=== PATIENT | female | born 1960 | race Caucasian/White ===

== ENCOUNTER 2023-01-13 07:50 | Emergency (ER) | payer BC, SELFPAY ==
[2023-01-13] VITALS (20 sets, daily range): BP systolic 140–190; BP diastolic 70–100; PULSE 63–81; RESP 14–21; TEMP 36.4; O2SAT 95–100; BMI 23.4
--- NOTE | 2023-01-13 08:07 | ECG_ITS ---
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
--- NOTE | 2023-01-13 08:07 | XR_ITS ---
The [address] [address] Patient Name: SCOTT FRANCIS MRN: [id number] date: 1960 Sex: F Assigned Patient Location: ER Current Patient Location: ER Accession/Order Number: [id number] Exam Date: 01/13/2023 08:16 Report Date: 01/13/2023 08:26 At the request of: FRANCESCO KOTHARI Procedure: XR chest 1V EXAM: XR chest 1V HISTORY: Chest pain. COMPARISON: None. TECHNIQUE: AP erect portable chest radiograph performed. FINDINGS: The trachea is midline. The heart size is normal. The cardiomediastinal silhouette and hilar shadows are within normal limits. The lung volumes are normal. The lung kuhn are clear. There is no pneumothorax. The osseous structures are unremarkable. XR/XR chest 1V IMPRESSION: Unremarkable AP erect portable chest radiograph. Electronically authenticated by: NILESH PIERCE Date: 01/13/2023 08:26
--- NOTE | 2023-01-13 08:09 | ED_ITS ---
HPI - Chest Pain General Chief Complaint: Chest Pain Stated Complaint: CHEST PAIN Time Seen by Provider: 01/13/23 07:50 Source: patient Mode of arrival: walk-in Limitations: no limitations History of Present Illness HPI narrative: 63-year-old female presents for chest pain. She's had it nearly continuously for twenty-five hours. It's in the middle part of her chest and it's sharp and it goes to both arms. No trauma or unusual activity. And sweating a lot. No fever or productive cough. She does not complain of back pain. The pain is moderate. Related Data Home Medications Medication Instructions Recorded Confirmed bisoprolol 10 1 tab PO DAILY 01/13/23 01/13/23 mg-hydrochlorothiazide 6.25 mg tablet cyclobenzaprine 10 mg tablet 10 mg PO BEDTIME PRN muscle spasm 01/13/23 01/13/23 levothyroxine 50 mcg tablet 50 mcg PO DAILY 01/13/23 01/13/23 meloxicam 15 mg tablet 15 mg PO DAILY 01/13/23 01/13/23 Allergies Allergy/AdvReac Type Severity Reaction Status Date / Time No Known Drug Allergies Allergy Verified 01/13/23 07:53 Review of Systems ROS Narrative A ten point review of systems is negative except as noted above. [facility] Medical History (Updated 01/13/23 @ 08:40 by Manish Kohli MD) Social History Smoking status: Heavy tobacco smoker Exam Narrative Exam Narrative: Nurses note and vital signs reviewed and patient is not hypoxic. General: The patient appears well and in no apparent distress. Patient is resting comfortably on cart. Skin: Warm, dry, no pallor noted. There is no rash noted. Head: Normocephalic, atraumatic Eye: Normal conjunctiva, no drainage Ears, Nose, Mouth, and Throat: oral mucosa is moist. Nares patent. Cardiovascular: Regular Rate and Rhythm Respiratory: Patient is in no distress, no accessory muscle use, lungs are clear to auscultation, no wheezing, rales or rhonchi Back: non-tender GI: soft and nontender Musculoskeletal: The patient has no evidence of calf tenderness, no pitting edema, symmetrical pulses noted bilaterally Neurological: A&O, normal speech Psychiatric: Cooperative Constitutional Vital Signs, click to edit/add: Last Vital Signs Temp 97.5 F L 01/13/23 07:54 Pulse 64 01/13/23 08:59 Resp 16 01/13/23 08:59 BP 160/78 H 01/13/23 08:59 Pulse Ox 96 01/13/23 08:59 O2 Del Method Room Air 01/13/23 08:59 Course Vital Signs Vital signs: Vital Signs Temperature 97.5 F L 01/13/23 07:54 Pulse Rate 81 01/13/23 07:54 Respiratory Rate 16 01/13/23 07:54 Blood Pressure 190/100 H 01/13/23 07:54 Pulse Oximetry 100 01/13/23 07:54 Oxygen Delivery Method Room Air 01/13/23 07:54 Temperature 97.5 F L 01/13/23 07:54 Pulse Rate 64 01/13/23 08:59 Respiratory Rate 16 01/13/23 08:59 Blood Pressure 160/78 H 01/13/23 08:59 Pulse Oximetry 96 01/13/23 08:59 Oxygen Delivery Method Room Air 01/13/23 08:59 MDM - Chest Pain MDM Narrative Medical decision making narrative: Troponin has come back elevated at 5762. EKG shows no ST segment elevation or depression. I've discussed the case with Dr. Ruelas and Dr Coyle and the patient will be transferred to [facility] for probable heart catheterization today. This was discussed thoroughly with the patient. She is hemodynamically stable and agreeable for transfer. Differential Diagnosis Differential diagnosis: Likely pneumothorax, stable angina, unstable angina pectoris, atypical chest pain, st elevation myocardial infarction, costochondritis, chest pain and other (NSTEMI) Lab Data Attestation: I reviewed the patient's lab results. Labs: Lab Results 01/13/23 Range/Units 08:04 WBC 11.7 H (4.0-11.0) 10^3/uL RBC 4.78 (4.20-5.40) 10^6/uL Hgb 16.7 H (12.0-16.0) g/dL Hct 46.8 (36.0-48.0) % MCV 97.9 (81.0-99.0) fL MCH 34.9 H (26.7-34.0) pg MCHC 35.7 H (29.9-35.2) g/dL RDW 12.0 (11.0-15.0) % Plt Count 268 (150-450) 10^3/uL MPV 8.5 L (9.5-13.5) fL Neut % (Auto) 68.1 (43.0-75.0) % Lymph % (Auto) 23.8 (20.5-60.0) % [place] % (Auto) 6.8 (1.7-12.0) % Eos % (Auto) 0.4 L (0.9-7.0) % Baso % (Auto) 0.6 (0.2-2.0) % Neut # (Auto) 8.0 H (1.4-6.5) 10^3/uL Lymph # (Auto) 2.8 (1.2-3.8) 10^3/uL [place] # (Auto) 0.8 (0.3-0.8) 10^3/uL Eos # (Auto) 0.1 (0.0-0.7) 10^3/uL Baso # (Auto) 0.1 (0.0-0.1) 10^3/uL Abs Immat Gran (auto) 0.03 (0.00-0.03) 10^3/uL Imm/Tot Granulo (auto) 0.3 (0.0-0.5) % PT 9.7 (9.0-11.6) sec INR <0.93 APTT 31.8 (22.3-36.2) sec Sodium 127 L (136-145) mmol/L Potassium 3.4 L (3.5-5.1) mmol/L Chloride 91 L (98-107) mmol/L Carbon Dioxide 27.3 (21.0-32.0) mmol/L Anion Gap 12.1 BUN 6.0 L (7.0-18.0) mg/dL Creatinine 0.65 (0.55-1.02) mg/dL Est GFR ( Amer) >60 (>=60) Est GFR (Non-Af Amer) >60 (>=60) BUN/Creatinine Ratio 9.2 Glucose 149 H (74-106) mg/dL Calcium 9.1 (8.5-10.1) mg/dL Troponin I High Sens 5762.8 H* (4.0-51.3) pg/mL Imaging Data Chest x-ray: Radiologist's impression: Procedure: XR chest 1V EXAM: XR chest 1V HISTORY: Chest pain. COMPARISON: None. TECHNIQUE: AP erect portable chest radiograph performed. FINDINGS: The trachea is midline. The heart size is normal. The cardiomediastinal silhouette and hilar shadows are within normal limits. The lung volumes are normal. The lung kuhn are clear. There is no pneumothorax. The osseous structures are unremarkable. IMPRESSION: Unremarkable AP erect portable chest radiograph. Electronically authenticated by: NILESH PIERCE Date: 01/13/2023 08:26 ECG Data Attestation: I personally reviewed and interpreted this ECG as follows: (EKG on my interpretation shows sinus rhythm without acute change and a rate of 64.) Heart Score History: Moderatly Suspicious ECG: Normal Age: >45-<65 years Risk Factors: >3 Risk Factors/ HX of CAD:2 Troponin: >3X Normal Limit Total Heart Score Recommendations & Risks:: 6 Critical Care Time Critical Care Time Critical Care Time: Yes Total Critical Care Time: 45 Attestation: Due to the high probability of sudden and clinically significant deterioration in the patient's condition he/she required the highest level of my preparedness to intervene urgently I provided critical care time including documentation time, medication orders and management, reevaluation, vital sign assessment, ordering and reviewing of lab tests, ordering and reviewing of x-ray studies, and admission orders. Aggregate critical care time is 45 minutes including only time during which I was engaged in work directly related to his/her care and did not include time spent treating other patients simultaneously. Discharge Plan Discharge Chief Complaint: Chest Pain Clinical Impression: Acute non-ST elevation myocardial infarction (NSTEMI) Patient Disposition: [facility] Time of Disposition Decision: 08:40 Discharge Location: [facility] Condition: Fair Mode of Transportation: EMS
[2023-01-13 08:13] LABS: Basophils Absolute Auto 0.1 10^3/uL (0.0-0.1); Basophils Percent Auto 0.6 % (0.2-2.0); Eosinophils Absolute Auto 0.1 10^3/uL (0.0-0.7); Eosinophils Percent Auto 0.4 % (0.9-7.0); Hematocrit 46.8 % (36.0-48.0); Hemoglobin 16.7 g/dL (12.0-16.0); Immature Granulocytes Abs Auto 0.03 10^3/uL (0.00-0.03); Immature Granulocytes Pct Auto 0.3 % (0.0-0.5); Lymphocytes Absolute Auto 2.8 10^3/uL (1.2-3.8); Lymphocytes Percent Auto 23.8 % (20.5-60.0); Mean Corpuscular HGB Conc 35.7 g/dL (29.9-35.2); Mean Corpuscular Hemoglobin 34.9 pg (26.7-34.0); Mean Corpuscular Volume 97.9 fL (81.0-99.0); Mean Platelet Volume 8.5 fL (9.5-13.5); Monocytes Absolute Auto 0.8 10^3/uL (0.3-0.8); Monocytes Percent Auto 6.8 % (1.7-12.0); Neutrophils Percent Auto 68.1 % (43.0-75.0); Platelet Count 268 10^3/uL (150-450); Red Blood Count 4.78 10^6/uL (4.20-5.40); White Blood Count 11.7 10^3/uL (4.0-11.0)
[2023-01-13] MEDS: ASPIRIN 81 MG TAB.CHEW 324 MG PO (08:17)
[2023-01-13] MEDS: NITROGLYCERIN 0.4 MG BOTTLE PO (08:18)
[2023-01-13 08:30] LABS: Anion Gap 12.1; BUN Creatinine Ratio 9.2; Calcium 9.1 mg/dL (8.5-10.1); Carbon Dioxide 27.3 mmol/L (21.0-32.0); Chloride 91 mmol/L (98-107); Estimated GFR (African America >60 (>=60); Estimated GFR (Non-African Ame >60 (>=60); Glucose 149 mg/dL (74-106); Potassium 3.4 mmol/L (3.5-5.1); Sodium 127 mmol/L (136-145)
[2023-01-13 08:32] LABS: Troponin I High Sensitivity 5762.8 pg/mL (4.0-51.3)
[2023-01-13] MEDS: HEPARIN SODIUM (PORCINE) 5,000 UNIT/ML VIAL 3950 UNIT IV (08:46)
[2023-01-13] MEDS: HEPARIN SODIUM,PORCINE/D5W 25,000 UNIT/500 ML IV.SOLN 15.785 UNIT IV (08:46)
[2023-01-13 08:47] LABS: Partial Thromboplastin Time 31.8 sec (22.3-36.2); Prothrombin Time 9.7 sec (9.0-11.6)
[2023-01-13 09:11] LABS: INR <0.93
[2023-01-13] MEDS: MORPHINE SULFATE 4 MG/ML VIAL IV (09:23)
== END 2023-01-13 11:06 | disposition short-term general hospital (02) ==
PROVIDERS: Emergency Provider Emergency Medicine; PCP Family Medicine
DX: I21.4 Non-ST elevation (NSTEMI) myocardial infarction (principal); F17.210 Nicotine dependence, cigarettes, uncomplicated; Z79.899 Other long term (current) drug therapy; Z79.890 Hormone replacement therapy
CPT/HCPCS: 36415; 71045; 80048; 84484; 85025; 85610; 85730; 93005; 96374; 96375; 99285

== ENCOUNTER 2023-01-16 14:50 | Emergency (ER) | payer BC, SELFPAY ==
[2023-01-16 14:56] VITALS: BP 145/81; PULSE 68; RESP 16; TEMP 36.7; O2SAT 99; BMI 24.2
--- NOTE | 2023-01-16 15:21 | XR_ITS ---
The [address] [address] Patient Name: SCOTT FRANCIS MRN: [id number] date: 1960 Sex: F Assigned Patient Location: ER Current Patient Location: ER Accession/Order Number: [id number] Exam Date: 01/16/2023 15:32 Report Date: 01/16/2023 16:06 At the request of: CINTHYA STREETER Procedure: XR chest 1V EXAM: XR chest 1V HISTORY: shortness of breath COMPARISON: Chest radiographs from 01/13/2023 TECHNIQUE: AP radiograph of the chest. FINDINGS: The cardiomediastinal silhouette and pulmonary vasculature are normal. The lungs are without focal consolidation, pneumothorax, or pleural effusion. No acute osseous abnormality. XR/XR chest 1V IMPRESSION: 1. No acute pulmonary abnormality. Electronically authenticated by: JAMIE PEREZ Date: 01/16/2023 16:06
--- NOTE | 2023-01-16 15:21 | ECG_ITS ---
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
--- NOTE | 2023-01-16 15:23 | ED_ITS ---
HPI - General Adult General Chief complaint: Skin/Abscess/Foreign Body Stated complaint: POSS ALLERGIC REACTION Time Seen by Provider: 01/16/23 15:00 History of Present Illness HPI narrative: patient underwent cardiac catheterization this week in [place] and had two stents placed. Now she presents with concerns about the same shortness of breath she had while at the hospital - it has not worsened - and a red rash under her chin and at the back of her neck - that began while she was at the hospital in [place] after the heart cath - but she did not tell them about it. No associated chest pressure, tightness or pain. She is along term daily smoker but has never been tested for COPD. No history of asthma. No fever or chills. No cough or cold symptoms. No GI or symptoms Related Data Home Medications Medication Instructions Recorded Confirmed bisoprolol 10 1 tab PO DAILY 01/13/23 01/13/23 mg-hydrochlorothiazide 6.25 mg tablet cyclobenzaprine 10 mg tablet 10 mg PO BEDTIME PRN muscle spasm 01/13/23 01/13/23 levothyroxine 50 mcg tablet 50 mcg PO DAILY 01/13/23 01/13/23 meloxicam 15 mg tablet 15 mg PO DAILY 01/13/23 01/13/23 Previous Rx's Medication Instructions Recorded albuterol sulfate 90 mcg/actuation 2 inh inhalation Q6H PRN shortness 01/16/23 aerosol inhaler (ProAir HFA) of breath or wheezing #6.7 grams Allergies Allergy/AdvReac Type Severity Reaction Status Date / Time No Known Drug Allergies Allergy Verified 01/13/23 07:53 PFSH PFSH Medical History (Updated 01/16/23 @ 16:22 by Cinthya Streeter) History of high cholesterol ?Z86.39 - Personal history of other endocrine, nutritional and metabolic disease (ICD-10) History of hypothyroidism ?Z86.39 - Personal history of other endocrine, nutritional and metabolic disease (ICD-10) History of TMJ syndrome ?Z87.39 - Personal history of other diseases of the musculoskeletal system and connective tissue (ICD-10) Hypertension ?I10 - Essential (primary) hypertension (ICD-10) Surgical History (Updated 01/16/23 @ 15:05 by Ramon Woodruff) History of heart artery stent ?Z95.5 - Presence of coronary angioplasty implant and graft (ICD-10) Hx of cardiac catheterization ?Z98.890 - Other specified postprocedural states (ICD-10) Social History Smoking status: Heavy tobacco smoker Exam Narrative Exam Narrative: Nurses notes and vital signs reviewed and patient is not hypoxic. afebrile General: Well-appearing and in no apparent distress. Skin: Warm, dry, no pallor noted. Erythematous rash noted to the underside of the chin and to the back of the neck. no vesicle or blisters, no weeping or skin break. Head: Normocephalic, atraumatic. Neck: Supple, non-tender. No cervical lymphadenopathy Eye: Pupils are equal, round and EOMI. No scleral icterus. Ears, Nose, Mouth, and Throat: Oral mucosa is moist, no posterior oropharynx erythema or swelling, uvula is mid-line Cardiovascular: Regular Rate and Rhythm without murmur, gallop or rub. Respiratory: No accessory muscle use or respiratory distress. Lungs are clear to auscultation, no wheezing, rales or rhonchi Musculoskeletal: normal ROM, no calf or popliteal tenderness, no lower extremity edema/swelling GI: Abdomen is soft, non-distended. Normal bowel sounds. No tenderness to palpation. No rebound, guarding, or rigidity noted. Neurological: A&O x4. No cranial nerve dysfunction observed. No truncal ataxia. Moves all extremities. Sensation intact. Psychiatric: Cooperative and interactive. Normal mood and affect. Constitutional Vital Signs, click to edit/add: Last Vital Signs Temp 98.1 F 01/16/23 14:56 Pulse 68 01/16/23 14:56 Resp 16 01/16/23 14:56 BP 145/81 H 01/16/23 14:56 Pulse Ox 99 01/16/23 14:56 O2 Del Method Room Air 01/16/23 14:56 Course Vital Signs Vital signs: Vital Signs Temperature 98.1 F 01/16/23 14:56 Pulse Rate 68 01/16/23 14:56 Respiratory Rate 16 01/16/23 14:56 Blood Pressure 145/81 H 01/16/23 14:56 Pulse Oximetry 99 01/16/23 14:56 Oxygen Delivery Method Room Air 01/16/23 14:56 Temperature 98.1 F 01/16/23 14:56 Pulse Rate 68 01/16/23 14:56 Respiratory Rate 16 01/16/23 14:56 Blood Pressure 145/81 H 01/16/23 14:56 Pulse Oximetry 99 01/16/23 14:56 Oxygen Delivery Method Room Air 01/16/23 14:56 Medical Decision Making MDM Narrative Medical decision making narrative: 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 Blood drawn and sent for evaluation. CXR obtained and was unremarkable. troponin trending downward from 5762.8 on 01/13 to 5489.7 today. Normal WBC. Normal BMP. Patient informed of results and given reassurance. Discharged home with prescription for albuterol MDI and instructed to stop smoking. She got a prescription for nicotine patch. Medical Records Medical records reviewed: Yes I reviewed the patient's medical records Medical records narrative: The patient's previous troponin was 5762.8 Lab Data Lab results reviewed: Yes I reviewed the patient's lab results Labs: Lab Results 01/16/23 Range/Units 15:35 WBC 10.9 (4.0-11.0) 10^3/uL RBC 3.43 L (4.20-5.40) 10^6/uL Hgb 12.1 (12.0-16.0) g/dL Hct 35.5 L (36.0-48.0) % MCV 103.5 H (81.0-99.0) fL MCH 35.3 H (26.7-34.0) pg MCHC 34.1 (29.9-35.2) g/dL RDW 12.3 (11.0-15.0) % Plt Count 219 (150-450) 10^3/uL MPV 8.8 L (9.5-13.5) fL Neut % (Auto) 71.6 (43.0-75.0) % Lymph % (Auto) 14.7 L (20.5-60.0) % [place] % (Auto) 8.6 (1.7-12.0) % Eos % (Auto) 4.0 (0.9-7.0) % Baso % (Auto) 0.7 (0.2-2.0) % Neut # (Auto) 7.8 H (1.4-6.5) 10^3/uL Lymph # (Auto) 1.6 (1.2-3.8) 10^3/uL [place] # (Auto) 0.9 H (0.3-0.8) 10^3/uL Eos # (Auto) 0.4 (0.0-0.7) 10^3/uL Baso # (Auto) 0.1 (0.0-0.1) 10^3/uL Abs Immat Gran (auto) 0.04 H (0.00-0.03) 10^3/uL Imm/Tot Granulo (auto) 0.4 (0.0-0.5) % Sodium 134 L (136-145) mmol/L Potassium 3.7 (3.5-5.1) mmol/L Chloride 98 (98-107) mmol/L Carbon Dioxide 26.9 (21.0-32.0) mmol/L Anion Gap 12.8 BUN 11.0 (7.0-18.0) mg/dL Creatinine 0.61 (0.55-1.02) mg/dL Est GFR ( Amer) >60 (>=60) Est GFR (Non-Af Amer) >60 (>=60) BUN/Creatinine Ratio 18.0 Glucose 110 H (74-106) mg/dL Calcium 8.7 (8.5-10.1) mg/dL Troponin I High Sens 5489.7 H* (4.0-51.3) pg/mL Imaging Data Chest x-ray: My impression: NAD Radiologist's impression: Patient Name: SCOTT FRANCIS MRN: [id number] date: 1960 Sex: F Assigned Patient Location: ER Current Patient Location: ER Accession/Order Number: [id number] Exam Date: 01/16/2023 15:32 Report Date: 01/16/2023 16:06 At the request of: CINTHYA STREETER Procedure: XR chest 1V EXAM: XR chest 1V HISTORY: shortness of breath COMPARISON: Chest radiographs from 01/13/2023 TECHNIQUE: AP radiograph of the chest. FINDINGS: The cardiomediastinal silhouette and pulmonary vasculature are normal. The lungs are without focal consolidation, pneumothorax, or pleural effusion. No acute osseous abnormality. IMPRESSION: 1. No acute pulmonary abnormality. Electronically authenticated by: JAMIE PEREZ Date: 01/16/2023 16:06 ECG Data Interpretation: EKG interpretation: Emergency Department physician interpretation. Normal sinus rhythm at 66bpm. Normal axis, normal intervals and non-specific ST changes without ST segment elevation or depression. Discharge Plan Discharge Chief Complaint: Skin/Abscess/Foreign Body Clinical Impression: Acute dyspnea, CAD (coronary artery disease) Patient Disposition: Home, Self-Care Time of Disposition Decision: 16:21 Prescriptions / Home Meds: New albuterol sulfate [ProAir HFA] 90 mcg/actuation HFA aerosol inhaler 2 inh inhalation Q6H PRN (Reason: shortness of breath or wheezing) Qty: 6.7 0RF No Action bisoprolol-hydrochlorothiazide 10-6.25 mg tablet 1 tab PO DAILY levothyroxine 50 mcg tablet 50 mcg PO DAILY meloxicam 15 mg tablet 15 mg PO DAILY cyclobenzaprine 10 mg tablet 10 mg PO BEDTIME PRN (Reason: muscle spasm) Instructions: Coronary Artery Disease (DC), Dyspnea (ED) Stand Alone Forms: Portal Instructions Referrals: BRANNON BROOKS [Primary Care Provider] - 1 week
[2023-01-16 15:32] VITALS: PULSE 66
[2023-01-16 15:46] LABS: Basophils Absolute Auto 0.1 10^3/uL (0.0-0.1); Basophils Percent Auto 0.7 % (0.2-2.0); Eosinophils Absolute Auto 0.4 10^3/uL (0.0-0.7); Hematocrit 35.5 % (36.0-48.0); Hemoglobin 12.1 g/dL (12.0-16.0); Immature Granulocytes Abs Auto 0.04 10^3/uL (0.00-0.03); Immature Granulocytes Pct Auto 0.4 % (0.0-0.5); Lymphocytes Absolute Auto 1.6 10^3/uL (1.2-3.8); Lymphocytes Percent Auto 14.7 % (20.5-60.0); Mean Corpuscular HGB Conc 34.1 g/dL (29.9-35.2); Mean Corpuscular Hemoglobin 35.3 pg (26.7-34.0); Mean Corpuscular Volume 103.5 fL (81.0-99.0); Mean Platelet Volume 8.8 fL (9.5-13.5); Monocytes Absolute Auto 0.9 10^3/uL (0.3-0.8); Monocytes Percent Auto 8.6 % (1.7-12.0); Neutrophils Absolute Auto 7.8 10^3/uL (1.4-6.5); Neutrophils Percent Auto 71.6 % (43.0-75.0); Platelet Count 219 10^3/uL (150-450); Red Blood Count 3.43 10^6/uL (4.20-5.40); Red Cell Distribution Width 12.3 % (11.0-15.0); White Blood Count 10.9 10^3/uL (4.0-11.0)
[2023-01-16 16:04] LABS: Anion Gap 12.8; Calcium 8.7 mg/dL (8.5-10.1); Carbon Dioxide 26.9 mmol/L (21.0-32.0); Chloride 98 mmol/L (98-107); Estimated GFR (African America >60 (>=60); Estimated GFR (Non-African Ame >60 (>=60); Glucose 110 mg/dL (74-106); Potassium 3.7 mmol/L (3.5-5.1); Sodium 134 mmol/L (136-145)
[2023-01-16 16:27] VITALS: BP 133/74; PULSE 73; RESP 19; O2SAT 100
== END 2023-01-16 16:29 | disposition home or self-care (01) ==
PROVIDERS: Emergency Provider Emergency Medicine; PCP Family Medicine
DX: R06.00 Dyspnea, unspecified (principal); R21 Rash and other nonspecific skin eruption; F17.200 Nicotine dependence, unspecified, uncomplicated; Z79.899 Other long term (current) drug therapy; Z98.890 Other specified postprocedural states; I10 Essential (primary) hypertension; Z95.5 Presence of coronary angioplasty implant and graft; I25.10 Atherosclerotic heart disease of native coronary artery without angina pectoris
CPT/HCPCS: 36415; 71045; 80048; 84484; 85025; 93005; 99285

== ENCOUNTER 2023-02-09 06:31 | Outpatient (OUT) | payer BC, SELFPAY ==
[2023-02-09 07:07] LABS: Cholesterol 131 mg/dL (<=200); HDL Cholesterol 33 mg/dL (40-60); Triglycerides 256 mg/dL (<=150); VLDL CHOLESTEROL 51.2 mg/dL
[2023-02-09 07:09] LABS: Alanine Aminotransferase 19 U/L (14-59); Albumin Globulin Ratio 0.8; Albumin Level 3.4 g/dL (3.4-5.0); Alkaline Phosphatase 105 U/L (46-116); Anion Gap 10.8; Aspartate Amino Transferase 16 U/L (15-37); BUN Creatinine Ratio 14.1; Bilirubin Total 0.4 mg/dL (0.2-1.0); Calcium 8.9 mg/dL (8.5-10.1); Carbon Dioxide 29.3 mmol/L (21.0-32.0); Chloride 104 mmol/L (98-107); Estimated GFR (African America >60 (>=60); Estimated GFR (Non-African Ame >60 (>=60); Globulin 4.1 g/dL; Glucose 121 mg/dL (74-106); Potassium 4.1 mmol/L (3.5-5.1); Sodium 140 mmol/L (136-145); Total Protein 7.5 g/dL (6.4-8.2)
== END 2023-02-09 06:32 | disposition home or self-care (01) ==
LOC: LAB 06:31
PROVIDERS: PCP Family Medicine; Visit Provider Internal Medicine Interventional Cardiology
DX: I25.10 Atherosclerotic heart disease of native coronary artery without angina pectoris (principal); I25.83 Coronary atherosclerosis due to lipid rich plaque
CPT/HCPCS: 36415; 80053; 80061

== ENCOUNTER 2023-02-18 08:52 | Outpatient (OUT) | payer BC, SELFPAY ==
[2023-02-18 08:58] LABS: Hemoglobin 12.8 g/dL (12.0-16.0)
--- NOTE | 2023-02-18 09:00 | RT_ITS ---
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 Findings were considered accurate and reproducible. Both pre- and post-bronchodilator values utilized for spirometry. Due to software limitations, no prior studies (if performed previously) are currently available for comparison. Spirometry (based on pre-bronchodilator values): -FEV1: Low normal @ 70% -FEV1: Mildly reduced @ 82% -FVC: Normal @ 91% -There is no significant bronchodilator response. Lung volumes by plethysmography (based on pre-bronchodilator values): -RV: Normal @ 98% -TLC: Normal @ 109% Diffusion capacity: -DLCO: Moderate reduction @ 57% when corrected for Hb 12.8g/dL Flow-volume loop: -Mild obstructive pattern Impressions: -Spirometry trends towards a mild obstruction pattern. Lung volumes are normal. There is a moderately reduced diffusion capacity. Overall study is compatible with COPD/emphysema. Clinical correlation required. Electronically Signed On 02-22-2023 17:02:22 EST by Jr Montenegro
[2023-02-18] MEDS: ALBUTEROL SULFATE 2.5 MG/3 ML VIAL NEB IH (09:57)
== END 2023-02-18 08:53 | disposition home or self-care (01) ==
LOC: CARD 08:52
PROVIDERS: PCP Family Medicine; Visit Provider Nurse Practitioner
DX: J44.1 Chronic obstructive pulmonary disease with (acute) exacerbation (principal); F17.210 Nicotine dependence, cigarettes, uncomplicated
CPT/HCPCS: 36415; 85018; 94060; 94726; 94729

== ENCOUNTER 2023-02-23 09:26 | Outpatient (OUT) | payer BC, SELFPAY ==
--- NOTE | 2023-02-23 | CT_ITS ---
The [address] [address] Patient Name: SCOTT FRANCIS MRN: [id number] date: 1960 Sex: F Assigned Patient Location: CT Current Patient Location: Accession/Order Number: [id number] Exam Date: 02/23/2023 09:35 Report Date: 02/24/2023 06:56 At the request of: BRANNON BROOKS Procedure: CT chest wo con EXAMINATION: CT chest wo con HISTORY: Smoker, nicotine dependence , shortness of breath COMPARISON: No relevant comparison available. TECHNIQUE: Multi-planar CT images were obtained without and/or with IV contrast as indicated by examination type. Axial, Coronal, and Sagittal images. Dose reduction techniques were achieved by using automated exposure control and/or adjustment of mA and/or kV according to patient size and/or use of iterative reconstruction technique. FINDINGS: LUNGS: Scattered mild emphysematous changes. No infiltrates or suspicious nodules. PLEURA: No mass, effusion, or pneumothorax. VASCULATURE: No abnormality. SHRUTHI: No mass or adenopathy. MEDIASTINUM: No mass or adenopathy. CARDIAC: Coronary artery stents. No cardiac enlargement or pericardial effusion. AORTA: No aneurysm or dissection. CHEST WALL: No mass or axillary adenopathy. BONES: No bone lesion or fracture. LIMITED ABDOMEN: No suspicious findings Limited images of the upper abdomen. OTHER: Negative. CT/CT chest wo con IMPRESSION: 1. Mild emphysematous changes. 2. No acute or suspicious findings to account for patient's symptoms. Electronically authenticated by: NEIDA STEPHENS Date: 02/24/2023 06:56
== END 2023-02-23 09:27 | disposition home or self-care (01) ==
LOC: CT 09:26
PROVIDERS: PCP Family Medicine; Visit Provider Family Medicine
DX: F17.200 Nicotine dependence, unspecified, uncomplicated (principal); J43.9 Emphysema, unspecified
CPT/HCPCS: 71250

== ENCOUNTER 2023-04-16 07:04 | Outpatient (RCR) | payer BC, SELFPAY ==
--- NOTE | 2023-02-22 15:59 | CR1_ITS ---
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
--- NOTE | 2023-03-24 15:32 | CR1_ITS ---
The 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
== END 2023-04-16 17:05 | disposition home or self-care (01) ==
LOC: CR 07:04
PROVIDERS: PCP Family Medicine; Visit Provider Internal Medicine Interventional Cardiology
DX: Z95.5 Presence of coronary angioplasty implant and graft (principal)
CPT/HCPCS: 93798

== ENCOUNTER 2023-05-03 11:30 | Outpatient (OUT) | payer BC, SELFPAY ==
--- OUTSIDE RECORDS SUMMARY | 2023-05-03 11:40 | XMS_ITS | CCD ---
Author Name Unknown Address [address] [place] [address] Organization [facility] Care Team Providers Care Sweat Box Attendant Name Role Phone SELVIN, DR JAZMIN Fitzgerald Admitting Unavailable SELVIN, DR JAZMIN Fitzgerald Attending Unavailable SELVIN, DR JAZMIN Fitzgerald Primary Care Unavailable SELVIN, DR JAZMIN Fitzgerald Consulting Unavailable SELVIN, DR JAZMIN Fitzgerald Admitting Unavailable SELVIN, DR JAZMIN Fitzgerald Attending Unavailable SELVIN, DR JAZMIN Fitzgerald Primary Care Unavailable SELVIN, DR JAZMIN Fitzgerald Consulting Unavailable JAZMIN MILES Primary Care Physician [phone] YAJAIRA RODRIGUEZ Attending Unavailable FRANCESCO KOTHARI Referring Unavailable RENETTA, MINESH Admitting Unavailable RENETTA, MINESH Referring Unavailable MAHMOUD, WALID Referring Unavailable ELTAHAWY, EHAB Referring Unavailable ELTAHAWY, EHAB Attending Unavailable Jeramie, PROFESSOR OF PUBLIC ADMINISTRATION Nilda White Attending Unavailable MD Dada Callahan Attending Unavailable MD Dada Callahan Attending Unavailable MD Dada Callahan Attending Unavailable MD Dada Callahan Attending Unavailable MD Dada Callahan Attending Unavailable MD Dada Callahan Attending Unavailable MD Dada Callahan Attending Unavailable MD Dada Callahan Attending Unavailable MD Dada Callahan Admitting Unavailable MD Dada Callahan Admitting Unavailable MD Dada Callahan Attending Unavailable Allergies Allergy Classification Reported Allergen(s) Allergy Type Date of Onset Reaction(s) Facility (1 source) egg extract Drug Allergy 4 [facility] (1 source) TheraNatal Drug allergy (disorder) 4 [facility] (2 sources) Cefuroxime; Translations: [cefuroxime] Drug Allergy Unknown (qualifier value) [facility] (1 source) THERAGRAN; Translations: [THERAGRAN] Propensity to adverse reactions to drug (disorder) 3 [facility] Medications Current Medications Medication Drug Class(es) Dates Sig (Normalized) Sig (Original) bisoprolol fumarate 10 mg / hydroCHLOROthiazide 6.25 mg oral tablet (1 source) Thiazide Diuretic, beta-Adrenergic Alexander Start: 3 take 1 tablet by mouth once daily bisoprolol-hydrochl orothiazide 10 mg-6.25 mg Tab 1 tab(s), Oral, Daily, Refill(s) 0 Start Date: 07/28/22 Status: Ordered citalopram 40 mg oral tablet (1 source) Serotonin Reuptake Inhibitor Start: 3 take 1 tablet by mouth once daily citalopram 40 mg Tab 40 mg = 1 tab(s), Oral, Daily, Refills(s) 0 Start Date: 07/28/22 Status: Ordered cyclobenzaprine hydrochloride 10 mg oral tablet (1 source) Muscle Relaxant Start: 3 take 1 tablet by mouth once daily in the evening as needed for muscle spasms cyclobenzaprine 10 mg Tab 10 mg = 1 tab(s), Oral, qPM, PRN for spasm, # 30 tab(s), Refills(s) 1, Pharmacy: [facility]/pharmacy #[id number], 168, cm, 07/28/22 10:47:00 EDT, Height/Length Dosing, 67.1, kg, 07/28/22 10:47:00 EDT, Weight Dosing Start Date: 09/07/22 Status: Ordered fluticasone propionate 0.05 mg/actuat metered dose nasal spray (1 source) Corticosteroid Start: 3 Flonase 0.05 mg/inh [facility] 2 spray(s), Nasal, Daily, 16 gram, Refill(s) 0, each nostril, [facility]/pharmacy #[id number], 168, cm, 07/28/22 10:47:00 EDT, Height/Length Dosing, 67.1, kg, 07/28/22 10:47:00 EDT, Weight Dosing Start Date: 07/28/22 Status: Ordered levothyroxine sodium 0.05 mg oral tablet (1 source) l-Thyroxine Start: 3 End: 3 take 1 tablet by mouth once daily levothyroxine 50 mcg (0.05 mg) Tab 50 mcg = 1 tab(s), Oral, Daily, X 30 day(s), # 30 tab(s), Refills(s) 3, [id number], 168, cm, 07/28/22 10:47:00 EDT, Height/Length Dosing, 67.1, kg, 07/28/22 10:47:00 EDT, Weight Dosing Start Date: 09/07/22 Stop Date: 01/05/23 Status: Ordered meloxicam 15 mg oral tablet (1 source) Nonsteroidal Anti-inflammatory Drug Start: 3 take 1 tablet by mouth once daily meloxicam 15 mg Tab 15 mg = 1 tab(s), Oral, Daily, # 90 tab(s), Refills(s) 1, [id number], 166.6, cm, 09/21/22 9:53:00 EDT, Height/Length Dosing, 65.4, kg, 09/21/22 9:53:00 EDT, Weight Dosing Start Date: 09/21/22 Status: Ordered Problems Active Problems Problem Classification Problem Date Documented Date Episodic/Chronic Acute myocardial infarction (2 sources) Non-ST elevation (NSTEMI) myocardial infarction; Translations: [Non-ST elevation (NSTEMI) myocardial infarction] Onset: 01-13-2023 Chronic Conditions associated with dizziness or vertigo (1 source) Dizziness 09-21-2022 Episodic Coronary atherosclerosis and other heart disease (2 sources) Atherosclerotic heart disease of [place] coronary artery without angina pectoris; Translations: [Atherosclerotic heart disease of [place] coronary artery without angina pectoris] Onset: 02-04-2023 Chronic Diverticulosis and diverticulitis (1 source) Diverticulitis 07-28-2022 Chronic Essential hypertension (1 source) Hypertensive disorder 07-28-2022 Chronic Headache; including migraine (1 source) Migraine 07-28-2022 Chronic Malaise and fatigue (1 source) Other fatigue; Translations: [OTHER FATIGUE] Onset: 10-14-2021 Episodic Other connective tissue disease (1 source) Fibromyalgia 07-28-2022 Episodic Other nervous system disorders (1 source) 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 Other upper respiratory disease (1 source) Seasonal allergy 09-21-2022 Chronic Thyroid disorders (5 sources) Hypothyroidism, unspecified; Translations: [Hypothyroidism] Onset: 10-09-2021 Chronic Unclassified (3 sources) CONTACT W/AND (SUSP) EXPOS COVID-19; Translations: [CONTACT W/AND (SUSP) EXPOS COVID-19] Onset: 03-10-2021 Past or Other Problems Problem Classification Problem Date Documented Da te Episodic/Chronic Unclassified (1 source) CONTACT W/AND (SUSP) EXPOS COVID-19; Translations: [CONTACT W/AND (SUSP) EXPOS COVID-19] Onset: 03-05-2021 Results Test Name Value Interpretation Reference Range Facil ity Consultation Noteon 03-25-20 Consultation Note [id number] #1.00TIFF [facility] Pulmonary Function Testson 1 05-04-2022 Pulmonary Function Tests [id number] #1.00TIFF [facility] RAD - CT Reporton 03-01-2023 RAD - CT Report [id number] #1.00TIFF [facility] Physician Orderon 02-12-2023 Physician Order [id number] #1.00TIFF [facility] Office Visiton 02-04-2023 Follow-up visit [id number] Scott Francis 1960 F Date Provider Department Center 02/04/2023 Shi-DARI [facility] [place] [facility] Family History Problem Relation Age of Onset No Known Problems Mother No Known Problems Father Family Status - Relation Status Age at Mother Father Level of Service:06464 [place] OFFICE/OUTPATIENT ESTABLISHED MOD MDM 30-39 MIN Normal [facility] Physician Referralon 023 Physician Referral [id number] 1#1.00TIFF [facility] Ambulatory Visit Summaryon 1 Ambulatory Visit Summary SCOTT FRANCIS :1960 Visit Date:02/02/2023 Ambulatory Visit Instructions Your Diagnosis Anxiety COPD without exacerbation Alcohol abuse Cigarette nicotine dependence BMI 24.0-24.9, adult Your Care Team Attending Physician - Dada Callahan MD Primary Care Physician - Dada Callahan MD This Is Your Medications List hydrOXYzine (hydrOXYzine hydrochloride 10 mg Tab) Contact prescribing physician if questions or concerns aspirin (Aspirin Low Dose 81 mg oral tablet, chewable) atorvastatin (atorvastatin 40 mg Tab) citalopram (citalopram 40 mg Tab) cyclobenzaprine (cyclobenzaprine 10 mg Tab) levothyroxine (levothyroxine 50 mcg (0.05 mg) Tab) losartan (losartan 25 mg Tab) meloxicam (meloxicam 15 mg Tab) metoprolol (Toprol XL 50 mg Tab-ER) nitroglycerin (nitroglycerin 0.4 mg sublingual Tab) ticagrelor (ticagrelor 90 mg tablet) trazodone (traZODONE 100 mg Tab) Procedures Performed Cataract, Colonoscopy, Vaginal hysterectomy. Discharge Vitals Temperature (Temporal Artery) 36.2 ?C Heart Rate (Peripheral) 76 Respiratory Rate 14 Blood Pressure 138/82 Height 65 in Height 166 cm Weight 149.82 lb Weight 68.1 kg BMI 24.71 What to do next Scheduled Follow-Up Appointments Wednesday 10:00 AM EST With: Dada Callahan MD Where: [facility] [place] Invalid Interpretation Code COPD without exacerbation [facility] Medicine Office/Clini c Noteon 02-02-2023 Family Medicine Office/Clinic Note HPI Staff Scott is a 63 year old female presenting for re check anxiety Follow up for Mental Status: KRISTINA 01/18/23 MARY KAY 20 Medication adherence- Yes, takes medication as prescribed Medication refill needed: _ Suicidal thoughts-Not at this time Most recent MARY KAY:14 Most recent PHQ:0 flu: UTD Questions/Concerns: would like something stronger for the anxiety Starts cardiac rehab next week hands are peeling, used lotion for the dryness and it got worse, but looking some better now History of Present Illness - Pt states she is having issues with her anxiety. Improved but still not controlled. - Cutting down the Cig and almost complete off EtOH. Review of Systems PHQ Score Initial Depression Screen Score: 0 Physical Exam Vitals & Measurements T: 36.2 ?C(Temporal Artery) HR: 76(Peripheral) RR: 14 BP: 138/82 SpO2: 99% HT: 65 in HT: 166 cm WT: 68.1 kg WT: 149.82 lb BMI: 24.71 General: alert, no acute distress ENMT: oral mucosa moist, Cardiovascular: regular rate and rhythm, normal peripheral perfusion, Diminished Respiratory: Lungs CTA, respirations non labored Extremities: no deformity, no trauma Neurological: oriented x 4, LOC appropriate for age, CN II-XII intact, motor strength equal & normal bilaterally, speech normal Abdomen: Soft, Nontender, Non-distended, + BS Assessment/Plan 1. Anxiety (F41.9: Anxiety disorder, unspecified) - Improving - Will increase the hydroxyzine. - Follow up in 2 months Ordered: [facility] External Ambulatory Referral Pulmonary Function Testing 2. COPD without exacerbation (J44.9: Chronic obstructive pulmonary disease, unspecified) - Will refer to Pulm. - Will also do PFTs Ordered: [facility] External Ambulatory Referral Pulmonary Function Testing 3. Alcohol abuse (F10.10: Alcohol abuse, uncomplicated) - Please continue abstaining from EtOH Ordered: [facility] External Ambulatory Referral Pulmonary Function Testing 4. Cigarette nicotine dependence (F17.210: Nicotine dependence, cigarettes, uncomplicated) - CT scan ordered for screening. Ordered: CT Chest, Low Dose Screening [facility] External Ambulatory Referral Pulmonary Function Testing 5. BMI 24.0-24.9, adult (Z68.24: Body mass index [BMI] 24.0-24.9, adult) - BMI education given. Ordered: [facility] External Ambulatory Referral Pulmonary Function Testing Orders: hydrOXYzine, 20 mg = 2 tab(s), Oral, QID, # 360 tab(s), Refills(s) 0, Pharmacy: [facility]/pharmacy #[id number], 166, cm, 02/02/23 15:55:00 EDT, Height/Length Dosing, 68.1, kg, 02/02/23 15:55:00 EDT, Weight Dosing Follow-up No qualifying data available Problem List/Past Medical History Ongoing Alcohol abuse Anxiety CAD (coronary artery disease) Cigarette nicotine dependence COPD without exacerbation Diverticulitis Dizziness Fibromyalgia Hospital discharge follow-up Hypertension Hyponatremia Hypothyroidism Insomnia Itching Macrocytosis Migraines Mixed hyperlipidemia Barriga neuroma Neck pain Seasonal allergies Historical No qualifying data Procedure/Surgical History Cataract, Colonoscopy, Vaginal hysterectomy. Medications Aspirin Low Dose 81 mg oral tablet, chewable, 81 mg= 1 tab(s), Chewed, Daily atorvastatin 40 mg Tab, 40 mg= 1 tab(s), Oral, Bedtime citalopram 40 mg Tab, 40 mg= 1 tab(s), Oral, Daily cyclobenzaprine 10 mg Tab, 10 mg= 1 tab(s), Oral, qPM, PRN, 1 refills hydrOXYzine hydrochloride 10 mg Tab, 20 mg= 2 tab(s), Oral, QID levothyroxine 50 mcg (0.05 mg) Tab, See Instructions losartan 25 mg Tab, 25 mg= 1 tab(s), Oral, Daily meloxicam 15 mg Tab, 15 mg= 1 tab(s), Oral, Daily, 1 refills nitroglycerin 0.4 mg sublingual Tab, 0.4 mg= 1 tab(s), SubLingual, q5min, PRN ticagrelor 90 mg tablet, 90 mg, Oral, BID Toprol XL 50 mg Tab-ER, 50 mg= 1 tab(s), Oral, Daily traZODONE 100 mg Tab, 100 mg= 1 tab(s), Oral, Once a day (at bedtime) Allergies cefuroxime (Unknown) Social History Tobacco 5-9 cigarettes (between 1/4 to 1/2 pack)/day in last 30 days Tobacco Use:. Cigarettes, Household tobacco concerns: No., 02/02/2023 Family History Primary malignant neoplasm of female breast: Sister. Immunizations Vaccine Date Status influenza virus vaccine, inactivated 01/04/2023 Given influenza virus vaccine, inactivated 03/09/2022 Recorded SARS-CoV-2 (COVID-19) [id number] 03/09/2022 Recorded SARS-CoV-2 (COVID-19) mRNA BNT-162b2 vax 04/17/2021 Recorded SARS-CoV-2 (COVID-19) mRNA BNT-162b2 vax 08/15/2020 Recorded SARS-CoV-2 (COVID-19) mRNA BNT-162b2 vax 07/25/2020 Recorded Normal Das [facility] Comment on above: Result Comment: Elec tronically Signed By: London SMITH, Dada Chavez.tito\Date and Time Signed: 02/02/23 16:28 EDT Family Medicine Office/Clini c Noteon 01-27-2023 Family Medicine Office/Clinic Note HPI Staff Scott is a 63 year old female presenting for follow up medication check Had 2 stents put in 01/13 at [place] and d/c 01/15/23 covid UTD Flu: UTD Questions/Concerns: Pt would like something to help her sleep, melatonin isn't working states she took Ambien in the hospital worked well. Anxiety isn't under control states medication isn't doing anything for her. MARY KAY:20 Would also like to know if she can keep taking all her vitamins with current new medications that were added. History of Present Illness Scott Francis is a 63-year-old female who presents today for a hospital discharge follow-up. The patient is accompanied by her . The patient reports experiencing a sensation of breathlessness and is uncertain whether this is indicative of an anxiety attack or another condition. The patient was admitted to [facility] due to chest pain. The onset of symptoms, which included chest pain, dyspnea, and belching, occurred at 6:00 AM on January 13, 2023. Despite the severity of these symptoms, the patient waited 2 days before seeking medical attention and was subsequently transferred to [facility]. The patient was discharged on 01/15/2023 and has a follow-up appointment scheduled with a customer service voice on 02/04/2023. In addition to the cardiac issues, the patient is experiencing pruritus on the back and neck. The itching intensifies at night, particularly when the patient is attempting to sleep. Review of Systems PHQ Score Initial Depression Screen Score: 0 Physical Exam Vitals & Measurements HR: 64(Peripheral) RR: 18 BP: 118/70 SpO2: 98% HT: 66 in HT: 166.6 cm WT: 66.3 kg WT: 145.86 lb BMI: 23.89 General: alert, no acute distress Cardiovascular: regular rate and rhythm, normal peripheral perfusion Respiratory: Lungs CTA, respirations non labored Extremities: no deformity, no trauma Neurological: oriented x 4, LOC appropriate for age, CN II-XII intact, motor strength equal & normal bilaterally, speech normal Skin: Abrasions noted diffusely with no rash identified. Abdomen: soft, nontender, nondistended. Assessment/Plan 1. Hospital discharge follow-up (Z09: Encounter for follow-up examination after completed treatment for conditions other than malignant neoplasm) We will request a discharge summary for review. Patient meets the 2 business days after discharge and why TCM call was not placed. We will review those, and medication was reconciled appropriately. [facility]. 2. CAD (coronary artery disease) (I25.10: Atherosclerotic heart disease of [place] coronary artery without angina pectoris) Patient is going to be using aspirin and statin moving forward. It looks as if the patient is also in [place] at this time. 3. Anxiety (F41.9: Anxiety disorder, unspecified) We will try some hydroxyzine as this may be the cause of that heaviness that the patient has talked about in her chest. We will try that and if it does not improve, the patient will need to be seen sooner. 4. Insomnia (G47.00: Insomnia, unspecified) We will use trazodone and the hydroxyzine to both help with this and we will see the patient back for follow-up. 5. Itching (L29.9: Pruritus, unspecified) We will use hydroxyzine to help. 6. BMI 23.0-23.9, adult (Z68.23: Body mass index [BMI] 23.0-23.9, adult) BMI education given. 7. Smoker (F17.200: Nicotine dependence, unspecified, uncomplicated) Encouraged the patient not to smoke. Portions of this record may have been created with voice recognition artificial intelligence software, specifically [employer], [employer] and or [employer]. Substitutions may have occurred due to the inherent limitations of voice recognition and artificial intelligence software. Documentation services were performed after patient or guardian consented to allow [employer] to record this visit. JOSÉ renewals specialist and provider reviewed before signing. JOSÉ: Dhevie Rigor Follow-up No qualifying data available Patient Education BMI for Adults Problem List/Past Medical History Ongoing Alcohol abuse Anxiety CAD (coronary artery disease) Diverticulitis Dizziness Fibromyalgia Hospital discharge follow-up Hypertension Hyponatremia Hypothyroidism Insomnia Itching Macrocytosis Migraines Mixed hyperlipidemia Barriga neuroma Neck pain Seasonal allergies Historical No qualifying data Procedure/Surgical History Cataract, Colonoscopy, Vaginal hysterectomy. Medications Aspirin Low Dose 81 mg oral tablet, chewable, 81 mg= 1 tab(s), Chewed, Daily atorvastatin 40 mg Tab, 40 mg= 1 tab(s), Oral, Bedtime citalopram 40 mg Tab, 40 mg= 1 tab(s), Oral, Daily cyclobenzaprine 10 mg Tab, 10 mg= 1 tab(s), Oral, qPM, PRN, 1 refills hydrOXYzine hydrochloride 10 mg Tab, 10 mg= 1 tab(s), Oral, QID, PRN levothyroxine 50 mcg (0.05 mg) Tab, See Instructions losartan 25 mg Tab, 25 mg= 1 tab(s), Oral, Daily meloxicam 15 mg Tab, (more content not included)... [facility] Comment on above: Result Comment: Elec tronically Signed By: Dada Callahan MD\.br\Date and Time Signed: 01/27/23 09:43 EDT\.br\Electronically Co-Signed By: Neelam Gerardo\.br\Date and Time Co-Signed: 01/19/23 18:43 EDT [facility] Corresp[facility] ndenceon 01-19-2023 [facility] Correspondence [id number] #1.00CD:127 [facility] Patient Educationon 01-20-20 Patient Education Nutrition BMI for Adults What is BMI? Body mass index (BMI) is a number that is calculated from a person's weight and height. BMI can help estimate how much of a person's weight is composed of fat. BMI does not measure body fat directly. Rather, it is an alternative to procedures that directly measure body fat, which can be difficult and expensive. BMI can help identify people who may be at higher risk for certain medical problems. What are BMI measurements used for? BMI is used as a screening tool to identify possible weight problems. It helps determine whether a person is obese, overweight, a healthy weight, or underweight. BMI is useful for: ? Identifying a weight problem that may be related to a medical condition or may increase the risk for medical problems. ? Promoting changes, such as changes in diet and exercise, to help reach a healthy weight. BMI screening can be repeated to see if these changes are working. How is BMI calculated? BMI involves measuring your weight in relation to your height. Both height and weight are measured, and the BMI is calculated from those numbers. This can be done either in [place] ([place] or metric measurements. Note that charts and online BMI calculators are available to help you find your BMI quickly and easily without having to do these calculations yourself. To calculate your BMI in [place] ([place] measurements: 1. Measure your weight in pounds (lb). 2. Multiply the number of pounds by 703. ? For example, for a person who weighs 180 lb, multiply that number by 703, which equals 126,540. 3. Measure your height in inches. Then multiply that number by itself to get a measurement called inches squared. ? For example, for a person who is 70 inches tall, the inches squared measurement is 70 inches x 70 inches, which equals 4,900 inches squared. 4. Divide the total from step 2 (number of lb x 703) by the total from step 3 (inches squared): 126,540 ? 4,900 = 25.8. This is your BMI. To calculate your BMI in metric measurements: 1. Measure your weight in kilograms (kg). 2. Measure your height in meters (m). Then multiply that number by itself to get a measurement called meters squared. ? For example, for a person who is 1.75 m tall, the meters squared measurement is 1.75 m x 1.75 m, which is equal to 3.1 meters squared. 3. Divide the number of kilograms (your weight) by the meters squared number. In this example: 70 ? 3.1 = 22.6. This is your BMI. What do the results mean? BMI charts are used to identify whether you are underweight, normal weight, overweight, or obese. The following guidelines will be used: ? Underweight: BMI less than 18.5. ? Normal weight: BMI between 18.5 and 24.9. ? Overweight: BMI between 25 and 29.9. ? Obese: BMI of 30 or above. Keep these notes in mind: ? Weight includes both fat and muscle, so someone with a muscular build, such as an athlete, may have a BMI that is higher than 24.9. In cases like these, BMI is not an accurate measure of body fat. ? To determine if excess body fat is the cause of a BMI of 25 or higher, further assessments may need to be done by a health care provider. ? BMI is usually interpreted in the same way for men and women. Where to find more information For more information about BMI, including tools to quickly calculate your BMI, go to these websites: ? Centers for Disease Control and Prevention: www.cdc.gov ? [place] Heart Association: www.heart.org ? National Heart, Lung, and Blood [place]: www.nhlbi.nih.gov Summary ? Body mass index (BMI) is a number that is calculated from a person's weight and height. ? BMI may help estimate how much of a person's weight is composed of fat. BMI can help identify those who may be at higher risk for certain medical problems. ? BMI can be measured using Romanian measurements or metric measurements. ? BMI charts are used to identify whether you are underweight, normal weight, overweight, or obese. This information is not intended to replace advice given to you by your health care provider. Make sure you discuss any questions you have with your health care provider. Document Revised: 12/27/2019 Document Reviewed: 11/03/2019 [employer] Patient Education ? 2022 Mobile System 7. [facility] 01-19-2023 [facility] [id number] #1.00CD:127 [facility] [id number]# 1.00CD:127 [facility] 30on 01-15-2023 30 The patient is Moderately Stable - Low risk of patient condition declining or worsening The patient's goals for the shift include comfort The clinical goals for the shift include safety Problem: Pain - Adult Goal: Verbalizes/displays adequate comfort level or baseline comfort level Outcome: Progressing Flowsheets (Taken 01/15/2023840) Verbalizes/displays adequate comfort level or baseline comfort level: Encourage patient to monitor pain and request assistance Assess pain using appropriate pain scale Administer analgesics based on type and severity of pain and evaluate response Problem: Safety - Adult Goal: Free from fall injury Outcome: Progressing Flowsheets (Taken 01/15/2023840) Free from fall injury: Assess patient frequently for physical needs Problem: Discharge Planning Goal: Discharge to home or other facility with appropriate resources Outcome: Progressing Flowsheets (Taken 01/15/2023840) Discharge to home or other facility with appropriate resources: Identify barriers to discharge with patient and caregiver Arrange for needed discharge resources and transportation as appropriate Identify discharge learning needs (meds, wound care, etc) Problem: Chronic Conditions and Co-morbidities Goal: Patient's chronic conditions and co-morbidity symptoms are monitored and maintained or improved Outcome: Progressing Flowsheets (Taken 01/15/2023840) Care Plan - Patient's Chronic Conditions and Co-Morbidity Symptoms are Monitored and Maintained or Improved: Monitor and assess patient's chronic conditions and comorbid symptoms for stability, deterioration, or improvement Normal [facility] 30 The patient is Moderately Stable - Low risk of patient condition declining or worsening The patient's goals for the shift include sleep The clinical goals for the shift include safety Normal [facility] APTTon 01-15-2023 ACTIVATED PARTIAL THROMBOPLASTIN TIME IN PPP BY COAGULATION ASSAY 31.6 Seconds Normal 25.0-35.0 [facility] Comment on above: Order Comment: Check aPTT every 6 hours while on heparin infusion, or per protocol. Result Comment: Clin ical significance of the APTT is questionable in the presence of heparin. Performed By: #### L [id number] ####[facility] ([facility])[address] [place] [address] BASIC METABOLIC PANELon 12-19 Anion gap [Moles/Vol] 8 mmol/L Normal 7-20 [facility] Comment on above: Performed By: #### L [id number] ####[facility] ([facility])[address] [place] [address] Calcium [Mass/Vol] 8.6 mg/dL Normal 8.6-10.3 [facility] Comment on above: Performed By: #### L [id number] ####[facility] ([facility])[address] [place] [address] Chloride [Moles/Vol] 106 mmol/L Normal 98-107 [facility] Comment on above: Performed By: #### L [id number] ####[facility] ([facility])[address] [place] [address] CO2 [Moles/Vol] 25 mmol/L Normal 21-31 [facility] Comment on above: Performed By: #### L [id number] ####[facility] ([facility])[address] [place] [address] Creatinine [Mass/Vol] 0.48 mg/dL Low 0.60-1.20 [facility] Comment on above: Performed By: #### L [id number] ####[facility] ([facility])[address] [place] [address] GLOMERULAR FILTRATION RATE ML/MIN/1.73 SQ M.PREDICTED 107.7 mL/min/1.73m*2 Normal >60.0 [facility] Comment on above: Result Comment: The [facility]???s estimated glomerular filtration rate (eGFR) will no longer include consideration of race in its calculation. The National Kidney Foundation???s eGFR Task Force developed new recommendations for the estimation of the glomerular filtration rate in the [place] They recommend immediate implementation of the new equation refit without the race variable in all laboratories because the calculation does not include race. In addition to not including race in the calculation and reporting, it included diversity in its development, and has acceptable performance characteristics and potential consequences that do not disproportionately affect any one group of individuals. Performed By: #### L [id number] ####[facility] ([facility])[address] [place] [address] Glucose [Mass/Vol] 111 mg/dL High 70-100 [facility] Comment on above: Performed By: #### L [id number] ####[facility] ([facility])[address] [place] [address] Potassium [Moles/Vol] 4.0 mmol/L Normal 3.5-5.1 [facility] Comment on above: Performed By: #### L [id number] ####[facility] ([facility])[address] [place] [address] Sodium [Moles/Vol] 135 mmol/L Low 136-145 [facility] Comment on above: Performed By: #### L [id number] ####[facility] ([facility])[address] [place] [address] Urea nitrogen [Mass/Vol] 9 mg/dL Normal 7-25 [facility] Comment on above: Performed By: #### L [id number] ####[facility] ([facility])[address] [place] [address] UREA NITROGEN/CREATININE (MASS RATIO) IN SER/PLAS 18.8 Normal [facility] Comment on above: Performed By: #### L [id number] ####[facility] ([facility])[address] [place] [address] CBCon 01-15-2023 Erythrocyte distribution width (RBC) [Ratio] 12.6 % Normal 11.5-15.0 [facility] Comment on above: Performed By: #### L [id number] ####[facility] ([facility])[address] [place] [address] ERYTHROCYTE MEAN CORPUSCULAR HEMOGLOBIN CONCENTRATION (G/DL) BY AUTOMATED 34.0 g/dL Normal 32.0-35.0 [facility] Comment on above: Performed By: #### L [id number] ####[facility] ([facility])[address] [place] [address] Hematocrit (Bld) [Volume fraction] 36.2 % Normal 36.0-48.0 [facility] Comment on above: Performed By: #### L [id number] ####[facility] ([facility])[address] [place] [address] Hemoglobin (Bld) [Mass/Vol] 12.3 g/dL Normal 12.0-15.0 [facility] Comment on above: Performed By: #### L [id number] ####[facility] ([facility])[address] [place] [address] MCH (RBC) [Entitic mass] 34.9 pg High 27.0-33.0 [facility] Comment on above: Performed By: #### L [id number] ####[facility] ([facility])[address] [place] [address] MCV (RBC) [Entitic vol] 102.8 fL High 82.0-98.0 [facility] Comment on above: Performed By: #### L [id number] ####[facility] ([facility])[address] [place] [address] PLATELETS (10*3/UL) IN BLOOD AUTOMATED COUNT 214 10*3/uL Normal 150-400 [facility] Comment on above: Performed By: #### L [id number] ####[facility] ([facility])[address] [place] [address] RBC (Bld) [#/Vol] 3.52 10*6/uL Low 3.80-5.00 [facility] Comment on above: Performed By: #### L [id number] ####[facility] ([facility])[address] [facility] [place] [address] WBC (Bld) [#/Vol] 10.14 10*3/uL Normal 4.00-10.60 [facility] Comment on above: Performed By: #### L [id number] ####[facility] ([facility])[address] [place] [address] EDPROVon 01-15-2023 EDPROV HPI Chief Complaint Patient presents with Chest Pain HPI Cp pain started few hours, midsternal and persistent, 7/10 dull no radiation, no exacerbating or relieving factors no radiation No data recorded Patient History History reviewed. No pertinent past medical history. History reviewed. No pertinent surgical history. No family history on file. Social History Tobacco Use Smoking status: Every Day Packs/day: 1.00 Types: Cigarettes Smokeless tobacco: Never Substance Use Topics Alcohol use: Yes Drug use: Never Review of Systems Review of Systems Constitutional: Negative. HENT: Negative. Eyes: Negative. Respiratory: Negative. Cardiovascular: Positive for chest pain. Gastrointestinal: Negative. Endocrine: Negative. Genitourinary: Negative. Musculoskeletal: Negative. Allergic/Immunologic : Negative. Neurological: Negative. Hematological: Negative. Psychiatric/Behavior al: Negative. Physical Exam ED Triage Vitals Temp Heart Rate Resp BP 01/13/23 1234 01/13/23 1234 01/13/23 1234 01/13/23 1234 36.7 ???C (98 ???F) 70 16 (!) 145/99 SpO2 Temp Source Heart Rate Source Patient Position 01/13/23 1234 01/13/23 1234 01/13/23 2100 01/13/23 2100 100 % Oral Monitor Lying BP Location FiO2 (%) 01/13/23 2100 -- Right arm Physical Exam HENT: Head: Normocephalic. Cardiovascular: Rate and Rhythm: Normal rate. Pulmonary: Effort: Pulmonary effort is normal. Breath sounds: Normal breath sounds. Abdominal: Palpations: Abdomen is soft. Musculoskeletal: General: Normal range of motion. Cervical back: Normal range of motion. Skin: General: Skin is warm. Neurological: General: No focal deficit present. Mental Status: She is alert. Procedures ED Course & MDM Diagnoses as of 01/23/23 08 NSTEMI (non-ST elevated myocardial infarction) ([facility] Medical Decision Making Attestion Claribel Coyle MD 01/23/23 0815 Normal [facility] MAGNESIUMon 01-15-2023 Magnesium [Mass/Vol] 2.0 mg/dL Normal 1.9-2.7 [facility] Comment on above: Performed By: #### L [id number] ####[facility] ([facility])[address] [place] [address] NURSNOTEon 01-15-2023 NURSNOTE Discharge instructions given and reviewed, questions answered, signed, copy received. Normal [facility] 30on 01-14-2023 30 The patient is Moderately Stable - Low risk of patient condition declining or worsening The patient's goals for the shift include to get up The clinical goals for the shift include VSS Normal [facility] APTTon 01-14-2023 ACTIVATED PARTIAL THROMBOPLASTIN TIME IN PPP BY COAGULATION ASSAY 28.6 Seconds Normal 25.0-35.0 [facility] Comment on above: Order Comment: Check aPTT every 6 hours while on heparin infusion, or per protocol. Result Comment: Clin ical significance of the APTT is questionable in the presence of heparin. Performed By: #### L [id number] ####[facility] ([facility])[address] [place] [address] ACTIVATED PARTIAL THROMBOPLASTIN TIME IN PPP BY COAGULATION ASSAY 25.9 Seconds Normal 25.0-35.0 [facility] Comment on above: Order Comment: Check aPTT every 6 hours while on heparin infusion, or per protocol. Result Comment: Clin ical significance of the APTT is questionable in the presence of heparin. Performed By: #### L [id number] ####[facility] ([facility])[address] [place] [address] BASIC METABOLIC PANELon 12-19 Anion gap [Moles/Vol] 11 mmol/L Normal 7-20 [facility] Comment on above: Performed By: #### L [id number] ####[facility] ([facility])[address] [place] [address] Calcium [Mass/Vol] 9.1 mg/dL Normal 8.6-10.3 [facility] Comment on above: Performed By: #### L [id number] ####[facility] ([facility])[address] [place] [address] Chloride [Moles/Vol] 97 mmol/L Low 98-107 [facility] Comment on above: Performed By: #### L [id number] ####[facility] ([facility])[address] [place] [address] CO2 [Moles/Vol] 25 mmol/L Normal 21-31 [facility] Comment on above: Performed By: #### L [id number] ####[facility] ([facility])[address] [place] [address] Creatinine [Mass/Vol] 0.45 mg/dL Low 0.60-1.20 [facility] Comment on above: Performed By: #### L [id number] ####[facility] ([facility])[address] [place] [address] GLOMERULAR FILTRATION RATE ML/MIN/1.73 SQ M.PREDICTED 109.4 mL/min/1.73m*2 Normal >60.0 [facility] Comment on above: Result Comment: The [facility]???s estimated glomerular filtration rate (eGFR) will no longer include consideration of race in its calculation. The National Kidney Foundation???s eGFR Task Force developed new recommendations for the estimation of the glomerular filtration rate in the [place] They recommend immediate implementation of the new equation refit without the race variable in all laboratories because the calculation does not include race. In addition to not including race in the calculation and reporting, it included diversity in its development, and has acceptable performance characteristics and potential consequences that do not disproportionately affect any one group of individuals. Performed By: #### L [id number] ####[facility] ([facility])[address] [place] [address] Glucose [Mass/Vol] 114 mg/dL High 70-100 [facility] Comment on above: Performed By: #### L [id number] ####[facility] ([facility])[address] [place] [address] Potassium [Moles/Vol] 3.1 mmol/L Low 3.5-5.1 [facility] Comment on above: Performed By: #### L [id number] ####[facility] ([facility])[address] [place] [address] Sodium [Moles/Vol] 130 mmol/L Low 136-145 [facility] Comment on above: Performed By: #### L [id number] ####[facility] ([facility])[address] [place] [address] Urea nitrogen [Mass/Vol] 6 mg/dL Low 7-25 [facility] Comment on above: Performed By: #### L [id number] ####[facility] ([facility])[address] [place] [address] UREA NITROGEN/CREATININE (MASS RATIO) IN SER/PLAS 13.3 Normal [facility] Comment on above: Performed By: #### L [id number] ####[facility] ([facility])[address] [place] [address] CBCon 01-14-2023 Erythrocyte distribution width (RBC) [Ratio] 12.6 % Normal 11.5-15.0 [facility] Comment on above: Performed By: #### L [id number] ####[facility] ([facility])[address] [place] [address] ERYTHROCYTE MEAN CORPUSCULAR HEMOGLOBIN CONCENTRATION (G/DL) BY AUTOMATED 34.6 g/dL Normal 32.0-35.0 [facility] Comment on above: Performed By: #### L [id number] ####[facility] ([facility])[address] [place] [address] Hematocrit (Bld) [Volume fraction] 38.1 % Normal 36.0-48.0 [facility] Comment on above: Performed By: #### L [id number] ####[facility] ([facility])[address] [place] [address] Hemoglobin (Bld) [Mass/Vol] 13.2 g/dL Normal 12.0-15.0 [facility] Comment on above: Performed By: #### L [id number] ####[facility] ([facility])[address] [place] [address] MCH (RBC) [Entitic mass] 34.3 pg High 27.0-33.0 [facility] Comment on above: Performed By: #### L [id number] ####[facility] ([facility])[address] [place] [address] MCV (RBC) [Entitic vol] 99.0 fL High 82.0-98.0 [facility] Comment on above: Performed By: #### L [id number] ####[facility] ([facility])[address] [place] [address] PLATELETS (10*3/UL) IN BLOOD AUTOMATED COUNT 216 10*3/uL Normal 150-400 [facility] Comment on above: Performed By: #### L [id number] ####[facility] ([facility])[address] [place] [address] RBC (Bld) [#/Vol] 3.85 10*6/uL Normal 3.80-5.00 [facility] Comment on above: Performed By: #### L [id number] ####[facility] ([facility])[address] [place] [address] WBC (Bld) [#/Vol] 12.05 10*3/uL High 4.00-10.60 [facility] Comment on above: Performed By: #### L [id number] ####[facility] ([facility])[address] [place] [address] MAGNESIUMon 01-14-2023 Magnesium [Mass/Vol] 1.8 mg/dL Low 1.9-2.7 [facility] Comment on above: Performed By: #### L [id number] ####[facility] ([facility])[address] [place] [address] TSH3 REFLEX TO FT4on 023 THYROTROPIN (MIU/L) IN SER/PLAS BY DETECTION LIMIT <= 0.05 MIU/L 2.97 mIU/L Normal 0.34-5.60 [facility] Comment on above: Performed By: #### L [id number] ####[facility] ([facility])[address] [place] [address] APTTon 01-13-2023 ACTIVATED PARTIAL THROMBOPLASTIN TIME IN PPP BY COAGULATION ASSAY >200.0 Critically high 25.0-35.0 [facility] Comment on above: Order Comment: Check aPTT every 6 hours while on heparin infusion, or per protocol. Result Comment: Clin ical significance of the APTT is questionable in the presence of heparin. Performed By: #### L [id number] ####[facility] ([facility])[address] [place] [address] ACTIVATED PARTIAL THROMBOPLASTIN TIME IN PPP BY COAGULATION ASSAY 40.4 Seconds High 25.0-35.0 [facility] Comment on above: Result Comment: Clin ical significance of the APTT is questionable in the presence of heparin. Performed By: #### L [id number] ####[facility] ([facility])[address] [place] [address] BASIC METABOLIC PANELon 12-19 Anion gap [Moles/Vol] 16 mmol/L Normal 7-20 [facility] Comment on above: Performed By: #### L [id number] ####[facility] ([facility])[address] [place] [address] Calcium [Mass/Vol] 9.7 mg/dL Normal 8.6-10.3 [facility] Comment on above: Performed By: #### L [id number] ####[facility] ([facility])[address] [place] [address] Chloride [Moles/Vol] 89 mmol/L Low 98-107 [facility] Comment on above: Performed By: #### L [id number] ####[facility] ([facility])[address] [place] [address] CO2 [Moles/Vol] 25 mmol/L Normal 21-31 [facility] Comment on above: Performed By: #### L [id number] ####[facility] ([facility])[address] [place] [address] Creatinine [Mass/Vol] 0.54 mg/dL Low 0.60-1.20 [facility] Comment on above: Performed By: #### L [id number] ####[facility] ([facility])[address] [place] [address] GLOMERULAR FILTRATION RATE ML/MIN/1.73 SQ M.PREDICTED 104.7 mL/min/1.73m*2 Normal >60.0 [facility] Comment on above: Result Comment: The [facility]???s estimated glomerular filtration rate (eGFR) will no longer include consideration of race in its calculation. The National Kidney Foundation???s eGFR Task Force developed new recommendations for the estimation of the glomerular filtration rate in the [place] They recommend immediate implementation of the new equation refit without the race variable in all laboratories because the calculation does not include race. In addition to not including race in the calculation and reporting, it included diversity in its development, and has acceptable performance characteristics and potential consequences that do not disproportionately affect any one group of individuals. Performed By: #### L [id number] ####[facility] ([facility])[address] [facility] [place] [address] Glucose [Mass/Vol] 116 mg/dL High 70-100 [facility] Comment on above: Performed By: #### L [id number] ####[facility] ([facility])[address] [place] [address] Potassium [Moles/Vol] 3.3 mmol/L Low 3.5-5.1 [facility] Comment on above: Performed By: #### L [id number] ####[facility] ([facility])[address] [place] [address] Sodium [Moles/Vol] 127 mmol/L Low 136-145 [facility] Comment on above: Performed By: #### L [id number] ####[facility] ([facility])[address] [place] [address] Urea nitrogen [Mass/Vol] 7 mg/dL Normal 7-25 [facility] Comment on above: Performed By: #### L [id number] ####[facility] ([facility])[address] [place] [address] UREA NITROGEN/CREATININE (MASS RATIO) IN SER/PLAS 13.0 Normal [facility] Comment on above: Performed By: #### L [id number] ####[facility] ([facility])[address] [place] [address] C-REACTIVE PROTEINon 023 C REACTIVE PROTEIN (MG/L) IN SER/PLAS 11.8 mg/L High 0.0-7.0 [facility] Comment on above: Performed By: #### L [id number] ####[facility] ([facility])[address] [place] [address] CBC WITH AUTO DIFFERENTIALon 01-13-2023 Basophils (Bld) [#/Vol] 0.07 10*3/uL Normal 0.00-0.20 [facility] Comment on above: Performed By: #### L [id number] ####[facility] ([facility])[address] [place] [address] Basophils/100 WBC (Bld) 0.6 % Normal 0.0-1.0 [facility] Comment on above: Performed By: #### L [id number] ####[facility] [place] [address] Eosinophils (Bld) [#/Vol] 0.10 10*3/uL Normal 0.00-0.50 [facility] Comment on above: Performed By: #### L [id number] ####[facility] ([facility])[address] [place] [address] Eosinophils/100 WBC (Bld) 0.9 % Normal 0.0-6.0 [facility] Comment on above: Performed By: #### L [id number] ####[facility] ([facility])[address] [place] [address] Erythrocyte distribution width (RBC) [Ratio] 12.3 % Normal 11.5-15.0 [facility] Comment on above: Performed By: #### L [id number] ####[facility] ([facility])[address] [place] [address] ERYTHROCYTE MEAN CORPUSCULAR HEMOGLOBIN CONCENTRATION (G/DL) BY AUTOMATED 36.0 g/dL High 32.0-35.0 [facility] Comment on above: Performed By: #### L [id number] ####[facility] ([facility])[address] [place] [address] Hematocrit (Bld) [Volume fraction] 45.6 % Normal 36.0-48.0 [facility] Comment on above: Performed By: #### L [id number] ####[facility] ([facility])[address] [place] [address] Hemoglobin (Bld) [Mass/Vol] 16.4 g/dL High 12.0-15.0 [facility] Comment on above: Performed By: #### L [id number] ####[facility] ([facility])[address] [place] [address] Immature granulocytes (Bld) [#/Vol] 0.06 10*3/uL Normal 0.00-0.20 [facility] Comment on above: Performed By: #### L [id number] ####[facility] ([facility])[address] [place] [address] Immature granulocytes/100 WBC (Bld) 0.5 % Normal 0.0-1.0 [facility] Comment on above: Performed By: #### L [id number] ####[facility] ([facility])[address] [facility] [place] [address] Lymphocytes (Bld) [#/Vol] 2.93 10*3/uL Normal 1.20-4.00 [facility] Comment on above: Performed By: #### L [id number] ####[facility] ([facility])[address] [place] [address] Lymphocytes/100 WBC (Bld) 25.3 % Normal 20.0-45.0 [facility] Comment on above: Performed By: #### L [id number] ####[facility] ([facility])[address] [place] [address] MCH (RBC) [Entitic mass] 34.6 pg High 27.0-33.0 [facility] Comment on above: Performed By: #### L [id number] ####[facility] ([facility])[address] [place] [address] MCV (RBC) [Entitic vol] 96.2 fL Normal 82.0-98.0 [facility] Comment on above: Performed By: #### L [id number] ####[facility] ([facility])[address] [facility] [place] [address] Monocytes (Bld) [#/Vol] 0.87 10*3/uL Normal 0.10-1.00 [facility] Comment on above: Performed By: #### L [id number] ####[facility] ([facility])[address] [facility] [place] [address] Monocytes/100 WBC (Bld) 7.5 % Normal 5.0-12.0 [facility] Comment on above: Performed By: #### L [id number] ####[facility] ([facility])[address] [place] [address] Neutrophils (Bld) [#/Vol] 7.57 10*3/uL Normal 1.60-7.60 [facility] Comment on above: Performed By: #### L [id number] ####[facility] ([facility])[address] [place] [address] Neutrophils/100 WBC (Bld) 65.2 % Normal 40.0-72.0 [facility] Comment on above: Performed By: #### L [id number] ####[facility] ([facility])[address] [place] [address] NRBC (PER 100 WBCS) BY AUTOMATED COUNT 0.0 % Normal 0 [facility] Comment on above: Performed By: #### Christopher [id number] ####[facility] ([facility])[address] [place] [address] PLATELETS (10*3/UL) IN BLOOD AUTOMATED COUNT 278 10*3/uL Normal 150-400 [facility] Comment on above: Performed By: #### L [id number] ####[facility] ([facility])[address] [place] [address] RBC (Bld) [#/Vol] 4.74 10*6/uL Normal 3.80-5.00 [facility] Comment on above: Performed By: #### L [id number] ####[facility] ([facility])[address] [place] [address] WBC (Bld) [#/Vol] 11.60 10*3/uL High 4.00-10.60 [facility] Comment on above: Performed By: #### L [id number] ####[facility] ([facility])[address] [address] CONSULTon 01-13-2023 CONSULT Attestation signed by Piper Gaines MD at 01/13/2023 2:22 PM I personally saw and examined the patient on the same date of service as resident/fellow Dr. Curry. I discussed the findings and therapeutic plan with the resident/fellow Dr. Curry. I agree with the documentation, except for any edits/updates below. Teaching Physician's Revisions: Patient was Having chest pain at the emergency room in [facility]. The ER physician called me and told me that she is also having elevated troponin. We will transfer her to the emergency room the patient continue have chest discomfort and the high-sensitivity troponin was around 5000. I discussed the case with Dr. Blount and we are going to proceed with second this patient to the [facility] emergently for NSTEMI. Cardiology Consult Note Reason for Consult: Chest pain HPI: Scott Francis is a 63 y.o. female with medical history of hypertension, active tobacco smoker, who came to the hospital with chest pain as a transfer from outside facility. Patient started having chest pain yesterday in the morning. Pain has been constant. Pain is located in the center of the chest with referral to both arms. Was rated 10 out of 10.-Patient could not tolerate the pain anymore she decided to come to the hospital. There, patient was found to have significant elevated high-sensitivity troponin more than 5000. EKG is not suggestive of ST elevation GA. Patient was transferred here for NSTEMI management. Patient continues to have chest pain now rated 5 out of 10. Patient feels that chest pain is better when she leans forward. Patient has never had any chest pain like this before. Cardiology ROS: 8 point review of systems negative except as mentioned Past Medical History She has no past medical history on file. Surgical History She has no past surgical history on file. Social History She reports that she has been smoking cigarettes. She has been smoking an average of 1 pack per day. She has never used smokeless tobacco. She reports current alcohol use. She reports that she does not use drugs. Family History No family history on file. Allergies Theragran Medications (Not in a hospital admission) Last Recorded Vitals Patient Vitals for the past 24 hrs: BP Temp Temp src Pulse Resp SpO2 Height Weight 01/13/23 1234 (!) 145/99 36.7 ???C (98 ???F) Oral 70 16 100 % 1.676 m (5' 6 ) 60 kg (132 lb 4.4 oz) Physical Examination: GENERAL: AOx3, in no acute distress. HEAD: Atraumatic, normocephalic. EYES: DEVENDRA, EOMI. NECK: No JVD present. CARDIAC: RRR. No murmur, rubs, or gallops. RESPIRATORY: CTAB, no increased effort of breathing. ABDOMEN: Soft, nontender, nondistended. EXTREMITIES: No lower extremity edema, peripheral pulses are 2+ bilaterally. NEURO: No focal deficits Relevant Lab Results No results found for this or any previous visit (from the past 4464 hour(s)). No results found for: CKTOTAL, CKMB, CKMBINDEX, TROPONINI No echocardiogram results found for the past 12 months No nuclear medicine results found for the past 12 months Relevant Imaging Results No image results found. Assessment: NSTEMI Chest pain Hypertension Plan: EKG was reviewed. No ST elevations. Patient has high-sensitivity troponin more than 5000. Clinical picture is consistent with NSTEMI. Therefore, proceed with coronary angiography today with possible PCI. We will also get a stat echo Continue heparin drip and initiate nitroglycerin drip. Obtain troponin. Further recommendations after echo and coronary angiography. Soto Curry MD [facility] PGY-4 [facility] Pager # [phone] Normal [facility] EDNURSon 01-13-2023 EDNURS Mode of arrival (squad #, walk in, police, etc): Squad Chief complaint(s): CP Arrival Note (brief scenario, treatment TITLE CURATIVE SPECIALIST, etc): Pt is a transfer from [facility]. Per [facility] report patient was having a Nstemi reported from an initial EKG. Pt woke up with Chest Pain on 01/12 at 6 am it was upper left and radiated across her chest. Pt's pain was not tolerable anymore and went to [place] [facility] ER this morning on 01/13. Pt was given 4 baby ASA and 1 nitroglycerin and reported no relief. Pt was administered 4 morphine and reported it did give patient relief. Pt arrived with [address] a 20 g Left AC and 20 g Left forearm. Heparin bolus of 3500 units was given and Heparin infusion was being infused at 15.7 ml/hr from [facility] [place]. Pt upon arrival to ED reported a CP of 5 out of 10 upper left. Pt is A&Ox4, EKG done upon arrival. Pt has a Hx of Hypothyroidism and HTN. [facility] 01-13-2023 Attestation signed by Dari Blount MD at 01/13/2023 2:11 PM By using the attestations below, the signing clinician agrees that I have read and verify that the documentation has been personally reviewed by me and ensure that the documentation accurately reflects the encounter. GC: I personally saw this patient on the day of the encounter, performed the hernandez portion(s) of the service and participated in the management and confirm the resident's documentation. Please note there may be an additional personal documentation from me. Dari Blount MD, MPH, [facility], [facility], [facility] Interventional Cardiology Pager Email: [email or web address] History Of Present Illness Scott Indigo is a 63 y.o. female presenting with Past medical history of hypertension, current smoker who came in to [facility] initially for chest pain. Patient reported her chest pain was so severe that woke her up from sleeping. Described her chest pain as pressure. At that time it was 9 out of 10. Patient reported her chest pain right now is 5 out of 10. She also described her pain worsen with deep breathing. Reported recent history of sinusitis. Patient had elevated high-sensitivity troponin 5762. Creatinine 0.65 Past Medical History She has no past medical history on file. Surgical History She has no past surgical history on file. Social History She reports that she has been smoking cigarettes. She has been smoking an average of 1 pack per day. She has never used smokeless tobacco. She reports current alcohol use. She reports that she does not use drugs. Allergies Theragran Medications (Not in a hospital admission) Review of Systems Respiratory: Positive for shortness of breath. Cardiovascular: Positive for chest pain. Negative for palpitations and leg swelling. Gastrointestinal: Negative for abdominal distention. All other systems reviewed and are negative. Physical Exam Cardiovascular: Rate and Rhythm: Normal rate and regular rhythm. Pulses: Normal pulses. Heart sounds: Normal heart sounds. No murmur heard. No friction rub. Pulmonary: Effort: Pulmonary effort is normal. No respiratory distress. Breath sounds: Normal breath sounds. Neurological: Mental Status: She is alert. Last Recorded Vitals Blood pressure (!) 145/99, pulse 70, temperature 36.7 ???C (98 ???F), temperature source Oral, resp. rate 16, height 1.676 m (5' 6 ), weight 60 kg (132 lb 4.4 oz), SpO2 100 %. Assessment/Plan Principal Problem: NSTEMI (non-ST elevated myocardial infarction) (CMS/[facility]) Assessment: Chest pain. Likely secondary to NSTEMI versus pericarditis. Hypertension. Current smoker. Plan: We will proceed with coronary angiogram for chest pain. Risk and benefits explained to the patient who agreed to proceed. Further planning would depend on the finding of coronary angiogram. Echocardiogram is ordered. Patient was administered in the ED aspirin and heparin. Normal [facility] NURSNOTEon 01-13-2023 NURSNOTE vehicle technician reported prolonged QT on EKG completed. Reported findings to Nikia Harris NP. Nikia Harris NP discontinued Zofran. Normal [facility] SEDIMENTATION RATEon 023 SEDIMENTATION RATE, ERYTHROCYTE 11 mm/hr Normal <=20 [facility] Comment on above: Performed By: #### L [id number] ####[facility] ([facility])[address] [place] [address] TROPONIN Ion 01-13-2023 Troponin I.cardiac [Mass/Vol] 5.86 ng/mL Critically high 0.00-0.04 [facility] Comment on above: Result Comment: M-TR OPONIN INITIAL CRITICAL HIGH; RESPUN AND RETESTED Performed By: #### L [id number] ####[facility] ([facility])[address] [place] [address] Family Medicine Office/Clini c Noteon 01-06-2023 Family Medicine Office/Clinic Note HPI Staff Scott is a 62 year old female presenting for 3 month follow up hyperlipidemia, hyponatrmia and macrocytosis, thinks she needs lab work today Labs September 2022 added atorvastatin 20mg Any side effects: took for 3 weeks, diarrhea and upset stomach, so she dc'd it. flu vaccine: will do today questions/concerns: check right ear and jaw, jaw was fractured at age 20 and it clicks in and out and it's out right now and has a bad earache so not sure if the jaw is causing this. History of Present Illness Scott Francis is a 63-year-old female who presents today for a follow-up evaluation. The patient reports that she did not tolerate her cholesterol medication well, and it caused her diarrhea. She took it for 3 weeks and then stopped taking it due to the side effects. She has started taking vitamin B12 and folate supplements. 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 She now has an earache and is unsure of its etiology. She does not have a dentist. She has been having neck problems for 20 years. She thinks it is arthritis. She is having trouble sleeping due to the pain. She drinks 4 to 5 alcoholic beverages a night. She is still smoking 1.5 packs of cigarettes per day. Review of Systems PHQ Score Initial Depression Screen Score: 0 Physical Exam Vitals & Measurements T: 36.0 ?C(Oral) HR: 64(Peripheral) RR: 16 BP: 134/78 SpO2: 96% HT: 66 in HT: 166.6 cm WT: 67.6 kg WT: 148.72 lb BMI: 24.36 General: alert, no acute distress ENMT: throat was within normal limits, right TM has some fluid behind it, no erythema, some popping felt at the joint Cardiovascular: normal peripheral perfusion Respiratory: CTA bilaterally Extremities: no deformity, no trauma Neurological: oriented x 4, LOC appropriate for age, CN II-XII intact, motor strength equal & normal bilaterally, speech normal Assessment/Plan Total time spent preparing for the encounter, evaluating and assessing the patient, documenting the visit, and ordering appropriate follow-up work was 45 minutes. Pt should follow up with Dentistry with the jaw pain 1. Alcohol abuse (F10.10: Alcohol abuse, uncomplicated) We will recheck labs today. Patient is minimally improved off of her alcohol intake. Encouraged the patient to continue to decrease her alcohol consumption. This may be what caused the patient to have issues with her statin. 2. Hypertension (I10: Essential (primary) hypertension) Patient's blood pressure is at goal today. Continue taking medications before. 3. Hyponatremia (E87.1: Hypo-osmolality and hyponatremia) We will order labs today and recheck that. We may need to look into citalopram and the combination of alcohol and citalopram causing hyponatremia if there is no improvement. 4. Mixed hyperlipidemia (E78.2: Mixed hyperlipidemia) Patient should be on a statin, but given the diarrhea, I am concerned that the alcohol is causing some of the diarrhea as well as the atorvastatin. Encouraged the patient to keep slowly decreasing the alcohol consumption and restart the Lipitor. With doing that, hopefully, this will help improve the hyperlipidemia 5. BMI 24.0-24.9, adult (Z68.24: Body mass index [BMI] 24.0-24.9, adult) BMI education given. 6. Neck pain (M54.2: Cervicalgia) Possibly secondary to TMJ. We will send her to pain management more help. 7. Macrocytosis (D75.89: Other specified diseases of blood and blood-forming organs) We will recheck blood today. Patient to continue on a B12 and folate. Patient will follow up in 3 months. Portions of this record may have been created with voice recognition artificial intelligence software, specifically [employer], [employer] and or [employer]. Substitutions may have occurred due to the inherent limitations of voice recognition and artificial intelligence software. ATTESTATION: Documentation services were performed after patient or guardian consented to allow [employer] to record this visit. JOSÉ renewals specialist and provider reviewed before signing. JOSÉ: Krystle Gamez. Follow-up No qualifying data available Problem List/Past Medical History Ongoing Alcohol abuse Diverticulitis Dizziness Fibromyalgia Hypertension Hyponatremia Hypothyroidism Macrocytosis Migraines Mixed hyperlipidemia Barriga neuroma Neck pain Seasonal allergies Historical No qualifying data Procedure/Surgical History Cataract, Colonoscopy, Vaginal hysterectomy. Medications atorvastatin 20 mg Tab, See Instructions, Not taking bisoprolol-hydrochlo rothiazide 10 mg-6.25 mg Tab, 1 tab(s), Oral, Daily citalopram 40 mg Tab, 40 mg= 1 tab(s), Oral, Daily cyclobenzaprine 10 mg Tab, 10 mg= 1 tab(s), Oral, qPM, PRN, 1 refills levothyroxine 50 mcg (0.05 mg) Tab, See Instructions meloxicam 15 mg Tab, 15 mg= 1 tab(s), Oral, Daily, 1 refills Allergies cefuroxime (Unknown) Social History Tobacco 10 or more cigar (more content not included)... Normal [facility] Comment on above: Result Comment: Elec tronically Signed By: Dada Callahan MD\.br\Date and Time Signed: 01/06/23 09:22 EDT\.br\Electronically Co-Signed By: Krystle Gamez\.br\Date and Time Co-Signed: 01/04/23 11:13 EDT Ambulatory Visit Summaryon 0 01-04-2023 Ambulatory Visit Summary SCOTT FRANCIS Christopher :1960 Visit Date:01/04/2023 Ambulatory Visit Instructions Your Diagnosis Alcohol abuse Hypertension Hyponatremia Mixed hyperlipidemia BMI 24.0-24.9, adult Neck pain Macrocytosis Your Care Team Attending Physician - Dada Callahan MD Primary Care Physician - Ross MD, Dada E. This Is Your Medications List Contact prescribing physician if questions or concerns atorvastatin (atorvastatin 20 mg Tab) bisoprolol-hydrochlo rothiazide (bisoprolol-hydrochl orothiazide 10 mg-6.25 mg Tab) citalopram (citalopram 40 mg Tab) cyclobenzaprine (cyclobenzaprine 10 mg Tab) levothyroxine (levothyroxine 50 mcg (0.05 mg) Tab) meloxicam (meloxicam 15 mg Tab) Procedures Performed Cataract, Colonoscopy, Vaginal hysterectomy. Discharge Vitals Temperature (Oral) 36.0 ?C Heart Rate (Peripheral) 64 Respiratory Rate 16 Blood Pressure 134/78 Height 166.6 cm Height 66 in Weight 67.6 kg Weight 148.72 lb BMI 24.36 What to do next Scheduled Follow-Up Appointments Wednesday 10:00 AM EST With: Dada Callahan MD Where: [facility] Steven Normal [facility] Auto Diffon 01-04-2023 Basophils/100 WBC (Bld) 1.0 % Normal 0.0-2.0 [facility] Comment on above: Order Comment: Order Added by Discern Expert. Performed By: #### 2 [id number], [id number], [id number], 8451097 ####[facility] [address] [place] [address] Basophils/Leukocytes Auto (Bld) [Pure # fraction] 0.1 E9/L Normal 0.0-0.2 [facility] Comment on above: Order Comment: Order Added by Discern Expert. Performed By: #### 2 510887, [id number], 3940937, 1390565 ####[facility] [address] [place] [address] Eosinophils/100 WBC (Bld) 1.8 % Normal 0.0-8.0 [facility] Comment on above: Order Comment: Order Added by Discern Expert. Performed By: #### 2 833282, [id number], 2963247, 8245997 ####[facility] [address] [place] [address] Eosinophils/Leukocyt es Auto (Bld) [Pure # fraction] 0.1 E9/L Normal 0.0-0.5 [facility] Comment on above: Order Comment: Order Added by Discern Expert. Performed By: #### 2 844870, [id number], 7703608, 0529163 ####[address] [place] [address] Lymphocytes/100 WBC (Bld) 27.6 % Normal 14.0-50.0 [facility] Comment on above: Order Comment: Order Added by Discern Expert. Performed By: #### 2 661336, 15661824, 4465557, 7085277 ####[address] [address] Lymphocytes/Leukocyt es Auto (Bld) [Pure # fraction] 2.3 E9/L Normal 1.0-4.0 [facility] Comment on above: Order Comment: Order Added by Landy Expert. Performed By: #### 2 823636, 45814207, 7539599, 8508691 ####[address] [address] Monocytes/100 WBC (Bld) 7.3 % Normal 4.0-14.0 [facility] Comment on above: Order Comment: Order Added by Landy Expert. Performed By: #### 2 782237, 59568369, 1818625, 5103839 ####[address] [address] Monocytes/Leukocytes Auto (Bld) [Pure # fraction] 0.6 E9/L Normal 0.2-1.0 [facility] Comment on above: Order Comment: Order Added by Landy Expert. Performed By: #### 2 885276, 92689891, 3817021, 2412662 ####[address] [address] Neutrophils/100 WBC (Bld) 62.3 % Normal 36.0-75.0 [facility] Comment on above: Order Comment: Order Added by Landy Expert. Performed By: #### 2 642412, 85390075, 8163704, 0500675 ####[address] [place] [address] Neutrophils/Leukocyt es Auto (Bld) [Pure # fraction] 5.1 E9/L Normal 2.0-7.5 [facility] Comment on above: Order Comment: Order Added by Discern Expert. Performed By: #### 2 483929, 82976198, 2978828, 8942233 ####[address] [address] CBC w/ Auto Diffon 3 Erythrocyte distribution width (RBC) [Ratio] 13.3 % Normal 10.9-14.2 [facility] Comment on above: Performed By: #### 2 690926, 66007502, 1679767, 5013139 ####[address] [address] Hematocrit (Bld) [Volume fraction] 42.5 % Normal 34.0-46.0 [facility] Comment on above: Performed By: #### 2 186414, 76566806, 8207834, 8403785 ####[address] [address] Hemoglobin (Bld) [Mass/Vol] 14.8 g/dL Normal 12.0-16.0 [facility] Comment on above: Performed By: #### 2 149194, 62150241, 6751856, 0830631 ####[address] [address] MCH (RBC) [Entitic mass] 35.3 pg High 27.0-34.0 [facility] Comment on above: Performed By: #### 2 576324, 37947848, 7542346, 3013070 ####[address] [address] MCHC (RBC) [Mass/Vol] 34.9 g/dL Normal 31.4-36.0 [facility] Comment on above: Performed By: #### 2 367387, 04479609, 9417532, 3089648 ####[address] [place] [address] MCV (RBC) [Entitic vol] 101.2 fL High 80.0-100.0 [facility] Comment on above: Performed By: #### 2 917801, 66948117, 9012895, 1032710 ####[address] [address] Platelet mean volume (Bld) [Entitic vol] 7.2 fL Normal 6.4-10.8 [facility] Comment on above: Performed By: #### 2 103585, 23553542, 1050311, 5552724 ####[address] [address] Platelets (Bld) [#/Vol] 255.0 E9/L Normal 150.0-500.0 [facility] Comment on above: Performed By: #### 2 044696, 63016069, 0537892, 3774540 ####[place] [address] RBC (Bld) [#/Vol] 4.2 E12/L Low 4.3-5.9 [facility] Comment on above: Performed By: #### 2 428226, 03138892, 0347596, 8334926 ####[address] [address] WBC corrected for nucl RBC Auto (Bld) [#/Vol] 8.2 E9/L Normal 4.0-11.0 [facility] Comment on above: Performed By: #### 2 633766, 58553822, 2621965, 1514615 ####[address] [address] CMPon 01-04-2023 Albumin [Mass/Vol] 4.1 g/dL Normal 3.3-5.0 [facility] Comment on above: Performed By: #### 2 150563, 35856025, 7525105, 8418083 ####[address] [address] Albumin/Globulin (S) [Mass conc ratio] 1.2 Normal 1.1-2.2 [facility] Comment on above: Performed By: #### 2 699045, 05120508, 3620494, 7131245 ####[facility] [address] [place] [address] ALP [Catalytic activity/Vol] 66 Int._Unit/L Normal 21-98 [facility] Comment on above: Performed By: #### 2 298628, 71066705, 0425676, 0176378 ####[facility] [address] [place] [address] ALT No additional P-5'-P [Catalytic activity/Vol] 20 Int._Unit/L Normal 6-46 [facility] Comment on above: Performed By: #### 2 202554, 85638753, 5199761, 1850009 ####[address] [address] Anion gap [Moles/Vol] 12 mmol/L Normal 6-16 [facility] Comment on above: Performed By: #### 2 657039, 92003450, 5331075, 9540842 ####[address] [address] AST [Catalytic activity/Vol] 34 Int._Unit/L Normal 5-43 [facility] Comment on above: Performed By: #### 2 624447, 71258068, 8147612, 7517479 ####[facility] [address] [place] [address] Bilirubin [Mass/Vol] 0.4 mg/dL Normal 0.0-1.1 [facility] Comment on above: Performed By: #### 2 289173, 42239436, 6180122, 8326176 ####[facility] [address] [place] [address] Calcium [Mass/Vol] 9.3 mg/dL Normal 8.9-11.1 [facility] Comment on above: Performed By: #### 2 817980, 10544279, 7690715, 3959105 ####[facility] [address] [place] [address] Chloride [Moles/Vol] 99 mmol/L Low 101-111 [facility] Comment on above: Performed By: #### 2 497221, 21903830, 3627380, 4327265 ####[facility] [address] [place] [address] CO2 [Moles/Vol] 28 mmol/L Normal 21-31 [facility] Comment on above: Performed By: #### 2 277615, 03059745, 0763995, 7392705 ####[facility] [address] [place] [address] Creatinine [Mass/Vol] 0.6 mg/dL Normal 0.5-1.3 [facility] Comment on above: Performed By: #### 2 226029, 53089240, 5775861, 0682970 ####[facility] [address] [place] [address] Globulin (S) [Mass/Vol] 3.5 g/dL Normal 1.4-4.0 [facility] Comment on above: Performed By: #### 2 425355, 09365427, 5875979, 4269812 ####[facility] [address] [place] [address] Glucose [Mass/Vol] 120 mg/dL Normal 55-199 [facility] Comment on above: Result Comment: If t his glucose result represents a fasting glucose, interpretation should refer to the following reference range: 55-99 mg/dL Performed By: #### 2 810887, 92968235, 1691810, 4191382 ####[facility] [address] [place] [address] Potassium [Moles/Vol] 4.2 mmol/L Normal 3.5-5.3 [facility] Comment on above: Performed By: #### 2 567290, 63889975, 0887849, 8747919 ####[facility] [address] [place] [address] Protein [Mass/Vol] 7.6 g/dL Normal 6.0-7.8 [facility] Comment on above: Performed By: #### 2 695858, 00308478, 5790213, 0549539 ####[facility] [address] [place] [address] Sodium [Moles/Vol] 135 mmol/L Normal 135-145 [facility] Comment on above: Performed By: #### 2 283856, 65812950, 4896783, 7410661 ####[facility] [address] [place] [address] Urea nitrogen [Mass/Vol] 8 mg/dL Normal 5-21 [facility] Comment on above: Performed By: #### 2 023350, 89670964, 0723854, 5522386 ####[facility] [address] [place] [address] Urea nitrogen/Creatinine [Mass ratio] 13 No Units Normal 10-20 [facility] Comment on above: Performed By: #### 2 237027, 37447848, 3855519, 9519286 ####[facility] [address] [place] [address] Consent for Flu Vaccineon Consent for Flu Vaccine [id number] #1.00CD:[id number] Normal [facility] eGFRon 01-04-2023 GFR/1.73 sq M.predicted among non-blacks MDRD (S/P/Bld) [Vol rate/Area] 102 mL/min/1.73 m2 Normal >=59 [facility] Comment on above: Order Comment: Order added by Discern Expert. Result Comment: Education Specialist kandice kidney disease could be indicated at eGFR's of less than 60 mL/min/1.73m2. Kidney failure is indicated at less than 15 mL/min/1.73m2. Performed By: #### 2 [id number], [id number], [id number], [id number] ####[facility] [address] [place] [address] Ambulatory Visit Summaryon 0 6-19-2023 Ambulatory Visit Summary SCOTT FRANCIS :1960 Visit Date:10/05/2022 Ambulatory Visit Instructions Your Diagnosis Mixed hyperlipidemia Hyponatremia Macrocytosis Dizziness Alcohol abuse BMI 23.0-23.9, adult Your Care Team Attending Physician - Dada Callahan MD Primary Care Physician - Dada Callahan MD This Is Your Medications List bisoprolol-hydrochlo rothiazide (bisoprolol-hydrochl orothiazide 10 mg-6.25 mg Tab) citalopram (citalopram 40 mg Tab) cyclobenzaprine (cyclobenzaprine 10 mg Tab) fluticasone nasal (Flonase 0.05 mg/inh [facility]) levothyroxine (levothyroxine 50 mcg (0.05 mg) Tab) meloxicam (meloxicam 15 mg Tab) Procedures Performed Cataract, Colonoscopy, Vaginal hysterectomy. Discharge Vitals Heart Rate (Peripheral) 64 Respiratory Rate 16 Blood Pressure 132/80 Height 166.6 cm Height 66 in Weight 65.5 kg Weight 144.1 lb BMI 23.6 What to do next Scheduled Follow-Up Appointments Wednesday 1:00 PM EDT With: Dada Callahan MD Where: [place] [id number]- \.br\ Medications\.br\ What How Much When Why Instructions\.br\ Unchanged bisoprolol-hydroc hlorothiazide (bisoprolol-hydro chlorothiazide 10 mg-6.25 mg Tab) 1 Tablets By Mouth Every day\.br\ Unchanged citalopram (citalopram 40 mg Tab) 1 Tablets By Mouth Every day\.br\ Unchanged cyclobenzaprine (cyclobenzaprine 10 mg Tab) 1 Tablets By Mouth Once a day (in the evening) as needed for for spasm\.br\ Unchanged fluticasone nasal (Flonase 0.05 mg/ inh [facility]) 2 Sprays Nasal Inhalation Every day Upper respiratory infection Right otitis media Cough BMI 23.0-23.9, adult Smoker each nostril \.br\ Unchanged levothyroxine (levothyroxine 50 mcg (0.05 mg) Tab) 1 Tablets By Mouth Every day Duration: 30 Days\.br\ Unchanged meloxicam (meloxicam 15 mg Tab) 1 Tablets By Mouth Every day\.br\ Allergies\.br\ cefuroxime (Unknown)\.br\ Problems\.br\ Ongoing - Any problem that you are currently receiving treatment for.\.br\ Alcohol abuse\.br\ Diverticulitis\.b r\ Dizziness\.br\ Fibromyalgia\.br\ Hypertension\.br\ Hyponatremia\.br\ Hypothyroidism\.b r\ Macrocytosis\.br\ Migraines\.br\ Mixed hyperlipidemia\.b r\ Barriga neuroma\.br\ Seasonal allergies\.br\ Education Materials\.br\ BMI for Adults\.br\ What is BMI?\.br\ Body mass index (BMI) is a number that is calculated from a person's weight and height. BMI can help estimate how much of a person's weight is composed of fat. BMI does not measure body fat directly. Rather, it is an alternative to procedures that directly measure body fat, which can be difficult and expensive.\.br\ BMI can help identify people who may be at higher risk for certain medical problems.\.br\ What are BMI measurements used for?\.br\ BMI is used as a screening tool to identify possible weight problems. It helps determine whether a person is obese, overweight, a healthy weight, or underweight.\.br\ BMI is useful for:\.br\ ? \.br\ Identifying a weight problem that may be related to a medical condition or may increase the risk for medical problems.\.br\ ? \.br\ Promoting changes, such as changes in diet and exercise, to help reach a healthy weight. BMI screening can be repeated to see if these changes are working.\.br\ How is BMI calculated?\.br\ BMI involves measuring your weight in relation to your height. Both height and weight are measured, and the BMI is calculated from those numbers. This can be done either in [place] ([place] or metric measurements. Note that charts and online BMI calculators are available to help you find your BMI quickly and easily without having to do these calculations yourself.\.br\ To calculate your BMI in [place] ([place] measurements:\.br \ \.br\ 1. \.br\ Measure your weight in pounds (lb).\.br\ 2. \.br\ Multiply the number of pounds by 703.\.br\ ? \.br\ For example, for a person who weighs 180 lb, multiply that number by 703, which equals 126,540.\.br\ 3. \.br\ Measure your height in inches. Then multiply that number by itself to get a measurement called inches squared. \.br\ ? \.br\ For example, for a person who is 70 inches tall, the inches squared measurement is 70 inches x 70 inches, which equals 4,900 inches squared.\.br\ 4. \.br\ Divide the total from step 2 (number of lb x 703) by the total from step 3 (inches squared): 126,540 ? 4,900 = 25.8. This is your BMI.\.br\ To calculate your BMI in metric measurements:\.br \ 1. \.br\ Measure your weight in kilograms (kg).\.br\ 2. \.br\ Measure your height in meters (m). Then multiply that number by itself to get a measurement called meters squared. \.br\ ? \.br\ For example, for a person who is 1.75 m tall, the meters squared measurement is 1.75 m x 1.75 m, which is equal to 3.1 meters squared.\.br\ 3. \.br\ Divide the number of kilograms (your weight) by the meters squared number. In this example: 70 ? 3.1 = 22.6. This is your BMI.\.br\ What do the results mean?\.br\ BMI charts are used to identify whether you are underweight, normal weight, overweight, or obese. The following guidelines will be used:\.br\ ? \.br\ Underweight: BMI less than 18.5.\.br\ ? \.br\ Normal weight: BMI between 18.5 and 24.9.\.br\ ? \.br\ Overweight: BMI between 25 and 29.9.\.br\ ? \.br\ Obese: BMI of 30 or above.\.br\ Keep these notes in mind:\.br\ ? \.br\ Weight includes both fat and muscle, so someone with a muscular build, such as an athlete, may have a BMI that is higher than 24.9. In cases like these, BMI is not an accurate measure of body fat.\.br\ ? \.br\ To determine if excess body fat is the cause of a BMI of 25 or higher, further assessments may need to be done by a health care provider.\.br\ ? \.br\ BMI is usually interpreted in the same way for men and women.\.br\ Where to find more information\.br\ For more information about BMI, including tools to quickly calculate your BMI, go to these websites:\.br\ ? \.br\ Centers for Disease Control and Prevention: www.cdc.gov\.br\ ? \.br\ [place] Heart Association: www.heart.org\.br \ ? \.br\ National Heart, Lung, and Blood [place]: www.nhlbi.nih.gov \.br\ Summary\.br\ ? \.br\ Body mass index (BMI) is a number that is calculated from a person's weight and height.\.br\ ? \.br\ BMI may help estimate how much of a person's weight is composed of fat. BMI can help identify those who may be at higher risk for certain medical problems.\.br\ ? \.br\ BMI can be measured using [place] measurements or metric measurements.\.br \ ? \.br\ BMI charts are used to identify whether you are underweight, normal weight, overweight, or obese.\.br\ This information is not intended to replace advice given to you by your health care provider. Make sure you discuss any questions you have with your health care provider.\.br\ Document Revised: 12/27/2019 Document Reviewed: 11/03/2019 [employer] Patient Education ? 2022 [employer].br\ \.br\ [facility] Family Medicine Office/Sheng Kramer 10-05-2022 Family Medicine Office/Clinic Note Chief Complaint review labs, and wean her down on the beer intake HPI Staff Follow up go over lab results. sodium is low Need to decrease her beer intake recent mary kay: 8 questions/concerns: did see chiropractor and it did help with her dizziness History of Present Illness Scott Francis is a 62-year-old female who presents today for a follow-up evaluation of dizziness. Scott Francis reports that her dizziness has improved. She is skipping days of drinking, but she is drinking 3 to 4 beers every other day. She notes that she drinks beer, smokes marijuana, and takes a muscle relaxer to help her sleep. Her cholesterol was elevated. Her sodium was 133. Her red blood cells were low. Review of Systems PHQ Score Initial Depression Screen Score: 0 Physical Exam Vitals & Measurements HR: 64(Peripheral) RR: 16 BP: 132/80 SpO2: 94% HT: 66 in HT: 166.6 cm WT: 65.5 kg WT: 144.1 lb BMI: 23.6 General: alert, no acute distress Cardiovascular: regular rate and rhythm, normal peripheral perfusion Respiratory: Lungs CTA, respirations non labored Extremities: no deformity, no trauma Neurological: oriented x 4, LOC appropriate for age, CN II-XII intact, motor strength equal & normal bilaterally, speech normal Assessment/Plan 1. Mixed hyperlipidemia (E78.2: Mixed hyperlipidemia) Discussed this with the patient. We will start Lipitor 20 mg moving forward. Patient will take it at night. We talked about taking a CoQ10 to help as well. Patient is agreeable. 2. Hyponatremia (E87.1: Hypo-osmolality and hyponatremia) This is most likely secondary to alcohol use. Patient is doing very well by cutting down her alcohol intake and with that, we will start monitoring her sodium in the next 3 months when we do blood work. 3. Macrocytosis (D75.89: Other specified diseases of blood and blood-forming organs) Again, secondary to alcohol intake. Discussed taking a B12 and folate and we will move from there. 4. Dizziness (R42: Dizziness and giddiness) This has resolved. This may be secondary to the hyponatremia versus possible otolith given that chiropractic help with the dizziness. 5. Alcohol abuse (F10.10: Alcohol abuse, uncomplicated) Patient is working very hard to bring this down. Patient is now down to 4 beers every other day. Discussed how well she is doing and we will continue to monitor. 6. BMI 23.0-23.9, adult (Z68.23: Body mass index [BMI] 23.0-23.9, adult) BMI education given. We will see the patient back in 3 months. Portions of this record may have been created with voice recognition artificial intelligence software, specifically [employer], [employer] and or [employer]. Substitutions may have occurred due to the inherent limitations of voice recognition and artificial intelligence software. ATTESTATION: Documentation services were performed after patient or guardian consented to allow [employer] to record this visit. JOSÉ renewals specialist and provider reviewed before signing. JOSÉ: Catherine Cooney Follow-up No qualifying data available Patient Education BMI for Adults Problem List/Past Medical History Ongoing Alcohol abuse Diverticulitis Dizziness Fibromyalgia Hypertension Hyponatremia Hypothyroidism Macrocytosis Migraines Mixed hyperlipidemia Barriga neuroma Seasonal allergies Historical No qualifying data Procedure/Surgical History Cataract, Colonoscopy, Vaginal hysterectomy. Medications bisoprolol-hydrochlo rothiazide 10 mg-6.25 mg Tab, 1 tab(s), Oral, Daily citalopram 40 mg Tab, 40 mg= 1 tab(s), Oral, Daily cyclobenzaprine 10 mg Tab, 10 mg= 1 tab(s), Oral, qPM, PRN, 1 refills Flonase 0.05 mg/inh [facility], 2 spray(s), Nasal, Daily levothyroxine 50 mcg (0.05 mg) Tab, 50 mcg= 1 tab(s), Oral, Daily, 3 refills Lipitor 20 mg Tab, 20 mg= 1 tab(s), Oral, qPM meloxicam 15 mg Tab, 15 mg= 1 tab(s), Oral, Daily, 1 refills Allergies cefuroxime (Unknown) Social History Tobacco 10 or more cigarettes (1/2 pack or more)/day in last 30 days Tobacco Use:. Cigarettes, 10/05/2022 Family History Primary malignant neoplasm of female breast: Sister. Immunizations Vaccine Date Status influenza virus vaccine, inactivated 03/09/2022 Recorded SARS-CoV-2 (COVID-19) [id number] 03/09/2022 Recorded SARS-CoV-2 (COVID-19) mRNA BNT-162b2 vax 04/17/2021 Recorded SARS-CoV-2 (COVID-19) mRNA BNT-162b2 vax 08/15/2020 Recorded SARS-CoV-2 (COVID-19) mRNA BNT-162b2 vax 07/25/2020 Recorded Normal [facility] Comment on above: Result Comment: Elec tronically Signed By: Dada Callahan MD\.br\Date and Time Signed: 10/05/22 17:40 EDT\.br\Electronically Co-Signed By: Catherine Cooney\.br\Date and Time Co-Signed: 10/05/22 13:58 EDT Patient Educationon 10-06-19 23 Patient Education Nutrition BMI for Adults What is BMI? Body mass index (BMI) is a number that is calculated from a person's weight and height. BMI can help estimate how much of a person's weight is composed of fat. BMI does not measure body fat directly. Rather, it is an alternative to procedures that directly measure body fat, which can be difficult and expensive. BMI can help identify people who may be at higher risk for certain medical problems. What are BMI measurements used for? BMI is used as a screening tool to identify possible weight problems. It helps determine whether a person is obese, overweight, a healthy weight, or underweight. BMI is useful for: ? Identifying a weight problem that may be related to a medical condition or may increase the risk for medical problems. ? Promoting changes, such as changes in diet and exercise, to help reach a healthy weight. BMI screening can be repeated to see if these changes are working. How is BMI calculated? BMI involves measuring your weight in relation to your height. Both height and weight are measured, and the BMI is calculated from those numbers. This can be done either in [place] ([place] or metric measurements. Note that charts and online BMI calculators are available to help you find your BMI quickly and easily without having to do these calculations yourself. To calculate your BMI in [place] ([place] measurements: 1. Measure your weight in pounds (lb). 2. Multiply the number of pounds by 703. ? For example, for a person who weighs 180 lb, multiply that number by 703, which equals 126,540. 3. Measure your height in inches. Then multiply that number by itself to get a measurement called inches squared. ? For example, for a person who is 70 inches tall, the inches squared measurement is 70 inches x 70 inches, which equals 4,900 inches squared. 4. Divide the total from step 2 (number of lb x 703) by the total from step 3 (inches squared): 126,540 ? 4,900 = 25.8. This is your BMI. To calculate your BMI in metric measurements: 1. Measure your weight in kilograms (kg). 2. Measure your height in meters (m). Then multiply that number by itself to get a measurement called meters squared. ? For example, for a person who is 1.75 m tall, the meters squared measurement is 1.75 m x 1.75 m, which is equal to 3.1 meters squared. 3. Divide the number of kilograms (your weight) by the meters squared number. In this example: 70 ? 3.1 = 22.6. This is your BMI. What do the results mean? BMI charts are used to identify whether you are underweight, normal weight, overweight, or obese. The following guidelines will be used: ? Underweight: BMI less than 18.5. ? Normal weight: BMI between 18.5 and 24.9. ? Overweight: BMI between 25 and 29.9. ? Obese: BMI of 30 or above. Keep these notes in mind: ? Weight includes both fat and muscle, so someone with a muscular build, such as an athlete, may have a BMI that is higher than 24.9. In cases like these, BMI is not an accurate measure of body fat. ? To determine if excess body fat is the cause of a BMI of 25 or higher, further assessments may need to be done by a health care provider. ? BMI is usually interpreted in the same way for men and women. Where to find more information For more information about BMI, including tools to quickly calculate your BMI, go to these websites: ? Centers for Disease Control and Prevention: www.cdc.gov ? [place] Heart Association: www.heart.org ? National Heart, Lung, and Blood [place]: www.nhlbi.nih.gov Summary ? Body mass index (BMI) is a number that is calculated from a person's weight and height. ? BMI may help estimate how much of a person's weight is composed of fat. BMI can help identify those who may be at higher risk for certain medical problems. ? BMI can be measured using [place] measurements or metric measurements. ? BMI charts are used to identify whether you are underweight, normal weight, overweight, or obese. This information is not intended to replace advice given to you by your health care provider. Make sure you discuss any questions you have with your health care provider. Document Revised: 12/27/2019 Document Reviewed: 11/03/2019 Elsevier Patient Education ? 2022 [employer] Inc. Normal [facility] Auto Diffon 09-21-2022 Basophils/100 WBC (Bld) 1.0 % Normal 0.0-2.0 [facility] Comment on above: Order Comment: Order Added by Discern Expert. Performed By: #### 2 [id number], 9093682, 83818907, 7228796, 10791605, [id number] ####[facility] [address] [place] [address] Basophils/Leukocytes Auto (Bld) [Pure # fraction] 0.1 E9/L Normal 0.0-0.2 [facility] Comment on above: Order Comment: Order Added by Landy Expert. Performed By: #### 2 762963, 2652622, 65110348, 7089587, 73032163, 5661613 ####[facility] [address] [place] [address] Eosinophils/100 WBC (Bld) 1.5 % Normal 0.0-8.0 [facility] Comment on above: Order Comment: Order Added by Landy Expert. Performed By: #### 2 457758, 2280720, 30582922, 0259347, 31461498, 4788517 ####[facility] [address] [place] [address] Eosinophils/Leukocyt es Auto (Bld) [Pure # fraction] 0.1 E9/L Normal 0.0-0.5 [facility] Comment on above: Order Comment: Order Added by Landy Expert. Performed By: #### 2 617298, 2053048, 38085976, 6718578, 02713661, 0914961 ####[facility] [address] [place] [address] Lymphocytes/100 WBC (Bld) 24.6 % Normal 14.0-50.0 [facility] Comment on above: Order Comment: Order Added by Landy Expert. Performed By: #### 2 850378, 4298063, 86959740, 3704954, 63461651, 7386790 ####[place] [address] [place] [address] Lymphocytes/Leukocyt es Auto (Bld) [Pure # fraction] 2.0 E9/L Normal 1.0-4.0 [facility] Comment on above: Order Comment: Order Added by Discern Expert. Performed By: #### 2 485355, 5912858, 39990025, 8659215, 53757290, 9902686 ####[place] [address] [place] [address] Monocytes/100 WBC (Bld) 5.8 % Normal 4.0-14.0 [facility] Comment on above: Order Comment: Order Added by Discern Expert. Performed By: #### 2 105774, 4220621, 52984894, 0656473, 58552413, 2461457 ####[address] [address] Monocytes/Leukocytes Auto (Bld) [Pure # fraction] 0.5 E9/L Normal 0.2-1.0 [facility] Comment on above: Order Comment: Order Added by Discern Expert. Performed By: #### 2 164460, 6410756, 92607798, 6033361, 15972266, 0039844 ####[address] [place] [address] Neutrophils/100 WBC (Bld) 67.1 % Normal 36.0-75.0 [facility] Comment on above: Order Comment: Order Added by Discern Expert. Performed By: #### 2 341798, 0186038, 20338836, 7365262, 92082752, 4705432 ####[place] [address] [place] [address] Neutrophils/Leukocyt es Auto (Bld) [Pure # fraction] 5.5 E9/L Normal 2.0-7.5 [facility] Comment on above: Order Comment: Order Added by Discern Expert. Performed By: #### 2 455199, 6527729, 47047864, 1243958, 34556427, 1949441 ####[facility] [address] [place] [address] CBC w/ Auto Diffon 3 Erythrocyte distribution width (RBC) [Ratio] 13.3 % Normal 10.9-14.2 [facility] Comment on above: Performed By: #### 2 555256, 8899048, 95695586, 8426915, 25089541, 2063343 ####[address] [address] Hematocrit (Bld) [Volume fraction] 45.3 % Normal 34.0-46.0 [facility] Comment on above: Performed By: #### 2 839556, 0808650, 83421085, 9048904, 63073344, 8247903 ####[address] [address] Hemoglobin (Bld) [Mass/Vol] 15.6 g/dL Normal 12.0-16.0 [facility] Comment on above: Performed By: #### 2 664312, 2999539, 51480191, 5482911, 49406676, 5850643 ####[address] [address] MCH (RBC) [Entitic mass] 35.2 pg High 27.0-34.0 [facility] Comment on above: Performed By: #### 2 528712, 1027809, 57041792, 8616941, 60707194, 2301980 ####[address] [address] MCHC (RBC) [Mass/Vol] 34.4 g/dL Normal 31.4-36.0 [facility] Comment on above: Performed By: #### 2 432344, 2393420, 86513912, 5054449, 32664644, 4395916 ####[address] [address] MCV (RBC) [Entitic vol] 102.3 fL High 80.0-100.0 [facility] Comment on above: Performed By: #### 2 103477, 6731062, 40637998, 0645998, 30022245, 5089027 ####[facility] [address] [place] [address] Platelet mean volume (Bld) [Entitic vol] 7.0 fL Normal 6.4-10.8 [facility] Comment on above: Performed By: #### 2 023636, 6314741, 32862867, 1590591, 27359800, 0422966 ####[facility] [address] [place] [address] Platelets (Bld) [#/Vol] 264.0 E9/L Normal 150.0-500.0 [facility] Comment on above: Performed By: #### 2 339760, 0894250, 82697480, 6972670, 50173469, 0933764 ####[address] [place] [place] [address] RBC (Bld) [#/Vol] 4.4 E12/L Normal 4.3-5.9 [facility] Comment on above: Performed By: #### 2 216667, 6398254, 19312498, 0722318, 33044426, 8191865 ####[address] [place] [place] [address] WBC corrected for nucl RBC Auto (Bld) [#/Vol] 8.2 E9/L Normal 4.0-11.0 [facility] Comment on above: Performed By: #### 2 620481, 7383669, 48187205, 3430517, 52235607, 4686418 ####[address] [place] [address] CHEMISTRYOrdered By: SYSTEM SYSTEM on 09-21-2022 Albumin [Mass/Vol] 4.2 g/dL Normal 3.3 - 5.0 gm/dL F [facility] Albumin/Globulin [Mass ratio] 1.3 {ratio} Normal 1.1 - 2.2 [facility] ALP [Catalytic activity/Vol] 86 [iU]/d Normal 21 - 98 Int._Unit/L [facility] ALT No additional P-5'-P [Catalytic activity/Vol] 18 [iU]/d Normal 6 - 46 Int._Unit/L [facility] Anion gap [Moles/Vol] 16 mmol/L Normal 6 - 16 mEq/L [facility] AST [Catalytic activity/Vol] 31 [iU]/d Normal 5 - 43 Int._Unit/L [facility] Bilirubin [Mass/Vol] 0.5 mg/dL Normal 0.0 - 1.1 mg/dL [facility] Calcium [Mass/Vol] 9.3 mg/dL Normal 8.9 - 11.1 mg/dL [facility] Chloride [Moles/Vol] 95 mmol/L Low 101 - 111 mmol/ L [facility] Cholesterol [Mass/Vol] 218 mg/dL High 120 - 200 mg/dL [facility] Cholesterol in HDL [Mass/Vol] 44 mg/dL Invalid Interpretation Code [facility] Cholesterol in LDL [Mass/Vol] 109 mg/dL Normal <=129mg/dL [facility] Cholesterol in VLDL [Mass/Vol] Unable to Calculate mg/dL Invalid Interpretation Code 7 - 40 mg/dL [facility] Comment on above: Result Comment: 'Flory ble to report. Trig >400 mg/dl' CO2 [Moles/Vol] 27 mmol/L Normal 21 - 31 mmol/L [facility] Creatinine [Mass/Vol] 0.8 mg/dL Normal 0.5 - 1.3 mg/dL [facility] GFR/1.73 sq M.predicted among non-blacks MDRD (S/P/Bld) [Vol rate/Area] 84 mL/min/1.73 m2 Normal >=59mL/min/1.73 m2 FT [facility] S Globulin (S) [Mass/Vol] 3.3 g/dL Normal 1.4 - 4.0 gm/dL [facility] Glucose [Mass/Vol] 102 mg/dL Normal 55 - 199 mg/dL [facility] Potassium [Moles/Vol] 4.5 mmol/L Normal 3.5 - 5.3 mmol/L [facility] Protein [Mass/Vol] 7.5 g/dL Normal 6.0 - 7.8 gm/dL [facility] [facility] Sodium [Moles/Vol] 133 mmol/L Low 135 - 145 mmol/L [facility] Triglyceride [Mass/Vol] 460 mg/dL High <=149mg/dL [facility] TSH Qn 0.79 m[IU]/L Normal 0.34 - 5.60 mcIU/mL [facility] Urea nitrogen [Mass/Vol] 9 mg/dL Normal 5 - 21 mg/dL [facility] Urea nitrogen/Creatinine [Mass ratio] 11 mg/mg Normal 10 - 20 [facility] CMPon 09-21-2022 Albumin [Mass/Vol] 4.2 g/dL Normal 3.3-5.0 [facility] Comment on above: Performed By: #### 2 420240, 1347845, 32325212, 1186301, 71675802, 9737411 ####[facility] [address] [place] [address] Albumin/Globulin (S) [Mass conc ratio] 1.3 Normal 1.1-2.2 [facility] Comment on above: Performed By: #### 2 025486, 1707113, 97536854, [id number], [id number], [id number] ####[facility] [address] [place] [address] ALP [Catalytic activity/Vol] 86 Int._Unit/L Normal 21-98 [facility] Comment on above: Performed By: #### 2 019061, 6265884, 49773245, 7375102, 65862026, 4276966 ####[facility] [address] [place] [address] ALT No additional P-5'-P [Catalytic activity/Vol] 18 Int._Unit/L Normal 6-46 [facility] Comment on above: Performed By: #### 2 318265, 3841512, 74584601, 8536358, 20498214, 6626395 ####[facility] [address] [place] [address] Anion gap [Moles/Vol] 16 mmol/L Normal 6-16 [facility] Comment on above: Performed By: #### 2 281868, 3515417, 70197646, 7731755, 71553214, 8239164 ####[facility] [address] [place] [address] AST [Catalytic activity/Vol] 31 Int._Unit/L Normal 5-43 [facility] Comment on above: Performed By: #### 2 230994, 1025279, 64583716, 7211105, 87263003, 7105728 ####[facility] [address] [place] [address] Bilirubin [Mass/Vol] 0.5 mg/dL Normal 0.0-1.1 [facility] Comment on above: Performed By: #### 2 129278, 1585298, 53730863, 8021511, 05122430, 3555877 ####[facility] [address] [place] [address] Calcium [Mass/Vol] 9.3 mg/dL Normal 8.9-11.1 [facility] Comment on above: Performed By: #### 2 562896, 9304844, 12783352, 6491196, 25493342, 9076834 ####[facility] [address] [place] [address] Chloride [Moles/Vol] 95 mmol/L Low 101-111 [facility] Comment on above: Performed By: #### 2 359937, 2843988, 90570211, 4285850, 54486178, 0719324 ####[facility] [address] [place] [address] CO2 [Moles/Vol] 27 mmol/L Normal 21-31 [facility] Comment on above: Performed By: #### 2 890966, 9122126, 91882815, 3478274, 28823224, 1869070 ####[facility] [address] [place] [address] Creatinine [Mass/Vol] 0.8 mg/dL Normal 0.5-1.3 [facility] Comment on above: Performed By: #### 2 014630, 5358325, 07031936, 5756739, 35760320, 0130414 ####[facility] [address] [place] [address] Globulin (S) [Mass/Vol] 3.3 g/dL Normal 1.4-4.0 [facility] Comment on above: Performed By: #### 2 186963, 9649055, 75137662, 8765261, 37330353, 1774634 ####[facility] [address] [place] [address] Glucose [Mass/Vol] 102 mg/dL Normal 55-199 [facility] Comment on above: Result Comment: If t his glucose result represents a fasting glucose, interpretation should refer to the following reference range: 55-99 mg/dL Performed By: #### 2 252265, 7052315, 75240202, 5001219, 23217255, 4317102 ####[facility] [address] [place] [address] Potassium [Moles/Vol] 4.5 mmol/L Normal 3.5-5.3 [facility] Comment on above: Performed By: #### 2 658800, 6461070, 66019037, 6803478, 33748707, 1379695 ####[facility] [address] [place] [address] Protein [Mass/Vol] 7.5 g/dL Normal 6.0-7.8 [facility] Comment on above: Performed By: #### 2 575336, 0620141, 77081951, 2400582, 36304361, 2033411 ####[facility] [address] [place] [address] Sodium [Moles/Vol] 133 mmol/L Low 135-145 [facility] Comment on above: Performed By: #### 2 602995, 4946087, 76781180, 5193462, 78736474, 3898696 ####[facility] [address] [place] [address] Urea nitrogen [Mass/Vol] 9 mg/dL Normal 5-21 [facility] Comment on above: Performed By: #### 2 662148, 1813413, 97866261, 4189701, 56428544, 2033427 ####[facility] [address] [place] [address] Urea nitrogen/Creatinine [Mass ratio] 11 No Units Normal 10-20 [facility] Comment on above: Performed By: #### 2 498315, 0139985, 09931210, 3920680, 43976329, 3099961 ####[facility] [address] [place] [address] Family Medicine Office/Clini c Noteon 09-21-2022 Family Medicine Office/Clinic Note Chief Complaint dizziness, neck issues HPI Staff complaints of Dizziness believing it is in relation to neck problems. Patient has dx of Htn. Onset: 2 months ago Characteristics: can't get neck right so not sleeping at night, gets dizzy when gets up, tries to shower or wash her hair and loses her balanace once in a while OTC tried: has been seeing chiropractor , meloxicam, naproxen, cyclobenzprine Health Maintenance Colon cancer screen: refuses for now Mammogram: needs ordered Pap/pelvic: no longer does these covid: UTD Patient is here for follow up on hypertension. How often are you checking your blood pressure? not at all_ What are your average readings? _ Do you have any of the following symptoms? Chest Pain? no Palpitations? no KEENE/SOB? no Headache? yes Peripheral Edema? no Light Headedness? yes from her neck Yearly BMP: due Refill needed?: no questions/concerns: needs her meloxicam refilled and is there anything you can rx for her allergy/dry eyes History of Present Illness - Please see staff HPI. Review of Systems PHQ Score Initial Depression Screen Score: 1 Physical Exam Vitals & Measurements HR: 67(Peripheral) RR: 14 BP: 120/78 SpO2: 98% HT: 66 in HT: 166.6 cm WT: 65.4 kg WT: 143.88 lb BMI: 23.56 General: alert, no acute distress ENMT: oral mucosa moist, Minimal fluid in the R ear. Nystagmus on the R. Cardiovascular: regular rate and rhythm, normal peripheral perfusion Respiratory: Lungs CTA, respirations non labored Extremities: no deformity, no trauma Neurological: oriented x 4, LOC appropriate for age, CN II-XII intact, motor strength equal & normal bilaterally, speech normal Assessment/Plan 1. Dizziness (R42: Dizziness and giddiness) - Will have the patient go back to [facility] since she has been dizzy since that time. - Then go PT if no improvement. - Will refill Meloxicam today. - Follow up PRN Ordered: CBC w/ Auto Diff Comprehensive Metabolic Panel Lipid Panel TSH With T4fr Reflex 2. Hypertension (I10: Essential (primary) hypertension) - At goal. NO issues. - Labs ordered. Ordered: CBC w/ Auto Diff Comprehensive Metabolic Panel Lipid Panel TSH With T4fr Reflex 3. Hypothyroidism (E03.9: Hypothyroidism, unspecified) - Recheck labs today. Ordered: CBC w/ Auto Diff Comprehensive Metabolic Panel Lipid Panel TSH With T4fr Reflex 4. Migraines (G43.909: Migraine, unspecified, not intractable, without status migrainosus) - No issues. Dizziness could be a variant. Ordered: CBC w/ Auto Diff Comprehensive Metabolic Panel Lipid Panel TSH With T4fr Reflex 5. Seasonal allergies (J30.2: Other seasonal allergic rhinitis) - yrte sent in. - Pataday/Zaditor for the eyes. - Follow up PRN. 6. BMI 23.0-23.9, adult (Z68.23: Body mass index [BMI] 23.0-23.9, adult) - BMI education given. Ordered: CBC w/ Auto Diff Comprehensive Metabolic Panel Lipid Panel TSH With T4fr Reflex Orders: meloxicam, 15 mg = 1 tab(s), Oral, Daily, # 90 tab(s), Refills(s) 1, Pharmacy: [facility]/pharmacy #[id number], 166.6, cm, 09/21/22 9:53:00 EDT, Height/Length Dosing, 65.4, kg, 09/21/22 9:53:00 EDT, Weight Dosing Follow-up No qualifying data available Problem List/Past Medical History Ongoing Diverticulitis Dizziness Fibromyalgia Hypertension Hypothyroidism Migraines Barriga neuroma Seasonal allergies Historical No qualifying data Procedure/Surgical History Cataract, Colonoscopy, Vaginal hysterectomy. Medications bisoprolol-hydrochlo rothiazide 10 mg-6.25 mg Tab, 1 tab(s), Oral, Daily citalopram 40 mg Tab, 40 mg= 1 tab(s), Oral, Daily cyclobenzaprine 10 mg Tab, 10 mg= 1 tab(s), Oral, qPM, PRN, 1 refills Flonase 0.05 mg/inh [facility], 2 spray(s), Nasal, Daily levothyroxine 50 mcg (0.05 mg) Tab, 50 mcg= 1 tab(s), Oral, Daily, 3 refills meloxicam 15 mg Tab, 15 mg= 1 tab(s), Oral, Daily, 1 refills Allergies cefuroxime (Unknown) Social History Tobacco 10 or more cigarettes (1/2 pack or more)/day in last 30 days Tobacco Use:. Cigarettes, 09/21/2022 Family History Primary malignant neoplasm of female breast: Sister. Immunizations Vaccine Date Status influenza virus vaccine, inactivated 03/09/2022 Recorded SARS-CoV-2 (COVID-19) [id number] 03/09/2022 Recorded SARS-CoV-2 (COVID-19) mRNA BNT-162b2 vax 04/17/2021 Recorded SARS-CoV-2 (COVID-19) mRNA BNT-162b2 vax 08/15/2020 Recorded SARS-CoV-2 (COVID-19) mRNA BNT-162b2 vax 07/25/2020 Recorded Normal Das [facility] Comment on above: Result Comment: Elec tronically Signed By: London SMITH, Dada Chavez.br\Date and Time Signed: 09/21/22 10:19 EDT HEMATOLOGYOrdered By: SYSTEM SYSTEM on 09-21-2022 Basophils/100 WBC (Bld) 1.0 % Normal 0.0 - 2.0 % [facility] HemeAutoSS Basophils/Leukocytes Auto (Bld) [Pure # fraction] 0.1 E9/L Normal 0.0 - 0.2 E9/L [facility]eAutoSS Eosinophils/100 WBC (Bld) 1.5 % Normal 0.0 - 8.0 % [facility]eAutoSS Eosinophils/Leukocyt es Auto (Bld) [Pure # fraction] 0.1 E9/L Normal 0.0 - 0.5 E9/L [facility]eAutoSS Lymphocytes/100 WBC (Bld) 24.6 % Normal 14.0 - 50.0 % [facility] HemeAutoSS Lymphocytes/Leukocyt es Auto (Bld) [Pure # fraction] 2.0 E9/L Normal 1.0 - 4.0 E9/L [facility]eAutoSS Monocytes/100 WBC (Bld) 5.8 % Normal 4.0 - 14.0 % [facility]eAutoSS Monocytes/Leukocytes Auto (Bld) [Pure # fraction] 0.5 E9/L Normal 0.2 - 1.0 E9/L [facility] Neutrophils/100 WBC (Bld) 67.1 % Normal 36.0 - 75.0 % [facility]eAuto[facility] Neutrophils/Leukocyt es Auto (Bld) [Pure # fraction] 5.5 E9/L Normal 2.0 - 7.5 E9/L [facility] HemeAutoSS HEMATOLOGYOrdered By: Mikayla Wayne on 09-21-2022 Erythrocyte distribution width (RBC) [Ratio] 13.3 % Normal 10.9 - 14.2 % [facility] HemeAutoSS Hematocrit (Bld) [Volume fraction] 45.3 % Normal 34.0 - 46.0 % [facility]eAutoSS Hemoglobin (Bld) [Mass/Vol] 15.6 g/dL Normal 12.0 - 16.0 gm/dL [facility] MCH (RBC) [Entitic mass] 35.2 pg High 27.0 - 34.0 pg [facility] MCHC (RBC) [Mass/Vol] 34.4 g/dL Normal 31.4 - 36.0 gm/dL [facility] MCV (RBC) [Entitic vol] 102.3 fL High 80.0 - 100.0 fL [facility] Platelet mean volume (Bld) [Entitic vol] 7.0 fL Normal 6.4 - 10.8 fL [facility] Platelets (Bld) [#/Vol] 264.0 E9/L Normal 150.0 - 500.0 E9/L [facility] RBC (Bld) [#/Vol] 4.4 E12/L Normal 4.3 - 5.9 E12/L [facility] WBC corrected for nucl RBC Auto (Bld) [#/Vol] 8.2 E9/L Normal 4.0 - 11.0 E9/L [facility] HemeAutoSS Lipid Panelon 09-21-2022 Cholesterol in VLDL [Mass/Vol] UT Abnormal 7-40 [facility] Comment on above: Result Comment: 'Flory ble to report. Trig >400 mg/dl' Result verified by Discern Rule. Performed result [facility] (Unable to Calculate) was sent as an Alpha code due the inability to calculate a valid numeric value. Performed By: #### 2 975896, 0710618, 58133600, 3184269, 39412738, 5165856 ####[facility] [address] [place] [address] Cholesterol [Mass/Vol] 218 mg/dL High 120-200 [facility] Comment on above: Performed By: #### 2 410906, 7540953, 26327650, 9300269, 64367312, 6458496 ####[facility] [address] [place] [address] Cholesterol in HDL [Mass/Vol] 44 mg/dL Invalid Interpretation Code [facility] Comment on above: Result Comment: HDL > or equal to 60 mg/dL: Low cardiovascular risk HDL < 40 mg/dL : High cardiovascular risk Performed By: #### 2 766282, 9381964, 02991806, 7736285, 76320511, 0922539 ####[facility] [address] [place] [address] Cholesterol in LDL [Mass/Vol] 109 mg/dL Normal <=129 [facility] Comment on above: Performed By: #### 2 684441, 7141167, 17982161, 0601774, 27180518, 1977584 ####[facility] [address] [place] [address] Triglyceride [Mass/Vol] 460 mg/dL High <=149 [facility] Comment on above: Performed By: #### 2 713038, 2106740, 02913533, 1101746, 56678379, 0063545 ####[facility] [address] [place] [address] TSH With T4fr Reflexon 09-21 TSH Qn 0.79 m[IU]/L Normal 0.34-5.60 [facility] Comment on above: Performed By: #### 2 609018, 6294379, 52539044, 8310624, 66682104, 6844383 ####[facility] [address] [place] [address] eGFRon 09-21-2022 GFR/1.73 sq M.predicted among non-blacks MDRD (S/P/Bld) [Vol rate/Area] 84 mL/min/1.73 m2 Normal >=59 [facility] Comment on above: Order Comment: Order added by Discern Expert. Result Comment: Education Specialist kandice kidney disease could be indicated at eGFR's of less than 60 mL/min/1.73m2. Kidney failure is indicated at less than 15 mL/min/1.73m2. Performed By: #### 2 194272, 2151033, 72023468, 7572743, 89706739, 7216280 ####[facility] [address] [place] [address] Ambulatory Visit Summaryon 0 07-28-2022 Ambulatory Visit Summary SCOTT FRANCIS :1960 Visit Date:07/28/2022 Ambulatory Visit Instructions Your Diagnosis BMI 23.0-23.9, adult Smoker Your Care Team Attending Physician - Nilda Hernandez Primary Care Physician - SELVIN SMITH, JAZMIN Fitzgerald This Is Your Medications List bisoprolol-hydrochlo rothiazide (bisoprolol-hydrochl orothiazide 10 mg-6.25 mg Tab) citalopram (citalopram 40 mg Tab) cyclobenzaprine (cyclobenzaprine 10 mg Tab) levothyroxine (levothyroxine 50 mcg (0.05 mg) Tab) meloxicam (meloxicam 15 mg Tab) Procedures Performed Cataract, Colonoscopy, Vaginal hysterectomy. Discharge Vitals Heart Rate (Peripheral) 62 Blood Pressure 110/60 Height 168 cm Height 66 in Weight 67.1 kg Weight 147.62 lb BMI 23.77 Medications What How Much When Instructions Unchanged bisoprolol-hydrochlo rothiazide (bisoprolol-hydrochl orothiazide 10 mg-6.25 mg Tab) 1 Tablets By Mouth Every day Unchanged citalopram (citalopram 40 mg Tab) 1 Tablets By Mouth Every day Unchanged cyclobenzaprine (cyclobenzaprine 10 mg Tab) See instructions 2 tab(s) Oral at bedtime Unchanged levothyroxine (levothyroxine 50 mcg (0.05 mg) Tab) 1 Tablets By Mouth Every day Unchanged meloxicam (meloxicam 15 mg Tab) See instructions TAKE 1 TABLET BY MOUTH EVERY DAY Allergies cefuroxime (Unknown) Problems Ongoing - Any problem that you are currently receiving treatment for. Diverticulitis Fibromyalgia Hypertension Hypothyroidism Migraines Barriga neuroma Normal Das [facility] Family Medicine Office/Clini c Noteon 07-28-2022 Family Medicine Office/Clinic Note Chief Complaint congestion, cough, sinus pressure HPI Staff complaints of sinus pressure and congestion Onset: 1 month Characteristics: cough, nasal drainage, headache, sob, dizzy, no covid test OTC tried: Sudafed History: htn, hypothyroid, migraines Previous dr: Selvin Last labs: due Health Maintenance: colon: 2019 was to repeat 2021 mammogram: done last year at [place] pap/pelvic: hx of hysterectomy covid: UTD History of Present Illness pt presents today with cough and nasal congestion for 4 weeks Review of Systems PHQ Score Initial Depression Screen Score: 0 ROS - Provider Constitutional: no fever, no chills, no sweats, no fatigue Respiratory: no shortness of breath, no cough, no orthopnea, no wheezing. Cardiovascular: no chest pain, no palpitations, no edema. Neurologic: no headache, no dizziness, no numbness, no weakness. EENT: cough, sore throat, nasal congestion, post nasal drip, ears popping Physical Exam Vitals & Measurements HR: 62(Peripheral) BP: 110/60 SpO2: 96% HT: 66 in HT: 168 cm WT: 67.1 kg WT: 147.62 lb BMI: 23.77 General: alert, no acute distress ENMT: oral mucosa moist, no pharyngeal erythema or exudate right TM red and bulging, throat red Cardiovascular: regular rate and rhythm, normal peripheral perfusion Respiratory: Lungs CTA, respirations non labored Extremities: no deformity, no trauma Neurological: oriented x 4, LOC appropriate for age, CN II-XII intact, motor strength equal & normal bilaterally, speech normal Assessment/Plan 1. Upper respiratory infection (J06.9: Acute upper respiratory infection, unspecified) pt presents today with cough and congestion for 4 weeks. Cough gets so bad it makes her dizzy. she missed work yesterday and today. will order zpak and medrol dose pack. . Ordered: azithromycin, = 1 packet(s), Oral, As Directed, as directed on package labeling, X 5 day(s), # 6 tab(s), Refills(s) 0, Pharmacy: [facility]/pharmacy #[id number], 168, cm, 07/28/22 10:47:00 EDT, Height/Length Dosing, 67.1, kg, 07/28/22 10:47:00 EDT, Weight Dosing benzonatate, 200 mg = 1 cap(s), Oral, TID, X 7 day(s), # 21 cap(s), Refills(s) 0, Pharmacy: [facility]/pharmacy #[id number], 168, cm, 07/28/22 10:47:00 EDT, Height/Length Dosing, 67.1, kg, 07/28/22 10:47:00 EDT, Weight Dosing fluticasone nasal, 2 spray(s), Nasal, Daily, 16 gram, Refill(s) 0, each nostril, [facility]/pharmacy #[id number], 168, cm, 07/28/22 10:47:00 EDT, Height/Length Dosing, 67.1, kg, 07/28/22 10:47:00 EDT, Weight Dosing methylPREDNISolone, = 1 packet(s), Oral, As Directed, as directed on package labeling, X 6 day(s), # 21 tab(s), Refills(s) 0, Pharmacy: [facility]/pharmacy #[id number], 168, cm, 07/28/22 10:47:00 EDT, Height/Length Dosing, 67.1, kg, 07/28/22 10:47:00 EDT, Weight Dosing 2. Right otitis media (H66.91: Otitis media, unspecified, right ear) right TM red and bulging with clear fluid Ordered: azithromycin, = 1 packet(s), Oral, As Directed, as directed on package labeling, X 5 day(s), # 6 tab(s), Refills(s) 0, Pharmacy: [facility]/pharmacy #[id number], 168, cm, 07/28/22 10:47:00 EDT, Height/Length Dosing, 67.1, kg, 07/28/22 10:47:00 EDT, Weight Dosing benzonatate, 200 mg = 1 cap(s), Oral, TID, X 7 day(s), # 21 cap(s), Refills(s) 0, [id number], 168, cm, 07/28/22 10:47:00 EDT, Height/Length Dosing, 67.1, kg, 07/28/22 10:47:00 EDT, Weight Dosing fluticasone nasal, 2 spray(s), Nasal, Daily, 16 gram, Refill(s) 0, each nostril, [id number] 168, cm, 07/28/22 10:47:00 EDT, Height/Length Dosing, 67.1, kg, 07/28/22 10:47:00 EDT, Weight Dosing methylPREDNISolone, = 1 packet(s), Oral, As Directed, as directed on package labeling, X 6 day(s), # 21 tab(s), Refills(s) 0, [id number], 168, cm, 07/28/22 10:47:00 EDT, Height/Length Dosing, 67.1, kg, 07/28/22 10:47:00 EDT, Weight Dosing 3. Cough (R05.9: Cough, unspecified) tessalon pearls sent Ordered: azithromycin, = 1 packet(s), Oral, As Directed, as directed on package labeling, X 5 day(s), # 6 tab(s), Refills(s) 0, [id number], 168, cm, 07/28/22 10:47:00 EDT, Height/Length Dosing, 67.1, kg, 07/28/22 10:47:00 EDT, Weight Dosing benzonatate, 200 mg = 1 cap(s), Oral, TID, X 7 day(s), # 21 cap(s), Refills(s) 0, [id number], 168, cm, 07/28/22 10:47:00 EDT, Height/Length Dosing, 67.1, kg, 07/28/22 10:47:00 EDT, Weight Dosing fluticasone nasal, 2 spray(s), Nasal, Daily, 16 gram, Refill(s) 0, each nostril, [facility]/pharmacy #[id number], 168, cm, 07/28/22 10:47:00 EDT, Height/Length Dosing, 67.1, kg, 07/28/22 10:47:00 EDT, Weight Dosing methylPREDNISolone, = 1 packet(s), Oral, As Directed, as directed on package labeling, X 6 day(s), # 21 tab(s), Refills(s) 0, Pharmacy: [facility]/pharmacy #[id number], 168, cm, 07/28/22 10:47:00 EDT, Height/Length Dosing, 67.1, kg, 07/28/22 10:47:00 EDT, Weight Dosing 4. BMI 23.0-23.9, adult (Z68.23: Body mass index [BMI] 23.0-23.9, adult) BMI education complete Ordered: azithromycin, = 1 packet(s), Oral, As Directed, as directed on pack (more content not included)... Normal [facility] Comment on above: Result Comment: Elec tronically Signed By: Nilda Hernandez\.br\Date and Time Signed: 07/28/22 11:24 EDT Provider Letteron 07-28-2022 Provider Letter July 28, 2022 SCOTT FRANCIS [address] [place] [id number] SCOTT FRANCIS 1960 To Whom It May Concern, Please excuse above patient from work. Date of Illness: From: _07-27-22 To: 07-28-22 May Return to Work On:07-29-22 Restrictions: _None Comments: _ Sincerely, Family Medicine [address] [address] [facility] CBC AUTO DIFFon 10-09-2021 BASO # 0.1 103/ul Normal 0.0-0.1 [facility] Comment on above: Performed By: #### C BC #### [facility] [address] [place] [address] Dr. Yehuda Reese Basophils/100 WBC (Bld) 0.8 % Normal 0.2-2.0 [facility] Comment on above: Performed By: #### C BC #### [facility] [address] [place] [address] Dr. Yehuda Reese EO # 0.1 103/ul Normal 0.0-0.7 [facility] Comment on above: Performed By: #### C BC #### [facility] [address] [place] [address] Dr. Yehuda Reese Eosinophils/100 WBC (Bld) 1.7 % Normal 0.9-7.0 [facility] Comment on above: Performed By: #### C BC #### [facility] [address] [place] [address] Dr. Yehuda Reese Erythrocyte distribution width (RBC) [Ratio] 12.0 % Normal 11.0-15.0 [facility] Comment on above: Performed By: #### C BC #### [facility] [address] [place] [address] Dr. Yehuda Reese Hematocrit (Bld) [Volume fraction] 44.0 % Normal 36.0-48.0 [facility] Comment on above: Performed By: #### C BC #### [facility] [address] [place] [address] Dr. Yehuda Reese Hemoglobin (Bld) [Mass/Vol] 15.1 g/dL Normal 12.0-16.0 [facility] Comment on above: Performed By: #### C BC #### [facility] [address] [place] [address] Dr. Yehuda Reese IG # 0.02 10e3/ul Normal 0.00-0.03 [facility] Comment on above: Performed By: #### C BC #### [facility] [address] [place] [address] Dr. Yehuda Reese IG % 0.2 % Normal 0.0-0.5 [facility] Comment on above: Performed By: #### C BC #### [facility] [address] [address] [address] Yehuda Reese LYMPH # 3.0 103/ul Normal 1.2-3.8 [facility] Comment on above: Performed By: #### C BC #### [facility] [address] [address] [address] Yehuda Reese Lymphocytes/100 WBC (Bld) 34.9 % Normal 20.5-60.0 [facility] Comment on above: Performed By: #### C BC #### [facility] [address] [address] [address] Yehuda Reese MANUAL DIFF REQ NO Normal [facility] Comment on above: Performed By: #### C BC #### [facility] [address] [place] [address] Dr. Yehuda Reese MCH (RBC) [Entitic mass] 34.6 pg Critically high 26.7-34.0 [facility] Comment on above: Performed By: #### C BC #### [facility] [address] [place] [address] Dr. Yehuda Reese MCHC (RBC) [Mass/Vol] 34.3 g/dL Normal 29.9-35.2 [facility] Comment on above: Performed By: #### C BC #### [facility] [address] [place] [address] Dr. Yehuda Reese MCV (RBC) [Entitic vol] 100.7 fL Critically high 81.0-99.0 [facility] Comment on above: Performed By: #### C BC #### [facility] [address] [place] [address] Dr. Yehuda Reese MONO # 0.5 103/ul Normal 0.3-0.8 [facility] Comment on above: Performed By: #### C BC #### [facility] [address] [place] [address] Dr. Yehuda Reese Monocytes/100 WBC (Bld) 6.0 % Normal 1.7-12.0 [facility] Comment on above: Performed By: #### C BC #### [facility] [address] [address] [address] Yehuda Reese NEUT # 4.8 103/ul Normal 1.4-6.5 [facility] Comment on above: Performed By: #### C BC #### [facility] [address] [place] [address] Dr. Yehuda Reese Neutrophils/100 WBC (Bld) 56.4 % Normal 43.0-75.0 [facility] Comment on above: Performed By: #### C BC #### [facility] [address] [place] [address] Dr. Yehuda Reese Platelet mean volume (Bld) [Entitic vol] 8.7 fL Critically low 9.5-13.5 [facility] Comment on above: Performed By: #### C BC #### [facility] [address] [place] [address] Dr. Yehuda Reese PLT 237 103/ul Normal 150-450 [facility] Comment on above: Performed By: #### C BC #### [facility] [address] [place] [address] Dr. Yehuda Reese RBC 4.37 106/ul Normal 4.20-5.40 [facility] Comment on above: Performed By: #### C BC #### [facility] [address] [place] [address] Dr. Yehuda Reese WBC 8.5 103/ul Normal 4.0-11.0 [facility] Comment on above: Performed By: #### C BC #### [facility] [address] [place] [address] Dr. Yehuda Reese FREE T3on 10-09-2021 FREE T3 2.65 pg/mlL Normal 2.18-3.98 [facility] Comment on above: Performed By: #### F T3, TSH #### [facility] [address] [place] [address] Dr. Yehuda Reese FREE T4on 10-09-2021 Free T4 [Mass/Vol] 1.17 ng/dL Normal 0.76-1.46 [facility] Comment on above: Performed By: #### F T4 #### [facility] [address] [place], [place] [address] Dr. Yehuda Reese TSHon 10-09-2021 TSH 0.379 uIU/mL Normal 0.358-3.740 [facility] Comment on above: Performed By: #### F T3, TSH #### [facility] [address] [place], [place] [address] Dr. Yehuda Reese Covid-19 PCR ([facility])on 02-17 SARS-CoV-2 (COVID-19) RNA HENRY+probe Ql (Unsp spec) Not detected Normal NOT DETECTED [facility] Comment on above: Result Comment: This test is not yet approved or cleared by the [place] FDA. When there are no FDA-approved or cleared tests available, and other criteria are met, FDA can make tests available under an emergency access mechanism called an Emergency Use Authorization (EUA). The EUA for this test is supported by the Aircraft Engine Mechanic of Health and Human Service's (HHS's) declaration that circumstances exist to justify the emergency use of in vitro diagnostics for the detection and/or diagnosis of the virus that causes COVID-19. This EUA will remain in effect (meaning this test can be used) for the duration of the COVID-19 declaration justifying emergency of IVDs, unless it is terminated or revoked by FDA (after which the test may no longer be used). When diagnostic testing is negative, the possibility of a false negative should be considered in the context of a patient's recent exposures and the presence of clinical signs and symptoms consistent with SARS-CoV-2. Performed By: #### C VDTBH #### [facility] [address] [place] [id number] Yehuda Reese Encounters Encounter Date Encounter Type Care Provider Facility Start: 04-05-2023 End: 04-06-2023 ambulatory MD Dada Callahan Facility:[facility] Brianna kirby Start: 02-04-2023 End: 02-04-2023 ambulatory [facility] Start: 02-02-2023 End: 02-03-2023 ambulatory MD Dada Callahan Facility:[facility] Brianna kirby Start: 01-19-2023 End: 01-20-2023 ambulatory MD Dada Callahan Facility:[facility] Brianna kofi Start: 01-13-2023 Evaluation and management of inpatient MINESH RENETTA [facility] Start: 01-13-2023 Emergency department patient visit DARI BLOUNT [facility] Start: 01-13-2023 End: 01-15-2023 Evaluation and management of inpatient YAJAIRA RODRIGUEZ [facility] Start: 01-04-2023 End: 01-05-2023 ambulatory MD Dada Callahan Facility:[facility] Start: 12-22-2022 End: 12-23-2022 ambulatory MD Dada Callahan Facility:[facility] Sherman kofi Start: 10-05-2022 End: 10-06-2022 ambulatory MD Dada Callahan Facility:[facility] Sherman kofi Start: 09-21-2022 End: 09-22-2022 ambulatory MD Dada Callahan Facility:[facility] Start: 09-21-2022 End: 09-21-2022 Lab Drop off Dada Callahan [facility] Start: 07-28-2022 End: 07-29-2022 ambulatory [employer] Nilda Bobo Facility:[facility] Sherman kofi Start: 06-24-2022 ambulatory [employer] Nilda Bobo Facilit y: [facility] [place] Start: 10-09-2021 End: 10-10-[address] JAZMIN MILES Facility:[facility] Start: 03-05-2021 End: 03-05-[address] JAZMIN MILES Facility:[facility] Procedures Date Procedure Procedure Detail Performing Clinician Cataract (disorder) Dada newman Colonoscopy Dada Callahan Comment on above: 2019 polyps, repeat 2021 Vaginal hysterectomy Dada Callahan Immunizations Immunization Date Immunization Notes Care Provider Fa cility 03-09-2022 influenza virus vaccine, unspecified formulation Dada Callahan [facility] 03-09-2022 SARS-CoV-2 (COVID-19 ) [id number] Dada Callahna [facility] 04-17-2021 SARS-CoV-2 (COVID-19 ) mRNA BNT-162b2 samuel Callahan [facility] 08-15-2020 SARS-CoV-2 (COVID-19 ) mRNA BNT-162b2 samuel Callahan [facility] 07-25-2020 SARS-CoV-2 (COVID-19 ) mRNA BNT-162b2 samuel Callahan [facility] Payers Date Payer Category Payer Unknown 1960 Unknown [id number] 2.16.84 [id number] 1960 Unknown [id number] 2.16.84 [id number] 1960 Unknown [id number] 2.16.8 [id number] 1960 Unknown [id number] 2.16.8 [id number] 1960 Unknown [id number] 2.16.8 [id number] 1960 Unknown [id number] 2.16.8 [id number] 1960 Unknown [id number] 2.16.8 [id number] 1960 Unknown [id number] 2.16.8 [id number] 1960 Unknown [id number] 2.16.8 [id number] 1960 Unknown [id number] 2.16.8 [id number] 1960 Unknown [id number] 2.16.8 [id number] 1960 Unknown [id number] 2.16.8 [id number] 1960 Unknown [id number] 2.16.8 [id number] 1959 Unknown [id number] Social History Date Type Detail Facility Start: 09-21-2022 Tobacco smoking status Heavy t obacco smoker (finding) [facility] Sex Assigned At Female [facility] Clinical Notes 01-13-2023 to 02-04-2023 Note Date & Type Note Facility 02-04-2023 Note [facility] 02-04-2023 Note [facility] Cardiology Clinic Note Chief Complaint: [facility] and [facility]. Denies chest pain. Will be seeing pulmonology soon for COPD and SOB. Has had some itching and dryness on her hands since discharge. Itching has improved. Thinks maybe she's allergic to one of the new medications. HPI: Scott Francis is a 63 y.o. female With a history of a recent non-ST elevation myocardial infarction s/p percutaneous revascularization and drug-eluting stent placement in the right coronary artery She is here in posthospital follow-up She has no chest pain or chest discomfort similar to that prior to her stent placement. Pertinently, however she has shortness of breath that has worsened significantly. She denies cough or expectoration. She denies fevers or chills. She has had no bleeding or oozing from the groin site over the radial access site. Final Discharge Diagnosis: NSTEMI (non-ST elevated myocardial infarction) (CMS/HCC) NSTEMI Abnormal electrolytes, hypokalemia, hypomagnesemia Essential HTN Hypokalemia, 3.1 Hypothyroidism on Synthroid Hyperlipidemia Admission Diagnosis: NSTEMI (non-ST elevated myocardial infarction) (CMS/HCC) [I21.4] Cardiology ROS: Review of Systems Cardiovascular: Positive for dyspnea on exertion and palpitations. Respiratory: Positive for cough and shortness of breath. Skin: Positive for dry skin. Neurological: Positive for light-headedness. All other systems reviewed and are negative. Past Medical History She has no past medical history on file. Surgical History She has no past surgical history on file. Social History She reports that she has been smoking cigarettes. She has been smoking an average of 1 pack per day. She has never used smokeless tobacco. She reports current alcohol use. She reports that she does not use drugs. Family History No family history on file. Allergies Theragran Medications Current Outpatient Medications: aspirin 81 mg chewable tablet, Chew 1 tablet (81 mg) in the morning. Do not start before January 16, 2023., Disp: 30 tablet, Rfl: 0 atorvastatin (Lipitor) 40 mg tablet, Take 1 tablet (40 mg) by mouth at bedtime., Disp: 30 tablet, Rfl: 0 citalopram (CeleXA) 40 mg tablet, Take 40 mg by mouth in the morning., Disp: , Rfl: cyclobenzaprine (Flexeril) 10 mg tablet, Take 10 mg by mouth if needed at bedtime., Disp: , Rfl: levothyroxine (Synthroid, Levoxyl) 50 mcg tablet, Take 50 mcg by mouth in the morning., Disp: , Rfl: losartan (Cozaar) 25 mg tablet, Take 1 tablet (25 mg) by mouth in the morning. Do not start before January 16, 2023., Disp: 30 tablet, Rfl: 0 meloxicam (Mobic) 15 mg tablet, Take 15 mg by mouth in the morning., Disp: , Rfl: metoprolol succinate XL (Toprol-XL) 50 mg 24 hr tablet, Take 1 tablet (50 mg) by mouth in the morning. Do not crush or chew. Do not start before January 16, 2023., Disp: 30 tablet, Rfl: 0 nicotine (Nicoderm CQ) 14 mg/24 hr patch, Place 1 patch on the skin in the morning for 7 days. Do not start before January 16, 2023., Disp: 7 patch, Rfl: 0 nitroglycerin (Nitrostat) 0.3 mg SL tablet, Place 1 tablet (0.3 mg) under the tongue every 5 (five) minutes if needed for chest pain. May repeat every 5 minutes for up to 3 doses., Disp: 100 tablet, Rfl: 0 ticagrelor (Brilinta) 90 mg tablet, Take 1 tablet (90 mg) by mouth in the morning and at bedtime., Disp: 60 tablet, Rfl: 0 Last Recorded Vitals BP (!) 160/95 (BP Location: Left arm, Patient Position: Sitting) Pulse 75 Ht 1.676 m (5' 6 ) Wt 66.7 kg (147 lb) SpO2 99% BMI 23.73 kg/m??? Physical Examination: GENERAL: alert and oriented x3, well developed, in no acute distress. HEAD: atraumatic, normocephalic. EYES: DEVENDRA, EOMI. NECK: trachea midline, no JVD present, no carotid bruits present. CARDIAC: S1, S2 present. RRR. No murmur, rubs, or gallops. RESPIRATORY: CTAB, no increased effort of breathing, no rales, rhonchi, or wheezing. ABDOMEN: soft, nontender, nondistended. EXTREMITIES: no lower extremity edema, peripheral pulses are 2+ bilaterally. No rash/skin discoloration present. NEURO: strength/sensation equal and symmetric in bilateral upper and lower extremities. PSYCH: appropriate mood, affect, and judgement. Investigations [facility] Name: SCOTT FRANCIS Study Date: 01/13/2023 01:43 PM B/P: 145 mmHg/99 mmHg HR: 66 bpm Date of : 1960 [facility] Height: 66 in. Age: 63 year(s) Patient Room : 3102 Weight: 132 lb. Gender: Female Patient Status: InPt BSA: 1.68 m2 Indication: ACS, elevated troponin, Chest Pain Examination: Echocardiogram (Complete) Image Quality: Fair Patient Consent: Procedure explained to patient s p @ c 3 Conclusions Left Ventricle: The left ventricle is normal size. Global left ventricular systolic function is normal. The EF is 55 % visually. Left ventricular wall thi (more content not included)... [facility] 01-15-2023 Note Hospital Medicine Discharge Summary Final Discharge Diagnosis: NSTEMI (non-ST elevated myocardial infarction) (CMS/HCC) NSTEMI Abnormal electrolytes, hypokalemia, hypomagnesemia Essential HTN Hypokalemia, 3.1 Hypothyroidism on Synthroid Hyperlipidemia Admission Diagnosis: NSTEMI (non-ST elevated myocardial infarction) ([facility]) [I21.4] Hospital course: Scott Francis is an 63 y.o. female who came from home with chest pain. Patient presented to [facility] [place] with chest pain and was transferred here due to elevated troponin and need for heart cath. Cardiology took her to cath on arrival and they did balloon angioplasty with drug eluding stent placement to her RCA. She denies any current chest pain or shortness of breath, only that she is uncomfortable from lying flat in bed. NSTEMI Patient was taken to [facility] and stent placed to RCA, patient was started on metoprolol, higher dose Lipitor, baby aspirin, losartan and Brilinta Abnormal electrolytes, hypokalemia, hypomagnesemia These were replaced and resolved on discharge Essential HTN Hypothyroidism on Synthroid Hyperlipidemia Dear Dr. London MD, Scott is advised to follow up with you within 1-2 weeks. Follow-up with: Cardiology Scheduled appointments: Future Appointments Date Time Provider Department Center 02/04/2023 11:30 AM Dari Blount MD [facility] Your medication list START taking these medications Instructions Last Dose Given Next Dose Due aspirin 81 mg chewable tablet Start taking on: January 16, 2023 Chew 1 tablet (81 mg) in the morning. Do not start before January 16, 2023. losartan 25 mg tablet Commonly known as: Cozaar Start taking on: January 16, 2023 Take 1 tablet (25 mg) by mouth in the morning. Do not start before January 16, 2023. metoprolol succinate XL 50 mg 24 hr tablet Commonly known as: Toprol-XL Start taking on: January 16, 2023 Take 1 tablet (50 mg) by mouth in the morning. Do not crush or chew. Do not start before January 16, 2023. nicotine 14 mg/24 hr patch Commonly known as: Nicoderm CQ Start taking on: January 16, 2023 Place 1 patch on the skin in the morning for 7 days. Do not start before January 16, 2023. nitroglycerin 0.3 mg SL tablet Commonly known as: Nitrostat Place 1 tablet (0.3 mg) under the tongue every 5 (five) minutes if needed for chest pain. May repeat every 5 minutes for up to 3 doses. ticagrelor 90 mg tablet Commonly known as: Brilinta Take 1 tablet (90 mg) by mouth in the morning and at bedtime. CHANGE how you take these medications Instructions Last Dose Given Next Dose Due atorvastatin 40 mg tablet Commonly known as: Lipitor What changed: medication strength how much to take when to take this Take 1 tablet (40 mg) by mouth at bedtime. CONTINUE taking these medications Instructions Last Dose Given Next Dose Due citalopram 40 mg tablet Commonly known as: CeleXA cyclobenzaprine 10 mg tablet Commonly known as: Flexeril levothyroxine 50 mcg tablet Commonly known as: Synthroid, Levoxyl meloxicam 15 mg tablet Commonly known as: Mobic STOP taking these medications bisoproloL-hydrochlorothiazide 10-6.25 mg tablet Commonly known as: Ziac Where to Get Your Medications These medications were sent to [facility] - [address] [place] [address] [facility] [place] [address], [facility] [address] aspirin 81 mg chewable tablet atorvastatin 40 mg tablet losartan 25 mg tablet metoprolol succinate XL 50 mg 24 hr tablet nicotine 14 mg/24 hr patch nitroglycerin 0.3 mg SL tablet ticagrelor 90 mg tablet Scott is allergic to theragran. Disposition: Home or Self Care Discharge Condition: Stable Code Status: Full Code Diagnostic Results Hematology: Results from last 7 days Lab Units 01/15/2372701/14/23 0531 01/13/23 1729 CRP mg/L -- -- 11.8* WBC AUTO 10*3/uL 10.14 12.05* -- HEMOGLOBIN g/dL 12.3 13.2 -- HEMATOCRIT % 36.2 38.1 -- MCV fL 102.8* 99.0* -- PLATELETS AUTO 10*3/uL 214 216 -- Chemistry: Results from last 7 days Lab Units 01/15/2372701/14/23 0532 01/13/23 1305 SODIUM mmol/L 135* 130* 127* POTASSIUM mmol/L 4.0 3.1* 3.3* CHLORIDE mmol/L 106 97* 89* CO2 mmol/L 25 25 25 BUN mg/dL 9 6* 7 CREATININE mg/dL 0.48* 0.45* 0.54* GLUCOSE mg/dL 111* 114* 116* MAGNESIUM mg/dL 2.0 1.8* -- CALCIUM mg/dL 8.6 9.1 9.7 No lab exists for component: AFIO2, APHT, APCOT, APOT, ATCO2, CK, ALB, IBILI Test Results Pending At Discharge: Diet at the time of discharge: cardiac diet Nutrition Screen Activity: Normal activity as tolerated Objective Blood pressure 141/67, pulse 89, temperature 36.7 ???C (98.1 ???F), resp. rate 13, height 1.676 m (5' 6 ), weight 62.6 kg (138 lb 1.6 oz), SpO2 100 %. General: Alert and oriented x3. Cardiology: Normal rate, regular rhythm. Lungs: Clear to auscultatio (more content not included)... [facility] 01-15-2023 Note Cardiology Progress Note Subjective Subjective: Scott Francis is a 63 y.o. female who was admitted for NSTEMI. Patient is doing well this AM without complaints of CP, SOB, le edema She states she has had some mild KEENE but this is not unsural for sure, otherwise KEENE improved compared to her symptoms on admission Objective Objective: Patient Vitals for the past 24 hrs: BP Temp Temp src Pulse Resp SpO2 Weight 01/15/23 0825 141/67 36.7 ???C (98.1 ???F) -- 89 13 100 % -- 01/15/23 0500 -- -- -- -- -- -- 62.6 kg (138 lb 1.6 oz) 01/15/23 0336 152/77 36.6 ???C (97.9 ???F) Temporal 75 18 99 % -- 01/15/23 0004 135/84 -- -- 76 25 99 % -- 01/14/23 2050 109/68 36.6 ???C (97.9 ???F) Temporal 85 19 100 % -- 01/14/23 1625 122/68 36.7 ???C (98.1 ???F) Temporal 84 14 100 % -- 01/14/23 1200 -- 36.6 ???C (97.9 ???F) Temporal 77 19 97 % -- 01/14/23 1155 103/61 36.6 ???C (97.9 ???F) Temporal 78 18 97 % -- Physical Examination: GENERAL: AOx3, in no acute distress. HEAD: Atraumatic, normocephalic. EYES: DEVENDRA, EOMI. NECK: No JVD present. CARDIAC: RRR. No murmur, rubs, or gallops. RESPIRATORY: CTAB, no increased effort of breathing. ABDOMEN: Soft, nontender, nondistended. EXTREMITIES: No lower extremity edema, peripheral pulses are 2+ bilaterally. NEURO: No focal deficits Relevant Lab Results Encounter Date: 01/13/23 ECG 12 lead Result Value Ventricular Rate 68 Atrial Rate 68 IA Interval 168 QRS DURATION 94 QT Interval 516 QTC CALCULATION(BAZETT) 548 P Harris 60 R-Harris 73 T Wave Harris -58 Impression Normal sinus rhythm Inferior infarct , age undetermined Prolonged QT Abnormal ECG When compared with ECG of 13-JAN-2023 12:07, (unconfirmed) Inferior infarct is now Present Non-specific change in ST segment in Anterior leads T wave inversion now evident in Inferior lead QT has lengthened Confirmed by Mona GAINES, PIPER Taylor ([id number]) on 01/14/2023 2:49:15 PM Lab Results Component Value Date TROPONINI 5.86 (HH) 01/13/2023 Transthoracic echo (TTE) complete Result Date: 01/13/2023 1 1 [facility] [address] [place], [place] [id number] [phone] (fax) [facility] Name: SCOTT FRANCIS Study Date: 01/13/2023 01:43 PM B/P: 145 mmHg/99 mmHg HR: 66 bpm Date of : 1960 [facility] Height: 66 in. Age: 63 year(s) Patient Room: 3102 Weight: 132 lb. Gender: Female Patient Status: InPt BSA: 1.68 m2 Indication: ACS, elevated troponin, Chest Pain Examination: Echocardiogram (Complete) Image Quality: Fair Patient Consent: Procedure explained to patient Conclusions Left Ventricle: The left ventricle is normal size. Global left ventricular systolic function is normal. The EF is 55 % visually. Left ventricular wall thickness is increased. Regional wall motion abnormalities (see diagram). Concentric cardiac remodeling. Right Ventricle: The right ventricle is normal in size. Normal right ventricular systolic function. Unable to assess right sided pressures due to lack of measurable tricuspid regurgitation. Left Atrium: The left atrium is normal in size. Aortic Valve: Aortic insufficiency jet is directed towards the anterior mitral lealfet. Mild aortic valve regurgitation. Measurements Left Ventricle Label Value Normal Value LVOT PGmax 4 mmHg LVEF visual 55 % LVDd, 2D 3.74 cm (3.9cm - 5.3cm) LVDs, 2D 3.07 cm (2.1cm - 4cm) IVSd, 2D 1.3 cm (0.6cm - 1.1cm) LVPWd, 2D 1.15 cm (0.6cm - 0.9cm) LV Mass, 2D ASE 154.41 g LV Mass Index, 2D ASE 91.9 g/m?? (44g/m?? - 88.4g/m??) RWT, MM 0.61 (0 - 0.42) LVSVI, 2D 13.7 ml/m2 Right Ventricle Label Value Normal Value RVDd, 2D 2.72 cm (1.9cm - 3.8cm) TAPSE 1.7 cm Right Atrium Label Value Normal Value RA Area 10.1 cm?? Aortic Valve Label Value Normal Value AV DVI 0.75 Mitral Valve Label Value Normal Value MV E Vmax 0.36 m/s MV A Vmax 0.8 m/s MV E/A 0.45 MV E/E' lateral 5.5 MV E' lateral 0.07 m/s Aorta Label Value Normal Value AoRoot, 2D 3 cm (1.4cm - 3.8cm) Great Vessels Label Value Normal Value IVC 1 cm (1.2cm - 2.3cm) Valvular Assessment LVOT 0.7 - 1.1 m/sec Aortic Valve 1.0 - 1.7 m/sec Mitral Valve 0.6 - 1.3 m/sec Tricuspid Valve 0.3 - 0.7 m/sec Pulmonic Valve 0.6 - 0.9 m/sec Regurgitation Mild No Trivial No Stenosis No Max Velocity 1.05 m/sec 1.40 m/s 0.36 m/sec 1.02 m/s Max Gradient 8.00 mmHg 4.00 mmHg Findings Left Ventricle: The left ventricle is normal size. Global left ventricular systolic function is normal. The EF is 55 % visually. Left ventricular wall thickness is increased. Regional wall motion abnormalities (see diagram). The basal inferior, basal inferolateral and mid inferior left ventricular wall segments are hypokinetic. All remaining scored left ventricular wall segments are with no wall motion abnormalities. Concentric cardiac remodeling. Right Ventricle: The right ventricle is normal in size. Normal right ventricular systo (more content not included)... [facility] 01-14-2023 Note Attestation signed by Piper Gaines MD at 01/14/2023 2:10 PM I personally saw and examined the patient on the same date of service as resident/fellow Dr. Curry. I discussed the findings and therapeutic plan with the resident/fellow Dr. Curry. I agree with the documentation, except for any edits/updates below. Teaching Physician's Revisions: None Cardiology Progress Note Subjective Subjective: Scott Francis is a 63 y.o. female who was admitted for NSTEMI. Patient was seen and examined this morning. She reported chest pain has completely resolved after the cath. She continues to have shortness of breath which was happening before the cath and continued thereafter. She is feeling a bit anxious and wants to get some medication to help her sleep. Objective Objective: Patient Vitals for the past 24 hrs: BP Temp Temp src Pulse Resp SpO2 Weight 01/14/23 0853 120/77 36.7 ???C (98.1 ???F) Temporal 79 11 96 % -- 01/14/23 0600 -- 36.4 ???C (97.5 ???F) Temporal -- -- -- 63.2 kg (139 lb 6.4 oz) 01/14/23 0400 151/72 -- -- 75 13 100 % -- 01/14/23 0003 119/75 -- -- 86 21 99 % -- 01/13/23 2200 158/77 36.4 ???C (97.5 ???F) Temporal 71 11 99 % -- 01/13/23 2100 131/82 -- -- 75 15 98 % -- 01/13/23 1945 133/89 -- -- 70 14 99 % -- 01/13/23 1830 128/72 -- -- 70 12 97 % -- 01/13/23 1800 129/69 -- -- 62 18 97 % -- 01/13/23 1745 122/73 -- -- 74 16 96 % -- 01/13/23 1730 130/66 -- -- 67 13 96 % -- 01/13/23 1715 112/54 35.9 ???C (96.6 ???F) Temporal 63 16 95 % -- 01/13/23 1615 100/63 -- -- 72 16 97 % -- 01/13/23 1408 -- -- -- -- -- 99 % -- 01/13/23 1407 (!) 182/91 -- -- 67 16 99 % -- Physical Examination: GENERAL: AOx3, in no acute distress. HEAD: Atraumatic, normocephalic. EYES: DEVENDRA, EOMI. NECK: No JVD present. CARDIAC: RRR. No murmur, rubs, or gallops. RESPIRATORY: CTAB, no increased effort of breathing. ABDOMEN: Soft, nontender, nondistended. EXTREMITIES: No lower extremity edema, peripheral pulses are 2+ bilaterally. NEURO: No focal deficits Relevant Lab Results Encounter Date: 01/13/23 ECG 12 lead Result Value Ventricular Rate 68 Atrial Rate 68 IA Interval 168 QRS DURATION 94 QT Interval 516 QTC CALCULATION(BAZETT) 548 P Harris 60 R-Harris 73 T Wave Harris -58 Impression Normal sinus rhythm Inferior infarct , age undetermined Prolonged QT Abnormal ECG When compared with ECG of 13-JAN-2023 12:07, (unconfirmed) Inferior infarct is now Present Non-specific change in ST segment in Anterior leads T wave inversion now evident in Inferior lead QT has lengthened Lab Results Component Value Date TROPONINI 5.86 (HH) 01/13/2023 Transthoracic echo (TTE) complete Result Date: 01/13/2023 1 1 [facility] [address] [place] [address] [phone] (fax) [facility] Name: SCOTT FRANCIS Study Date: 01/13/2023 01:43 PM B/P: 145 mmHg/99 mmHg HR: 66 bpm Date of : 1960 [facility] Height: 66 in. Age: 63 year(s) Patient Room: 3102 Weight: 132 lb. Gender: Female Patient Status: InPt BSA: 1.68 m2 Indication: ACS, elevated troponin, Chest Pain Examination: Echocardiogram (Complete) Image Quality: Fair Patient Consent: Procedure explained to patient Conclusions Left Ventricle: The left ventricle is normal size. Global left ventricular systolic function is normal. The EF is 55 % visually. Left ventricular wall thickness is increased. Regional wall motion abnormalities (see diagram). Concentric cardiac remodeling. Right Ventricle: The right ventricle is normal in size. Normal right ventricular systolic function. Unable to assess right sided pressures due to lack of measurable tricuspid regurgitation. Left Atrium: The left atrium is normal in size. Aortic Valve: Aortic insufficiency jet is directed towards the anterior mitral lealfet. Mild aortic valve regurgitation. Measurements Left Ventricle Label Value Normal Value LVOT PGmax 4 mmHg LVEF visual 55 % LVDd, 2D 3.74 cm (3.9cm - 5.3cm) LVDs, 2D 3.07 cm (2.1cm - 4cm) IVSd, 2D 1.3 cm (0.6cm - 1.1cm) LVPWd, 2D 1.15 cm (0.6cm - 0.9cm) LV Mass, 2D ASE 154.41 g LV Mass Index, 2D ASE 91.9 g/m?? (44g/m?? - 88.4g/m??) RWT, MM 0.61 (0 - 0.42) LVSVI, 2D 13.7 ml/m2 Right Ventricle Label Value Normal Value RVDd, 2D 2.72 cm (1.9cm - 3.8cm) TAPSE 1.7 cm Right Atrium Label Value Normal Value RA Area 10.1 cm?? Aortic Valve Label Value Normal Value AV DVI 0.75 Mitral Valve Label Value Normal Value MV E Vmax 0.36 m/s MV A Vmax 0.8 m/s MV E/A 0.45 MV E/E' lateral 5.5 MV E' lateral 0.07 m/s Aorta Label Value Normal Value AoRoot, 2D 3 cm (1.4cm - 3.8cm) Great Vessels Label Value Normal Value IVC 1 cm (1.2cm - 2.3cm) Valvular Assessment LVOT 0.7 - 1.1 m/sec Aortic (more content not included)... [facility] 01-14-2023 Note Hospital Medicine Daily Progress Note - 01/15/2023 7:01 AM; Room: [address] [place] [address] Admission: 01/13/2023 12:11 PM; Length of stay: 2 days THE HOSPITALIST TEAM PREFERS TO USE Ink361 CHAT FOR COMMUNICATION 7AM-7PM. IF I DO NOT RESPOND WITHIN 15 MINUTES, PLEASE PAGE ME/CALL THROUGH THE RN TRANSPORT. FROM 7PM-7AM, PLEASE PAGE [phone](COVR) Code Status: Full Code Discharge Destination: home Discharge planning: cardiac monitoring Overview Patient is seen for evaluation and management of NSTEMI. Subjective Patient assessed at bedside, denies any chest pain or shortness of breath. No events overnight per nursing Physical Exam Visit Vitals BP 152/77 (BP Location: Right arm, Patient Position: Lying) Pulse 75 Temp 36.6 ???C (97.9 ???F) (Temporal) Resp 18 Intake/Output Summary (Last 24 hours) at 01/15/2023 0701 Last data filed at 01/15/2023 0639 Gross per 24 hour Intake 1394.17 ml Output -- Net 1394.17 ml Physical Exam Vitals reviewed. Constitutional: General: She is awake. She is not in acute distress. Appearance: Normal appearance. She is not ill-appearing. Cardiovascular: Rate and Rhythm: Normal rate and regular rhythm. Pulses: Radial pulses are 2+ on the right side and 2+ on the left side. Heart sounds: Normal heart sounds. Pulmonary: Effort: Pulmonary effort is normal. No tachypnea, accessory muscle usage or respiratory distress. Breath sounds: Normal breath sounds. Abdominal: General: Bowel sounds are normal. There is no distension. Palpations: Abdomen is soft. Tenderness: There is no abdominal tenderness. Musculoskeletal: Right lower leg: No edema. Left lower leg: No edema. Skin: General: Skin is warm and dry. Neurological: Mental Status: She is alert and oriented to person, place, and time. Mental status is at baseline. Psychiatric: Attention and Perception: Attention normal. Mood and Affect: Mood normal. Speech: Speech normal. Behavior: Behavior is cooperative. Estimated body mass index is 22.29 kg/m??? as calculated from the following: Height as of this encounter: 1.676 m (5' 6 ). Weight as of this encounter: 62.6 kg (138 lb 1.6 oz). Active Inpatient Problems Principal Problem: NSTEMI (non-ST elevated myocardial infarction) ([facility]) Assessment and Plan NSTEMI Abnormal electrolytes, hypokalemia, hypomagnesemia Essential HTN Hypokalemia, 3.1 Hypothyroidism on Synthroid Hyperlipidemia Cardiology will follow Recommend further cardiac monitoring DC zofran d/t prolonged QT K replaced NS at 50mL/hr; hgb elevated, Na low, Cl low Home med rec completed Nutrition Screen VTE Prophylaxis: Heparin subcutaneous Scheduled Meds aspirin, 81 mg, oral, Daily atorvastatin, 40 mg, oral, Nightly heparin (porcine), 70 Units/kg, intravenous, Once heparin (porcine), 5,000 Units, subcutaneous, q8h [facility] levothyroxine, 50 mcg, oral, Daily losartan, 25 mg, oral, Daily metoprolol succinate XL, 50 mg, oral, Daily nicotine, 1 patch, transdermal, Daily ticagrelor, 90 mg, oral, BID sodium chloride, 50 mL/hr, Last Rate: 50 mL/hr (01/15/23 0639) Pertinent Investigations Hematology: Results from last 7 days Lab Units 01/14/23 0531 01/13/23 1729 01/13/23 1305 CRP mg/L -- 11.8* -- WBC AUTO 10*3/uL 12.05* -- 11.60* HEMOGLOBIN g/dL 13.2 -- 16.4* HEMATOCRIT % 38.1 -- 45.6 MCV fL 99.0* -- 96.2 PLATELETS AUTO 10*3/uL 216 -- 278 Chemistry: Results from last 7 days Lab Units 01/14/23 0532 01/13/23 1305 SODIUM mmol/L 130* 127* POTASSIUM mmol/L 3.1* 3.3* CHLORIDE mmol/L 97* 89* CO2 mmol/L 25 25 BUN mg/dL 6* 7 CREATININE mg/dL 0.45* 0.54* GLUCOSE mg/dL 114* 116* MAGNESIUM mg/dL 1.8* -- CALCIUM mg/dL 9.1 9.7 No lab exists for component: AFIO2, APHT, APCOT, APOT, ATCO2, CK, ALB, IBILI Historical Values: (Includes values prior to this admission) Lab Results Component Value Date TSH 2.97 01/14/2023 No results found for: [id number], IRON, TIBC, C3, C4, GUEVARA, CANCA, ASO, PSA, CEA, CA125, CA199, AFP, CA153 Imaging ECG 12 lead Normal sinus rhythm Inferior infarct , age undetermined Prolonged QT Abnormal ECG When compared with ECG of 13-JAN-2023 12:07, (unconfirmed) Inferior infarct is now Present Non-specific change in ST segment in Anterior leads T wave inversion now evident in Inferior lead QT has lengthened Confirmed by Mona GAINES, PIPER Taylor ([id number]) on 01/14/2023 2:49:15 PM ECG 12 lead Normal sinus rhythm Possible Left atrial enlargement Left ventricular hypertrophy with repolarization abnormality Abnormal ECG No previous ECGs available Confirmed by Mona GAINES SAMER J. ([id number]) on 01/14/2023 2:46:49 PM Discharge Planning Discharge Planning Living Arrangements: Spouse/significant other Support Systems: Spouse/significant other Type of Residence/Post Acute Needs: Private residence Signed Nikia Harris NP Hospital Medicine 01/15/2023 7:01 AM [facility] 01-13-2023 Note Hospital Medicine History and Physical 01/13/2023 6:16 PM THE HOSPITALIST TEAM PREFERS TO USE [employer]Dent FOR COMMUNICATION 7AM-7PM. IF I DO NOT RESPOND WITHIN 15 MINUTES, PLEASE PAGE ME/CALL THROUGH THE RN TRANSPORT. FROM 7PM-7AM, PLEASE PAGE [phone](COVR) Chief Complaint Chief Complaint Patient presents with Chest Pain History of Present Illness Scott Francis is an 63 y.o. female who came from home with chest pain. Patient presented to [facility] with chest pain and was transferred here due to elevated troponin and need for heart cath. Cardiology took her to cath on arrival and they did balloon angioplasty with drug eluding stent placement to her RCA. She denies any current chest pain or shortness of breath, only that she is uncomfortable from lying flat in bed. Review of System and Physical Exam Temp: [35.9 ???C (96.6 ???F)-36.7 ???C (98 ???F)] 35.9 ???C (96.6 ???F) Heart Rate: [62-74] 62 Resp: [13-18] 18 BP: (100-182)/(54-99) 129/69 Physical Exam Vitals reviewed. Constitutional: General: She is awake. She is not in acute distress. Appearance: Normal appearance. She is not ill-appearing. Cardiovascular: Rate and Rhythm: Normal rate and regular rhythm. Pulses: Radial pulses are 2+ on the right side and 2+ on the left side. Heart sounds: Normal heart sounds. Pulmonary: Effort: Pulmonary effort is normal. No tachypnea, accessory muscle usage or respiratory distress. Breath sounds: Normal breath sounds. Abdominal: General: Bowel sounds are normal. There is no distension. Palpations: Abdomen is soft. Tenderness: There is no abdominal tenderness. Musculoskeletal: Right lower leg: No edema. Left lower leg: No edema. Skin: General: Skin is warm and dry. Neurological: Mental Status: She is alert and oriented to person, place, and time. Mental status is at baseline. Psychiatric: Attention and Perception: Attention normal. Mood and Affect: Mood normal. Speech: Speech normal. Behavior: Behavior is cooperative. Review of Systems Constitutional: Negative. HENT: Negative. Eyes: Negative. Cardiovascular: Positive for chest pain (resolved). Gastrointestinal: Negative. Endocrine: Negative. Genitourinary: Negative. Musculoskeletal: Negative. Skin: Negative. Allergic/Immunologic: Negative. Neurological: Negative. Hematological: Negative. Psychiatric/Behavioral: Negative. Problem List Patient Active Problem List Diagnosis Date Noted Alcohol abuse 01/13/2023 Diverticulitis 01/13/2023 Fibromyalgia 01/13/2023 Hypertension 01/13/2023 Hypothyroidism 01/13/2023 Mixed hyperlipidemia 01/13/2023 NSTEMI (non-ST elevated myocardial infarction) ([facility]) 01/13/2023 Assessment and Plan NSTEMI Abnormal electrolytes, dehydrated? Essential HTN Hypothyroidism Hyperlipidemia Admit to step down Vitals per post-cath protocol Cath checks per protocol Cardiology will follow EKG post-cath ordered Nitroglycerin ordered for chest pain ECHO pending DC zofran d/t prolonged QT K replaced NS at 50mL/hr; hgb elevated, Na low, Cl low Home med rec pending VTE Prophylaxis: IV heparin ----- Focus of this inpatient stay will remain on problems that need acute care setting for care. We will review available studies and will order additional labs, imaging and other studies as appropriate. As needed medicines are ordered as appropriate. VTE Prophylaxis will be ordered as appropriate. Please see above for management plan for individual hospital problems. Home medications are reviewed and will be continued as appropriate. Patient will be continued to be followed during this hospital stay by a member of [facility]. Past Medical History History reviewed. No pertinent past medical history. Past Surgical History History reviewed. No pertinent surgical history. Social History Social History Socioeconomic History Marital status: Spouse name: Not on file Number of children: Not on file Years of education: Not on file Highest education level: Not on file Occupational History Not on file Tobacco Use Smoking status: Every Day Packs/day: 1.00 Types: Cigarettes Smokeless tobacco: Never Substance and Sexual Activity Alcohol use: Yes Drug use: Never Sexual activity: Not on file Other Topics Concern Not on file Social History Narrative Not on file Social Determinants of Health Financial Resource Strain: Not on file Food Insecurity: Not on file Transportation Needs: Not on file Physical Activity: Not on file Stress: Not on file Social Connections: Not on file Intimate Partner Violence: Not on file Housing Stability: Not on file Family History family history is not on file. Allergies is allergic to theragran. Prior to Admission Medications No medications prior to admission. Labs Labs Reviewed BASIC METABOLIC PANEL - Abnormal Result Value Sodium 127 (*) Potas (more content not included)... 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 RECOMMENDATIONS: Aspirin 81 mg lifelong Brilinta 90 mg p.o. twice daily for a minimum of 1 year given non-ST elevation myocardial infarction Close observation for development of vascular or coronary complications given complex procedure and multiple manipulations Optimal medical therapy for coronary artery disease should include dual antiplatelet therapy, high intensity statin therapy, a beta-alexander and an angiotensin-converting enzyme inhibitor or receptor alexander Observation for development of contrast-induced nephropathy given the amount of contrast used; IV hydration with normal saline and follow-up serum creatinine and electrolytes Further investigations and management for peripheral arterial disease as clinically appropriate. Further recommendations deferred to the inpatient services PROCEDURES: Ultrasound-guided access to the left radial artery, inability to cannulate the left radial artery, access to the right common femoral artery, limited femoral angiography, bilateral selective angiography, percutaneous balloon angioplasty, thrombus extraction, and Synergy drug-eluting stent placement in the right coronary artery, failed attempt at deployment of a 6 [place] Mynx map editor closure device METHODS: After risks, benefits, and alternatives were explained, written informed consent was obtained. The patient was prepped and draped in usual sterile fashion over the left wrist. Local infiltration anesthesia was achieved of the left wrist. Using a micropuncture kit, access to the left radial artery was obtained. Inability to advance the micropuncture wire was encountered multiple times. Therefore it was elected to abort radial access. Local infiltration anesthesia was achieved over the right groin which was prepped and draped in usual sterile fashion. A micropuncture kit was used to access the artery and this was upsized to a 6 [place] 11 cm sheath. Angiography via the SideArm of the sheath was performed. Bilateral selective coronary angiography was performed using JR 4.0 and JL 4.0 catheters. After reviewing the images it was elected to proceed with an interventional procedure. A 6 [place] JR4 guide catheter was advanced over a J-wire and coaxially engaged into the right coronary ostium. A 0.014 run-through NS wire was advanced through the catheter, across the suspect stenosis and positioned distally. Balloon angioplasty was performed using a 2.5 x 15 mm NC balloon. Thrombus extraction was performed using a Priority 1 thrombus extraction catheter in multiple runs. Angioplasty was repeated using a 3.0 x 20 mm noncompliant balloon. Repeat images showed an improved result. Balloon angioplasty was performed at low pressure distally using a 2.5 x 15 mm noncompliant balloon. Due to concern regarding ostial thrombus, balloon angioplasty was performed using a 3.5 x 12 mm noncompliant balloon. Evidence of distal embolization was seen. A Priority 1 thrombus extraction catheter was used in multiple runs. In addition, intracoronary adenosine was administered as a 480 mcg bolus. Proximal to mid vessel stenosis was treated using a 3.5 x 28 mm Synergy stent. Post dilation was performed using 3.5 x 12 mm noncompliant balloon. The mid to distal lesion was treated using a 2.5 x 16 mm Synergy stent with attention paid to assure overlap of stent margins. Repeat images now showed a satisfactory result. The wire was removed. Final images showed BUSHRA-3 flow with no dissection thrombus or distal wire trauma. At this point it was elected to conclude the procedure. A 6 [place] Mynx map editor closure device was deployed however failed; therefore manual pressure was held for hemostasis. Overall the patient tolerated the procedure well. There were no overt complications. She was to be transferred to the holding area in stable condition. FINDINGS: Hemodynamics: AO 110/64 [79] LEFT VENTRICULOGRAPHY: This was not performed. Ejection fraction is normal by echocardiography. CORONARY ARTERIES: Left main coronary artery: This arises from the left coronary cusp, it bifurcates into the left anterior descending and left circumflex coronary arteries it shows mild plaque. 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 [facility] 01-13-2023 Note Patient: Scott Francis Procedure Information Date/Time: 01/13/23 1430 Procedure: Coronary angiography [facility] / [facility] (Cath) Providers: Dari Blount MD Clinical information reviewed: Tobacco Allergies Meds Med Hx Surg Hx Fam Hx Soc Hx Physical Exam Airway Mallampati: III TM distance: >3 FB Neck ROM: full Cardiovascular Rhythm: regular Rate: normal Dental Pulmonary Abdominal Anesthesia Plan ASA 3 Additional Equipment Requests [facility] Evaluation + Plan note Future Appointments Appointment Date:12/22/2022 01:00:00 PM Scheduled Provider:Dada Callahan MD Location:[facility] Appointment Type: Open [facility] Hospital course Narrative No data available for this section [facility] Hospital Discharge instructions No data available for this section [facility] Progress note No data available for this section [facility] Summary Purpose Family History No Family History Records FoundNo Family History Records FoundNo Family History Records Found Advance Directives No Advanced Directives Records FoundNo Advanced Directives Records FoundNo Advanced Directives Records Found Additional Source Comments INFORMATION SOURCE (unrecogn ized section and content) DATE CREATED AUTHOR 10/15/2021 [facility] DATE CREATED AUTHOR AUTHOR'S ORGANIZ ATION 02/06/2023 [facility] DATE CREATED AUTHOR AUTHOR'S ORGANIZ ATION 04/06/2023 [facility] Patient Care team informatio n (unrecognized section and content) Personnel Name: SELVIN SMITH, JAZMIN Fitzgerald Address: Address: [address] [place] [id number] FOR RECORDS PERTAINING TO PATIENTS WHO ARE OR HAVE BEEN ENROLLED IN A CHEMICAL DEPENDENCY/SUBSTANCEABUSE PROGRAM, SOME INFORMATION MAY BE OMITTED. This clinical summary was aggregated from multiple sources. Caution should be exercised in using it in the provision of clinical care. This summary normalizes information from multiple sources, and as a consequence, information in this document may materially change the coding, format and clinical context of patient data. In addition, data may be omitted in some cases. CLINICAL DECISIONS SHOULD BE BASED ON THE PRIMARY CLINICAL RECORDS. [facility] provides no warranty or guarantee of the accuracy or completeness of information in this document.
[2023-05-03 12:56] LABS: Alanine Aminotransferase 80 U/L (14-59); Albumin Globulin Ratio 0.9; Albumin Level 3.5 g/dL (3.4-5.0); Alkaline Phosphatase 89 U/L (46-116); Aspartate Amino Transferase 76 U/L (15-37); Bilirubin Direct 0.1 mg/dL (0.0-0.2); Bilirubin Total 0.5 mg/dL (0.2-1.0); Chol HDL Ratio 3.3; Cholesterol 144 mg/dL (<=200); HDL Cholesterol 43 mg/dL (40-60); Total Protein 7.5 g/dL (6.4-8.2); Triglycerides 158 mg/dL (<=150); VLDL CHOLESTEROL 31.6 mg/dL
== END 2023-05-03 11:31 | disposition home or self-care (01) ==
LOC: LAB 11:31
PROVIDERS: PCP Family Medicine; Visit Provider Internal Medicine Interventional Cardiology
DX: I25.119 Atherosclerotic heart disease of native coronary artery with unspecified angina pectoris (principal)
CPT/HCPCS: 36415; 80061; 80076

== ENCOUNTER 2023-05-17 07:12 | Outpatient (RCR) | payer BC, SELFPAY ==
--- NOTE | 2023-04-22 12:46 | CR1_ITS ---
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
--- NOTE | 2023-05-21 12:53 | CR1_ITS ---
[facility] Test Date: 2023-05-21 Pat Name: SCOTT FRANCIS Department: Room: - Gender: Female Filling Operator: : 1960 Requested By: GARRET JOHNSTON Order Number: [id number] Reading MD: SANGEETHA WADE Interpretive Statements Session Date: Electronically Signed On 05-22-2023 7:16:44 EST by SANGEETHA WADE
== END 2023-09-30 07:14 | disposition home or self-care (01) ==
LOC: CR 07:12
PROVIDERS: PCP Family Medicine; Visit Provider Internal Medicine Interventional Cardiology
DX: Z95.5 Presence of coronary angioplasty implant and graft (principal)

== ENCOUNTER 2023-07-09 06:28 | Outpatient (OUT) | payer BC, SELFPAY ==
--- OUTSIDE RECORDS SUMMARY | 2023-07-09 06:32 | XMS_ITS | CCD ---
Author Organization [facility] Care Team Providers Care Wind Up Operator Name Role Phone SELVIN, DR JAZMIN Fitzgerald Admitting Unavailable SELVIN, DR JAZMIN Fitzgerald Attending Unavailable SELVIN, DR JAZMIN Fitzgerald Primary Care Unavailable SELVIN, DR JAZMIN Fitzgerald Consulting Unavailable SELVIN, DR JAZMIN Fitzgerald Admitting Unavailable SELVIN, DR JAZMIN Fitzgerald Attending Unavailable SELVIN, DR JAZMIN Fitzgerald Primary Care Unavailable SELVIN, DR JAZMIN Fitzgerald Consulting Unavailable JAZMIN MILES Primary Care Physician DARI BLOUNT Referring Unavailable RENETTA, MINESH Referring Unavailable FRANCESCO KOTHARI Referring Unavailable RENETTA, MINESH Admitting Unavailable YAJAIRA RODRIGUEZ Attending Unavailable DARI BLOUNT Attending Unavailable EVELINE COYLE Referring Unavailable Dada Callahan Attending Unavailable Dada Callahan Attending Unavailable Dada Callahan Attending Unavailable Dada Callahan Attending Unavailable Dada Callahan Attending Unavailable Dada Callahan Attending Unavailable Nilda Bobo Attending Unavailable Nilda Bobo Attending Unavailable Dada Callahan Attending Unavailable Dada Callahan Admitting Unavailable Dada Callahan Attending Unavailable Dada Callahan Admitting Unavailable Dada Callahan Attending Unavailable Allergies Allergy Classification Reported Allergen(s) Allergy Type Date of Onset Reaction(s) Facility (1 source) egg extract Drug Allergy 4 [facility] Repository (1 source) TheraNatal Drug allergy (disorder) 4 [facility] Repository (2 sources) Cefuroxime; Translations: [cefuroxime] Drug Allergy Unknown (qualifier value) [facility] (1 source) THERAGRAN; Translations: [THERAGRAN] Propensity to adverse reactions to drug (disorder) 3 [facility] Repository Medications Current Medications Medication Drug Class(es) [...] spasm, # 30 tab(s), Refills(s) 1, Pharmacy: [facility] #[id number], 168, cm, 07/28/22 10:47:00 EDT, Height/Length Dosing, 67.1, kg, 07/28/22 10:47:00 EDT, Weight Dosing Start Date: 09/07/22 Status: Ordered fluticasone propionate 0.05 mg/actuat metered dose nasal spray (1 source) Corticosteroid Start: 3 Flonase 0.05 mg/inh Winger 2 spray(s), Nasal, Daily, 16 gram, Refill(s) 0, each nostril, [facility]pharm[facility] #[id number], 168, cm, 07/28/22 10:47:00 EDT, Height/Length Dosing, 67.1, kg, 07/28/22 10:47:00 EDT, Weight Dosing Start Date: 07/28/22 Status: Ordered levothyroxine sodium 0.05 mg oral tablet (1 source) l-Thyroxine Start: 3 End: 3 take 1 tablet by mouth once daily levothyroxine 50 mcg (0.05 mg) Tab 50 mcg = 1 tab(s), Oral, Daily, X 30 day(s), # 30 tab(s), Refills(s) 3, [id number] 168, cm, 07/28/22 10:47:00 EDT, Height/Length Dosing, 67.1, kg, 07/28/22 10:47:00 EDT, Weight Dosing Start Date: 09/07/22 Stop Date: 01/05/23 Status: Ordered meloxicam 15 mg oral tablet (1 source) Nonsteroidal Anti-inflammatory Drug Start: take 1 tablet by mouth once daily meloxicam 15 mg Tab 15 mg = 1 tab(s), Oral, Daily, # 90 tab(s), Refills(s) 1, [id number], 166.6, cm, 09/21/22 9:53:00 EDT, Height/Length [...] disease (2 sources) Atherosclerotic heart disease of rosebud coronary artery without angina pectoris; Translations: [Atherosclerotic heart disease of rosebud coronary artery without angina pectoris] Onset: 02-04-2023 [...] Name Value Interpretation Reference Range Facil ity Ambulatory Visit Summaryon 0 06-30-2023 Ambulatory Visit Summary SCOTT FRANCIS :1960 Visit Date:06/30/2023 Ambulatory Visit Instructions Your Diagnosis Neck pain BMI 25.0-25.9,adult Smoker Your Care Team Attending Physician - Nilda Hernandez Primary Care Physician - Nilda Hernandez This Is Your Medications List aspirin (Aspirin Low Dose 81 mg oral tablet, chewable) atorvastatin (atorvastatin 20 mg Tab) citalopram (citalopram 40 mg Tab) clopidogrel (clopidogrel 75 mg Tab) cyclobenzaprine (cyclobenzaprine 10 mg Tab) gabapentin (gabapentin 300 mg Cap) hydrOXYzine (hydrOXYzine hydrochloride 10 mg Tab) levothyroxine (levothyroxine 50 mcg (0.05 mg) Tab) losartan (losartan 50 mg Tab) metoprolol (Toprol XL 50 mg Tab-ER) nitroglycerin (nitroglycerin 0.4 mg sublingual Tab) trazodone (traZODONE 100 mg Tab) Procedures Performed Cataract, Colonoscopy, Vaginal hysterectomy. Discharge Vitals Heart Rate (Peripheral) 88 Respiratory Rate 18 Blood Pressure 130/78 Height 166 cm Height 65 in Weight 69.5 kg Weight 152.9 lb BMI 25.22 Medications What How Much When Why Instructions New gabapentin (gabapentin 300 mg Cap) 1 Capsules By Mouth Once a day (at bedtime) BMI 25.0-25.9,adult Smoker Neck pain Refills: 2 Pickup at [facility] #[id number] Unchanged aspirin (Aspirin Low Dose 81 mg oral tablet, chewable) 1 Tablets Chewed Every day Unchanged atorvastatin (atorvastatin 20 mg Tab) 1 Tablets By Mouth Every day Unchanged citalopram (citalopram 40 mg Tab) 1 Tablets By Mouth Every day Unchanged clopidogrel (clopidogrel 75 mg Tab) 1 Tablets By Mouth Every day Unchanged cyclobenzaprine (cyclobenzaprine 10 mg Tab) 1 Tablets By Mouth Once a day (in the evening) as needed for for spasm Unchanged hydrOXYzine (hydrOXYzine hydrochloride 10 mg Tab) See instructions TAKE 2 TABLETS BY MOUTH 4 TIMES A DAY Unchanged levothyroxine (levothyroxine 50 mcg (0.05 mg) Tab) See instructions TAKE 1 TABLET BY MOUTH EVERY DAY Unchanged losartan (losartan 50 mg Tab) 1 Tablets By Mouth Every day TAKE 1 TABLET BY MOUTH EVERY DAY IN THE MORNING Unchanged metoprolol (Toprol XL 50 mg Tab-ER) 1 Tablets By Mouth Every day Unchanged nitroglycerin (nitroglycerin 0.4 mg sublingual Tab) 1 Tablets Sublingual Every 5 minutes as needed for for chest pain Unchanged trazodone (traZODONE 100 mg Tab) See instructions TAKE 1 TABLET BY MOUTH EVERYDAY AT BEDTIME Pharmacy Information [facility] #[id number]: [address], [place] [id number] [phone] Allergies cefuroxime (Unknown) Problems Ongoing - Any problem that you are currently receiving treatment for. Alcohol abuse Anxiety CAD (coronary artery disease) Cigarette nicotine dependence COPD without exacerbation Diverticulitis Dizziness Fibromyalgia Hospital discharge follow-up Hypertension Hyponatremia Hypothyroidism Insomnia Itching Macrocytosis Migraines Mixed hyperlipidemia Barriga neuroma Neck pain Seasonal allergies Patient Survey You may receive a survey via text or e-mail asking about your office visit. Please share your experience with us by completing your survey. We appreciate your feedback and thank you for choosing us for your care. Normal [facility] Family Medicine Office/Clini c Noteon 06-30-2023 Family Medicine Office/Clinic Note HPI Staff Scott is a 63 year old female presenting to discuss medication Pt is now taking Plavix and is unable to take her Meloxicam and needs something different for her arthritis pain knees and neck. History of Present Illness pt presnts today to discuss medication for arthritis pain Review of Systems PHQ Score Initial Depression Screen Score: 0 SCORE Physical Exam Vitals & Measurements HR: 88(Peripheral) RR: 18 BP: 130/78 SpO2: 98% HT: 65 in HT: 166 cm WT: 69.5 kg WT: 152.9 lb BMI: 25.22 General: alert, no acute distress ENMT: oral mucosa moist, no pharyngeal erythema or exudate Cardiovascular: regular rate and rhythm, normal peripheral perfusion Respiratory: Lungs CTA, respirations non labored Extremities: no deformity, no trauma Neurological: oriented x 4, LOC appropriate for age, CN II-XII intact, motor strength equal & normal bilaterally, speech normal limited mobility of neck due to pain Assessment/Plan 1. Neck pain (M54.2: Cervicalgia) pt has been taking meloxicam for arthritic neck pain for years. was recently started on plavix and was told to stop taking meloxicam. pain is now out of control and she is unable to sleep. pt wtiill start taking tyneol arthritis during the day and a dose of gabapentin at bedtime. her pain is the worst at night. RTC as needed Ordered: gabapentin, 300 mg = 1 cap(s), Oral, Once a day (at bedtime), # 30 cap(s), Refills(s) 2, [id number] 166, cm, 06/30/23 15:12:00 EDT, Height/Length Dosing, 69.5, kg, 06/30/23 15:12:00 EDT, Weight Dosing 2. BMI 25.0-25.9,adult (Z68.25: Body mass index [BMI] 25.0-25.9, adult) BMI education complete Ordered: gabapentin, 300 mg = 1 cap(s), Oral, Once a day (at bedtime), # 30 cap(s), Refills(s) 2, [id number], 166, cm, 06/30/23 15:12:00 EDT, Height/Length Dosing, 69.5, kg, 06/30/23 15:12:00 EDT, Weight Dosing 3. Smoker (F17.200: Nicotine dependence, unspecified, uncomplicated) consider not smoking Ordered: gabapentin, 300 mg = 1 cap(s), Oral, Once a day (at bedtime), # 30 cap(s), Refills(s) 2, Pharmacy: [facility] #[id number], 166, cm, 06/30/23 15:12:00 EDT, Height/Length Dosing, 69.5, kg, 06/30/23 15:12:00 EDT, Weight Dosing Follow-up No qualifying data [...] 81 mg= 1 tab(s), Chewed, Daily atorvastatin 20 mg Tab, 20 mg= 1 tab(s), Oral, Daily citalopram 40 mg Tab, 40 mg= 1 tab(s), Oral, Daily, 1 refills clopidogrel 75 mg Tab, 75 mg= 1 tab(s), Oral, Daily cyclobenzaprine 10 mg Tab, 10 mg= 1 tab(s), Oral, qPM, PRN, 1 refills gabapentin 300 mg Cap, 300 mg= 1 cap(s), Oral, Once a day (at bedtime), 2 refills hydrOXYzine hydrochloride 10 mg Tab, See Instructions levothyroxine 50 mcg (0.05 mg) Tab, See Instructions losartan 50 mg Tab, 50 mg= 1 tab(s), Oral, Daily nitroglycerin 0.4 mg sublingual Tab, 0.4 mg= 1 tab(s), SubLingual, q5min, PRN Toprol XL 50 mg Tab-ER, 50 mg= 1 tab(s), Oral, Daily, 5 refills traZODONE 100 mg Tab, See Instructions Allergies cefuroxime (Unknown) Social History Tobacco 5-9 cigarettes (between 1/4 to 1/2 pack)/day in last 30 days Tobacco Use:. Cigarettes, Household tobacco concerns: No., 06/30/2023 Family History Primary malignant neoplasm of female breast: Sister. Immunizations Vaccine Date Status zoster vaccine, inactivated 03/24/2023 Recorded pneumococcal 20-valent conjugate vaccine 03/23/2023 Recorded influenza virus vaccine, inactivated 01/04/2023 Given influenza virus vaccine, inactivated 03/09/2022 Recorded SARS-CoV-2 (COVID-19) [id number] 03/09/2022 Recorded SARS-CoV-2 (COVID-19) mRNA BNT-162b2 vax 04/17/2021 Recorded SARS-CoV-2 (COVID-19) mRNA BNT-162b2 vax 08/15/2020 Recorded SARS-CoV-2 (COVID-19) mRNA BNT-162b2 vax 07/25/2020 Recorded Normal [facility] Comment on above: Result Comment: Elec tronically Signed By: Nilda Hernandez\.tiot\Date and Time Signed: 06/30/23 15:25 EDT 36on 06-01-2023 36 05/17/2023: Received: 3 weeks ago MD Guille Michael MA Please let her know her liver function tests are elevated; would decrease Lipitor to 20 mg daily and repeat Lipid profile and LFTs in 4 weeks Thanks 06/01/2023: Patient called to confirm her apt on 06/07/[address] Blount. She asked about the blood work that was requested prior. We got to talking and realized she cut the dose of the wrong medication in half. Dr. Blount wanted her to cut her atorvastatin down to 20mg daily, from 40mg. She had been cutting losartan 50mg in half since 05/17/2023. I advised her to resume losartan 50mg daily, and cut atorvastatin down to 20mg daily. We pushed her follow up out another month with liver/lipid profile to be repeated a few days prior. She verbalized understanding. Lab orders mailed to her home. Normal [facility] Orders Onlyon 05-17-2023 Orders Only [id number] Scott Francis Christopher 1960 F Date Provider Department Center 05/17/2023 GUILLE GENAO CARD [facility] Family History Problem Relation Age of Onset No Known Problems Mother No Known Problems Father Family Status - Relation Status Age at Mother Father Normal [facility] Consultation Noteon 03-25-20 Consultation Note [id number] #1.00TIFF Normal [facility] Pulmonary Function Testson 1 05-04-2022 Pulmonary Function Tests [id number] #1.00TIFF Normal [facility] RAD - CT Reporton 03-01-2023 RAD - CT Report [id number] #1.00TIFF Normal [facility] Physician Orderon 02-12-2023 Physician Order [id number] #1.00TIFF Normal [facility] Office Visiton 02-04-2023 Follow-up visit [id number] [facility] Francis 1960 F Date Provider Department Center 02/04/2023 [facility] Family History Problem Relation Age of Onset No Known Problems Mother No Known Problems Father Family Status - Relation Status Age at Mother Father Level of Service:18354 [place] OFFICE/OUTPATIENT ESTABLISHED MOD MDM 30-39 MIN Normal [facility] Physician Referralon 023 Physician Referral [id number] 1#1.00TIFF [facility] Ambulatory Visit Summaryon 1 Ambulatory Visit Summary [...] Follow-Up Appointments Wednesday 10:00 AM EST With: London SMITH, Dada Genao Where: [facility] Invalid Interpretation Code COPD without exacerbation [facility] Office/Clini c Noteon 02-02-2023 [facility] Office/Clinic Note HPI Staff Scott is a [...] - Follow up in 2 months Ordered: [facility] External Ambulatory Referral Pulmonary Function Testing 2. COPD without exacerbation (J44.9: Chronic obstructive pulmonary disease, unspecified) - Will refer to Pulm. - Will also do PFTs Ordered: [facility] External Ambulatory Referral Pulmonary Function Testing 3. Alcohol abuse (F10.10: Alcohol abuse, uncomplicated) - Please continue abstaining from EtOH Ordered: [facility] External Ambulatory Referral Pulmonary Function Testing 4. Cigarette nicotine dependence (F17.210: Nicotine dependence, cigarettes, uncomplicated) - CT scan ordered for screening. Ordered: CT Chest, Low Dose Screening [facility] External Ambulatory Referral Pulmonary Function Testing 5. BMI 24.0-24.9, adult (Z68.24: Body mass index [BMI] 24.0-24.9, adult) - BMI education given. Ordered: [facility] External Ambulatory Referral Pulmonary Function Testing Orders: hydrOXYzine, 20 mg = 2 tab(s), Oral, QID, # 360 tab(s), Refills(s) 0, Pharmacy: [facility] #[id number], 166, cm, 02/02/23 15:55:00 EDT, Height/Length [...] virus vaccine, inactivated 03/09/2022 Recorded SARS-CoV-2 (COVID-19) [id number] 03/09/2022 Recorded SARS-CoV-2 (COVID-19) mRNA BNT-162b2 vax 04/17/2021 Recorded SARS-CoV-2 (COVID-19) mRNA BNT-162b2 vax 08/15/2020 Recorded SARS-CoV-2 (COVID-19) mRNA BNT-162b2 vax 07/25/2020 Recorded Normal [facility] Comment on above: Result Comment: Elec tronically Signed By: London SMITH, Dada Genao\.br\Date and Time Signed: 02/02/23 16:28 EDT Family Medicine Office/Clini c Noteon 01-27-2023 Family Medicine Office/Clinic Note HPI Staff Scott is a 63 year old female presenting for follow up medication check Had 2 stents put in 01/13 at [facility] and d/c 01/15/23 covid UTD Flu: UTD [...] another condition. The patient was admitted to [facility] due to chest pain. The onset of symptoms, which included chest pain, dyspnea, and belching, occurred at 6:00 AM on January 13, 2023. Despite the severity of these symptoms, the patient waited 2 days before seeking medical attention and was subsequently transferred to [place]. The patient was discharged on 01/15/2023 and has a follow-up appointment scheduled with a software engineer sales on 02/04/2023. In addition to the cardiac [...] reconciled appropriately. Patients will follow up with [facility] cardiology. 2. CAD (coronary artery disease) (I25.10: Atherosclerotic heart disease of rosebud coronary artery without angina pectoris) Patient is [...] with voice recognition artificial intelligence software, specifically Myoonet, CME and or PrintFu. Substitutions may have occurred due to the inherent limitations of voice recognition and artificial intelligence software. Documentation services were performed after patient or guardian consented to allow [employer] to record this visit. JOSÉ medical education specialist and provider reviewed before signing. JOSÉ: [...] 15 mg Tab, (more content not included)... Normal [facility] Comment on above: Result Comment: Elec tronically Signed By: Dada Callahan MD\.br\Date and Time Signed: 01/27/23 09:43 EDT\.br\Electronically Co-Signed By: Neelam Gerardo.br\Date and Time Co-Signed: 01/19/23 18:43 EDT [facility] Correspo ndekirilleon 01-19-2023 [facility] Correspondence [id number] #1.00CD:127 [facility] Patient Educationon 01-20-20 Patient Education Nutrition BMI [...] numbers. This can be done either in E[place]ad[place] ([place] or metric measurements. Note that charts and online BMI calculators are available to help you find your BMI quickly and easily without having to do these calculations yourself. To calculate your BMI in E[place]adorean ([place] measurements: 1. Measure your weight in [...] for Disease Control and Prevention: www.cdc.gov ? [place] Heart Association: www.heart.org ? National Heart, Lung, and Blood [place]: www.nhlbi.nih.gov Summary ? Body mass index (BMI) is a number that is calculated from a person's weight and height. ? BMI may help estimate how much of a person's weight is composed of fat. BMI can help identify those who may be at higher risk for certain medical problems. ? BMI can be measured using Ecuadorean measurements or metric measurements. ? BMI charts are used to identify whether you are underweight, normal weight, overweight, or obese. This information is not intended to replace advice given to you by your health care provider. Make sure you discuss any questions you have with your health care provider. Document Revised: 12/27/2019 Document Reviewed: 11/03/2019 [email or web address] Patient Education ? 2022 Join The Wellness Team. Normal [facility] 01-19-2023 [facility] [id number] #1.00CD:127 Normal [facility] [id number]# 1.00CD:127 Normal [facility] 30on 01-15-2023 30 The patient is Moderately [...] symptoms for stability, deterioration, or improvement Normal [facility] 30 The patient is Moderately Stable - Low risk of patient condition declining or worsening The patient's goals for the shift include sleep The clinical goals for the shift include safety Normal [facility] APTTon 01-15-2023 ACTIVATED PARTIAL THROMBOPLASTIN TIME IN PPP BY COAGULATION ASSAY 31.6 Seconds Normal 25.0-35.0 [facility] Comment on above: Order Comment: Check aPTT every 6 hours while on heparin infusion, or per protocol. Result Comment: Clin ical significance of the APTT is questionable in the presence of heparin. Performed By: #### L AB325 #### [facility] [address] [place] [address] BASIC METABOLIC PANELon - Anion gap [Moles/Vol] 8 mmol/L Normal 7-20 [facility] Comment on above: Performed By: #### L AB15 #### [facility] [address] [place] [address] Calcium [Mass/Vol] 8.6 mg/dL Normal 8.6-10.3 [facility] Comment on above: Performed By: #### L AB15 #### [facility] [address] [place] [address] Chloride [Moles/Vol] 106 mmol/L Normal 98-107 [facility] Comment on above: Performed By: #### L AB15 #### [facility] [address] [place] [address] CO2 [Moles/Vol] 25 mmol/L Normal 21-31 [facility] Comment on above: Performed By: #### L AB15 #### [facility] [address] [place] [address] Creatinine [Mass/Vol] 0.48 mg/dL Low 0.60-1.20 [facility] Comment on above: Performed By: #### L AB15 #### [facility] [address] [place] [address] GLOMERULAR FILTRATION RATE ML/MIN/1.73 SQ M.PREDICTED 107.7 mL/min/1.73m*2 Normal >60.0 [facility] Comment on above: Result Comment: The [facility]???s estimated glomerular filtration rate (eGFR) will no [...] of individuals. Performed By: #### L AB15 #### [facility]) [address] [place] [address] Glucose [Mass/Vol] 111 mg/dL High 70-100 [facility] Comment on above: Performed By: #### L AB15 #### [facility] [address] [place] [address] Potassium [Moles/Vol] 4.0 mmol/L Normal 3.5-5.1 [facility] Comment on above: Performed By: #### L AB15 #### [facility]) [address] [place] [address] Sodium [Moles/Vol] 135 mmol/L Low 136-145 [facility] Comment on above: Performed By: #### L AB15 #### [facility]) [address] [place] [address] Urea nitrogen [Mass/Vol] 9 mg/dL Normal 7-25 [facility] Comment on above: Performed By: #### L AB15 #### [facility]) [address] [place] [address] UREA NITROGEN/CREATININE (MASS RATIO) IN SER/PLAS 18.8 Normal [facility] Comment on above: Performed By: #### L AB15 #### [facility] [address] [place] [address] CBCon 01-15-2023 Erythrocyte distribution width (RBC) [Ratio] 12.6 % Normal 11.5-15.0 [facility] Comment on above: Performed By: #### L [id number] #### [facility] [address] [place] [address] ERYTHROCYTE MEAN CORPUSCULAR HEMOGLOBIN CONCENTRATION (G/DL) BY AUTOMATED 34.0 g/dL Normal 32.0-35.0 [facility] Comment on above: Performed By: #### L [id number] #### [facility] [address] [place] [address] Hematocrit (Bld) [Volume fraction] 36.2 % Normal 36.0-48.0 [facility] Comment on above: Performed By: #### L [id number] #### [facility] [address] [place] [address] Hemoglobin (Bld) [Mass/Vol] 12.3 g/dL Normal 12.0-15.0 [facility] Comment on above: Performed By: #### L [id number] #### [facility] [address] [place] [address] MCH (RBC) [Entitic mass] 34.9 pg High 27.0-33.0 [facility] Comment on above: Performed By: #### L [id number] #### [facility]) [address] [place] [address] MCV (RBC) [Entitic vol] 102.8 fL High 82.0-98.0 [facility] Comment on above: Performed By: #### L [id number] #### [facility]) [address] [place] [address] PLATELETS (10*3/UL) IN BLOOD AUTOMATED COUNT 214 10*3/uL Normal 150-400 [facility] Comment on above: Performed By: #### L [id number] #### [facility] [address] [place] [address] RBC (Bld) [#/Vol] 3.52 10*6/uL Low 3.80-5.00 [facility] Comment on above: Performed By: #### L [id number] #### [facility] [address] [place] [address] WBC (Bld) [#/Vol] 10.14 10*3/uL Normal 4.00-10.60 [facility] Comment on above: Performed By: #### L [id number] #### [facility] ([facility]) [address] [place] [address] EDPROVon 01-15-2023 EDPROV HPI Chief Complaint Patient [...] Course & MDM Diagnoses as of 01/23/23 0813 NSTEMI (non-ST elevated myocardial infarction) ([facility]) Medical Decision Making Attestion Eveline Coyle MD 01/23/23 0815 Normal [facility] MAGNESIUMon 01-15-2023 Magnesium [Mass/Vol] 2.0 mg/dL Normal 1.9-2.7 [facility] Comment on above: Performed By: #### L [id number] #### [facility]) [address] [place] [address] NURSNOTEon 01-15-2023 NURSNOTE Discharge instructions given and reviewed, questions answered, signed, copy received. Normal [facility] [place] 30on 01-14-2023 30 The patient is Moderately Stable - Low risk of patient condition declining or worsening The patient's goals for the shift include to get up The clinical goals for the shift include VSS Normal [facility] [place] APTTon 01-14-2023 ACTIVATED PARTIAL THROMBOPLASTIN TIME IN PPP BY COAGULATION ASSAY 28.6 Seconds Normal 25.0-35.0 [facility] Comment on above: Order Comment: Check aPTT every 6 hours while on heparin infusion, or per protocol. Result Comment: Clin ical significance of the APTT is questionable in the presence of heparin. Performed By: #### L [id number] #### [facility] ([facility]) [address] [place] [address] ACTIVATED PARTIAL THROMBOPLASTIN TIME IN PPP BY COAGULATION ASSAY 25.9 Seconds Normal 25.0-35.0 [facility] [place] Comment on above: Order Comment: Check aPTT every 6 hours while on heparin infusion, or per protocol. Result Comment: Clin ical significance of the APTT is questionable in the presence of heparin. Performed By: #### L [id number] ####[facility] ([facility])[address] [place] [address] BASIC METABOLIC PANELon 12-19 Anion gap [Moles/Vol] 11 mmol/L Normal 7-20 [facility] Comment on above: Performed By: #### L [id number] #### [facility] ([facility]) [address] [place] [address] Calcium [Mass/Vol] 9.1 mg/dL Normal 8.6-10.3 [facility] Comment on above: Performed By: #### L [id number] #### [facility] ([facility]) [address] [place] [address] Chloride [Moles/Vol] 97 mmol/L Low 98-107 [facility] Comment on above: Performed By: #### L [id number] #### [facility] [address] [place] [address] CO2 [Moles/Vol] 25 mmol/L Normal 21-31 [facility] Comment on above: Performed By: #### L [id number] #### [facility] ([facility]) [address] [place] [place] [address] Creatinine [Mass/Vol] 0.45 mg/dL Low 0.60-1.20 [facility] Comment on above: Performed By: #### L [id number] #### [facility] ([facility]) [address] [place] [address] GLOMERULAR FILTRATION RATE ML/MIN/1.73 SQ M.PREDICTED 109.4 mL/min/1.73m*2 Normal >60.0 [facility] Comment on above: Result Comment: The [facility]???s estimated glomerular filtration rate (eGFR) will no [...] of individuals. Performed By: #### L [id number] #### [facility] [address] [place] [address] Glucose [Mass/Vol] 114 mg/dL High 70-100 [facility] Comment on above: Performed By: #### L [id number] #### [facility] [address] [place] [address] Potassium [Moles/Vol] 3.1 mmol/L Low 3.5-5.1 [facility] Comment on above: Performed By: #### L [id number] #### [facility] [address] [place] [address] Sodium [Moles/Vol] 130 mmol/L Low 136-145 [facility] Comment on above: Performed By: #### L [id number] #### [facility] [address] [place] [address] Urea nitrogen [Mass/Vol] 6 mg/dL Low 7-25 [facility] Comment on above: Performed By: #### L [id number] #### [facility] [address] [place] [address] UREA NITROGEN/CREATININE (MASS RATIO) IN SER/PLAS 13.3 Normal [facility] Comment on above: Performed By: #### L [id number] #### [facility] [address] [place] [address] CBCon 01-14-2023 Erythrocyte distribution width (RBC) [Ratio] 12.6 % Normal 11.5-15.0 [facility] Comment on above: Performed By: #### L [id number] #### [facility] [address] [place] [address] ERYTHROCYTE MEAN CORPUSCULAR HEMOGLOBIN CONCENTRATION (G/DL) BY AUTOMATED 34.6 g/dL Normal 32.0-35.0 [facility] Comment on above: Performed By: #### L [id number] #### [facility] [address] [place] [address] Hematocrit (Bld) [Volume fraction] 38.1 % Normal 36.0-48.0 [facility] Comment on above: Performed By: #### L [id number] #### [facility] ([facility]) [address] [place] [address] Hemoglobin (Bld) [Mass/Vol] 13.2 g/dL Normal 12.0-15.0 [facility] Comment on above: Performed By: #### L [id number] #### [facility] ([facility]) [address] [place] [address] MCH (RBC) [Entitic mass] 34.3 pg High 27.0-33.0 [facility] Comment on above: Performed By: #### L [id number] #### [facility] ([facility]) [address] [place] [address] MCV (RBC) [Entitic vol] 99.0 fL High 82.0-98.0 [facility] Comment on above: Performed By: #### L [id number] #### [facility] ([facility]) [address] [place] [address] PLATELETS (10*3/UL) IN BLOOD AUTOMATED COUNT 216 10*3/uL Normal 150-400 [facility] Comment on above: Performed By: #### L [id number] #### [facility] ([facility]) [address] [place] [address] RBC (Bld) [#/Vol] 3.85 10*6/uL Normal 3.80-5.00 [facility] Comment on above: Performed By: #### L [id number] #### [facility] ([facility]) [address] [place] [address] WBC (Bld) [#/Vol] 12.05 10*3/uL High 4.00-10.60 [facility] Comment on above: Performed By: #### L [id number] #### [facility] ([facility]) [address] [place] [address] MAGNESIUMon 01-14-2023 Magnesium [Mass/Vol] 1.8 mg/dL Low 1.9-2.7 [facility] Comment on above: Performed By: #### L [id number] ####[facility] ([facility])[address] [place] [address] TSH3 REFLEX TO FT4on 023 THYROTROPIN (MIU/L) IN SER/PLAS BY DETECTION LIMIT <= 0.05 MIU/L 2.97 mIU/L Normal 0.34-5.60 [facility] Comment on above: Performed By: #### L [id number] #### [facility] ([facility]) [address] [place] [address] APTTon 01-13-2023 ACTIVATED PARTIAL THROMBOPLASTIN TIME IN PPP BY COAGULATION ASSAY >200.0 Critically high 25.0-35.0 [facility] Comment on above: Order Comment: Check aPTT every 6 hours while on heparin infusion, or per protocol. Result Comment: Clin ical significance of the APTT is questionable in the presence of heparin. Performed By: #### L [id number] ####[facility] ([facility])[address] [place] [address] ACTIVATED PARTIAL THROMBOPLASTIN TIME IN PPP BY COAGULATION ASSAY 40.4 Seconds High 25.0-35.0 [facility] Comment on above: Result Comment: Clin ical significance of the APTT is questionable in the presence of heparin. Performed By: #### L [id number] #### [facility] ([facility]) [address] [place] [address] BASIC METABOLIC PANELon 12-19 Anion gap [Moles/Vol] 16 mmol/L Normal 7-20 [facility] Comment on above: Performed By: #### L [id number] #### [facility]) [address] [place] [address] Calcium [Mass/Vol] 9.7 mg/dL Normal 8.6-10.3 [facility] Comment on above: Performed By: #### L [id number] #### [facility] ([facility]) [address] [place] [address] Chloride [Moles/Vol] 89 mmol/L Low 98-107 [facility] Comment on above: Performed By: #### L [id number] #### [facility] ([facility]) [address] [place] [address] CO2 [Moles/Vol] 25 mmol/L Normal 21-31 [facility] Comment on above: Performed By: #### L [id number] #### [facility] ([facility]) [address] [place] [address] Creatinine [Mass/Vol] 0.54 mg/dL Low 0.60-1.20 [facility] Comment on above: Performed By: #### L [id number] #### [facility] ([facility]) [address] [place] [address] GLOMERULAR FILTRATION RATE ML/MIN/1.73 SQ M.PREDICTED 104.7 mL/min/1.73m*2 Normal >60.0 [facility] Comment on above: Result Comment: The [facility]???s estimated glomerular filtration rate (eGFR) will no [...] of individuals. Performed By: #### L [id number] #### [facility] ([facility]) [address] [place] [address] Glucose [Mass/Vol] 116 mg/dL High 70-100 [facility] Comment on above: Performed By: #### L [id number] #### [facility]) [address] [place] [address] Potassium [Moles/Vol] 3.3 mmol/L Low 3.5-5.1 [facility] Comment on above: Performed By: #### L [id number] #### [facility]) [address] [place] [address] Sodium [Moles/Vol] 127 mmol/L Low 136-145 [facility] Comment on above: Performed By: #### L [id number] #### [facility] [address] [place] [address] Urea nitrogen [Mass/Vol] 7 mg/dL Normal 7-25 [facility] Comment on above: Performed By: #### L [id number] #### [facility] ([facility]) [address] [place] [address] UREA NITROGEN/CREATININE (MASS RATIO) IN SER/PLAS 13.0 Normal [facility] Comment on above: Performed By: #### L [id number] #### [facility] ([facility]) [address] [place] [address] C-REACTIVE PROTEINon 023 C REACTIVE PROTEIN (MG/L) IN SER/PLAS 11.8 mg/L High 0.0-7.0 [facility] Comment on above: Performed By: #### L [id number] #### [facility] ([facility]) [address] [place] [address] CBC WITH AUTO DIFFERENTIALon 01-13-2023 Basophils (Bld) [#/Vol] 0.07 10*3/uL Normal 0.00-0.20 [facility] Comment on above: Performed By: #### L [id number] #### [facility] ([facility]) [address] [place] [address] Basophils/100 WBC (Bld) 0.6 % Normal 0.0-1.0 [facility] Comment on above: Performed By: #### L [id number] #### [facility] ([facility]) [address] [place] [address] Eosinophils (Bld) [#/Vol] 0.10 10*3/uL Normal 0.00-0.50 [facility] Comment on above: Performed By: #### L [id number] #### [facility] ([facility]) [address] [place] [address] Eosinophils/100 WBC (Bld) 0.9 % Normal 0.0-6.0 [facility] Comment on above: Performed By: #### L [id number] #### [facility] [address] [place] [address] Erythrocyte distribution width (RBC) [Ratio] 12.3 % Normal 11.5-15.0 [facility] Comment on above: Performed By: #### L [id number] #### [facility] ([facility]) [address] [place] [address] ERYTHROCYTE MEAN CORPUSCULAR HEMOGLOBIN CONCENTRATION (G/DL) BY AUTOMATED 36.0 g/dL High 32.0-35.0 [facility] Comment on above: Performed By: #### L [id number] #### [facility] [address] [place] [address] Hematocrit (Bld) [Volume fraction] 45.6 % Normal 36.0-48.0 [facility] Comment on above: Performed By: #### L [id number] #### [facility] ([facility]) [address] [place] [address] Hemoglobin (Bld) [Mass/Vol] 16.4 g/dL High 12.0-15.0 [facility] Comment on above: Performed By: #### L [id number] #### [facility] ([facility]) [address] [place] [address] Immature granulocytes (Bld) [#/Vol] 0.06 10*3/uL Normal 0.00-0.20 [facility] Comment on above: Performed By: #### L [id number] #### [facility] ([facility]) [address] [place] [address] Immature granulocytes/100 WBC (Bld) 0.5 % Normal 0.0-1.0 [facility] Comment on above: Performed By: #### L [id number] #### [facility] ([facility]) [address] [place] [address] Lymphocytes (Bld) [#/Vol] 2.93 10*3/uL Normal 1.20-4.00 [facility] Comment on above: Performed By: #### L [id number] #### [facility] ([facility]) [address] [place] [address] Lymphocytes/100 WBC (Bld) 25.3 % Normal 20.0-45.0 [facility] Comment on above: Performed By: #### L [id number] #### [facility] ([facility]) [address] [place] [address] MCH (RBC) [Entitic mass] 34.6 pg High 27.0-33.0 [facility] Comment on above: Performed By: #### L [id number] #### [facility] ([facility]) [address] [place] [address] MCV (RBC) [Entitic vol] 96.2 fL Normal 82.0-98.0 [facility] Comment on above: Performed By: #### L [id number] #### [facility] ([facility]) [address] [place] [address] Monocytes (Bld) [#/Vol] 0.87 10*3/uL Normal 0.10-1.00 [facility] Comment on above: Performed By: #### L [id number] #### [facility]) [address] [place] [address] Monocytes/100 WBC (Bld) 7.5 % Normal 5.0-12.0 [facility] Comment on above: Performed By: #### L [id number] #### [facility] ([facility]) [address] [place] [address] Neutrophils (Bld) [#/Vol] 7.57 10*3/uL Normal 1.60-7.60 [facility] Comment on above: Performed By: #### L [id number] #### [facility]) [address] [place] [address] Neutrophils/100 WBC (Bld) 65.2 % Normal 40.0-72.0 [facility] Comment on above: Performed By: #### L [id number] #### [facility] [address] [place] [address] NRBC (PER 100 WBCS) BY AUTOMATED COUNT 0.0 % Normal 0 [facility] Comment on above: Performed By: #### L [id number] #### [facility] ([facility]) [address] [place] [address] PLATELETS (10*3/UL) IN BLOOD AUTOMATED COUNT 278 10*3/uL Normal 150-400 [facility] Comment on above: Performed By: #### L [id number] #### [facility]) [address] [place] [address] RBC (Bld) [#/Vol] 4.74 10*6/uL Normal 3.80-5.00 [facility] Comment on above: Performed By: #### L [id number] #### [facility]) [address] [place] [address] WBC (Bld) [#/Vol] 11.60 10*3/uL High 4.00-10.60 [facility] Comment on above: Performed By: #### L [id number] #### [facility] [address] [place] [address] CONSULTon 01-13-2023 CONSULT Attestation signed by Piper [...] chest pain at the emergency room in [facility]. The ER physician called me and told me that she is also having elevated troponin. We will transfer her to the emergency room the patient continue have chest discomfort and the high-sensitivity troponin was around 5000. I discussed the case with Dr. Blount and we are going to proceed with second this patient to the [facility] emergently for NSTEMI. Cardiology Consult Note Reason [...] echo and coronary angiography. Soto Curry MD Radiology Equipment Servicer PGY-4 [facility] Pager # [phone] [facility] EDNURSon 01-13-2023 EDNURS Mode of arrival (squad #, walk in, police, etc): Squad Chief complaint(s): CP Arrival Note (brief scenario, treatment SHORT STORY WRITER, etc): Pt is a transfer from [facility]. Per [facility] report patient was having a Nstemi reported from an initial EKG. Pt woke up with Chest Pain on 01/12 at 6 am it was upper left and radiated across her chest. Pt's pain was not tolerable anymore and went to [facility] ER this morning on 01/13. Pt was [...] was being infused at 15.7 ml/hr from [facility]. Pt upon arrival to ED reported a CP of 5 out of 10 upper left. Pt is A&Ox4, EKG done upon arrival. Pt has a Hx of Hypothyroidism and HTN. [facility] HPon 01-13-2023 HP Attestation signed by Dari Blount MD at [...] documentation from me. Dari Blount MD, MPH, MERGED WITH [facility], [facility], [facility] Interventional Cardiology Pager Email: [email or web address] History Of Present Illness Scott Francis is a 63 y.o. female presenting with Past medical history of hypertension, current smoker who came in to [facility] initially for chest pain. Patient reported her [...] Principal Problem: NSTEMI (non-ST elevated myocardial infarction) ([facility]) Assessment: Chest pain. Likely secondary to NSTEMI versus pericarditis. Hypertension. Current smoker. Plan: We will proceed with coronary angiogram for chest pain. Risk and benefits explained to the patient who agreed to proceed. Further planning would depend on the finding of coronary angiogram. Echocardiogram is ordered. Patient was administered in the ED aspirin and heparin. Normal [facility] NURSNOTEon 01-13-2023 NURSNOTE field technical specialist reported prolonged QT on EKG completed. Reported findings to Nikia Harris NP. Nikia Harris NP discontinued Zofran. Normal [facility] SEDIMENTATION RATEon 023 SEDIMENTATION RATE, ERYTHROCYTE 11 mm/hr Normal <=20 [facility] Comment on above: Performed By: #### L [id number] #### [facility] ([facility]) [address] [place] [address] TROPONIN Ion 01-13-2023 Troponin I.cardiac [Mass/Vol] 5.86 ng/mL Critically high 0.00-0.04 [facility] Comment on above: Result Comment: M-TR OPMIRLANDE INITIAL CRITICAL HIGH; RESPUN AND RETESTED Performed By: #### L [id number] #### [facility] ([facility]) [address] [facility] [place] [address] Family Medicine Office/Clini c Noteon 01-06-2023 Family [...] with voice recognition artificial intelligence software, specifically Myoonet, CME and or PrintFu. Substitutions may have occurred due to the inherent limitations of voice recognition and artificial intelligence software. ATTESTATION: Documentation services were performed after patient or guardian consented to allow [employer] to record this visit. JOSÉ medical education specialist and provider reviewed before signing. JOSÉ: [...] more cigar (more content not included)... Normal [facility] Comment on above: Result Comment: Elec [...] Callahan MD This Is Your Medications List Contact prescribing [...] AM EST With: Dada Callahan MD Where: [facility] Steven Normal [facility] Auto Diffon 01-04-2023 Basophils/100 WBC (Bld) 1.0 % Normal 0.0-2.0 [facility] Comment on above: Order Comment: Order Added by Discern Expert. Performed By: #### 2 [id number], [id number], 9250950, [id number] ####[address] [place] [address] Basophils/Leukocytes Auto (Bld) [Pure # fraction] 0.1 E9/L Normal 0.0-0.2 [facility] Comment on above: Order Comment: Order Added by Discern Expert. Performed By: #### 2 917095, [id number], 7468070, [id number] ####[address] [address] Eosinophils/100 WBC (Bld) 1.8 % Normal 0.0-8.0 [facility] Comment on above: Order Comment: Order Added by Discern Expert. Performed By: #### 2 238955, [id number], 7145673, 5807376 ####[address] [address] Eosinophils/Leukocyt es Auto (Bld) [Pure # fraction] 0.1 E9/L Normal 0.0-0.5 [facility] Comment on above: Order Comment: Order Added by Discern Expert. Performed By: #### 2 014113, [id number], 2277450, [id number] ####[address] [address] Lymphocytes/100 WBC (Bld) 27.6 % Normal 14.0-50.0 [facility] Comment on above: Order Comment: Order Added by Discern Expert. Performed By: #### 2 795121, [id number], 9603242, [id number] ####[facility] [address] [place] [address] Lymphocytes/Leukocyt es Auto (Bld) [Pure # fraction] 2.3 E9/L Normal 1.0-4.0 [facility] Comment on above: Order Comment: Order Added by Discern Expert. Performed By: #### 2 765560, 12074112, 3616098, 5562140 ####[address] [place] [address] Monocytes/100 WBC (Bld) 7.3 % Normal 4.0-14.0 [facility] Comment on above: Order Comment: Order Added by Discern Expert. Performed By: #### 2 528926, [id number], 0127908, 9991511 ####[address] [address] Monocytes/Leukocytes Auto (Bld) [Pure # fraction] 0.6 E9/L Normal 0.2-1.0 [facility] Comment on above: Order Comment: Order Added by Landy Expert. Performed By: #### 2 031284, 90699611, 1440545, 3778121 ####[address] [address] Neutrophils/100 WBC (Bld) 62.3 % Normal 36.0-75.0 [facility] Comment on above: Order Comment: Order Added by Discern Expert. Performed By: #### 2 232471, 15122402, 2182760, 6322506 ####[address] [address] Neutrophils/Leukocyt es Auto (Bld) [Pure # fraction] 5.1 E9/L Normal 2.0-7.5 [facility] Comment on above: Order Comment: Order Added by Discern Expert. Performed By: #### 2 785822, 80704728, 4739573, 3761357 ####[address] [address] CBC w/ Auto Diffon 3 Erythrocyte distribution width (RBC) [Ratio] 13.3 % Normal 10.9-14.2 [facility] Comment on above: Performed By: #### 2 588202, 00252265, 3157748, 4743454 ####[address] [place] [address] Hematocrit (Bld) [Volume fraction] 42.5 % Normal 34.0-46.0 [facility] Comment on above: Performed By: #### 2 101110, 38243353, 1499992, 7373168 ####[address] Hemoglobin (Bld) [Mass/Vol] 14.8 g/dL Normal 12.0-16.0 [facility] Comment on above: Performed By: #### 2 370706, 17534742, 2448053, 0419184 ####[address] [place] MCH (RBC) [Entitic mass] 35.3 pg High 27.0-34.0 [facility] Comment on above: Performed By: #### 2 143914, 95397757, 8053847, 2373654 ####[address] [place] MCHC (RBC) [Mass/Vol] 34.9 g/dL Normal 31.4-36.0 [facility] Comment on above: Performed By: #### 2 753767, 27521756, 8748009, 0421026 ####[address] [address] MCV (RBC) [Entitic vol] 101.2 fL High 80.0-100.0 [facility] Comment on above: Performed By: #### 2 459608, 78171162, 7617174, 8065889 ####[address] [address] Platelet mean volume (Bld) [Entitic vol] 7.2 fL Normal 6.4-10.8 [facility] Comment on above: Performed By: #### 2 549356, 82041023, 7612595, 1128656 ####[place] [address] Platelets (Bld) [#/Vol] 255.0 E9/L Normal 150.0-500.0 [facility] Comment on above: Performed By: #### 2 201328, 86049336, 0276395, 1836115 ####[address] [place] [address] RBC (Bld) [#/Vol] 4.2 E12/L Low 4.3-5.9 [facility] Comment on above: Performed By: #### 2 553451, 65736792, 9531844, 9956847 ####[address] [address] WBC corrected for nucl RBC Auto (Bld) [#/Vol] 8.2 E9/L Normal 4.0-11.0 [facility] Comment on above: Performed By: #### 2 912152, 69434647, 8481279, 3804125 ####[address] [address] CMPon 01-04-2023 Albumin [Mass/Vol] 4.1 g/dL Normal 3.3-5.0 [facility] Comment on above: Performed By: #### 2 442267, 60686194, 2918334, 3152583 ####[address] [address] Albumin/Globulin (S) [Mass conc ratio] 1.2 Normal 1.1-2.2 [facility] Comment on above: Performed By: #### 2 934070, 22747144, 2452662, 3278404 ####[address] [address] ALP [Catalytic activity/Vol] 66 Int._Unit/L Normal 21-98 [facility] Comment on above: Performed By: #### 2 521454, 04561913, 3441463, 2185976 ####[address] [place] [address] ALT No additional P-5'-P [Catalytic activity/Vol] 20 Int._Unit/L Normal 6-46 [facility] Comment on above: Performed By: #### 2 002509, 52351700, 5909278, 1084790 ####[facility] [address] [address] Anion gap [Moles/Vol] 12 mmol/L Normal 6-16 [facility] Comment on above: Performed By: #### 2 920626, 07293762, 0955606, 9212436 ####[facility] [address] [place] [address] AST [Catalytic activity/Vol] 34 Int._Unit/L Normal 5-43 [facility] Comment on above: Performed By: #### 2 365972, 83876968, 8822009, 3201986 ####[facility] [address]Nthe [place] [address] Bilirubin [Mass/Vol] 0.4 mg/dL Normal 0.0-1.1 [facility] Comment on above: Performed By: #### 2 488147, 87345986, 5372205, 7461261 ####[facility] [address] [facility] [place] [address] Calcium [Mass/Vol] 9.3 mg/dL Normal 8.9-11.1 [facility] Comment on above: Performed By: #### 2 373067, 24444266, 5258881, 6130921 ####[facility] [address] [place] [address] Chloride [Moles/Vol] 99 mmol/L Low 101-111 [facility] Comment on above: Performed By: #### 2 016846, 99169177, 7110341, 7813616 ####[facility] [address] [place] [address] CO2 [Moles/Vol] 28 mmol/L Normal 21-31 [facility] Comment on above: Performed By: #### 2 208935, 95506825, 4752925, 1768915 ####[facility] [address]Nthe [place] [address] Creatinine [Mass/Vol] 0.6 mg/dL Normal 0.5-1.3 [facility] Comment on above: Performed By: #### 2 175897, 47914013, 7526958, 5011684 ####[facility] [address] [place] [address] Globulin (S) [Mass/Vol] 3.5 g/dL Normal 1.4-4.0 [facility] Comment on above: Performed By: #### 2 527978, 51536668, 8057099, 3414957 ####[facility] [address] [place] [address] Glucose [Mass/Vol] 120 mg/dL Normal 55-199 [facility] Comment on above: Result Comment: If t his glucose result represents a fasting glucose, interpretation should refer to the following reference range: 55-99 mg/dL Performed By: #### 2 464250, 35981785, 5380854, 8547369 ####[facility] [address] [place] [address] Potassium [Moles/Vol] 4.2 mmol/L Normal 3.5-5.3 [facility] Comment on above: Performed By: #### 2 769071, 34957467, 1577360, 6545722 ####[facility] [address] [place] [address] Protein [Mass/Vol] 7.6 g/dL Normal 6.0-7.8 [facility] Comment on above: Performed By: #### 2 191247, 02672629, 5788797, 9912396 ####[facility] [address] [place] [address] Sodium [Moles/Vol] 135 mmol/L Normal 135-145 [facility] Comment on above: Performed By: #### 2 930955, 02447724, 4703822, 5623353 ####[facility] [address] [place] [address] Urea nitrogen [Mass/Vol] 8 mg/dL Normal 5-21 [facility] Comment on above: Performed By: #### 2 407395, 87054337, 2223488, 8070797 ####[facility] [address] [place] [address] Urea nitrogen/Creatinine [Mass ratio] 13 No Units Normal 10-20 [facility] Comment on above: Performed By: #### 2 226236, 44095873, 0759941, 5272906 ####[facility] [address] [place] [address] Consent for Flu Vaccineon Consent for Flu Vaccine [id number] #1.00CD:127 Normal [facility] eGFRon 01-04-2023 GFR/1.73 sq M.predicted among non-blacks MDRD (S/P/Bld) [Vol rate/Area] 102 mL/min/1.73 m2 Normal >=59 [facility] Comment on above: Order Comment: Order added by Discern Expert. Result Comment: Catalogue Librarian kandice kidney disease could be indicated at eGFR's of less than 60 mL/min/1.73m2. Kidney failure is indicated at less than 15 mL/min/1.73m2. Performed By: #### 2 408873, 04437134, 8838218, 3504638 ####[facility] [address] [place] [address] Ambulatory Visit Summaryon 0 10-05-2022 Ambulatory Visit Summary SCOTT FRANCIS :1960 Visit [...] mg Tab) fluticasone nasal (Flonase 0.05 mg/inh Winger) levothyroxine (levothyroxine 50 mcg (0.05 mg) Tab) meloxicam (meloxicam 15 mg Tab) Procedures Performed Cataract, Colonoscopy, Vaginal hysterectomy. Discharge Vitals Heart Rate (Peripheral) 64 Respiratory Rate 16 Blood Pressure 132/80 Height 166.6 cm Height 66 in Weight 65.5 kg Weight 144.1 lb BMI 23.6 What to do next Scheduled Follow-Up Appointments Wednesday 1:00 PM EDT With: London SMITH, Dada Genao Where: [facility] [address] [id number]- \.br\ Medications\.br\ What How Much When Why Instructions\.br\ Unchanged bisoprolol-hydroc hlorothiazide (bisoprolol-hydro chlorothiazide 10 mg-6.25 mg Tab) 1 Tablets By Mouth Every day\.br\ Unchanged citalopram (citalopram 40 mg Tab) 1 Tablets By Mouth Every day\.br\ Unchanged cyclobenzaprine (cyclobenzaprine 10 mg Tab) 1 Tablets By Mouth Once a day (in the evening) as needed for for spasm\.br\ Unchanged fluticasone nasal (Flonase 0.05 mg/ inh Winger) 2 Sprays Nasal Inhalation Every day Upper [...] numbers. This can be done either in [place] (U.S[place] or metric measurements. Note that charts and online BMI calculators are available to help you find your BMI quickly and easily without having to do these calculations yourself.\.br\ To calculate your BMI in E[place]adorean (U.[place] measurements:\.br \ \.br\ 1. \.br\ Measure [...] Disease Control and Prevention: www.cdc.gov\.br\ ? \.br\ [place] Heart Association: www.heart.org\.br \ ? \.br\ National Heart, Lung, and Blood [place]: www.nhlbi.nih.gov \.br\ Summary\.br\ ? \.br\ Body mass index (BMI) is a number that is calculated from a person's weight and height.\.br\ ? \.br\ BMI may help estimate how much of a person's weight is composed of fat. BMI can help identify those who may be at higher risk for certain medical problems.\.br\ ? \.br\ BMI can be measured using Ecuadorean measurements or metric measurements.\.br \ ? \.br\ BMI charts are used to identify whether you are underweight, normal weight, overweight, or obese.\.br\ This information is not intended to replace advice given to you by your health care provider. Make sure you discuss any questions you have with your health care provider.\.br\ Document Revised: 12/27/2019 Document Reviewed: 11/03/2019 [email or web address] Patient Education ? 2022 Join The Wellness Team.\.br\ \.br\ [facility] Family Medicine Office/Clini c Noteon 10-05-2022 Family Medicine Office/Clinic Note Chief Complaint [...] with voice recognition artificial intelligence software, specifically Myoonet, CME and or PrintFu. Substitutions may have occurred due to the inherent limitations of voice recognition and artificial intelligence software. ATTESTATION: Documentation services were performed after patient or guardian consented to allow [employer] to record this visit. JOSÉ medical education specialist and provider reviewed before signing. JOSÉ: [...] qPM, PRN, 1 refills Flonase 0.05 mg/inh Winger, 2 spray(s), Nasal, Daily levothyroxine 50 mcg [...] virus vaccine, inactivated 03/09/2022 Recorded SARS-CoV-2 (COVID-19) [id number] 03/09/2022 Recorded SARS-CoV-2 (COVID-19) mRNA BNT-162b2 vax 04/17/2021 Recorded SARS-CoV-2 (COVID-19) mRNA BNT-162b2 vax 08/15/2020 Recorded SARS-CoV-2 (COVID-19) mRNA BNT-162b2 vax 07/25/2020 Recorded Normal [facility] Comment on above: Result Comment: Elec tronically Signed By: Dada Callahan MD\.br\Date and Time Signed: 10/05/22 17:40 EDT\.br\Electronically Co-Signed By: Catherine Cooney\.br\Date and Time Co-Signed: 10/05/22 13:58 EDT Patient Educationon 10-06-19 Patient Education Nutrition BMI for Adults What [...] numbers. This can be done either in Ecuadorean (U.S[place] or metric measurements. Note that charts and online BMI calculators are available to help you find your BMI quickly and easily without having to do these calculations yourself. To calculate your BMI in [place]orean (U.S.) measurements: 1. Measure your weight in [...] for Disease Control and Prevention: www.cdc.gov ? [place] Heart Association: www.heart.org ? National Heart, Lung, and Blood [place]: www.nhlbi.nih.gov Summary ? Body mass index (BMI) is a number that is calculated from a person's weight and height. ? BMI may help estimate how much of a person's weight is composed of fat. BMI can help identify those who may be at higher risk for certain medical problems. ? BMI can be measured using Ecuadorean measurements or metric measurements. ? BMI charts are used to identify whether you are underweight, normal weight, overweight, or obese. This information is not intended to replace advice given to you by your health care provider. Make sure you discuss any questions you have with your health care provider. Document Revised: 12/27/2019 Document Reviewed: 11/03/2019 [email or web address] Patient Education ? 2022 [email or web address] Inc[employer] Normal [facility] Auto Diffon 09-21-2022 Basophils/100 WBC (Bld) 1.0 % Normal 0.0-2.0 [facility] Comment on above: Order Comment: Order Added by Discern Expert. Performed By: #### 2 056883, 3278340, 33588665, 2985507, 03723338, 1887861 ####[facility] [address] [place] [address] Basophils/Leukocytes Auto (Bld) [Pure # fraction] 0.1 E9/L Normal 0.0-0.2 [facility] Comment on above: Order Comment: Order Added by Discern Expert. Performed By: #### 2 807385, 5787920, 41751380, 2422666, 24666012, 9741898 ####[facility] [address] [place] [address] Eosinophils/100 WBC (Bld) 1.5 % Normal 0.0-8.0 [facility] Comment on above: Order Comment: Order Added by Discern Expert. Performed By: #### 2 183695, 7860235, 67932463, 6631981, 11103408, 0433619 ####[facility] [address] [place] [address] Eosinophils/Leukocyt es Auto (Bld) [Pure # fraction] 0.1 E9/L Normal 0.0-0.5 [facility] Comment on above: Order Comment: Order Added by Landy Expert. Performed By: #### 2 834708, 6305103, 47740818, 9330424, 00572112, 5190428 ####[facility] [address] [place] [address] Lymphocytes/100 WBC (Bld) 24.6 % Normal 14.0-50.0 [facility] Comment on above: Order Comment: Order Added by Landy Expert. Performed By: #### 2 135811, 4190304, 77337748, 1390323, 65380174, 8043156 ####[address] [address] Lymphocytes/Leukocyt es Auto (Bld) [Pure # fraction] 2.0 E9/L Normal 1.0-4.0 [facility] Comment on above: Order Comment: Order Added by Landy Expert. Performed By: #### 2 852123, 7844506, 33424530, 4688695, 00966970, 2483500 ####[facility] [address] [place] [address] Monocytes/100 WBC (Bld) 5.8 % Normal 4.0-14.0 [facility] Comment on above: Order Comment: Order Added by Discern Expert. Performed By: #### 2 352487, 5935551, 04588833, 4066968, 27701580, 1810929 ####[address] [place] [address] Monocytes/Leukocytes Auto (Bld) [Pure # fraction] 0.5 E9/L Normal 0.2-1.0 [facility] Comment on above: Order Comment: Order Added by Discern Expert. Performed By: #### 2 825216, 0340089, 52755142, 8856263, 35016492, 9604405 ####[address] [place] [address] Neutrophils/100 WBC (Bld) 67.1 % Normal 36.0-75.0 [facility] Comment on above: Order Comment: Order Added by Discern Expert. Performed By: #### 2 089350, 1320374, 55212158, 5950610, 42652575, 9361592 ####[address] [address] Neutrophils/Leukocyt es Auto (Bld) [Pure # fraction] 5.5 E9/L Normal 2.0-7.5 [facility] Comment on above: Order Comment: Order Added by Discern Expert. Performed By: #### 2 165964, 3254047, 59123221, 5669213, 29641537, 6141943 ####[address] [place] [address] CBC w/ Auto Diffon 3 Erythrocyte distribution width (RBC) [Ratio] 13.3 % Normal 10.9-14.2 [facility] Comment on above: Performed By: #### 2 207614, 2526495, 15315764, 6562952, 08601867, 0523299 ####[address] [place] [address] Hematocrit (Bld) [Volume fraction] 45.3 % Normal 34.0-46.0 [facility] Comment on above: Performed By: #### 2 141424, 0680467, 74241195, 3044423, 29601593, 6657225 ####[address] [address] Hemoglobin (Bld) [Mass/Vol] 15.6 g/dL Normal 12.0-16.0 [facility] Comment on above: Performed By: #### 2 937963, 3243177, 65352205, 4092133, 39733218, 3479179 ####[address] [address] MCH (RBC) [Entitic mass] 35.2 pg High 27.0-34.0 [facility] Comment on above: Performed By: #### 2 745777, 5514955, 90836836, 0220284, 21531163, 6364476 ####[address] [address] MCHC (RBC) [Mass/Vol] 34.4 g/dL Normal 31.4-36.0 [facility] Comment on above: Performed By: #### 2 997076, 8008805, 25288319, 9690469, 69263166, 0174698 ####[address] [address] MCV (RBC) [Entitic vol] 102.3 fL High 80.0-100.0 [facility] Comment on above: Performed By: #### 2 398208, 9392400, 49296607, 0022609, 28762557, 4784734 ####[address] [address] Platelet mean volume (Bld) [Entitic vol] 7.0 fL Normal 6.4-10.8 [facility] Comment on above: Performed By: #### 2 681122, 8952268, 32335613, 3037759, 65580866, 3629265 ####[address] [address] Platelets (Bld) [#/Vol] 264.0 E9/L Normal 150.0-500.0 [facility] Comment on above: Performed By: #### 2 585396, 6152626, 75143999, 7592329, 91809727, 2344429 ####[facility] [address] [place] [address] RBC (Bld) [#/Vol] 4.4 E12/L Normal 4.3-5.9 [facility] Comment on above: Performed By: #### 2 657319, 1216536, 43102454, 0408215, 19819921, 4305807 ####[facility] [address] [place] [address] WBC corrected for nucl RBC Auto (Bld) [#/Vol] 8.2 E9/L Normal 4.0-11.0 [facility] Comment on above: Performed By: #### 2 147721, 6261981, 44398582, 9709030, 65722500, 7285348 ####[facility] [address] [place] [address] CHEMISTRYOrdered By: SYSTEM SYSTEM on 09-21-2022 Albumin [Mass/Vol] 4.2 g/dL Normal 3.3 - 5.0 gm/dL F C Remisol Albumin/Globulin [Mass ratio] 1.3 {ratio} Normal [...] g/dL Normal 6.0 - 7.8 gm/dL F [facility] Remisol Sodium [Moles/Vol] 133 mmol/L Low 135 - 145 mmol/L [facility] Remisol Triglyceride [Mass/Vol] 460 mg/dL High <=149mg/dL [facility] Remisol TSH Qn 0.79 m[IU]/L Normal 0.34 - 5.60 mcIU/mL [facility] Remisol Urea nitrogen [Mass/Vol] 9 mg/dL Normal 5 - 21 mg/dL [facility] Remisol Urea nitrogen/Creatinine [Mass ratio] 11 mg/mg Normal 10 - 20 [facility] Remisol CMPon 09-21-2022 Albumin [Mass/Vol] 4.2 g/dL Normal 3.3-5.0 [facility] Comment on above: Performed By: #### 2 452961, 3454244, 85473919, 8500275, 03524087, 8725423 ####[facility] [address] [place] [address] Albumin/Globulin (S) [Mass conc ratio] 1.3 Normal 1.1-2.2 [facility] Comment on above: Performed By: #### 2 995966, 1961213, 18681554, 1535754, 05821517, 7496698 ####[address] [place] [address] ALP [Catalytic activity/Vol] 86 Int._Unit/L Normal 21-98 [facility] Comment on above: Performed By: #### 2 713258, 6316734, 09031588, 4189835, 18625784, 0215601 ####[address] [address] ALT No additional P-5'-P [Catalytic activity/Vol] 18 Int._Unit/L Normal 6-46 [facility] Comment on above: Performed By: #### 2 789681, 9549831, 43129760, 1349143, 85577532, 1330520 ####[address] [address] Anion gap [Moles/Vol] 16 mmol/L Normal 6-16 [facility] Comment on above: Performed By: #### 2 539608, 6708157, 69826334, 9873837, 17066907, 3526457 ####[address] [address] AST [Catalytic activity/Vol] 31 Int._Unit/L Normal 5-43 [facility] Comment on above: Performed By: #### 2 638024, 0813910, 76831655, 2735767, 22472478, 4226700 ####[facility] [address] [place] [address] Bilirubin [Mass/Vol] 0.5 mg/dL Normal 0.0-1.1 [facility] Comment on above: Performed By: #### 2 448565, 9411732, 47937123, 5949248, 67288188, 0109820 ####[facility] [address] [place] [address] Calcium [Mass/Vol] 9.3 mg/dL Normal 8.9-11.1 [facility] Comment on above: Performed By: #### 2 006529, 2048716, 90818436, 5457139, 99411776, 9830991 ####[facility] [address] [place] [address] Chloride [Moles/Vol] 95 mmol/L Low 101-111 [facility] Comment on above: Performed By: #### 2 327147, 4768552, 78519533, 2407219, 81115749, 2402314 ####[facility] [address] [place] [address] CO2 [Moles/Vol] 27 mmol/L Normal 21-31 [facility] Comment on above: Performed By: #### 2 361463, 0446196, 87200365, 2264100, 79374692, 4331798 ####[facility] [address] [place] [address] Creatinine [Mass/Vol] 0.8 mg/dL Normal 0.5-1.3 [facility] Comment on above: Performed By: #### 2 194042, 3421035, 09060443, 6238452, 76187506, 1177756 ####[facility] [address] [place] [address] Globulin (S) [Mass/Vol] 3.3 g/dL Normal 1.4-4.0 [facility] Comment on above: Performed By: #### 2 357384, 0482054, 85522258, 1698131, 45135730, 1517517 ####[facility] [address] [place] [address] Glucose [Mass/Vol] 102 mg/dL Normal 55-199 [facility] Comment on above: Result Comment: If t his glucose result represents a fasting glucose, interpretation should refer to the following reference range: 55-99 mg/dL Performed By: #### 2 752397, 2953012, 08719353, 7145619, 29232178, 4903077 ####[facility] [address] [place] [address] Potassium [Moles/Vol] 4.5 mmol/L Normal 3.5-5.3 [facility] Comment on above: Performed By: #### 2 746641, 2355525, 66366873, 7000001, 42715718, 5495355 ####[facility] [address] [place] [address] Protein [Mass/Vol] 7.5 g/dL Normal 6.0-7.8 [facility] Comment on above: Performed By: #### 2 931887, 7472189, 25272970, 3082702, 65405082, 9877060 ####[facility] [address] [place] [address] Sodium [Moles/Vol] 133 mmol/L Low 135-145 [facility] Comment on above: Performed By: #### 2 653394, 3479773, 19178517, 0898870, 44422334, 4761313 ####[facility] [address] [place] [address] Urea nitrogen [Mass/Vol] 9 mg/dL Normal 5-21 [facility] Comment on above: Performed By: #### 2 531241, 1821835, 49004569, 1532621, 90210685, 0397381 ####[facility] [address] [place] [address] Urea nitrogen/Creatinine [Mass ratio] 11 No Units Normal 10-20 [facility] Comment on above: Performed By: #### 2 025384, 0484265, 15401885, 7657686, 23933076, 1073039 ####[facility] [address] [place] [address] Family Medicine Office/Clini c Noteon 09-21-2022 Family [...] Will have the patient go back to [facility] since she has been dizzy since that [...] Daily, # 90 tab(s), Refills(s) 1, Pharmacy: [facility]/pharmacy #[id number], 166.6, cm, 09/21/22 9:53:00 EDT, Height/Length [...] qPM, PRN, 1 refills Flonase 0.05 mg/inh Winger, 2 spray(s), Nasal, Daily levothyroxine 50 mcg [...] virus vaccine, inactivated 03/09/2022 Recorded SARS-CoV-2 (COVID-19) [id number] 03/09/2022 Recorded SARS-CoV-2 (COVID-19) mRNA BNT-162b2 vax 04/17/2021 Recorded SARS-CoV-2 (COVID-19) mRNA BNT-162b2 vax 08/15/2020 Recorded SARS-CoV-2 (COVID-19) mRNA BNT-162b2 vax 07/25/2020 Recorded Normal [facility] Comment on above: Result Comment: Elec tronically Signed By: London SMITH, Dada Gilesbr\Date and Time Signed: 09/21/22 10:19 EDT HEMATOLOGYOrdered [...] 24.6 % Normal 14.0 - 50.0 % [facility] HemeAutoSS Lymphocytes/Leukocyt es Auto (Bld) [Pure # fraction] 2.0 E9/L Normal 1.0 - 4.0 E9/L [facility] HemeAutoSS Monocytes/100 WBC (Bld) 5.8 % Normal 4.0 - 14.0 % [facility] HemeAutoSS Monocytes/Leukocytes Auto (Bld) [Pure # fraction] 0.5 E9/L Normal 0.2 - 1.0 E9/L [facility] HemeAutoSS Neutrophils/100 WBC (Bld) 67.1 % Normal 36.0 - 75.0 % [facility] HemeAutoSS Neutrophils/Leukocyt es Auto (Bld) [Pure # fraction] 5.5 E9/L Normal 2.0 - 7.5 E9/L [facility] HemeAutoSS HEMATOLOGYOrdered By: Mikayla Wayne on 09-21-2022 Erythrocyte distribution width (RBC) [Ratio] 13.3 % Normal 10.9 - 14.2 % [facility] HemeAutoSS Hematocrit (Bld) [Volume fraction] 45.3 % Normal 34.0 - 46.0 % [facility] HemeAutoSS Hemoglobin (Bld) [Mass/Vol] 15.6 g/dL Normal 12.0 - 16.0 gm/dL [facility] HemeAutoSS MCH (RBC) [Entitic mass] 35.2 pg High 27.0 - 34.0 pg [facility] HemeAutoSS MCHC (RBC) [Mass/Vol] 34.4 g/dL Normal 31.4 - 36.0 gm/dL [facility] HemeAutoSS MCV (RBC) [Entitic vol] 102.3 fL High 80.0 - 100.0 fL [facility] HemeAutoSS Platelet mean volume (Bld) [Entitic vol] 7.0 fL Normal 6.4 - 10.8 fL [facility] HemeAutoSS Platelets (Bld) [#/Vol] 264.0 E9/L Normal 150.0 - 500.0 E9/L [facility] HemeAutoSS RBC (Bld) [#/Vol] 4.4 E12/L Normal 4.3 - 5.9 E12/L [facility] HemeAutoSS WBC corrected for nucl RBC Auto (Bld) [#/Vol] 8.2 E9/L Normal 4.0 - 11.0 E9/L [facility] HemeAutoSS Lipid Panelon 09-21-2022 Cholesterol in VLDL [Mass/Vol] UT Abnormal 7-40 [facility] Comment on above: Result Comment: 'Flory ble to report. Trig >400 mg/dl' Result verified by Discern Rule. Performed result UT (Unable to Calculate) was sent as an Alpha code due the inability to calculate a valid numeric value. Performed By: #### 2 928074, 1358262, 39008487, 2428888, 53934813, 9007203 ####[facility] [address] [place] [address] Cholesterol [Mass/Vol] 218 mg/dL High 120-200 [facility] Comment on above: Performed By: #### 2 261803, 7093547, 11583134, 4701753, 37609510, 8449931 ####[facility] [address] [place] [address] Cholesterol in HDL [Mass/Vol] 44 mg/dL Invalid Interpretation Code [facility] Comment on above: Result Comment: HDL > or equal to 60 mg/dL: Low cardiovascular risk HDL < 40 mg/dL : High cardiovascular risk Performed By: #### 2 857408, 8888593, 29566658, 2086330, 76884125, 0015976 ####[facility] [address] [place] [address] Cholesterol in LDL [Mass/Vol] 109 mg/dL Normal <=129 [facility] Comment on above: Performed By: #### 2 760915, 3112877, 62464087, 8651315, 48197464, 5647703 ####[facility] [address] [place] [address] Triglyceride [Mass/Vol] 460 mg/dL High <=149 [facility] Comment on above: Performed By: #### 2 547778, 1681604, 49814438, 8195746, 02552361, 7982488 ####[facility] [address] [place] [address] TSH With T4fr Reflexon 09-21 TSH Qn 0.79 m[IU]/L Normal 0.34-5.60 [facility] Comment on above: Performed By: #### 2 561443, 2422887, 08016093, 3505394, 70801431, 1679247 ####[facility] [address] [place] [address] eGFRon 09-21-2022 GFR/1.73 sq M.predicted among non-blacks MDRD (S/P/Bld) [Vol rate/Area] 84 mL/min/1.73 m2 Normal >=59 [facility] Comment on above: Order Comment: Order added by Discern Expert. Result Comment: Catalogue Librarian kandice kidney disease could be indicated at eGFR's of less than 60 mL/min/1.73m2. Kidney failure is indicated at less than 15 mL/min/1.73m2. Performed By: #### 2 916238, 3169145, 81407332, 0427226, 10232983, 6587122 ####[facility] [address] [place] [address] Ambulatory Visit Summaryon 0 07-28-2022 Ambulatory Visit [...] Fibromyalgia Hypertension Hypothyroidism Migraines Barriga neuroma Normal [facility] Family Medicine Office/Clini c Noteon 07-28-2022 Family Medicine Office/Clinic Note Chief Complaint congestion, cough, sinus pressure HPI Staff complaints of sinus pressure and congestion Onset: 1 month Characteristics: cough, nasal drainage, headache, sob, dizzy, no covid test OTC tried: Sudafed History: htn, hypothyroid, migraines Previous dr: Selvin Last labs: due Health Maintenance: colon: 2019 was to repeat 2021 mammogram: done last year at [place] pap/pelvic: hx of hysterectomy covid: UTD History [...] day(s), # 6 tab(s), Refills(s) 0, Pharmacy: [facility] #[id number], 168, cm, 07/28/22 10:47:00 EDT, Height/Length Dosing, 67.1, kg, 07/28/22 10:47:00 EDT, Weight Dosing benzonatate, 200 mg = 1 cap(s), Oral, TID, X 7 day(s), # 21 cap(s), Refills(s) 0, Pharmacy: [facility]/pharmacy #[id number], 168, cm, 07/28/22 10:47:00 EDT, Height/Length Dosing, 67.1, kg, 07/28/22 10:47:00 EDT, Weight Dosing fluticasone nasal, 2 spray(s), Nasal, Daily, 16 gram, Refill(s) 0, each nostril, [facility] #[id number], 168, cm, 07/28/22 10:47:00 EDT, Height/Length Dosing, 67.1, kg, 07/28/22 10:47:00 EDT, Weight Dosing methylPREDNISolone, = 1 packet(s), Oral, As Directed, as directed on package labeling, X 6 day(s), # 21 tab(s), Refills(s) 0, [id number] 168, cm, 07/28/22 10:47:00 EDT, Height/Length Dosing, 67.1, kg, 07/28/22 10:47:00 EDT, Weight Dosing 2. Right otitis media (H66.91: Otitis media, unspecified, right ear) right TM red and bulging with clear fluid Ordered: azithromycin, = 1 packet(s), Oral, As Directed, as directed on package labeling, X 5 day(s), # 6 tab(s), Refills(s) 0, [id number] 168, cm, 07/28/22 10:47:00 EDT, Height/Length Dosing, 67.1, kg, 07/28/22 10:47:00 EDT, Weight Dosing benzonatate, 200 mg = 1 cap(s), Oral, TID, X 7 day(s), # 21 cap(s), Refills(s) 0, Pharmacy: [facility] #[id number], 168, cm, 07/28/22 10:47:00 EDT, Height/Length Dosing, 67.1, kg, 07/28/22 10:47:00 EDT, Weight Dosing fluticasone nasal, 2 spray(s), Nasal, Daily, 16 gram, Refill(s) 0, each nostril, [facility] #[id number], 168, cm, 07/28/22 10:47:00 EDT, Height/Length Dosing, 67.1, kg, 07/28/22 10:47:00 EDT, Weight Dosing methylPREDNISolone, = 1 packet(s), Oral, As Directed, as directed on package labeling, X 6 day(s), # 21 tab(s), Refills(s) 0, Pharmacy: [facility] #[id number], 168, cm, 07/28/22 10:47:00 EDT, Height/Length Dosing, 67.1, kg, 07/28/22 10:47:00 EDT, Weight Dosing 3. Cough (R05.9: Cough, unspecified) tessalon pearls sent Ordered: azithromycin, = 1 packet(s), Oral, As Directed, as directed on package labeling, X 5 day(s), # 6 tab(s), Refills(s) 0, Pharmacy: [facility] #[id number], 168, cm, 07/28/22 10:47:00 EDT, Height/Length Dosing, 67.1, kg, 07/28/22 10:47:00 EDT, Weight Dosing benzonatate, 200 mg = 1 cap(s), Oral, TID, X 7 day(s), # 21 cap(s), Refills(s) 0, Pharmacy: [facility] #[id number], 168, cm, 07/28/22 10:47:00 EDT, Height/Length Dosing, 67.1, kg, 07/28/22 10:47:00 EDT, Weight Dosing fluticasone nasal, 2 spray(s), Nasal, Daily, 16 gram, Refill(s) 0, each nostril, [facility] #[id number], 168, cm, 07/28/22 10:47:00 EDT, Height/Length Dosing, 67.1, kg, 07/28/22 10:47:00 EDT, Weight Dosing methylPREDNISolone, = 1 packet(s), Oral, As Directed, as directed on package labeling, X 6 day(s), # 21 tab(s), Refills(s) 0, Pharmacy: [facility] #[id number], 168, cm, 07/28/22 10:47:00 EDT, Height/Length Dosing, 67.1, kg, 07/28/22 10:47:00 EDT, Weight Dosing 4. BMI 23.0-23.9, adult (Z68.23: Body mass index [BMI] 23.0-23.9, adult) BMI education complete Ordered: azithromycin, = 1 packet(s), Oral, As Directed, as directed on pack (more content not included)... Normal [facility] Comment on above: Result Comment: Elec tronically Signed By: Jeramie ADRIAN, Nilda White\.br\Date and Time Signed: 07/28/22 11:24 EDT Provider Letteron 07-28-2022 Provider Letter July 28, 2022 SCOTT FRANCIS 63 [facility] [address] [place] [id number] SCOTT FRANCIS 1960 To Whom It May Concern, Please excuse above patient from work. Date of Illness: From: _07-27-22 To: _07-28-22 May Return to Work On:07-29-22 Restrictions: _None Comments: _ Sincerely, [place] [address] Normal [facility] CBC AUTO DIFFon 10-09-2021 BASO # 0.1 103/ul Normal 0.0-0.1 [facility] Comment on above: Performed By: #### C BC #### [facility] [address] [address] [address] Yehuda Reese Basophils/100 WBC (Bld) 0.8 % Normal 0.2-2.0 [facility] Comment on above: Performed By: #### C BC #### [facility] [address] [address] [address] Yehuda Reese EO # 0.1 103/ul Normal 0.0-0.7 [facility] Comment on above: Performed By: #### C BC #### [facility] [address] [address] [address] Yehuda Reese Eosinophils/100 WBC (Bld) 1.7 % Normal 0.9-7.0 [facility] Comment on above: Performed By: #### C BC #### [facility] [address] [address] [address] Yehuda Reese Erythrocyte distribution width (RBC) [Ratio] 12.0 % Normal 11.0-15.0 [facility] Comment on above: Performed By: #### C BC #### [facility] [address] [place] [address] Dr. Yehuda Reese Hematocrit (Bld) [Volume fraction] 44.0 % Normal 36.0-48.0 [facility] Comment on above: Performed By: #### C BC #### [facility] [address] [place] [address] Dr. Yehuda Reese Hemoglobin (Bld) [Mass/Vol] 15.1 g/dL Normal 12.0-16.0 [facility] Comment on above: Performed By: #### C BC #### [facility] [address] [place] [address] Dr. Yehuda Reese IG # 0.02 10e3/ul Normal 0.00-0.03 [facility] Comment on above: Performed By: #### C BC #### [facility] [address] [place] [address] Dr. Yehuda Reese IG % 0.2 % Normal 0.0-0.5 [facility] Comment on above: Performed By: #### C BC #### [facility] [address] [place] [address] Dr. Yehuda Reese LYMPH # 3.0 103/ul Normal 1.2-3.8 [facility] Comment on above: Performed By: #### C BC #### [facility] [address] [place] [address] Dr. Yehuda Reese Lymphocytes/100 WBC (Bld) 34.9 % Normal 20.5-60.0 [facility] Comment on above: Performed By: #### C BC #### [facility] [address] [place] [address] Dr. Yehuda Reese MANUAL DIFF REQ NO Normal [facility] Comment on above: Performed By: #### C BC #### [facility] [address] [place] [address] Dr. Yehuda Reese MCH (RBC) [Entitic mass] 34.6 pg Critically high 26.7-34.0 [facility] Comment on above: Performed By: #### C BC #### [facility] [address] [place] [address] Dr. Yehuda Reese MCHC (RBC) [Mass/Vol] 34.3 g/dL Normal 29.9-35.2 [facility] Comment on above: Performed By: #### C BC #### [facility] [address] [place] [address] Dr. Yehuda Reese MCV (RBC) [Entitic vol] 100.7 fL Critically high 81.0-99.0 [facility] Comment on above: Performed By: #### C BC #### [facility] [address] [place] [address] Dr. Yehuda Reese MONO # 0.5 103/ul Normal 0.3-0.8 [facility] Comment on above: Performed By: #### C BC #### [facility] [address] [place] [address] Dr. Yehuda Reese Monocytes/100 WBC (Bld) 6.0 % Normal 1.7-12.0 [facility] Comment on above: Performed By: #### C BC #### [facility] [address] [place] [address] Dr. Yehuda Reese NEUT # 4.8 103/ul Normal 1.4-6.5 [facility] Comment on above: Performed By: #### C BC #### [facility] [address] [place] [address] Dr. Yehuda Reese Neutrophils/100 WBC (Bld) 56.4 % Normal 43.0-75.0 [facility] Comment on above: Performed By: #### C BC #### [facility] [address] [place] [address] Dr. Yehuda Reese Platelet mean volume (Bld) [Entitic vol] 8.7 fL Critically low 9.5-13.5 [facility] Comment on above: Performed By: #### C BC #### [facility] [address] [place] [address] Dr. Yehuda Reese PLT 237 103/ul Normal 150-450 [facility] Comment on above: Performed By: #### C BC #### [facility] [address] [place] [address] Dr. Yehuda Reese RBC 4.37 106/ul Normal 4.20-5.40 [facility] Comment on above: Performed By: #### C BC #### [facility] [address] [place] [address] Dr. Yehuda Reese WBC 8.5 103/ul Normal 4.0-11.0 [facility] Comment on above: Performed By: #### C BC #### [facility] [address] [place] [address] Dr. Yehuda Reese FREE T3on 10-09-2021 FREE T3 2.65 pg/mlL Normal 2.18-3.98 [facility] Comment on above: Performed By: #### F T3, TSH #### [facility] [address] [place] [address] Dr. Yehuda Reese FREE T4on 10-09-2021 Free T4 [Mass/Vol] 1.17 ng/dL Normal 0.76-1.46 [facility] Comment on above: Performed By: #### F T4 #### [facility] [address] [place] [address] Dr. Yehuda Reese TSHon 10-09-2021 TSH 0.379 uIU/mL Normal 0.358-3.740 [facility] Comment on above: Performed By: #### F T3, TSH #### [facility] [address] [place] [address] Dr. Yehuda Reese Covid-19 PCR ([facility])on 02-17 SARS-CoV-2 (COVID-19) RNA HENRY+probe Ql (Unsp spec) Not detected Normal NOT DETECTED [facility] Comment on above: Result Comment: This test is not yet approved or cleared by the [place] FDA. When there are no FDA-approved or cleared tests available, and other criteria are met, FDA can make tests available under an emergency access mechanism called an Emergency Use Authorization (EUA). The EUA for this test is supported by the [place] of Health and Human Service's (HHS's) declaration [...] consistent with SARS-CoV-2. Performed By: #### C ON LICENSE OF [facility] #### [facility] [address] [place] [address] Dr. Yehuda Reese Encounters Encounter Date Encounter Type Care Provider Facility Start: 06-30-2023 End: 07-01-2023 ambulatory Nilda Bobo Facility:[facility] Brianna kirby Start: 04-05-2023 End: 04-06-2023 ambulatory Dada Callahan Facility:[facility] Brianna kirby Start: 02-04-2023 End: 02-04-2023 ambulatory [facility] Start: 02-02-2023 End: 02-03-2023 ambulatory Dada Callahan Facility: [facility] Start: 01-19-2023 End: 01-20-2023 ambulatory Dada Callahan Facility:[facility] Brianna kirby Start: 01-13-2023 Evaluation and management of inpatient [facility] Start: 01-13-2023 Emergency department patient visit [facility] Start: 01-13-2023 End: 01-15-2023 Evaluation and management of inpatient [facility] Start: 01-04-2023 End: 01-05-2023 ambulatory Dada Callahan Facility:[facility] Start: 12-22-2022 End: 12-23-2022 ambulatory Dada Callahan Facility:[facility] Brianna kirby Start: 10-05-2022 End: 10-06-2022 ambulatory Dada Callahan Facility:[facility] Eldridge kofi Start: 09-21-2022 End: 09-22-2022 ambulatory Dada Callahan Facility:[facility] Start: 09-21-2022 End: 09-21-2022 Lab Drop off Dada Callahan [facility] Start: 07-28-2022 End: 07-29-2022 ambulatory Nilda Bobo Facility:[facility] Brianna kirby Start: 10-09-2021 End: 10-10-[address] JAZMIN MILES Facility:[facility] Start: 03-05-2021 End: 03-05-[address] JAZMIN MILES Facility: Procedures Date Procedure Procedure Detail Performing Clinician Cataract (disorder) Dada newman Colonoscopy Dada Callahan Comment on above: 2019 polyps, repeat 2021 Vaginal hysterectomy Dada Callahan Immunizations Immunization Date Immunization Notes Care Provider [facility] 03-09-2022 influenza virus vaccine, unspecified formulation Dada Callahan [facility] 03-09-2022 SARS-CoV-2 (COVID-19 ) [id number] Dada Callahan [facility] 04-17-2021 SARS-CoV-2 (COVID-19 ) mRNA BNT-162b2 vax Dada Callahan [facility] 08-15-2020 SARS-CoV-2 (COVID-19 ) mRNA BNT-162b2 vax Dada Callahan [facility] 07-25-2020 SARS-CoV-2 (COVID-19 ) mRNA BNT-162b2 vax Dada Callahan [facility] Payers Date Payer Category Payer Unknown [id number] 2.16.84 [id number] 1960 Unknown [id number] 2.16.84 [id number] 1960 Unknown [id number] 2.16.8 [id number] 1960 Unknown [id number] 2.16.8 [id number] 1960 Unknown [id number] 2.16.8 [id number] 1960 Unknown [id number] 2.16.8 [id number] 1960 Unknown [id number] 2.16.8 [id number] 1960 Unknown [id number] 2.16.8 [id number] 1960 Unknown [id number] 2.16.8 [id number] 1960 Unknown [id number] 2.16.8 [id number] 1960 Unknown [id number] 2.16.8 [id number] 1960 Unknown [id number] 2.16.8 [id number] 1960 Unknown [id number] 2.16.8 [id number] 1957 Unknown [id number] Social History Date Type Detail Facility Start: 09-21-2022 Tobacco smoking status Heavy t obacco smoker (finding) [facility] Sex Assigned At Female [facility] Clinical Notes 01-13-2023 to 02-04-2023 Note Date & Type Note Facility 10-19-2023 Note [facility] 02-04-2023 Note [facility] Cardiology Clinic Note Chief Complaint: Patient here for follow up [facility] for NSTEMI and PCI. Denies chest pain. [...] PSYCH: appropriate mood, affect, and judgement. Investigations Echocardiogram-[facility] Name: SCOTT FRANCIS Study Date: 01/13/2023 01:43 PM B/P: 145 mmHg/99 mmHg HR: 66 bpm Date of : 1960 Location: [facility] Height: 66 in. Age: 63 year(s) Patient [...] ventricular wall thi (more content not included)... [facility] 01-15-2023 Note Hospital Medicine Discharge Summary Final Discharge Diagnosis: NSTEMI (non-ST elevated myocardial infarction) (CMS/HCC) NSTEMI Abnormal electrolytes, hypokalemia, hypomagnesemia Essential HTN Hypokalemia, 3.1 Hypothyroidism on Synthroid Hyperlipidemia Admission Diagnosis: NSTEMI (non-ST elevated myocardial infarction) (CMS/HCC) [I21.4] Hospital course: Scott Francis is an 63 y.o. female who came from home with chest pain. Patient presented to [facility] with chest pain and was transferred here due to elevated troponin and need for heart cath. Cardiology took her to cath on arrival and they did balloon angioplasty with drug eluding stent placement to her RCA. She denies any current chest pain or shortness of breath, only that she is uncomfortable from lying flat in bed. NSTEMI Patient was taken to [facility] and stent placed to RCA, patient was [...] Center 02/04/2023 11:30 AM Dari Blount MD [facility] Your medication list START taking these medications [...] Medications These medications were sent to [facility] [place], [place] - [address] [place] [address] [place] [address], [facility] [address] aspirin 81 mg chewable tablet atorvastatin 40 [...] Clear to auscultatio (more content not included)... [facility] 01-15-2023 Note Cardiology Progress Note Subjective Subjective: [...] Value Ventricular Rate 68 Atrial Rate 68 TN Interval 168 QRS DURATION 94 QT Interval 516 QTC CALCULATION(BAZETT) 548 P [place] 60 R-[place] 73 T Wave [place] -58 Impression Normal sinus rhythm Inferior infarct [...] (TTE) complete Result Date: 01/13/2023 1 1 [facility] Heart Station [address] [place] [address] [phone] (fax) E[facility]ocardiogram-[facility] Name: SCOTT FRANCIS Study Date: 01/13/2023 01:43 PM B/P: 145 mmHg/99 mmHg HR: 66 bpm Date of : 1960 Location: [facility] Height: 66 in. Age: 63 year(s) Patient [...] right ventricular systo (more content not included)... [facility] 01-14-2023 Note Attestation signed by Piper Gaines [...] Value Ventricular Rate 68 Atrial Rate 68 TN Interval 168 QRS DURATION 94 QT Interval 516 QTC CALCULATION(BAZETT) 548 P [place] 60 R-[place] 73 T Wave [place] -58 Impression Normal sinus rhythm Inferior infarct [...] (TTE) complete Result Date: 01/13/2023 1 1 [facility] [address] [place] [address] [phone] (fax) E[facility]ocardiogram-[facility] Name: SCOTT FRANCIS Study Date: 01/13/2023 01:43 PM B/P: 145 mmHg/99 mmHg HR: 66 bpm Date of : 1960 Location: [facility] Height: 66 in. Age: 63 year(s) Patient [...] 1.1 m/sec Aortic (more content not included)... [facility] 01-14-2023 Note Hospital Medicine Daily Progress Note - 01/15/2023 7:01 AM; Room: [facility] Admission: 01/13/2023 12:11 PM; Length of stay: 2 days THE HOSPITALIST TEAM PREFERS TO USE [employer] CHAT FOR COMMUNICATION 7AM-7PM. IF I DO NOT RESPOND WITHIN 15 MINUTES, PLEASE PAGE ME/CALL THROUGH THE LONG WINDER TENDER. FROM 7PM-7AM, PLEASE PAGE [phone](COVR) Code Status: Full Code Discharge Destination: home [...] Principal Problem: NSTEMI (non-ST elevated myocardial infarction) ([facility]) Assessment and Plan NSTEMI Abnormal electrolytes, hypokalemia, [...] Once heparin (porcine), 5,000 Units, subcutaneous, q8h MARLEE levothyroxine, 50 mcg, oral, Daily losartan, 25 [...] TSH 2.97 01/14/2023 No results found for: [id number], IRON, TIBC, C3, C4, GUEVARA, CANCA, ASO, [...] No previous ECGs available Confirmed by Mona GAINES, PIPER Taylor ([id number]) on 01/14/2023 2:46:49 PM Discharge Planning Discharge Planning Living Arrangements: Spouse/significant other Support Systems: Spouse/significant other Type of Residence/Post Acute Needs: Private residence Signed Nikia Harris NP Hospital Medicine 01/15/2023 7:01 AM [facility] 01-13-2023 Note Hospital Medicine History and Physical 01/13/2023 6:16 PM THE HOSPITALIST TEAM PREFERS TO USE [employer] CHAT FOR COMMUNICATION 7AM-7PM. IF I DO NOT RESPOND WITHIN 15 MINUTES, PLEASE PAGE ME/CALL THROUGH THE LONG WINDER TENDER. FROM 7PM-7AM, PLEASE PAGE [phone](COVR) Chief Complaint Chief Complaint Patient presents with Chest Pain History of Present Illness Scott Francis is an 63 y.o. female who came from home with chest pain. Patient presented to [facility] with chest pain and was transferred here [...] hyperlipidemia 01/13/2023 NSTEMI (non-ST elevated myocardial infarction) ([facility]) 01/13/2023 Assessment and Plan NSTEMI Abnormal electrolytes, [...] this hospital stay by a member of [facility]. Past Medical History History reviewed. [...] 127 (*) [place] (more content not included)... [facility] 01-13-2023 Note Cardiovascular Labor atory Report FINAL [...] failed attempt at deployment of a 6 Nigerien Mynx bullet charging machine operator closure device METHODS: After risks, benefits, and [...] and this was upsized to a 6 Nigerien 11 cm sheath. Angiography via the SideArm of the sheath was performed. Bilateral selective coronary angiography was performed using JR 4.0 and JL 4.0 catheters. After reviewing the images it was elected to proceed with an interventional procedure. A 6 Nigerien JR4 guide catheter was advanced over a [...] elected to conclude the procedure. A 6 Nigerien Mynx bullet charging machine operator closure device was deployed however failed; therefore [...] of the v (more content not included)... [facility] 01-13-2023 Note Patient: Scott Francis Procedure Information Date/Time: 01/13/23 1430 Procedure: Coronary angiography Location: [facility] SINGING TELEGRAM PERFORMER 3 / [facility] (Cath) Providers: Dari Blount MD Clinical information reviewed: Tobacco Allergies Meds Med Hx Surg Hx Fam Hx Soc Hx Physical Exam Airway Mallampati: III TM distance: >3 FB Neck ROM: full Cardiovascular Rhythm: regular Rate: normal Dental Pulmonary Abdominal Anesthesia Plan ASA 3 Additional Equipment Requests [facility] Evaluation + Plan note Future Appointments Appointment Date:12/22/2022 01:00:00 PM Scheduled Provider:Dada Callahan MD Location:[facility] Appointment Type: [facility] Hospital course Narrative No data available for this section [facility] Hospital Discharge instructions No data available for this section [facility] Progress note No data available for this section [facility] Summary Purpose Family History No Family History Records FoundNo Family History Records FoundNo Family History Records Found Advance Directives No Advanced Directives Records FoundNo Advanced Directives Records FoundNo Advanced Directives Records Found Additional Source Comments INFORMATION SOURCE (unrecogn ized section and content) DATE CREATED AUTHOR 10/15/2021 [facility] DATE CREATED AUTHOR AUTHOR'S ORGANIZ ATION 06/02/2023 [facility] DATE CREATED AUTHOR AUTHOR'S ORGANMONIQUE ATION 07/02/2023 [facility] Patient Care team arin donnelly (unrecognized section and content) Personnel Name: JAZMIN MILES MD Address: Address: [address] [place] [address] FOR RECORDS PERTAINING TO PATIENTS WHO ARE [...] BE BASED ON THE PRIMARY CLINICAL RECORDS. [employer] provides no warranty or guarantee of the accuracy or completeness of information in this document.
[2023-07-09 07:58] LABS: Alanine Aminotransferase 31 U/L (14-59); Albumin Globulin Ratio 0.9; Albumin Level 3.4 g/dL (3.4-5.0); Alkaline Phosphatase 85 U/L (46-116); Aspartate Amino Transferase 33 U/L (15-37); Bilirubin Direct 0.2 mg/dL (0.0-0.2); Bilirubin Total 0.8 mg/dL (0.2-1.0); Chol HDL Ratio 3.5; Cholesterol 151 mg/dL (<=200); Globulin 3.8 g/dL; HDL Cholesterol 43 mg/dL (40-60); Total Protein 7.2 g/dL (6.4-8.2); Triglycerides 346 mg/dL (<=150); VLDL CHOLESTEROL 69.2 mg/dL
== END 2023-07-09 06:29 | disposition home or self-care (01) ==
LOC: LAB 06:29
PROVIDERS: PCP Nurse Practitioner; Visit Provider Internal Medicine Interventional Cardiology
DX: I25.10 Atherosclerotic heart disease of native coronary artery without angina pectoris (principal); I25.83 Coronary atherosclerosis due to lipid rich plaque
CPT/HCPCS: 36415; 80061; 80076

== ENCOUNTER 2023-11-01 10:17 | Outpatient (OUT) | payer BC, SELFPAY ==
[2023-11-01 11:57] LABS: Alanine Aminotransferase 28 U/L (14-59); Albumin Globulin Ratio 0.9; Albumin Level 3.5 g/dL (3.4-5.0); Alkaline Phosphatase 70 U/L (46-116); Aspartate Amino Transferase 35 U/L (15-37); Bilirubin Direct 0.1 mg/dL (0.0-0.2); Bilirubin Total 0.6 mg/dL (0.2-1.0); Chol HDL Ratio 3.2; Cholesterol 166 mg/dL (<=200); Globulin 3.8 g/dL; HDL Cholesterol 52 mg/dL (40-60); Total Protein 7.3 g/dL (6.4-8.2); Triglycerides 236 mg/dL (<=150); VLDL CHOLESTEROL 47.2 mg/dL
== END 2023-11-01 10:18 | disposition home or self-care (01) ==
LOC: LAB 10:18
PROVIDERS: PCP Nurse Practitioner; Visit Provider Internal Medicine Interventional Cardiology
DX: E78.5 Hyperlipidemia, unspecified (principal)
CPT/HCPCS: 36415; 80061; 80076

== ENCOUNTER 2023-12-13 12:34 | Outpatient (OUT) | payer BC, SELFPAY ==
--- OUTSIDE RECORDS SUMMARY | 2023-12-13 12:48 | XMS_ITS | CCD ---
Author Organization [facility] Care Team Providers Care Transfer Machine Operator Name Role Phone DR JAZMIN MILES Admitting Unavailable JD, DR JAZMIN Fitzgerald Attending Unavailable JD, DR JAZMIN Fitzgerald Primary Care Unavailable JD, DR JAZMIN Fitzgerald Consulting Unavailable JD, DR JAZMIN Fitzgerald Admitting Unavailable JD, DR JAZMIN Fitzgerald Attending Unavailable JD, DR JAZMIN Fitzgerald Primary Care Unavailable JD, DR JAZMIN Fitzgerald Consulting Unavailable JAZMIN MILES Primary Care Physician RENETTA, MINESH Referring Unavailable RENETTA, MINESH Admitting Unavailable JENNIFER SARMED Attending Unavailable FRANCESCO KOTHARI Referring Unavailable ELTAHAWY, EHAB Attending Unavailable ELTAHAWY, EHAB Attending Unavailable MAHMOROSALBA WALID Referring Unavailable ELTAHAWY, EHAB Referring Unavailable JeramieNilda Primary Care Physician [phone] MD Dada Callahan Attending Unavailable MD Dada Callahan Attending Unavailable Jeramie, STORE TEAM MEMBERDon White Attending Unavailable Jeramie, STORE TEAM MEMBER Nilda White Attending Unavailable Jeramie, STORE TEAM MEMBER Nidla White Attending Unavailable Jeramie, STORE TEAM MEMBER Nilda L Attending Unavailable MD Dada Callahan Attending Unavailable MD Dada Callahan Attending Unavailable MD Dada Callahan Attending Unavailable Jeramie, NGUYỄN White Admitting Unavailable Jeramie, NGUYỄN White Attending Unavailable MD Dada Callahan Admitting Unavailable MD Dada Callahan Attending Unavailable Allergies Allergy Classification Reported Allergen(s) Allergy Type Date of Onset Reaction(s) Facility (1 source) egg extract Drug Allergy 4 [facility] Repository (1 source) TheraNatal Drug allergy (disorder) 4 [facility] Rep[facility] (3 sources) Cefuroxime; Translations: [cefuroxime] Drug Allergy Unknown (qualifier value) [facility] (1 source) THERAGRAN; Translations: [THERAGRAN] Propensity to adverse reactions to drug (disorder) 3 [facility] Repository Medications Current Medications Medication Drug Class(es) Dates Sig (Normalized) Sig (Original) aspirin 81 mg oral tablet (1 source) Platelet Aggregation Inhibitor, Nonsteroidal Anti-inflammatory Drug Start: 01-19-2023 take 1 tablet by mouth once daily Aspirin Low Dose 81 mg oral tablet, chewable 81 mg = 1 tab(s), Chewed, Daily, Refills(s) 0 Start Date: 01/19/23 Status: Ordered atorvastatin 20 mg oral tablet (1 source) HMG-CoA Reductase Inhibitor Start: 06-30-2023 take 1 tablet by mouth once daily atorvastatin 20 mg Tab 20 mg = 1 tab(s), Oral, Daily, Refills(s) 0 Start Date: 06/30/23 Status: Ordered bisoprolol fumarate 10 mg / hydroCHLOROthiazide 6.25 mg oral tablet (1 source) Thiazide Diuretic, beta-Adrenergic Alexander Start: 07-28-2022 take 1 tablet by mouth once daily bisoprolol-hydroc hlorothiazide 10 mg-6.25 mg Tab 1 tab(s), Oral, Daily, Refill(s) 0 Start Date: 07/28/22 Status: Ordered citalopram 40 mg oral tablet (2 sources) Serotonin Reuptake Inhibitor Start: 05-03-2023 take 1 tablet by mouth once daily citalopram 40 mg Tab 40 mg = 1 tab(s), Oral, Daily, # 90 tab(s), Refills(s) 1, Pharmacy: [facility]/pharmacy #[id number], 166, cm, 02/02/23 15:55:00 EDT, Height/Length Dosing, 68.1, kg, 02/02/23 15:55:00 EDT, Weight Dosing Start Date: 05/03/23 Status: Ordered Start: 07-28-2022 take 1 tablet by mandie th once daily citalopram 40 mg Tab 40 mg = 1 tab(s), Oral, Daily, Refills(s) 0 Start Date: 07/28/22 Status: Ordered clopidogrel 75 mg oral tablet (1 source) [id number] Platelet Inhibitor Start: 02-08-2023 take 1 tablet by mouth once daily clopidogrel 75 mg Tab 75 mg = 1 tab(s), Oral, Daily, Refills(s) 0 Start Date: 02/08/23 Status: Ordered cyclobenzaprine hydrochloride 10 mg oral tablet (2 sources) Muscle Relaxant Start: 10-11-2023 take 1 tablet by mouth once daily in the evening as needed for muscle spasms cyclobenzaprine 10 mg Tab 10 mg = 1 tab(s), Oral, qPM, PRN for spasm, # 30 tab(s), Refills(s) 1, Pharmacy: [facility]/pharmacy #[id number], 166, cm, 06/30/23 15:12:00 EDT, Height/Length Dosing, 69.5, kg, 06/30/23 15:12:00 EDT, Weight Dosing Start Date: 10/11/23 Status: Ordered Start: 09-07-2022 take 1 tablet by mandie th once daily in the evening as needed for muscle spasms cyclobenzaprine 10 mg Tab 10 mg = 1 tab(s), Oral, qPM, PRN for spasm, # 30 tab(s), Refills(s) 1, [id number], 168, cm, 07/28/22 10:47:00 EDT, Height/Length Dosing, 67.1, kg, 07/28/22 10:47:00 EDT, Weight Dosing Start Date: 09/07/22 Status: Ordered fluticasone propionate 0.05 mg/actuat metered dose nasal spray (1 source) Corticosteroid Start: 07-28-2022 Flonase 0.05 mg/inh Maxwell 2 spray(s), Nasal, Daily, 16 gram, Refill(s) 0, each nostril, [facility]/pharmacy #[id number], 168, cm, 07/28/22 10:47:00 EDT, Height/Length Dosing, 67.1, kg, 07/28/22 10:47:00 EDT, Weight Dosing Start Date: 07/28/22 Status: Ordered gabapentin 300 mg oral capsule (1 source) Anti-epileptic Agent Start: 11-08-2023 take 1 capsule by mouth at bedtime gabapentin 300 mg Cap See Instructions, TAKE 1 CAPSULE BY MOUTH AT BEDTIME, # 30 cap(s), Refills(s) 2, Pharmacy: [facility] STORE [id number], 166, cm, 10/29/23 10:00:00 EDT, Height/Length Dosing, 66.4, kg, 10/29/23 10:00:00 EDT, Weight Dosing Start Date: 11/08/23 Status: Ordered hydrOXYzine hydrochloride 10 mg oral tablet (1 source) Antihistamine Start: 03-15-2023 take 2 tablets by mouth four times daily hydrOXYzine hydrochloride 10 mg Tab See Instructions, TAKE 2 TABLETS BY MOUTH 4 TIMES A DAY, # 720 tab(s), Refills(s) 1, Pharmacy: [facility] STORE [id number], 166, cm, 02/02/23 15:55:00 EDT, Height/Length Dosing, 68.1, kg, 02/02/23 15:55:00 EDT, Weight Dosing Start Date: 03/15/23 Status: Ordered levothyroxine sodium 0.05 mg oral tablet (2 sources) l-Thyroxine Start: 09-02-2023 take 1 tablet by mouth once daily levothyroxine 50 mcg (0.05 mg) Tab See Instructions, TAKE 1 TABLET BY MOUTH EVERY DAY, # 90 tab(s), Refills(s) 1, Pharmacy: [id number], 166, cm, 06/30/23 15:12:00 EDT, Height/Length Dosing, 69.5, kg, 06/30/23 15:12:00 EDT, Weight Dosing Start Date: 09/02/23 Status: Ordered Start: 09-07-2022 End: 01-05-2023 take 1 tablet by mouth once daily levothyroxine 50 mcg (0.05 mg) Tab 50 mcg = 1 tab(s), Oral, Daily, X 30 day(s), # 30 tab(s), Refills(s) 3, Pharmacy: [facility]/pharmacy #[id number], 168, cm, 07/28/22 10:47:00 EDT, Height/Length Dosing, 67.1, kg, 07/28/22 10:47:00 EDT, Weight Dosing Start Date: 09/07/22 Stop Date: 01/05/23 Status: Ordered meloxicam 15 mg oral tablet (2 sources) Nonsteroidal Anti-inflammatory Drug Start: 12-10-2023 take 1 tablet by mouth once daily meloxicam 15 mg Tab 15 mg = 1 tab(s), Oral, Daily, # 30 tab(s), Refills(s) 0, Pharmacy: [facility]/pharmacy #[id number], 166, cm, 12/10/23 9:10:00 EDT, Height/Length Dosing, 67, kg, 12/10/23 9:10:00 EDT, Weight Dosing Start Date: 12/10/23 Status: Ordered Start: 09-21-2022 take 1 tablet by mandie th once daily meloxicam 15 mg Tab 15 mg = 1 tab(s), Oral, Daily, # 90 tab(s), Refills(s) 1, Pharmacy: [facility]/pharmacy #[id number], 166.6, cm, 09/21/22 9:53:00 EDT, Height/Length Dosing, 65.4, kg, 09/21/22 9:53:00 EDT, Weight Dosing Start Date: 09/21/22 Status: Ordered 24 hr metoprolol succinate 50 mg extended release oral tablet (1 source) beta-Adrenergic Alexander Start: 06-16-2023 take 1 tablet by mouth once daily Toprol XL 50 mg Tab-ER 50 mg = 1 tab(s), Oral, Daily, # 30 tab(s), Refills(s) 5, Pharmacy: [facility]/pharmacy #[id number], 166, cm, 02/02/23 15:55:00 EDT, Height/Length Dosing, 68.1, kg, 02/02/23 15:55:00 EDT, Weight Dosing Start Date: 06/16/23 Status: Ordered nitrofurantoin, macrocrystals 25 mg / nitrofurantoin, monohydrate 75 mg oral capsule (1 source) Nitrofuran Antibacterial Start: 12-10-2023 End: 12-17-2023 take 1 capsule by mouth twice daily Macrobid 100 mg Cap 100 mg = 1 cap(s), Oral, BID, X 7 day(s), # 14 cap(s), Refills(s) 0, Pharmacy: [facility]/pharmacy #[id number], 166, cm, 12/10/23 9:10:00 EDT, Height/Length Dosing, 67, kg, 12/10/23 9:10:00 EDT, Weight Dosing Start Date: 12/10/23 Stop Date: 12/17/23 Status: Ordered nitroglycerin 0.4 mg sublingual tablet (1 source) Nitrate Vasodilator Start: 01-19-2023 nitroglycerin 0.4 mg sublingual Tab 0.4 mg = 1 tab(s), SubLingual, q5min, PRN for chest pain, # 100 tab(s), Refills(s) 0 Start Date: 01/19/23 Status: Ordered traZODone hydrochloride 100 mg oral tablet (1 source) Serotonin Reuptake Inhibitor Start: 11-08-2023 take 1 tablet by mouth once daily at bedtime traZODONE 100 mg Tab See Instructions, TAKE 1 TABLET BY MOUTH EVERYDAY AT BEDTIME, # 90 tab(s), Refills(s) 0, Pharmacy: [id number], 166, cm, 10/29/23 10:00:00 EDT, Height/Length Dosing, 66.4, kg, 10/29/23 10:00:00 EDT, Weight Dosing Start Date: 11/08/23 Status: Ordered Completed/Discontinued Medications Medication Drug Class(es) Dates Sig (Normalized) Sig (Original) losartan potassium 50 mg oral tablet (1 source) Angiotensin 2 Receptor Alexander Start: 06-30-2023 take 1 tablet by mouth once daily in the morning losartan 50 mg Tab 50 mg = 1 tab(s), Oral, Daily, TAKE 1 TABLET BY MOUTH EVERY DAY IN THE MORNING Start Date: 06/30/23 Status: Ordered Problems Active Problems Problem Classification Problem Date Documented Date Episodic/Chronic Acute myocardial infarction (2 sources) Non-ST elevation (NSTEMI) myocardial infarction; Translations: [Non-ST elevation (NSTEMI) myocardial infarction] Onset: 01-13-2023 Chronic Alcohol-related disorders (1 source) Alcohol abuse 10-05-2022 Chronic Anxiety disorders (1 source) Anxiety 01-19-2023 Chronic Chronic obstructive pulmonary disease and bronchiectasis (1 source) Chronic obstructive lung disease 02-02-2023 Chronic Conditions associated with dizziness or vertigo (2 sources) Dizziness 09-21-2022 Episodic Coronary atherosclerosis and other heart disease (3 sources) Atherosclerotic heart disease of [place] coronary artery without angina pectoris; Translations: [Coronary arteriosclerosis] Onset: 02-04-2023 Chronic Disorders of lipid metabolism (1 source) Mixed hyperlipidemia 10-05-2022 Chronic Diverticulosis and diverticulitis (2 sources) Diverticulitis 07-28-2022 Chronic Essential hypertension (2 sources) Hypertensive disorder 07-28-2022 Chronic Fluid and electrolyte disorders (1 source) Hyponatremia 09-22-2022 Episodic Genitourinary symptoms and ill-defined conditions (2 sources) Dysuria; Translations: [Increased frequency of urination] 12-10-2023 Episodic Headache; including migraine (2 sources) Migraine 07-28-2022 Chronic Malaise and fatigue (1 source) Other fatigue; Translations: [OTHER FATIGUE] Onset: 10-14-2021 Episodic Other aftercare (1 source) Post-discharge follow-up 01-19-2023 Episodic Other connective tissue disease (2 sources) Fibromyalgia 07-28-2022 Episodic Other diseases of bladder and urethra (1 source) Overactive bladder 10-29-2023 Chronic Other hematologic conditions (1 source) Macrocytosis 09-22-2022 Chronic Other inflammatory condition of skin (1 source) Itching 01-19-2023 Episodic Other nervous system disorders (2 sources) 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 Other non-traumatic joint disorders (1 source) Knee pain 12-10-2023 Episodic Other upper respiratory disease (2 sources) Seasonal allergy 09-21-2022 Chronic Residual codes; unclassified (1 source) Flushing 10-29-2023 Episodic Residual codes; unclassified (1 source) Insomnia 01-19-2023 Episodic Residual codes; unclassified (1 source) Menopause present 10-29-2023 Episodic Spondylosis; intervertebral disc disorders; other back problems (1 source) Neck pain 01-04-2023 Episodic Substance-related disorders (1 source) Nicotine dependence 02-02-2023 Chronic Thyroid disorders (6 sources) Hypothyroidism, unspecified; Translations: [Hypothyroidism] Onset: 10-09-2021 Chronic Unclassified (3 sources) CONTACT W/AND (SUSP) EXPOS COVID-19; Translations: [CONTACT W/AND (SUSP) EXPOS COVID-19] Onset: 03-10-2021 Past or Other Problems Problem Classification Problem Date Documented Da te Episodic/Chronic Unclassified (1 source) CONTACT W/AND (SUSP) EXPOS COVID-19; Translations: [CONTACT W/AND (SUSP) EXPOS COVID-19] Onset: 03-05-2021 Results Test Name Value Interpretation Reference Range Facil ity Reminderson 12-13-2023 Reminders Reminders From: Nilda Hernandez To: B - Clinical; Sent: 12/13/2023 11:53:01 EDT Show up: 12/13/2023 11:53:00 EDT Subject: Ambulatory Reminder Due Date/Time: 12/14/2023 11:52:00 EDT urine culture was positive for e coli. she is on correct antibiotic. encourage her to finish all antibiotics. Results: Date Result Type Ind Result Name 12/10/2023 9:39 EDT MBO POS Urine Culture Normal [facility] C Urineon 12-12-2023 Bacteria identified Cx Nom (U) Microbiology PROCEDURE: Urine Culture [R1] SOURCE: U CleanCatch BODY SITE: COLLECTED DATE/TIME: 12/10/2023 09:39 EDT RECEIVED DATE/TIME: 12/10/2023 17:44 EDT START DATE/TIME: 12/10/2023 17:44 EDT FREE TEXT SOURCE: Nilda Hernandez Jodi L FINAL REPORTS Final Report [] Verified Date/Time: 12/12/2023 09:18 EDT 75,000 cfu/ml Escherichia coli SUSCEPTIBILITY RESULTS LEGEND: S=Susceptible, N/R=Not Reported, Blank=Data not available, or drug not advisable or tested, I=Intermediate, ESBL=Extended spectrum beta-lactamase, R=Resistant, TFG=Thymidine-depende nt strain, JEFRY=Beta-lactamase positive, SHELLI=mcg/m;(mg/L), S*=Predicted susceptible interp, R*=Predicted resistant interp EC Antibiotic SHELLI Dilutn SHELLI Interp Ampicillin <=8 S Ampicillin/ <=8/4 S Sulbactam Aztreonam <=4 S Cefazolin <=2 S Cefepime <=2 S Ceftazidime <=1 S Ceftazidime/ <=8 S Avibactam Ceftriaxone <=1 S Cefuroxime <=4 S Ciprofloxacin <=0.25 S Ertapenem <=0.5 S Gentamicin <=2 S Levofloxacin <=0.5 S Meropenem <=1 S Nitrofurantoin <=32 S Piperacillin/ <=8 S Tazobactam Tetracycline <=4 S Tobramycin <=2 S Trimethoprim/ <=2/38 S Sulfa Performing Locations R1: This test was performed at: [facility], [address] [place] [address], [facility] , , Normal [facility] Comment on above: Performed By: #### [id number] #### [facility] [address] [place] [address] Family Medicine Office/Clini c Noteon 12-10-2023 Family Medicine Office/Clinic Note Family Medicine Office/Clinic Note HPI Staff Scott is a 63 year old female presenting with frequent urination and Dysuria and right knee pain Onset: 12/05 Symptoms: Dysuria, and frequency and pressure OTC used: She can not remember but it was something OTC Last UTI: nothing that she is aware of Hx of kidney stones: no UA in office documented in chart Onset: started last month Location: right knee Duration:pain is getting worse Characteristics: she ca not sit long Aggravated by: she said it just hurts Relieved by: Tylenol but this did not help Timing:_ Associated Symptoms:_ Stopped taking Oxybutynin 12/05 because she thinks this is giving her infections History of Present Illness pt presents today with UTI symptoms and right knee pain Review of Systems PHQ Score Initial Depression Screen Score: 0 SCORE Physical Exam Vitals & Measurements T: 36.7 ?C(Oral) HR: 72(Peripheral) RR: 18 BP: 124/80 SpO2: 97% HT: 65 in HT: 166.0 cm WT: 67.0 kg WT: 147.4 lb BMI: 24.31 General: alert, no acute distress ENMT: oral mucosa moist, no pharyngeal erythema or exudate Cardiovascular: regular rate and rhythm, normal peripheral perfusion Respiratory: Lungs CTA, respirations non labored Extremities: no deformity, no trauma Neurological: oriented x 4, LOC appropriate for age, CN II-XII intact, motor strength equal & normal bilaterally, speech normal Assessment/Plan 1. Dysuria (R30.0: Dysuria) u/s positive for lueks and blood. will send for culture. will treat with Macrobid. Ordered: meloxicam, 15 mg = 1 tab(s), Oral, Daily, # 30 tab(s), Refills(s) 0, [id number] 166, cm, 12/10/23 9:10:00 EDT, Height/Length Dosing, 67, kg, 12/10/23 9:10:00 EDT, Weight Dosing nitrofurantoin, 100 mg = 1 cap(s), Oral, BID, X 7 day(s), # 14 cap(s), Refills(s) 0, [id number], 166, cm, 12/10/23 9:10:00 EDT, Height/Length Dosing, 67, kg, 12/10/23 9:10:00 EDT, Weight Dosing 2. Urinary frequency (R35.0: Frequency of micturition) see above Ordered: meloxicam, 15 mg = 1 tab(s), Oral, Daily, # 30 tab(s), Refills(s) 0, Pharmacy: [facility]/pharmacy #[id number], 166, cm, 12/10/23 9:10:00 EDT, Height/Length Dosing, 67, kg, 12/10/23 9:10:00 EDT, Weight Dosing nitrofurantoin, 100 mg = 1 cap(s), Oral, BID, X 7 day(s), # 14 cap(s), Refills(s) 0, Pharmacy: [facility]/pharmacy #[id number], 166, cm, 12/10/23 9:10:00 EDT, Height/Length Dosing, 67, kg, 12/10/23 9:10:00 EDT, Weight Dosing 3. Right knee pain (M25.561: Pain in right knee) right knee becoming more painful. had injury as a child and was told she had arthritis. has tried tylenol arthritis. but it is not helping. x ray ordered. stretches suggested. anti inflammatory ordered Ordered: meloxicam, 15 mg = 1 tab(s), Oral, Daily, # 30 tab(s), Refills(s) 0, [id number], 166, cm, 12/10/23 9:10:00 EDT, Height/Length Dosing, 67, kg, 12/10/23 9:10:00 EDT, Weight Dosing nitrofurantoin, 100 mg = 1 cap(s), Oral, BID, X 7 day(s), # 14 cap(s), Refills(s) 0, Pharmacy: [facility]/pharmacy #[id number], 166, cm, 12/10/23 9:10:00 EDT, Height/Length Dosing, 67, kg, 12/10/23 9:10:00 EDT, Weight Dosing 4. Smoker (F17.200: Nicotine dependence, unspecified, uncomplicated) consider not smoking Ordered: meloxicam, 15 mg = 1 tab(s), Oral, Daily, # 30 tab(s), Refills(s) 0, Pharmacy: [facility]/pharmacy #[id number], 166, cm, 12/10/23 9:10:00 EDT, Height/Length Dosing, 67, kg, 12/10/23 9:10:00 EDT, Weight Dosing nitrofurantoin, 100 mg = 1 cap(s), Oral, BID, X 7 day(s), # 14 cap(s), Refills(s) 0, Pharmacy: [facility]/pharmacy #[id number], 166, cm, 12/10/23 9:10:00 EDT, Height/Length Dosing, 67, kg, 12/10/23 9:10:00 EDT, Weight Dosing 5. BMI 24.0-24.9, adult (Z68.24: Body mass index [BMI] 24.0-24.9, adult) BMI education given Ordered: meloxicam, 15 mg = 1 tab(s), Oral, Daily, # 30 tab(s), Refills(s) 0, Pharmacy: [facility]/pharmacy #[id number], 166, cm, 12/10/23 9:10:00 EDT, Height/Length Dosing, 67, kg, 12/10/23 9:10:00 EDT, Weight Dosing nitrofurantoin, 100 mg = 1 cap(s), Oral, BID, X 7 day(s), # 14 cap(s), Refills(s) 0, Pharmacy: [facility]/pharmacy #[id number], 166, cm, 12/10/23 9:10:00 EDT, Height/Length Dosing, 67, kg, 12/10/23 9:10:00 EDT, Weight Dosing Follow-up No qualifying data available Problem List/Past Medical History Ongoing Alcohol abuse Anxiety CAD (coronary artery disease) Cigarette nicotine dependence COPD without exacerbation Diverticulitis Dizziness Dysuria Fibromyalgia Hospital discharge follow-up Hot flashes Hypertension Hyponatremia Hypothyroidism Insomnia Itching Macrocytosis Menopause Migraines Mixed hyperlipidemia Barriga neuroma Neck pain Overactive bladder Right knee pain Seasonal allergies Urinary frequency Historical No qualifying data Procedure/Surgical History Cataract, Colonoscopy, Vaginal hysterectomy. Medications Aspirin Low Dose 81 mg oral tablet, chewable, 81 mg= 1 tab(s), Chewed, Daily atorvastatin 20 mg Tab, 20 mg= 1 tab(s), Oral, Daily citalopram 4 (more content not included)... Normal [facility] Comment on above: Result Comment: Elec tronically Signed By: Nilda Hernandez\.br\Date and Time Signed: 12/10/23 09:27 EDT Family Medicine Office/Clini c Noteon 10-29-2023 Family Medicine Office/Clinic Note Family Medicine Office/Clinic Note HPI Staff Scott is a 63 year old female presenting with hot flashes, she is urinating all the time Hot flashes horrible at nighttime, daytime is not as bad. Nocturia 4x last night, she urinates every hour during the no pain or burning, no blood Started about 6 months ago but getting worse. constantly No abdominal pain or kidney pain History of Present Illness pt presents today c/o hot flashes and overactive bladder Review of Systems PHQ Score Initial Depression Screen Score: 0 SCORE Physical Exam Vitals & Measurements T: 36.6 ?C(Temporal Artery) HR: 81(Peripheral) RR: 18 BP: 12/84 SpO2: 97% HT: 65 in HT: 166.0 cm WT: 66.4 kg WT: 146.08 lb BMI: 24.1 General: alert, no acute distress ENMT: oral mucosa moist, no pharyngeal erythema or exudate Cardiovascular: regular rate and rhythm, normal peripheral perfusion Respiratory: Lungs CTA, respirations non labored Extremities: no deformity, no trauma Neurological: oriented x 4, LOC appropriate for age, CN II-XII intact, motor strength equal & normal bilaterally, speech normal Assessment/Plan 1. Hot flashes (R23.2: Flushing) pt will get black cohash or estroven OTC to see if that helps. if no improvement will refer to [facility] Ordered: oxybutynin, 5 mg = 1 tab(s), Oral, Daily, # 30 tab(s), Refills(s) 1, Pharmacy: [facility] #[id number], 166, cm, 10/29/23 10:00:00 EDT, Height/Length Dosing, 66.4, kg, 10/29/23 10:00:00 EDT, Weight Dosing 2. Menopause (Z78.0: Asymptomatic menopausal state) see above Ordered: oxybutynin, 5 mg = 1 tab(s), Oral, Daily, # 30 tab(s), Refills(s) 1, Pharmacy: [facility] #[id number], 166, cm, 10/29/23 10:00:00 EDT, Height/Length Dosing, 66.4, kg, 10/29/23 10:00:00 EDT, Weight Dosing 3. Overactive bladder (N32.81: Overactive bladder) will order oxybutnin. RTC 5 weeks to follow up on symptoms and to discuss knee pain Ordered: oxybutynin, 5 mg = 1 tab(s), Oral, Daily, # 30 tab(s), Refills(s) 1, Pharmacy: [facility] #[id number], 166, cm, 10/29/23 10:00:00 EDT, Height/Length Dosing, 66.4, kg, 10/29/23 10:00:00 EDT, Weight Dosing 4. BMI 24.0-24.9, adult (Z68.24: Body mass index [BMI] 24.0-24.9, adult) BMI education given Ordered: oxybutynin, 5 mg = 1 tab(s), Oral, Daily, # 30 tab(s), Refills(s) 1, [id number], 166, cm, 10/29/23 10:00:00 EDT, Height/Length Dosing, 66.4, kg, 10/29/23 10:00:00 EDT, Weight Dosing 5. Smoker (F17.200: Nicotine dependence, unspecified, uncomplicated) consider not smoking Ordered: oxybutynin, 5 mg = 1 tab(s), Oral, Daily, # 30 tab(s), Refills(s) 1, [id number], 166, cm, 10/29/23 10:00:00 EDT, Height/Length Dosing, 66.4, kg, 10/29/23 10:00:00 EDT, Weight Dosing Follow-up No qualifying data available Problem List/Past Medical History Ongoing Alcohol abuse Anxiety CAD (coronary artery disease) Cigarette nicotine dependence COPD without exacerbation Diverticulitis Dizziness Fibromyalgia Hospital discharge follow-up Hot flashes Hypertension Hyponatremia Hypothyroidism Insomnia Itching Macrocytosis Menopause Migraines Mixed hyperlipidemia Barriga neuroma Neck pain Overactive bladder Seasonal allergies Historical No qualifying data Procedure/Surgical [...] 0.4 mg= 1 tab(s), SubLingual, q5min, PRN oxybutynin 5 mg ER Tab, 5 mg= 1 tab(s), Oral, Daily, 1 refills Toprol XL 50 mg Tab-ER, 50 mg= 1 tab(s), Oral, Daily, 5 refills traZODONE 100 mg Tab, See Instructions Allergies cefuroxime (Unknown) Social History Tobacco 5-9 cigarettes (between 1/4 to 1/2 pack)/day in last 30 days Tobacco Use:. Cigarettes, Household tobacco concerns: No., 10/29/2023 Family History Primary malignant neoplasm of female breast: Sister. Immunizations Vaccine Date Status zoster vaccine, inactivated 03/24/2023 Recorded pneumococcal 20-valent conjugate vaccine 03/23/2023 Recorded influenza virus vaccine, inactivated 01/04/2023 Given influenza virus vaccine, inactivated 03/09/2022 Recorded SARS-CoV-2 (COVID-19) [id number] 03/09/2022 Recorded SARS-CoV-2 (COVID-19) mRNA BNT-162b2 vax 04/17/2021 Recorded SARS-CoV-2 (COVID-19) mRNA BNT-162b2 vax 08/15/2020 Recorded SARS-CoV-2 (COVID-19) mRNA BNT-162b2 vax 07/25/2020 Recorded Normal [facility] Comment on above: Result Comment: Elec tronically Signed By: Nilda Hernandez\.br\Date and Time Signed: 10/29/23 10:40 EDT Office Visiton 07-14-2023 Follow-up visit [id number] Scott Francis 1960 F Date Provider Department Center 07/14/2023 Shi-DARI BLOUNT CARD Steven Hos Family History Problem Relation Age of Onset No Known Problems Mother No Known Problems Father Family Status - Relation Status Age at Mother Father Level of Service:74249 [place] OFFICE/OUTPATIENT ESTABLISHED LOW MDM 20 MIN Normal [facility] Lab Reportson 07-13-2023 Lab Reports [id number] .00TIFF Normal [facility] 36on 07-12-2023 36 Regarding lab result s from 07/09/2023: MD Eli Michael MA Please let the patient know that her triglycerides are severely elevated; she should be taking her Vascepa as prescribed. If she is still consuming alcoholic beverages, I would highly recommend she stop. If she is diabetic, she needs to work on controlling her sugar levels with her family physician. Thank you Spoke with patient. She was off Vascepa for a few weeks due to insurance issues. She states she is now back on it. I did inform her I would forward lab results to her PCP. I reminded her of her apt with Dr. Blount on 07/14/2023 at 10am. She verbalized understanding. [facility] Ambulatory Visit Summaryon 0 06-30-2023 Ambulatory Visit [...] Smoker Neck pain Refills: 2 Pickup at [facility]/pharmacy #[id number] Unchanged aspirin (Aspirin Low Dose 81 mg [...] BY MOUTH EVERYDAY AT BEDTIME Pharmacy Information [facility]/pharmacy #[id number]: [address], [place] [phone] Allergies cefuroxime (Unknown) Problems Ongoing - Any [...] you for choosing us for your care. Pepito Das [facility] Family Medicine Office/Clini c Noteon 06-30-2023 Family [...] bedtime), # 30 cap(s), Refills(s) 2, Pharmacy: [facility]/pharmacy #[id number], 166, cm, 06/30/23 15:12:00 EDT, Height/Length Dosing, 69.5, kg, 06/30/23 15:12:00 EDT, Weight Dosing 2. BMI 25.0-25.9,adult (Z68.25: Body mass index [BMI] 25.0-25.9, adult) BMI education complete Ordered: gabapentin, 300 mg = 1 cap(s), Oral, Once a day (at bedtime), # 30 cap(s), Refills(s) 2, Pharmacy: [facility]/pharmacy #[id number], 166, cm, 06/30/23 15:12:00 EDT, Height/Length Dosing, 69.5, kg, 06/30/23 15:12:00 EDT, Weight Dosing 3. Smoker (F17.200: Nicotine dependence, unspecified, uncomplicated) consider not smoking Ordered: gabapentin, 300 mg = 1 cap(s), Oral, Once a day (at bedtime), # 30 cap(s), Refills(s) 2, Pharmacy: [facility]/pharmacy #[id number], 166, cm, 06/30/23 15:12:00 EDT, Height/Length [...] virus vaccine, inactivated 03/09/2022 Recorded SARS-CoV-2 (COVID-19) [id number].[id number] 03/09/2022 Recorded SARS-CoV-2 (COVID-19) mRNA BNT-162b2 vax 04/17/2021 Recorded SARS-CoV-2 (COVID-19) mRNA BNT-162b2 vax 08/15/2020 Recorded SARS-CoV-2 (COVID-19) mRNA BNT-162b2 vax 07/25/2020 Recorded Normal [facility] Comment on above: Result Comment: Elec tronically Signed By: Nilda Hernandez\.br\Date and Time Signed: 06/30/23 15:25 EDT 36on [...] mailed to her home. Normal [facility] Orders Onlyon 05-17-2023 Orders Only [id number] Scott Francis 1960 F Date Provider Department Center 05/17/2023 GUILLE GENAO CARD Steven [facility] Family History Problem Relation Age of Onset No Known Problems Mother No Known Problems Father Family Status - Relation Status Age at Mother Father Normal [facility] Consultation Noteon 03-25-20 23 Consultation Note [id number] .00TIFF Normal [facility] Pulmonary Function Testson 05-04-2022 Pulmonary Function Tests [id number] .00TIFF Normal [facility] RAD - CT Reporton 03-01-2023 RAD - CT Report [id number] .00TIFF Normal [facility] Physician Orderon 02-12-2023 Physician Order [id number] .00TIFF [facility] Office Visiton 02-04-2023 Follow-up visit [id number] IndigoScott L 1960 F Date Provider Department Center 02/04/2023 271-VICKIE, DARI CARD Steven Hos Family History Problem Relation Age of Onset No Known Problems Mother No Known Problems Father Family Status - Relation Status Age at Mother Father Level of Service:08987 [place] OFFICE/OUTPATIENT ESTABLISHED MOD MDM 30-39 MIN Normal [facility] Physician Referralon 023 Physician Referral [id number] 1.00TIFF [facility] Ambulatory Visit Summaryon 1 Ambulatory Visit Summary SCOTT FRANCIS Christopher :1960 Visit Date:02/02/2023 Ambulatory Visit Instructions Your [...] EST With: London SMITH, Dada Genao Where: [facility] Invalid Interpretation Code COPD without exacerbation [facility] Office/Clini c Noteon 02-02-2023 [facility] Office/Clinic Note HPI Staff Scott is a 63 year old female presenting for re check anxiety Follow up for Mental Status: [facility] 01/18/23 JOEL 20 Medication adherence- Yes, takes medication as prescribed Medication refill needed: _ Suicidal thoughts-Not at this time Most recent JOEL:14 Most recent PHQ:0 flu: UTD Questions/Concerns: would [...] - Follow up in 2 months Ordered: [facility] [place] Ambulatory Referral Pulmonary Function Testing 2. COPD without exacerbation (J44.9: Chronic obstructive pulmonary disease, unspecified) - Will refer to Pulm. - Will also do PFTs Ordered: [facility] [place] Ambulatory Referral Pulmonary Function Testing 3. Alcohol abuse (F10.10: Alcohol abuse, uncomplicated) - Please continue abstaining from EtOH Ordered: [facility] [place] Ambulatory Referral Pulmonary Function Testing 4. Cigarette nicotine dependence (F17.210: Nicotine dependence, cigarettes, uncomplicated) - CT scan ordered for screening. Ordered: CT Chest, Low Dose Screening [facility] External Ambulatory Referral Pulmonary Function Testing 5. BMI 24.0-24.9, adult (Z68.24: Body mass index [BMI] 24.0-24.9, adult) - BMI education given. Ordered: [facility] [place] Ambulatory Referral Pulmonary Function Testing Orders: hydrOXYzine, 20 mg = 2 tab(s), Oral, QID, # 360 tab(s), Refills(s) 0, Pharmacy: [facility]/pharmacy #[id number], 166, cm, 02/02/23 15:55:00 EDT, [...] virus vaccine, inactivated 03/09/2022 Recorded SARS-CoV-2 (COVID-19) [id number].[id number] 03/09/2022 Recorded SARS-CoV-2 (COVID-19) mRNA BNT-162b2 vax 04/17/2021 Recorded SARS-CoV-2 (COVID-19) mRNA BNT-162b2 vax 08/15/2020 Recorded SARS-CoV-2 (COVID-19) mRNA BNT-162b2 vax 07/25/2020 Recorded Normal Das [facility] Comment on above: Result Comment: Elec tronically Signed By: London SMITH, Dada Chavez.br\Date and Time Signed: 02/02/23 16:28 EDT Family Medicine Office/Clini c Noteon 01-27-2023 Family Medicine Office/Clinic Note HPI Staff Scott is a 63 year old female presenting for follow up medication check Had 2 stents put in 01/13 at [facility] and d/c 01/15/23 covid UTD Flu: UTD Questions/Concerns: Pt would like something to help her sleep, melatonin isn't working states she took Ambien in the hospital worked well. Anxiety isn't under control states medication isn't doing anything for her. JOEL:20 Would also like to know if she [...] another condition. The patient was admitted to [facility] due to chest pain. The onset of symptoms, which included chest pain, dyspnea, and belching, occurred at 6:00 AM on January 13, 2023. Despite the severity of these symptoms, the patient waited 2 days before seeking medical attention and was subsequently transferred to [place]. The patient was discharged on 01/15/2023 and has a follow-up appointment scheduled with a elevator mechanic apprentice on 02/04/2023. In addition to the cardiac [...] reconciled appropriately. Patients will follow up with [facility] cardiology. 2. CAD (coronary artery disease) (I25.10: Atherosclerotic heart disease of [place] coronary artery without angina pectoris) Patient is [...] with voice recognition artificial intelligence software, specifically [employer], [employer] and or [employer]. Substitutions may have occurred due to the inherent limitations of voice recognition and artificial intelligence software. Documentation services were performed after patient or guardian consented to allow [employer] to record this visit. JOSÉ data processing specialist and provider reviewed before signing. JOSÉ: [...] mg Tab, (more content not included)... Normal [facility] Comment on above: Result Comment: Elec tronically Signed By: Dada Callahan MD\.br\Date and Time Signed: 01/27/23 09:43 EDT\.br\Electronically Co-Signed By: Neelam Gerardo\.br\Date and Time Co-Signed: 01/19/23 18:43 EDT Outside [facility] Correspo ndenceon 01-19-2023 Outside [facility] Correspondence [id number] .00CD:127 Pepito Das [facility] Patient Educationon 01-20-20 Patient Education Nutrition [...] numbers. This can be done either in Italian (U.S.) or metric measurements. Note that charts and online BMI calculators are available to help you find your BMI quickly and easily without having to do these calculations yourself. To calculate your BMI in Italian (U.S.) measurements: 1. Measure your weight in [...] for Disease Control and Prevention: www.cdc.gov ? [place] Heart Association: www.heart.org ? National Heart, Lung, and Blood [place]: www.nhlbi.nih.gov Summary ? Body mass index (BMI) is a number that is calculated from a person's weight and height. ? BMI may help estimate how much of a person's weight is composed of fat. BMI can help identify those who may be at higher risk for certain medical problems. ? BMI can be measured using Italian measurements or metric measurements. ? BMI charts are used to identify whether you are underweight, normal weight, overweight, or obese. This information is not intended to replace advice given to you by your health care provider. Make sure you discuss any questions you have with your health care provider. Document Revised: 12/27/2019 Document Reviewed: 11/03/2019 Elsevier Patient Education ? 2022 [employer] [facility] 01-19-2023 [facility] [id number] .00CD:127 Normal [facility] [id number]. 00CD:127 [facility] 30on 01-15-2023 30 The patient is Moderately [...] comorbid symptoms for stability, deterioration, or improvement [facility] 30 The patient is Moderately Stable - Low risk of patient condition declining or worsening The patient's goals for the shift include sleep The clinical goals for the shift include safety Normal [facility] APTTon 01-15-2023 ACTIVATED PARTIAL THROMBOPLASTIN TIME IN PPP BY COAGULATION ASSAY 31.6 Seconds Normal 25.0-35.0 [facility] Comment on above: Order Comment: Check aPTT every 6 hours while on heparin infusion, or per protocol. Result Comment: Clin ical significance of the APTT is questionable in the presence of heparin. Performed By: #### L [id number] #### [facility] ([facility]) [address] [place] [address] BASIC METABOLIC PANELon 09-2 Anion gap [Moles/Vol] 8 mmol/L Normal 7-20 [facility] Comment on above: Performed By: #### L [id number] #### [facility] ([facility]) [address] [place] [address] Calcium [Mass/Vol] 8.6 mg/dL Normal 8.6-10.3 [facility] Comment on above: Performed By: #### L [id number] #### [facility] ([facility]) [address] [place] [address] Chloride [Moles/Vol] 106 mmol/L Normal 98-107 [facility] Comment on above: Performed By: #### L [id number] #### [facility] ([facility]) [address] [place] [address] CO2 [Moles/Vol] 25 mmol/L Normal 21- [facility] Comment on above: Performed By: #### L [id number] #### [facility] ([facility]) [address] [place] [address] Creatinine [Mass/Vol] 0.48 mg/dL Low 0.60-1.20 [facility] Comment on above: Performed By: #### L [id number] #### [facility] ([facility]) [address] [place] [address] GLOMERULAR FILTRATION RATE ML/MIN/1.73 SQ M.PREDICTED 107.7 mL/min/1.73m*2 Normal >60.0 [facility] Comment on above: Result Comment: The [facility]???s estimated glomerular filtration rate (eGFR) will no [...] individuals. Performed By: #### L [id number] #### [facility] ([facility]) [address] [place] [address] Glucose [Mass/Vol] 111 mg/dL High 70-100 [facility] Comment on above: Performed By: #### L [id number] #### [facility] ([facility]) [address] [place] [address] Potassium [Moles/Vol] 4.0 mmol/L Normal 3.5-5.1 [facility] Comment on above: Performed By: #### L [id number] #### [facility] ([facility]) [address] [place] [address] Sodium [Moles/Vol] 135 mmol/L Low 136-145 [facility] Comment on above: Performed By: #### L [id number] #### [facility] ([facility]) [address] [place] [address] Urea nitrogen [Mass/Vol] 9 mg/dL Normal 7-25 [facility] Comment on above: Performed By: #### L [id number] #### [facility] ([facility]) [address] [place] [address] UREA NITROGEN/CREATININE (MASS RATIO) IN SER/PLAS 18.8 Normal [facility] Comment on above: Performed By: #### L [id number] #### [facility] ([facility]) [address] [place] [address] CBCon 01-15-2023 Erythrocyte distribution width (RBC) [Ratio] 12.6 % Normal 11.5-15.0 [facility] Comment on above: Performed By: #### L [id number] #### [facility] ([facility]) [address] [place] [address] ERYTHROCYTE MEAN CORPUSCULAR HEMOGLOBIN CONCENTRATION (G/DL) BY AUTOMATED 34.0 g/dL Normal 32.0-35.0 [facility] Comment on above: Performed By: #### L [id number] #### [facility] [address] [place] [address] Hematocrit (Bld) [Volume fraction] 36.2 % Normal 36.0-48.0 [facility] Comment on above: Performed By: #### L [id number] #### [facility] [address] [place] [address] Hemoglobin (Bld) [Mass/Vol] 12.3 g/dL Normal 12.0-15.0 [facility] Comment on above: Performed By: #### L [id number] #### [facility] ([facility]) [address] [place] [address] MCH (RBC) [Entitic mass] 34.9 pg High 27.0-33.0 [facility] Comment on above: Performed By: #### L [id number] #### [facility] ([facility]) [address] [place] [address] MCV (RBC) [Entitic vol] 102.8 fL High 82.0-98.0 [facility] Comment on above: Performed By: #### L [id number] #### [facility] ([facility]) [address] [place] [address] PLATELETS (10*3/UL) IN BLOOD AUTOMATED COUNT 214 10*3/uL Normal 150-400 [facility] Comment on above: Performed By: #### L [id number] #### [facility] [address] [place] [address] RBC (Bld) [#/Vol] 3.52 10*6/uL Low 3.80-5.00 [facility] Comment on above: Performed By: #### L [id number] #### [facility] ([facility]) [address] [place] [address] WBC (Bld) [#/Vol] 10.14 10*3/uL Normal 4.00-10.60 [facility] Comment on above: Performed By: #### L [id number] #### [facility] ([facility]) [address] [place] [address] EDPROVon 01-15-2023 EDPROV HPI Chief Complaint Patient [...] Negative. Endocrine: Negative. Genitourinary: Negative. Musculoskeletal: Negative. Allergic/Immunologic: Negative. Neurological: Negative. Hematological: Negative. Psychiatric/Behaviora l: Negative. Physical Exam ED Triage Vitals Temp [...] 01/23/23 0813 NSTEMI (non-ST elevated myocardial infarction) ([facility]) Medical Decision Making Attestion Claribel Coyle MD 01/23/23 0815 Normal [facility] MAGNESIUMon 01-15-2023 Magnesium [Mass/Vol] 2.0 mg/dL Normal 1.9-2.7 [facility] Comment on above: Performed By: #### L [id number] #### [facility] ([facility]) [address] [place] [address] NURSNOTEon 01-15-2023 NURSNOTE Discharge instructions given and reviewed, questions answered, signed, copy received. Normal [facility] 30on 01-14-2023 30 The patient is Moderately Stable - Low risk of patient condition declining or worsening The patient's goals for the shift include to get up The clinical goals for the shift include VSS Normal [facility] APTTon 01-14-2023 ACTIVATED PARTIAL THROMBOPLASTIN TIME IN PPP BY COAGULATION ASSAY 28.6 Seconds Normal 25.0-35.0 [facility] Comment on above: Order Comment: Check aPTT every 6 hours while on heparin infusion, or per protocol. Result Comment: Clin ical significance of the APTT is questionable in the presence of heparin. Performed By: #### L [id number] #### [facility] ([facility]) [address] [place] [address] ACTIVATED PARTIAL THROMBOPLASTIN TIME IN PPP BY COAGULATION ASSAY 25.9 Seconds Normal 25.0-35.0 [facility] Comment on above: Order Comment: Check aPTT every 6 hours while on heparin infusion, or per protocol. Result Comment: Clin ical significance of the APTT is questionable in the presence of heparin. Performed By: #### L [id number] ####[facility] ([facility])[address] [place] [address] BASIC METABOLIC PANELon 12-19 Anion gap [Moles/Vol] 11 mmol/L Normal 7-20 [facility] Comment on above: Performed By: #### L [id number] #### [facility] ([facility]) [address] [place] [address] Calcium [Mass/Vol] 9.1 mg/dL Normal 8.6-10.3 [facility] Comment on above: Performed By: #### L [id number] #### [facility] [address] [place] [address] Chloride [Moles/Vol] 97 mmol/L Low 98-107 [facility] Comment on above: Performed By: #### L [id number] #### [facility] ([facility]) [address] [place] [address] CO2 [Moles/Vol] 25 mmol/L Normal 21-[address] [facility] Comment on above: Performed By: #### L [id number] #### [facility] ([facility]) [address] [place] [address] Creatinine [Mass/Vol] 0.45 mg/dL Low 0.60-1.20 [facility] Comment on above: Performed By: #### L [id number] #### [facility] ([facility]) [address] [place] [address] GLOMERULAR FILTRATION RATE ML/MIN/1.73 SQ M.PREDICTED 109.4 mL/min/1.73m*2 Normal >60.0 [facility] Comment on above: Result Comment: The [facility]???s estimated glomerular filtration rate (eGFR) will no [...] group of individuals. Performed By: #### L [id number] #### [facility] ([facility]) [address] [place] [address] Glucose [Mass/Vol] 114 mg/dL High 70-100 [facility] Comment on above: Performed By: #### L [id number] #### [facility] ([facility]) [address] [place] [address] Potassium [Moles/Vol] 3.1 mmol/L Low 3.5-5.1 [facility] Comment on above: Performed By: #### L [id number] #### [facility] ([facility]) [address] [place] [address] Sodium [Moles/Vol] 130 mmol/L Low 136-145 [facility] Comment on above: Performed By: #### L [id number] #### [facility] ([facility]) [address] [place] [address] Urea nitrogen [Mass/Vol] 6 mg/dL Low 7-25 [facility] Comment on above: Performed By: #### L [id number] #### [facility] ([facility]) [address] [place] [address] UREA NITROGEN/CREATININE (MASS RATIO) IN SER/PLAS 13.3 Normal [facility] Comment on above: Performed By: #### L [id number] #### [facility] ([facility]) [address] [place] [address] CBCon 01-14-2023 Erythrocyte distribution width (RBC) [Ratio] 12.6 % Normal 11.5-15.0 [facility] Comment on above: Performed By: #### L [id number] #### [facility] ([facility]) [address] [place] [address] ERYTHROCYTE MEAN CORPUSCULAR HEMOGLOBIN CONCENTRATION (G/DL) BY AUTOMATED 34.6 g/dL Normal 32.0-35.0 [facility] Comment on above: Performed By: #### L [id number] #### [facility] ([facility]) [address] [place] [address] Hematocrit (Bld) [Volume fraction] 38.1 % Normal 36.0-48.0 [facility] Comment on above: Performed By: #### L [id number] #### [facility] ([facility]) [address] [place] [address] Hemoglobin (Bld) [Mass/Vol] 13.2 g/dL Normal 12.0-15.0 [facility] Comment on above: Performed By: #### L [id number] #### [facility] ([facility]) [address] [place] [address] MCH (RBC) [Entitic mass] 34.3 pg High 27.0-33.0 [facility] Comment on above: Performed By: #### L [id number] #### [facility] ([facility]) [address] [place] [address] MCV (RBC) [Entitic vol] 99.0 fL High 82.0-98.0 [facility] Comment on above: Performed By: #### L [id number] #### [facility] ([facility]) [address] [place] [address] PLATELETS (10*3/UL) IN BLOOD AUTOMATED COUNT 216 10*3/uL Normal 150-400 [facility] Comment on above: Performed By: #### L [id number] #### [facility] ([facility]) [address] [place] [address] RBC (Bld) [#/Vol] 3.85 10*6/uL Normal 3.80-5.00 [facility] Comment on above: Performed By: #### L [id number] #### [facility] ([facility]) [address] [place] [address] WBC (Bld) [#/Vol] 12.05 10*3/uL High 4.00-10.60 [facility] Comment on above: Performed By: #### L [id number] #### [facility] ([facility]) [address] [place] [address] MAGNESIUMon 01-14-2023 Magnesium [Mass/Vol] 1.8 mg/dL Low 1.9-2.7 [facility] Comment on above: Performed By: #### L [id number] #### [facility] ([facility]) [address] [place] [address] TSH3 REFLEX TO FT4on 023 THYROTROPIN (MIU/L) IN SER/PLAS BY DETECTION LIMIT <= 0.05 MIU/L 2.97 mIU/L Normal 0.34-5.60 [facility] Comment on above: Performed By: #### L [id number] ####[facility] ([facility])[address] [place] [address] APTTon 01-13-2023 ACTIVATED PARTIAL THROMBOPLASTIN TIME IN PPP BY COAGULATION ASSAY >200.0 Critically high 25.0-35.0 [facility] Comment on above: Order Comment: Check aPTT every 6 hours while on heparin infusion, or per protocol. Result Comment: Clin ical significance of the APTT is questionable in the presence of heparin. Performed By: #### L [id number] ####[facility] ([facility])[address] [place] [address] ACTIVATED PARTIAL THROMBOPLASTIN TIME IN PPP BY COAGULATION ASSAY 40.4 Seconds High 25.0-35.0 [facility] Comment on above: Result Comment: Clin ical significance of the APTT is questionable in the presence of heparin. Performed By: #### L [id number] #### [facility] ([facility]) [address] [place] [address] BASIC METABOLIC PANELon 12-19 Anion gap [Moles/Vol] 16 mmol/L Normal 7-20 [facility] Comment on above: Performed By: #### L [id number] #### [facility] ([facility]) [address] [place] [address] Calcium [Mass/Vol] 9.7 mg/dL Normal 8.6-10.3 [facility] Comment on above: Performed By: #### L [id number] #### [facility] ([facility]) [address] [place] [address] Chloride [Moles/Vol] 89 mmol/L Low 98-107 [facility] Comment on above: Performed By: #### L [id number] #### [facility] [address] [place] [address] CO2 [Moles/Vol] 25 mmol/L Normal 21-[address] [facility] Comment on above: Performed By: #### L [id number] #### [facility] ([facility]) [address] [place] [address] Creatinine [Mass/Vol] 0.54 mg/dL Low 0.60-1.20 [facility] Comment on above: Performed By: #### L [id number] #### [facility] ([facility]) [address] [place] [address] GLOMERULAR FILTRATION RATE ML/MIN/1.73 SQ M.PREDICTED 104.7 mL/min/1.73m*2 Normal >60.0 [facility] Comment on above: Result Comment: The [facility]???s estimated glomerular filtration rate (eGFR) will no [...] individuals. Performed By: #### L [id number] #### [facility] ([facility]) [address] [place] [address] Glucose [Mass/Vol] 116 mg/dL High 70-100 [facility] Comment on above: Performed By: #### L [id number] #### [facility] ([facility]) [address] [place] [address] Potassium [Moles/Vol] 3.3 mmol/L Low 3.5-5.1 [facility] Comment on above: Performed By: #### L [id number] #### [facility] [address] [place] [address] Sodium [Moles/Vol] 127 mmol/L Low 136-145 [facility] Comment on above: Performed By: #### L [id number] #### [facility] ([facility]) [address] [place] [address] Urea nitrogen [Mass/Vol] 7 mg/dL Normal 7-25 [facility] Comment on above: Performed By: #### L [id number] #### [facility] ([facility]) [address] [place] [address] UREA NITROGEN/CREATININE (MASS RATIO) IN SER/PLAS 13.0 Normal [facility] Comment on above: Performed By: #### L [id number] #### [facility] ([facility]) [address] [place] [address] C-REACTIVE PROTEINon 023 C REACTIVE PROTEIN (MG/L) IN SER/PLAS 11.8 mg/L High 0.0-7.0 [facility] Comment on above: Performed By: #### L [id number] #### [facility] ([facility]) [address] [place] [address] CBC WITH AUTO DIFFERENTIALon 01-13-2023 Basophils (Bld) [#/Vol] 0.07 10*3/uL Normal 0.00-0.20 [facility] Comment on above: Performed By: #### L [id number] #### [facility] ([facility]) [address] [place] [address] Basophils/100 WBC (Bld) 0.6 % Normal 0.0-1.0 [facility] Comment on above: Performed By: #### L [id number] #### [facility] ([facility]) [address] [place] [address] Eosinophils (Bld) [#/Vol] 0.10 10*3/uL Normal 0.00-0.50 [facility] Comment on above: Performed By: #### L [id number] #### [facility] [address] [place] [address] Eosinophils/100 WBC (Bld) 0.9 % Normal 0.0-6.0 [facility] Comment on above: Performed By: #### L [id number] #### [facility] ([facility]) [address] [place] [address] Erythrocyte distribution width (RBC) [Ratio] 12.3 % Normal 11.5-15.0 [facility] Comment on above: Performed By: #### L [id number] #### [facility] ([facility]) [address] [place] [address] ERYTHROCYTE MEAN CORPUSCULAR HEMOGLOBIN CONCENTRATION (G/DL) BY AUTOMATED 36.0 g/dL High 32.0-35.0 [facility] Comment on above: Performed By: #### L [id number] #### [facility] ([facility]) [address] [place] [address] Hematocrit (Bld) [Volume fraction] 45.6 % Normal 36.0-48.0 [facility] Comment on above: Performed By: #### L [id number] #### [facility] ([facility]) [address] [place] [address] Hemoglobin (Bld) [Mass/Vol] 16.4 g/dL High 12.0-15.0 [facility] Comment on above: Performed By: #### L [id number] #### [facility] ([facility]) [address] [place] [address] Immature granulocytes (Bld) [#/Vol] 0.06 10*3/uL Normal 0.00-0.20 [facility] Comment on above: Performed By: #### L [id number] #### [facility] ([facility]) [address] [place] [address] Immature granulocytes/100 WBC (Bld) 0.5 % Normal 0.0-1.0 [facility] Comment on above: Performed By: #### L [id number] #### [facility] [address] [place] [address] Lymphocytes (Bld) [#/Vol] 2.93 10*3/uL Normal 1.20-4.00 [facility] Comment on above: Performed By: #### L [id number] #### [facility] ([facility]) [address] [place] [address] Lymphocytes/100 WBC (Bld) 25.3 % Normal 20.0-45.0 [facility] Comment on above: Performed By: #### L [id number] #### [facility] ([facility]) [address] [place] [address] MCH (RBC) [Entitic mass] 34.6 pg High 27.0-33.0 [facility] Comment on above: Performed By: #### L [id number] #### [facility] ([facility]) [address] [place] [address] MCV (RBC) [Entitic vol] 96.2 fL Normal 82.0-98.0 [facility] Comment on above: Performed By: #### L [id number] #### [facility] ([facility]) [address] [place] [address] Monocytes (Bld) [#/Vol] 0.87 10*3/uL Normal 0.10-1.00 [facility] Comment on above: Performed By: #### L [id number] #### [facility] ([facility]) [address] [place] [address] Monocytes/100 WBC (Bld) 7.5 % Normal 5.0-12.0 [facility] Comment on above: Performed By: #### L [id number] #### [facility] ([facility]) [address] [place] [address] Neutrophils (Bld) [#/Vol] 7.57 10*3/uL Normal 1.60-7.60 [facility] Comment on above: Performed By: #### L [id number] #### [facility] [address] [place] [address] Neutrophils/100 WBC (Bld) 65.2 % Normal 40.0-72.0 [facility] Comment on above: Performed By: #### L [id number] #### [facility] ([facility]) [address] [place] [address] NRBC (PER 100 WBCS) BY AUTOMATED COUNT 0.0 % Normal 0 [facility] Comment on above: Performed By: #### L [id number] #### [facility] [address] [place] [address] PLATELETS (10*3/UL) IN BLOOD AUTOMATED COUNT 278 10*3/uL Normal 150-400 [facility] Comment on above: Performed By: #### L [id number] #### [facility] ([facility] [address] [place] [address] RBC (Bld) [#/Vol] 4.74 10*6/uL Normal 3.80-5.00 [facility] Comment on above: Performed By: #### L [id number] #### [facility] ([facility]) [address] [place] [address] WBC (Bld) [#/Vol] 11.60 10*3/uL High 4.00-10.60 [facility] Comment on above: Performed By: #### L [id number] #### [facility] ([facility]) [address] [place] [address] CONSULTon 01-13-2023 CONSULT - Attestation signed by Piper Gaines MD at 01/13/2023 2:22 PM I personally saw and examined the patient on the same date of service as resident/fellow Dr. Curry. I discussed the findings and therapeutic plan with the resident/fellow Dr. Curry. I agree with the documentation, except for any edits/updates below. Teaching Physician's Revisions: Patient was Having chest pain at the emergency room in [facility]. The ER physician called me and told me that she is also having elevated troponin. We will transfer her to the emergency room the patient continue have chest discomfort and the high-sensitivity troponin was around 5000. I discussed the case with Dr. Blount and we are going to proceed with second this patient to the Group Rooms Coordinator emergently for NSTEMI. Cardiology Consult Note Reason [...] EKG is not suggestive of ST elevation NE. Patient was transferred here for NSTEMI management. [...] echo and coronary angiography. 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 Per [facility] report patient was having a Nstemi reported from an initial EKG. Pt woke up with Chest Pain on 01/12 at 6 am it was upper left and radiated across her chest. Pt's pain was not tolerable anymore and went to [facility] ER this morning on 01/13. Pt was [...] was being infused at 15.7 ml/hr from [facility]. Pt upon arrival to ED reported a CP of 5 out of 10 upper left. Pt is A&Ox4, EKG done upon arrival. Pt has a Hx of Hypothyroidism and HTN. [facility] HPon 01-13-2023 HP - Attestation signed by Dari Blount MD at [...] documentation from me. Dari Blount MD, MPH, [facility], [facility], [facility] Interventional Cardiology Pager Email: [email or web address] History Of Present Illness Scott Francis is a 63 y.o. female presenting with Past medical history of hypertension, current smoker who came in to [facility] initially for chest pain. Patient reported [...] NSTEMI (non-ST elevated myocardial infarction) (CMS/[facility]) Assessment: Chest pain. Likely secondary to NSTEMI versus pericarditis. Hypertension. Current smoker. Plan: We will proceed with coronary angiogram for chest pain. Risk and benefits explained to the patient who agreed to proceed. Further planning would depend on the finding of coronary angiogram. Echocardiogram is ordered. Patient was administered in the ED aspirin and heparin. Normal [facility] NURSNOTEon 01-13-2023 NURSNOTE geoscience laboratory technician reported prolonged QT on EKG completed. Reported findings to Nikia Harris NP. Nikia Harris NP discontinued Zofran. Normal [facility] SEDIMENTATION RATEon 023 SEDIMENTATION RATE, ERYTHROCYTE 11 mm/hr Normal <=20 [facility] Comment on above: Performed By: #### L [id number] #### [facility] ([facility]) [address] [place] [address] TROPONIN Ion 01-13-2023 Troponin I.cardiac [Mass/Vol] 5.86 ng/mL Critically high 0.00-0.04 [facility] Comment on above: Result Comment: MIGNON CHAPARRO INITIAL CRITICAL HIGH; RESPUN AND RETESTED Performed By: #### L [id number] #### [facility] ([facility]) [address] [place] [address] Family Medicine Office/Clini c Noteon 01-06-2023 Family [...] with voice recognition artificial intelligence software, specifically [employer], [employer] and or [employer]. Substitutions may have occurred due to the inherent limitations of voice recognition and artificial intelligence software. ATTESTATION: Documentation services were performed after patient or guardian consented to allow [employer] to record this visit. JOSÉ data processing specialist and provider reviewed before signing. JOSÉ: Krystle Gamez. Follow-up No qualifying data available Problem List/Past Medical History Ongoing Alcohol abuse Diverticulitis Dizziness Fibromyalgia Hypertension Hyponatremia Hypothyroidism Macrocytosis Migraines Mixed hyperlipidemia Barriga neuroma Neck pain Seasonal allergies Historical No qualifying data Procedure/Surgical History Cataract, Colonoscopy, Vaginal hysterectomy. Medications atorvastatin 20 mg Tab, See Instructions, Not taking bisoprolol-hydrochlor othiazide 10 mg-6.25 mg Tab, 1 tab(s), Oral, [...] more cigar (more content not included)... Normal [facility] Comment on above: Result Comment: Elec tronically Signed By: Dada Callahan MD\.br\Date and Time Signed: 01/06/23 09:22 EDT\.br\Electronically Co-Signed By: Krystle Gamez\.br\Date and Time Co-Signed: 01/04/23 11:13 EDT Ambulatory Visit Summaryon 0 01-04-2023 Ambulatory Visit Summary SCOTT FRANCIS :1960 Visit Date:01/04/2023 Ambulatory Visit Instructions Your Diagnosis Alcohol abuse Hypertension Hyponatremia Mixed hyperlipidemia BMI 24.0-24.9, adult Neck pain Macrocytosis Your Care Team Attending Physician - Dada Callahan MD Primary Care Physician - Dada Callahan MD This Is Your Medications List Contact prescribing physician if questions or concerns atorvastatin (atorvastatin 20 mg Tab) bisoprolol-hydrochlor othiazide (bisoprolol-hydrochlo rothiazide 10 mg-6.25 mg Tab) citalopram (citalopram 40 [...] EST With: [place] SMITH, Dada Genao Where: [facility] Steven Normal [facility] Auto Diffon 01-04-2023 Basophils/100 WBC (Bld) 1.0 % Normal 0.0-2.0 [facility] Comment on above: Order Comment: Order Added by Discern Expert. Performed By: #### 1 [id number], [id number], 5044249, 6588809 ####[address] [address] Basophils/Leukocytes Auto (Bld) [Pure # fraction] 0.1 E9/L Normal 0.0-0.2 [facility] Comment on above: Order Comment: Order Added by Discern Expert. Performed By: #### 1 [id number], 9081215, 5420397, 7691141 ####[address] [address] Eosinophils/100 WBC (Bld) 1.8 % Normal 0.0-8.0 [facility] Comment on above: Order Comment: Order Added by Discern Expert. Performed By: #### 1 [id number], 9807147, 8535078, 7904428 ####[address] [address] Eosinophils/Leukocyt es Auto (Bld) [Pure # fraction] 0.1 E9/L Normal 0.0-0.5 [facility] Comment on above: Order Comment: Order Added by Discern Expert. Performed By: #### 1 [id number], 5087031, 3946124, 7939398 ####[address] [place] [address] Lymphocytes/100 WBC (Bld) 27.6 % Normal 14.0-50.0 [facility] Comment on above: Order Comment: Order Added by Discern Expert. Performed By: #### 1 [id number], 8015654, 4208667, 2164428 ####[address] [address] Lymphocytes/Leukocyt es Auto (Bld) [Pure # fraction] 2.3 E9/L Normal 1.0-4.0 [facility] Comment on above: Order Comment: Order Added by Discern Expert. Performed By: #### 1 8713011, 4459897, 1681076, 7302294 ####[address] [address] Monocytes/100 WBC (Bld) 7.3 % Normal 4.0-14.0 [facility] Comment on above: Order Comment: Order Added by Discern Expert. Performed By: #### 1 3329571, 8369967, 5779019, 8326074 ####[address] [address] Monocytes/Leukocytes Auto (Bld) [Pure # fraction] 0.6 E9/L Normal 0.2-1.0 [facility] Comment on above: Order Comment: Order Added by Discern Expert. Performed By: #### 1 7285561, 3101964, 9892775, 8238064 ####[address] [address] Neutrophils/100 WBC (Bld) 62.3 % Normal 36.0-75.0 [facility] Comment on above: Order Comment: Order Added by Discern Expert. Performed By: #### 1 7740014, 7934092, 0805355, 9292293 ####[address] [address] Neutrophils/Leukocyt es Auto (Bld) [Pure # fraction] 5.1 E9/L Normal 2.0-7.5 [facility] Comment on above: Order Comment: Order Added by Discern Expert. Performed By: #### 1 [id number], 5118904, 7910130, 0745518 ####[address] [address] CBC w/ Auto Diffon 3 Erythrocyte distribution width (RBC) [Ratio] 13.3 % Normal 10.9-14.2 [facility] Comment on above: Performed By: #### 1 9951565, 8531789, 6809675, 3241510 ####[address] [place] [address] Hematocrit (Bld) [Volume fraction] 42.5 % Normal 34.0-46.0 [facility] Comment on above: Performed By: #### 1 3649529, 5548703, 0289322, 4378958 ####[place] [address] Hemoglobin (Bld) [Mass/Vol] 14.8 g/dL Normal 12.0-16.0 [facility] Comment on above: Performed By: #### 1 2924123, 1176510, 0862661, 4463025 ####[address] [address] MCH (RBC) [Entitic mass] 35.3 pg High 27.0-34.0 [facility] Comment on above: Performed By: #### 1 4523822, 6271586, 7250480, 6293884 ####[address] [address] MCHC (RBC) [Mass/Vol] 34.9 g/dL Normal 31.4-36.0 [facility] Comment on above: Performed By: #### 1 7415525, 1408476, 4424956, 1458865 ####[address] [address] MCV (RBC) [Entitic vol] 101.2 fL High 80.0-100.0 [facility] Comment on above: Performed By: #### 1 5535003, 2627245, 7634613, 8313776 ####[address] [address] Platelet mean volume (Bld) [Entitic vol] 7.2 fL Normal 6.4-10.8 [facility] Comment on above: Performed By: #### 1 1729672, 9110076, 0599306, 6311454 ####[facility] [address] [place] [address] Platelets (Bld) [#/Vol] 255.0 E9/L Normal 150.0-500.0 [facility] Comment on above: Performed By: #### 1 1954237, 9496165, 5332665, 1358371 ####[address] [place] [address] RBC (Bld) [#/Vol] 4.2 E12/L Low 4.3-5.9 [facility] Comment on above: Performed By: #### 1 8036550, 8042696, 4886815, 5553416 ####[address] [place] [address] WBC corrected for nucl RBC Auto (Bld) [#/Vol] 8.2 E9/L Normal 4.0-11.0 [facility] Comment on above: Performed By: #### 1 4451445, 8781724, 6991364, 0923265 ####[address] [address] CMPon 01-04-2023 Albumin [Mass/Vol] 4.1 g/dL Normal 3.3-5.0 [facility] Comment on above: Performed By: #### 1 3657956, 4248853, 3172139, 7540525 ####[address] [place] [address] Albumin/Globulin (S) [Mass conc ratio] 1.2 Normal 1.1-2.2 [facility] Comment on above: Performed By: #### 1 6549362, 6803459, 8722812, 7820062 ####[address] [place] [address] ALP [Catalytic activity/Vol] 66 Int._Unit/L Normal 21-98 [facility] Comment on above: Performed By: #### 1 4981268, 9198450, 0852749, 7020029 ####[address] [place] [address] ALT No additional P-5'-P [Catalytic activity/Vol] 20 Int._Unit/L Normal 6-46 [facility] Comment on above: Performed By: #### 1 9766335, 4841374, 9165310, 0353944 ####[facility] [address] [place] [address] Anion gap [Moles/Vol] 12 mmol/L Normal 6-16 [facility] Comment on above: Performed By: #### 1 8797446, 2044108, 1831353, 5924332 ####[facility] [address] [place] [address] AST [Catalytic activity/Vol] 34 Int._Unit/L Normal 5-43 [facility] Comment on above: Performed By: #### 1 5789702, 3651693, 2937277, 7252879 ####[facility] [address] [place] [address] Bilirubin [Mass/Vol] 0.4 mg/dL Normal 0.0-1.1 [facility] Comment on above: Performed By: #### 1 7240963, 8351015, 7901961, 2368418 ####[facility] [address] [place] [address] Calcium [Mass/Vol] 9.3 mg/dL Normal 8.9-11.1 [facility] Comment on above: Performed By: #### 1 1660026, 6425974, 1291450, 1493390 ####[facility] [address] [place] [address] Chloride [Moles/Vol] 99 mmol/L Low 101-111 [facility] Comment on above: Performed By: #### 1 3107018, 2217260, 6831116, 9439031 ####[facility] [address] [place] [address] CO2 [Moles/Vol] 28 mmol/L Normal 21-31 [facility] Comment on above: Performed By: #### 1 1610947, 1230397, 9610768, 9574087 ####[facility] [address] [place] [address] Creatinine [Mass/Vol] 0.6 mg/dL Normal 0.5-1.3 [facility] Comment on above: Performed By: #### 1 2995770, 9666588, 6989974, 5934220 ####[facility] [address] [place] [address] Globulin (S) [Mass/Vol] 3.5 g/dL Normal 1.4-4.0 [facility] Comment on above: Performed By: #### 1 4718594, 6870051, 2744006, 7142188 ####[facility] [address] [place] [address] Glucose [Mass/Vol] 120 mg/dL Normal 55-199 [facility] Comment on above: Result Comment: If t his glucose result represents a fasting glucose, interpretation should refer to the following reference range: 55-99 mg/dL Performed By: #### 1 7158553, 3657064, 0808118, 3330835 ####[facility] [address] [place] [address] Potassium [Moles/Vol] 4.2 mmol/L Normal 3.5-5.3 [facility] Comment on above: Performed By: #### 1 6054178, 3385033, 3821791, 7045881 ####[facility] [address] [place] [address] Protein [Mass/Vol] 7.6 g/dL Normal 6.0-7.8 [facility] Comment on above: Performed By: #### 1 2691050, 8932997, 6729540, 7949572 ####[facility] [address] [place] [address] Sodium [Moles/Vol] 135 mmol/L Normal 135-145 [facility] Comment on above: Performed By: #### 1 3581201, 9175305, 6768956, 1542451 ####[facility] [address] [place] [address] Urea nitrogen [Mass/Vol] 8 mg/dL Normal 5-21 [facility] Comment on above: Performed By: #### 1 4334526, 3352533, 2859573, 9370749 ####[facility] [address] [place] [address] Urea nitrogen/Creatinine [Mass ratio] 13 No Units Normal 10-20 [facility] Comment on above: Performed By: #### 1 5302995, 2187332, 3495141, 4953089 ####[facility] [address] [place] [address] Consent for Flu Vaccineon Consent for Flu Vaccine [id number] .[id number] Normal [facility] eGFRon 01-04-2023 GFR/1.73 sq M.predicted among non-blacks MDRD (S/P/Bld) [Vol rate/Area] 102 mL/min/1.73 m2 Normal >=59 [facility] Comment on above: Order Comment: Order added by Discern Expert. Result Comment: Service Assistant kandice kidney disease could be indicated at eGFR's of less than 60 mL/min/1.73m2. Kidney failure is indicated at less than 15 mL/min/1.73m2. Performed By: #### 1 9979662, 3945007, 2649397, 8109396 ####[facility] [address] [place] [address] CHEMISTRYOrdered By: SYSTEM SYSTEM on 09-21-2022 Albumin [...] Calcium [Mass/Vol] 9.3 mg/dL Normal 8.9 - 11. 1 mg/dL [facility] Chloride [Moles/Vol] 95 mmol/L Low 101 - 1 11 mmol/L [facility] Cholesterol [Mass/Vol] 218 mg/dL High [...] mg/mg Normal 10 - 20 [facility] HEMATOLOGYOrdered By: SYSTEM SYSTEM on 09-21-2022 Basophils/100 [...] 13.3 % Normal 10.9 - 14.2 % [facility] HemeAutoSS Hematocrit (Bld) [Volume fraction] 45.3 % Normal 34.0 - 46.0 % [facility] HemeAutoSS Hemoglobin (Bld) [Mass/Vol] 15.6 g/dL Normal 12.0 - 16.0 gm/dL [facility] HemeAutoSS MCH (RBC) [Entitic mass] 35.2 pg High 27.0 - 34.0 pg [facility] HemeAutoSS MCHC (RBC) [Mass/Vol] 34.4 g/dL Normal 31.4 - 36.0 gm/dL [facility] HemeAutoSS MCV (RBC) [Entitic vol] 102.3 fL High 80.0 - 100.0 fL [facility] HemeAutoSS Platelet mean volume (Bld) [Entitic vol] 7.0 fL Normal 6.4 - 10.8 fL [facility]eAutoSS Platelets (Bld) [#/Vol] 264.0 E9/L Normal 150.0 - 500.0 E9/L [facility] HemeAutoSS RBC (Bld) [#/Vol] 4.4 E12/L Normal 4.3 - 5.9 E12/L [facility] HemeAutoSS WBC corrected for nucl RBC Auto (Bld) [#/Vol] 8.2 E9/L Normal 4.0 - 11.0 E9/L [facility] HemeAutoSS CBC AUTO DIFFon 10-09-2021 BASO # 0.1 103/ul Normal 0.0-0.1 [facility] Comment on above: Performed By: #### C BC #### [facility] [address] [place] [address] Dr. Yehuda Reese Basophils/100 WBC (Bld) 0.8 % Normal 0.2-2.0 [facility] Comment on above: Performed By: #### C BC #### [facility] [address] [place] [address] Dr. Yehuda Reese EO # 0.1 103/ul Normal 0.0-0.7 [facility] Comment on above: Performed By: #### C BC #### [facility] [address] [place] [address] Dr. Yehuda Reese Eosinophils/100 WBC (Bld) 1.7 % Normal 0.9-7.0 [facility] Comment on above: Performed By: #### C BC #### [facility] [address] [place] [address] Dr. Yehuda Reese Erythrocyte distribution width (RBC) [Ratio] 12.0 % Normal 11.0-15.0 [facility] Comment on above: Performed By: #### C BC #### [facility] [address] [place] [address] Dr. Yehuda Reese Hematocrit (Bld) [Volume fraction] 44.0 % Normal 36.0-48.0 [facility] Comment on above: Performed By: #### C BC #### [facility] [address] [place] [address] Dr. Yehuda Reese Hemoglobin (Bld) [Mass/Vol] 15.1 g/dL Normal 12.0-16.0 [facility] Comment on above: Performed By: #### C BC #### [facility] [address] [place] [address] Dr. Yehuda Reese IG # 0.02 10e3/ul Normal 0.00-0.03 [facility] Comment on above: Performed By: #### C BC #### [facility] [address] [place] [address] Dr. Yehuda Reese IG % 0.2 % Normal 0.0-0.5 [facility] Comment on above: Performed By: #### C BC #### [facility] [address] [place] [address] Dr. Yehuda Reese LYMPH # 3.0 103/ul Normal 1.2-3.8 [facility] Comment on above: Performed By: #### C BC #### [facility] [address] [place] [address] Dr. Yehuda Reese Lymphocytes/100 WBC (Bld) 34.9 % Normal 20.5-60.0 [facility] Comment on above: Performed By: #### C BC #### [facility] [address] [place] [address] Dr. Yehuda Reese MANUAL DIFF REQ NO Normal [facility] Comment on above: Performed By: #### C BC #### [facility] [address] [place] [address] Dr. Yehuda Reese MCH (RBC) [Entitic mass] 34.6 pg Critically high 26.7-34.0 [facility] Comment on above: Performed By: #### C BC #### [facility] [address] [place] [address] Dr. Yehuda Reese MCHC (RBC) [Mass/Vol] 34.3 g/dL Normal 29.9-35.2 [facility] Comment on above: Performed By: #### C BC #### [facility] [address] [place] [address] Dr. Yehuda Reese MCV (RBC) [Entitic vol] 100.7 fL Critically high 81.0-99.0 [facility] Comment on above: Performed By: #### C BC #### [facility] [address] [place] [address] Dr. Yehuda Reese MONO # 0.5 103/ul Normal 0.3-0.8 [facility] Comment on above: Performed By: #### C BC #### [facility] [address] [place] [address] Dr. Yehuda Reese Monocytes/100 WBC (Bld) 6.0 % Normal 1.7-12.0 [facility] Comment on above: Performed By: #### C BC #### [facility] [address] [place] [address] Dr. Yehuda Reese NEUT # 4.8 103/ul Normal 1.4-6.5 [facility] Comment on above: Performed By: #### C BC #### [facility] [address] [place] [address] Dr. Yehuda Reese Neutrophils/100 WBC (Bld) 56.4 % Normal 43.0-75.0 [facility] Comment on above: Performed By: #### C BC #### [facility] [address] [place] [address] Dr. Yehuda Reese Platelet mean volume (Bld) [Entitic vol] 8.7 fL Critically low 9.5-13.5 [facility] Comment on above: Performed By: #### C BC #### [facility] [address] [place] [address] Dr. Yehuda Reese PLT 237 103/ul Normal 150-450 [facility] Comment on above: Performed By: #### C BC #### [facility] [address] [place] [address] Dr. Yehuda Reese RBC 4.37 106/ul Normal 4.20-5.40 [facility] Comment on above: Performed By: #### C BC #### [facility] [address] [place] [address] Dr. Yehuda Reese WBC 8.5 103/ul Normal 4.0-11.0 [facility] Comment on above: Performed By: #### C BC #### [facility] [address] [place] [address] Dr. Yehuda Reese FREE T3on 10-09-2021 FREE T3 2.65 pg/mlL Normal 2.18-3.98 [facility] Comment on above: Performed By: #### F T3, TSH #### [facility] [address] [place] [address] Dr. Yehuda Reese FREE T4on 10-09-2021 Free T4 [Mass/Vol] 1.17 ng/dL Normal 0.76-1.46 [facility] Comment on above: Performed By: #### F T4 #### [facility] [address] [place] [address] Dr. Yehuda Reese TSHon 10-09-2021 TSH 0.379 uIU/mL Normal 0.358-3.740 [facility] Comment on above: Performed By: #### F T3, TSH #### [facility] [address] [place] [address] Dr. Yehuda Reese [facility] SARS-CoV-2 (COVID-19) RNA HENRY+probe Ql (Unsp spec) Not detected Normal NOT DETECTED [facility] Comment on above: Result Comment: This test is not yet approved or cleared by the [place] FDA. When there are no FDA-approved or cleared tests available, and other criteria are met, FDA can make tests available under an emergency access mechanism called an Emergency Use Authorization (EUA). The EUA for this test is supported by the Psychiatrist of Health and Human Service's (HHS's) declaration [...] consistent with SARS-CoV-2. Performed By: #### C [facility] #### [facility] [address] [place] [address] Dr. Yehuda Reese Encounters Encounter Date Encounter Type Care Provider Facility Start: 12-10-2023 End: 12-10-2023 Lab Drop off Nilda L Jeramie [facility] Start: 12-10-2023 End: 12-10-2023 ambulatory STORE TEAM MEMBER Nilda L Jeramie [place] Start: 12-03-2023 End: 12-03-2023 ambulatory STORE TEAM MEMBER Nilda L Jeramie Facility:[facility] Brianna kofi Start: 10-29-2023 End: 10-29-2023 ambulatory STORE TEAM MEMBER Nilda L Jeramie Facility:[facility] Brianna kofi Start: 07-14-2023 End: 07-14-2023 ambulatory [facility] Start: 06-30-2023 End: 06-30-2023 ambulatory STORE TEAM MEMBER Nilda L Jeramie Facility:[facility] Brianna kofi Start: 04-05-2023 End: 04-05-2023 ambulatory MD Dada Callahan Facility:[facility] Brianna kofi Start: 02-04-2023 End: 02-04-2023 ambulatory [facility] Start: 02-02-2023 End: 02-02-2023 ambulatory MD Dada Callahan Facility:[facility] Bayard vue Start: 01-19-2023 End: 01-19-2023 ambulatory MD Dada Callahan Facility:[facility] Bayard vue Start: 01-13-2023 Evaluation and management of inpatient MINESH [facility] Start: 01-13-2023 Emergency department patient visit [facility] Start: 01-13-2023 End: 01-15-2023 Evaluation and management of inpatient MINESH [facility] Start: 01-04-2023 End: 01-04-2023 ambulatory MD Dada Callahan Facility[place] Start: 12-22-2022 End: 12-22-2022 ambulatory MD Dada Callahan Facility:[facility] Brianna kirby Start: 09-21-2022 End: 09-21-2022 Lab Drop off Dada Callahan [facility] Start: 10-09-2021 End: 10-10-[address] JAZMIN MILES Facility:[facility] Start: 03-05-2021 End: 03-05-[address] JAZMIN MILES Facility: Procedures Date Procedure Procedure Detail Performing Clinician Cataract (disorder) Dada newman Colonoscopy Dada Callahan Comment on above: 2019 polyps, repeat 2021 Vaginal hysterectomy Dada Callahan Immunizations Immunization Date Immunization Notes Care Provider Fa cility 03-24-2023 zoster vaccine recombinant Nilda Jeramie [facility] 03-23-2023 pneumococcal 20-javi nt conjugate vaccine Nilda Jeramie [facility] 01-04-2023 influenza, injectabl e, quadrivalent, preservative free Nilda Jeramie [facility] 03-09-2022 influenza virus vaccine, unspecified formulation Dada Callahan [facility] 03-09-2022 SARS-CoV-2 (COVID-19 ) [id number] Dada Callahan [facility] 04-17-2021 SARS-CoV-2 (COVID-19 ) mRNA BNT-162b2 vax Dada Callahan [facility] 08-15-2020 SARS-CoV-2 (COVID-19 ) mRNA BNT-162b2 samuel Callahan [facility] 07-25-2020 SARS-CoV-2 (COVID-19 ) mRNA BNT-162b2 samuel Callahan [facility] Payers Date Payer Category Payer Unknown [id number] 2.16.84 [id number] 1960 Unknown [id number] 2.16.84 [id number] 1960 Unknown [id number] 2.16.8 [id number] 1960 Unknown [id number] 2.16.8 [id number] 1960 Unknown [id number] 2.16.8 [id number] 1960 Unknown [id number] 2.16.8 [id number] 1960 Unknown [id number] 2.16.8 [id number] 1960 Unknown [id number] 2.16.8 [id number] 1960 Unknown [id number] 2.16.8 [id number] 1960 Unknown [id number] 2.16.8 [id number] 1962 Unknown [id number] 2.16.8 [id number] 1960 Unknown [id number] 2.16.8 [id number] 1960 Unknown [id number] 2.16.8 [id number] 1959 Unknown [id number] Social History Date Type Detail Facility Start: 09-21-2022 Tobacco smoking status Heavy t obacco smoker (finding) [facility] Sex Assigned At Female [facility] Start: 12-10-2023 Tobacco smoking status Light t obacco smoker (finding) [facility] Clinical Notes 01-13-2023 to 12-10-2023 Radiology Note Date & Type Note Facility 12-10-2023 Evaluation + Plan note Diagnostic Tests PendingUrine Culture 12/10/23 Future Scheduled TestsCT Chest, Low Dose Screening 02/02/23 [facility] 07-14-2023 Note [facility] Cardiology Clinic Note Chief Complaint: Patient here for 6 mo follow up CAD, SOB, and hypertension. She was switched from Brilinta to Plavix at last apt in Jan 2023. She says this has helped a lot with her SOB. Losartan was increased to 50mg daily. Lipitor was decreased to 20mg daily after labs showed elevated LFT's in Apr 2023. Denies chest pain and lightheadedness. She wasn't able to finish cardiac rehab due to transportation issues. HPI: Scott Francis is a 63 y.o. female with a history of coronary artery disease, non-ST elevation myocardial infarction s/p PCI and Synergy drug-eluting stent placement here in routine follow-up Doing very well; no new symptoms. Just recently started her Vascepa. Cardiology ROS: Review of Systems Cardiovascular: Positive for palpitations. Skin: Positive for dry skin. All other systems reviewed and are negative. Past Medical History She has a past medical history of Alcohol abuse, Anxiety, COPD (chronic obstructive pulmonary disease) (CMS/HCC), Coronary artery disease, Hyperlipidemia, and Smoker. Surgical History She has a past surgical history that includes Cardiac catheterization; Coronary stent placement; and Hysterectomy. Social History She reports that she has been smoking cigarettes. She has been smoking an average of .25 packs per day. She has never used smokeless tobacco. She reports current alcohol use. She reports that she does not use drugs. Family History Family History Problem Relation Name Age of Onset No Known Problems Mother No Known Problems Father Allergies Theragran Medications Current Outpatient Medications: atorvastatin (Lipitor) 20 mg tablet, Take 1 tablet (20 mg) by mouth in the morning., Disp: 90 tablet, Rfl: 3 atorvastatin (Lipitor) 40 mg tablet, Take 1 tablet (40 mg) by mouth at bedtime., Disp: 30 tablet, Rfl: 0 citalopram (CeleXA) 40 mg tablet, Take 40 mg by mouth in the morning., Disp: , Rfl: clopidogrel (Plavix) 75 mg tablet, Take 1 tablet daily, Disp: 90 tablet, Rfl: 3 cyclobenzaprine (Flexeril) 10 mg tablet, Take 10 mg by mouth if needed at bedtime., Disp: , Rfl: icosapent ethyL (Vascepa) 0.5 gram capsule, Take 4 capsules (2 g) by mouth with breakfast and with evening meal., Disp: 240 capsule, Rfl: 11 levothyroxine (Synthroid, Levoxyl) 50 mcg tablet, Take 50 mcg by mouth in the morning., Disp: , Rfl: losartan (Cozaar) 25 mg tablet, Take 1 tablet (25 mg) by mouth in the morning. Do not start before January 16, 2023., Disp: 30 tablet, Rfl: 0 losartan (Cozaar) 50 mg tablet, Take 1 tablet (50 mg) by mouth in the morning., Disp: 90 tablet, Rfl: 3 meloxicam (Mobic) 15 mg tablet, Take 15 [...] Do not start before January 16, 2023. (Patient not taking: Reported on 02/04/2023), Disp: 7 patch, Rfl: 0 nitroglycerin (Nitrostat) 0.3 mg SL tablet, Place 1 tablet (0.3 mg) under the tongue every 5 (five) minutes if needed for chest pain. May repeat every 5 minutes for up to 3 doses., Disp: 100 tablet, Rfl: 0 Last Recorded Vitals BP 130/90 (BP Location: Left arm, Patient Position: Sitting) Pulse 86 Ht 1.676 m (5' 6 ) Wt 68.5 kg (151 lb) SpO2 98% BMI 24.37 kg/m??? Physical Examination: GENERAL: alert and oriented [...] extremities. PSYCH: appropriate mood, affect, and judgement. Investigations: Labs 07/09/2023: LFTs are normal, bilirubin is normal, triglycerides are 346, 40 pressure 151, HDL 43, LDL 39 Investigations Echocardiogram-[facility] Name: SCOTT FRANCIS Study Date: 01/13/2023 01:43 PM B/P: 145 mmHg/99 mmHg HR: 66 bpm Date of : 1960 Location: [facility] Height: 66 in. Age: 63 year(s) Patient [...] is normal. The EF is 55 % visual (more content not included)... [facility] 02-04-2023 Note mp [facility] 02-04-2023 Note [facility] Cardiology Clinic Note Chief Complaint: Patient here for follow up [facility] for NSTEMI and PCI. Denies chest pain. [...] Discharge Diagnosis: NSTEMI (non-ST elevated myocardial infarction) ([facility]) NSTEMI Abnormal electrolytes, hypokalemia, hypomagnesemia Essential HTN Hypokalemia, 3.1 Hypothyroidism on Synthroid Hyperlipidemia Admission Diagnosis: NSTEMI (non-ST elevated myocardial infarction) ([facility]) [I21.4] Cardiology ROS: Review of Systems Cardiovascular: [...] PSYCH: appropriate mood, affect, and judgement. Investigations Echocardiogram-[facility] Name: SCOTT FRANCIS Study Date: 01/13/2023 01:43 PM B/P: 145 mmHg/99 mmHg HR: 66 bpm Date of : 1960 Location: [facility] Height: 66 in. Age: 63 year(s) Patient [...] thi (more content not included)... [facility] 01-15-2023 Note Hospital Medicine Discharge Summary Final Discharge Diagnosis: NSTEMI (non-ST elevated myocardial infarction) (CMS/HCC) NSTEMI Abnormal electrolytes, hypokalemia, hypomagnesemia Essential HTN Hypokalemia, 3.1 Hypothyroidism on Synthroid Hyperlipidemia Admission Diagnosis: NSTEMI (non-ST elevated myocardial infarction) (CMS/HCC) [I21.4] Hospital course: Scott Francis is an 63 y.o. female who came from home with chest pain. Patient presented to [facility] with chest pain and was transferred here due to elevated troponin and need for heart cath. Cardiology took her to cath on arrival and they did balloon angioplasty with drug eluding stent placement to her RCA. She denies any current chest pain or shortness of breath, only that she is uncomfortable from lying flat in bed. NSTEMI Patient was taken to [facility] Coordinator and stent placed to RCA, patient was [...] Center 02/04/2023 11:30 AM Dari Bl[facility] Your medication list START taking these [...] Medications These medications were sent to [facility] - [place], [place] - [address] [place] [address] [address] [place] [address], [facility] [address] aspirin 81 mg chewable tablet atorvastatin 40 mg tablet losartan 25 mg tablet metoprolol succinate XL 50 mg 24 hr tablet nicotine 14 mg/24 hr patch nitroglycerin 0.3 mg SL tablet ticagrelor 90 mg tablet Scott is allergic to theragran. Disposition: Home or Self Care Discharge Condition: Stable Code Status: Full Code Diagnostic Results Hematology: Results from last 7 days Lab Units 01/15/23 0728 01/14/23 0531 01/13/23 1729 CRP mg/L -- -- [...] auscultatio (more content not included)... [facility] 01-15-2023 Note Cardiology Progress Note Subjective Subjective: [...] Value Ventricular Rate 68 Atrial Rate 68 [place] Interval 168 QRS DURATION 94 QT Interval 516 QTC CALCULATION(BAZETT) 548 P Commerce 60 R-Commerce 73 T Wave Commerce -58 Impression Normal sinus rhythm Inferior infarct [...] (TTE) complete Result Date: 01/13/2023 1 1 [facility] Heart Station [address] [place] [address] [phone] (fax) Echocardiogram-[facility] Name: SCOTT FRANCIS Study Date: 01/13/2023 01:43 PM B/P: 145 mmHg/99 mmHg HR: 66 bpm Date of : 1960 Location: [facility] Height: 66 in. Age: 63 year(s) Patient [...] systo (more content not included)... [facility] 01-14-2023 Note Attestation signed by Piper Gaines [...] Value Ventricular Rate 68 Atrial Rate 68 [place] Interval 168 QRS DURATION 94 QT Interval 516 QTC CALCULATION(BAZETT) 548 P Commerce 60 R-Commerce 73 T Wave Commerce -58 Impression Normal sinus rhythm Inferior infarct [...] (TTE) complete Result Date: 01/13/2023 1 1 [facility] Heart Station [address] [place] [address] [phone] (fax) Echocardiogram-[facility] Name: SCOTT FRANCIS Study Date: 01/13/2023 01:43 PM B/P: 145 mmHg/99 mmHg HR: 66 bpm Date of : 1960 Location: [facility] Height: 66 in. Age: 63 year(s) Patient [...] Aortic (more content not included)... [facility] 01-14-2023 Note [facility] Medicine Daily Progress Note - 01/15/2023 7:01 AM; Room: 3102/3102-01 Admission: 01/13/2023 12:11 PM; Length of stay: 2 days THE HOSPITALIST TEAM PREFERS TO USE [employer] CHAT FOR COMMUNICATION 7AM-7PM. IF I DO NOT RESPOND WITHIN 15 MINUTES, PLEASE PAGE ME/CALL THROUGH THE MECHANICAL DEVELOPMENT ENGINEER. FROM 7PM-7AM, PLEASE PAGE [phone](COVR) Code Status: Full Code Discharge Destination: home [...] NSTEMI (non-ST elevated myocardial infarction) ([facility]) Assessment and Plan NSTEMI Abnormal electrolytes, hypokalemia, [...] TSH 2.97 01/14/2023 No results found for: [id number], IRON, TIBC, C3, C4, GUEVARA, CANCA, ASO, [...] Hospital Medicine 01/15/2023 7:01 AM [facility] 01-13-2023 Note Hospital Medicine History and Physical 01/13/2023 6:16 PM THE HOSPITALIST TEAM PREFERS TO USE [employer] FOR COMMUNICATION 7AM-7PM. IF I DO NOT RESPOND WITHIN 15 MINUTES, PLEASE PAGE ME/CALL THROUGH THE MECHANICAL DEVELOPMENT ENGINEER. FROM 7PM-7AM, PLEASE PAGE [phone](COVR) Chief Complaint Chief Complaint Patient presents with Chest Pain History of Present Illness Scott Francis is an 63 y.o. female who came from home with chest pain. Patient presented to [facility] with chest pain and was transferred [...] hyperlipidemia 01/13/2023 NSTEMI (non-ST elevated myocardial infarction) ([facility]) 01/13/2023 Assessment and Plan NSTEMI Abnormal electrolytes, [...] this hospital stay by a member of [facility] Medicine. Past Medical History History reviewed. No [...] Potas (more content not included)... [facility] 01-13-2023 Note Cardiovascular Labor atory Report FINAL [...] failed attempt at deployment of a 6 [place]i Mynx hub bander closure device METHODS: After risks, benefits, and [...] and this was upsized to a 6 Kuwaiti 11 cm sheath. Angiography via the SideArm of the sheath was performed. Bilateral selective coronary angiography was performed using JR 4.0 and JL 4.0 catheters. After reviewing the images it was elected to proceed with an interventional procedure. A 6 Kuwaiti JR4 guide catheter was advanced over a [...] elected to conclude the procedure. A 6 [place] Mynx hub bander closure device was deployed however failed; therefore [...] v (more content not included)... [facility] 01-13-2023 Note Patient: Scott Francis Procedure Information Date/Time: 01/13/23 1430 Procedure: Coronary angiography Location: [facility] EQUIPMENT TECHNICIAN 3 / [facility] (Cath) Providers: Dari Blount MD Clinical information reviewed: Tobacco Allergies Meds Med Hx Surg Hx Fam Hx Soc Hx Physical Exam Airway Mallampati: III TM distance: >3 FB Neck ROM: full Cardiovascular Rhythm: regular Rate: normal Dental Pulmonary Abdominal Anesthesia Plan ASA 3 Additional Equipment Requests [facility] Evaluation + Plan note Future Appointments Appointment Date:12/22/2022 01:00:00 PM Scheduled Provider:Dada Callahan MD Location:[facility] Appointment Type:[facility] Hospital course Narrative No data available for this section [facility] Hospital Discharge instructions No data available for this section [facility] Progress note No data available for this section [facility] Summary Purpose Family History No Family History Records FoundNo Family History Records Found No data available for this section No Family History Records FoundNo Family History Records Found Advance Directives No Advanced Directives Records FoundNo Advanced Directives Records FoundNo Advanced Directives Records FoundNo Advanced Directives Records Found Additional Source Comments INFORMATION SOURCE (unrecogn ized section and content) DATE CREATED AUTHOR 10/15/2021 [facility] DATE CREATED AUTHOR AUTHOR'S ORGANIZ ATION 07/15/2023 [facility] DATE CREATED AUTHOR AUTHOR'S ORGANIZ ATION 12/11/2023 [facility] DATE CREATED AUTHOR AUTHOR'S ORGANIZ ATION 12/13/[address] [place] [facility] Patient Care team informmacko n (unrecognized section and content) Personnel Name: JAZMIN MILES MD Address: Address: [address] [place] [id number] Personnel Name: Nilda Hernandez Address: Address: [address] [place] [address]- FOR RECORDS PERTAINING TO PATIENTS WHO ARE [...] BE BASED ON THE PRIMARY CLINICAL RECORDS. [facility] [employer] [facility]. provides no warranty or guarantee of the accuracy or completeness of information in this document.
--- NOTE | 2023-12-13 12:53 | XR_ITS ---
The [address] [address] Patient Name: SCOTT FRANCIS MRN: [id number] date: 1960 Sex: F Assigned Patient Location: LAB Current Patient Location: Accession/Order Number: [id number] Exam Date: 12/13/2023 12:45 Report Date: 12/14/2023 10:51 At the request of: PAIGE JAY Procedure: XR knee RT 4V PROCEDURE: XR knee RT 4V HISTORY: right knee pain COMPARISON: None. FINDINGS: BONES:No fracture, acute abnormality, or significant arthropathy. SOFT TISSUES:No visible soft tissue swelling. EFFUSION:None visible. OTHER: Negative. XR/XR knee RT 4V IMPRESSION: 1. No acute bone abnormality or significant degenerative changes. 2. No joint effusion or suspicious soft tissue findings. Electronically authenticated by: NEIDA STEPHENS Date: 12/14/2023 10:51
== END 2023-12-13 12:35 | disposition home or self-care (01) ==
LOC: RAD 12:37
PROVIDERS: PCP Nurse Practitioner; Visit Provider Nurse Practitioner
DX: M25.561 Pain in right knee (principal)
CPT/HCPCS: 73564

== ENCOUNTER 2023-12-15 11:43 | Outpatient (REF) | payer BC, SELFPAY ==
--- OUTSIDE RECORDS SUMMARY | 2023-12-15 12:00 | XMS_ITS | CCD ---
Author Organization [facility] Care Team Providers Care Multimedia Production Assistant Name Role Phone DR JAZMIN MILES Admitting Unavailable JD, DR JAZMIN Fitzgerald Attending Unavailable JD, DR JAZMIN Fitzgerald Primary Care Unavailable JD, DR JAZMIN Fitzgerald Consulting Unavailable JD, DR JAZMIN Fitzgerald Admitting Unavailable JD, DR JAZMIN Fitzgerald Attending Unavailable JD, DR JAZMIN Fitzgerald Primary Care Unavailable JD, DR JAZMIN Fitzgerald Consulting Unavailable JAZMIN MILES Primary Care Physician [phone] RENETTA, MINESH Referring Unavailable RENETTA, MINESH Admitting Unavailable JENNIFER SARMED Attending Unavailable FRANCESCO KOTHARI Referring Unavailable ELTAHAWY, EHAB Attending Unavailable ELTAHAWY, EHAB Attending Unavailable MAHMOROSALBA WALID Referring Unavailable ELTAHAWY, EHAB Referring Unavailable JeramieNilda Primary Care Physician MD Dada Callahan Attending Unavailable MD Dada Callahan Attending Unavailable Jeramie, LMFTDon White Attending Unavailable Jeramie, LMFT Nilda White Attending Unavailable Jeramie, LMFT Nilda White Attending Unavailable Jeramie, LMFT Nilda L Attending Unavailable MD Dada Callahan Attending Unavailable MD Dada Callahan Attending Unavailable MD Dada Callahan Attending Unavailable Jeramie, NGUYỄN White Admitting Unavailable Jeramie, NGUYỄN White Attending Unavailable MD Dada Callahan Admitting Unavailable MD Dada Callahan Attending Unavailable Allergies Allergy Classification Reported Allergen(s) Allergy Type Date of Onset Reaction(s) Facility (1 source) egg extract Drug Allergy 4 [facility] Repository (1 source) TheraNatal Drug allergy (disorder) 4 [facility] Repository (3 sources) Cefuroxime; Translations: [cefuroxime] Drug Allergy Unknown (qualifier value) [facility] (1 source) THERAGRAN; Translations: [THERAGRAN] Propensity to adverse reactions to drug (disorder) 3 [facility] Repository Medications Current Medications Medication Drug Class(es) [...] Daily, # 90 tab(s), Refills(s) 1, Pharmacy: [facility]/pharmacy #[id number], 166, cm, 02/02/23 15:55:00 EDT, Height/Length [...] spasm, # 30 tab(s), Refills(s) 1, Pharmacy: [facility]/pharmacy #[id number], 166, cm, 06/30/23 15:12:00 EDT, Height/Length Dosing, 69.5, kg, 06/30/23 15:12:00 EDT, Weight Dosing Start Date: 10/11/23 Status: Ordered Start: 09-07-2022 take 1 tablet by mandie th once daily in the evening as needed for muscle spasms cyclobenzaprine 10 mg Tab 10 mg = 1 tab(s), Oral, qPM, PRN for spasm, # 30 tab(s), Refills(s) 1, [id number] 168, cm, 07/28/22 10:47:00 EDT, Height/Length Dosing, 67.1, kg, 07/28/22 10:47:00 EDT, Weight Dosing Start Date: 09/07/22 Status: Ordered fluticasone propionate 0.05 mg/actuat metered dose nasal spray (1 source) Corticosteroid Start: 07-28-2022 Flonase 0.05 mg/inh [place] 2 spray(s), Nasal, Daily, 16 gram, Refill(s) 0, each nostril, [facility]/pharmacy #[id number], 168, cm, 07/28/22 10:47:00 EDT, Height/Length Dosing, 67.1, kg, 07/28/22 10:47:00 EDT, Weight Dosing Start Date: 07/28/22 Status: Ordered gabapentin 300 mg oral capsule (1 source) Anti-epileptic Agent Start: 11-08-2023 take 1 capsule by mouth at bedtime gabapentin 300 mg Cap See Instructions, TAKE 1 CAPSULE BY MOUTH AT BEDTIME, # 30 cap(s), Refills(s) 2, Pharmacy: [facility] STORE [id number], 166, cm, 10/29/23 10:00:00 EDT, Height/Length Dosing, 66.4, kg, 10/29/23 10:00:00 EDT, Weight Dosing Start Date: 11/08/23 Status: Ordered hydrOXYzine hydrochloride 10 mg oral tablet (1 source) Antihistamine Start: 03-15-2023 take 2 tablets by mouth four times daily hydrOXYzine hydrochloride 10 mg Tab See Instructions, TAKE 2 TABLETS BY MOUTH 4 TIMES A DAY, # 720 tab(s), Refills(s) 1, Pharmacy: [id number], 166, cm, 02/02/23 15:55:00 EDT, Height/Length Dosing, 68.1, kg, 02/02/23 15:55:00 EDT, Weight Dosing Start Date: 03/15/23 Status: Ordered levothyroxine sodium 0.05 mg oral tablet (2 sources) l-Thyroxine Start: 09-02-2023 take 1 tablet by mouth once daily levothyroxine 50 mcg (0.05 mg) Tab See Instructions, TAKE 1 TABLET BY MOUTH EVERY DAY, # 90 tab(s), Refills(s) 1, Pharmacy: [id number], 166, cm, 06/30/23 15:12:00 EDT, Height/Length Dosing, 69.5, kg, 06/30/23 15:12:00 EDT, Weight Dosing Start Date: 09/02/23 Status: Ordered Start: 09-07-2022 End: 01-05-2023 take 1 tablet by mouth once daily levothyroxine 50 mcg (0.05 mg) Tab 50 mcg = 1 tab(s), Oral, Daily, X 30 day(s), # 30 tab(s), Refills(s) 3, Pharmacy: [facility]/pharmacy #[id number], 168, cm, 07/28/22 10:47:00 EDT, Height/Length Dosing, 67.1, kg, 07/28/22 10:47:00 EDT, Weight Dosing Start Date: 09/07/22 Stop Date: 01/05/23 Status: Ordered meloxicam 15 mg oral tablet (2 sources) Nonsteroidal Anti-inflammatory Drug Start: 12-10-2023 take 1 tablet by mouth once daily meloxicam 15 mg Tab 15 mg = 1 tab(s), Oral, Daily, # 30 tab(s), Refills(s) 0, Pharmacy: [facility]/pharmacy #[id number], 166, cm, 12/10/23 9:10:00 EDT, Height/Length Dosing, 67, kg, 12/10/23 9:10:00 EDT, Weight Dosing Start Date: 12/10/23 Status: Ordered Start: 09-21-2022 take 1 tablet by mandie th once daily meloxicam 15 mg Tab 15 mg = 1 tab(s), Oral, Daily, # 90 tab(s), Refills(s) 1, Pharmacy: [facility]/pharmacy #[id number], 166.6, cm, 09/21/22 9:53:00 EDT, Height/Length Dosing, 65.4, kg, 09/21/22 9:53:00 EDT, Weight Dosing Start Date: 09/21/22 Status: Ordered 24 hr metoprolol succinate 50 mg extended release oral tablet (1 source) beta-Adrenergic Alexander Start: 06-16-2023 take 1 tablet by mouth once daily Toprol XL 50 mg Tab-ER 50 mg = 1 tab(s), Oral, Daily, # 30 tab(s), Refills(s) 5, Pharmacy: [facility]/pharmacy #[id number], 166, cm, 02/02/23 15:55:00 EDT, Height/Length [...] day(s), # 14 cap(s), Refills(s) 0, Pharmacy: [facility]/pharmacy #[id number], 166, cm, 12/10/23 9:10:00 EDT, Height/Length [...] BEDTIME, # 90 tab(s), Refills(s) 0, Pharmacy: [id number], 166, cm, 10/29/23 10:00:00 EDT, Height/Length Dosing, [...] disease (3 sources) Atherosclerotic heart disease of [place] coronary artery without angina pectoris; Translations: [Coronary [...] 12-13-2023 Reminders Reminders From: Nilda Hernandez To: [facility] - Clinical; Sent: 12/13/2023 11:53:01 EDT Show up: 12/13/2023 11:53:00 EDT Subject: Ambulatory Reminder Due Date/Time: 12/14/2023 11:52:00 EDT urine culture was positive for e coli. she is on correct antibiotic. encourage her to finish all antibiotics. Results: Date Result Type Ind Result Name 12/10/2023 9:39 EDT MBO POS Urine Culture From: Luh Rivas M.A. ([facility] - Clinical) To: Nilda Hernandez; Sent: 12/13/2023 16:12:42 EDT Show up: 12/13/2023 16:12:00 EDT Subject: RE: Ambulatory Reminder Spoke to patient verbalized the message below Normal [facility] Reminders Reminders From: Nilda Hernandez To: [facility] - [facility]; Sent: 12/13/2023 11:53:01 EDT Show up: 12/13/2023 11:53:00 EDT Subject: Ambulatory Reminder Due Date/Time: 12/14/2023 11:52:00 EDT urine culture was positive for e coli. she is on correct antibiotic. encourage her to finish all antibiotics. Results: Date Result Type Ind Result Name 12/10/2023 9:39 EDT MBO POS Urine Culture Normal [facility] C Urineon 12-12-2023 Bacteria identified Cx Nom [...] Locations R1: This test was performed at: [facility], [address] [place] [address], [address] , , Normal [facility] Comment on above: Performed By: #### [id number] #### [facility] [address] [place] [address] Family Medicine Office/Clini c Noteon 12-10-2023 Family [...] Daily, # 30 tab(s), Refills(s) 0, Pharmacy: [facility] #[id number], 166, cm, 12/10/23 9:10:00 EDT, Height/Length Dosing, 67, kg, 12/10/23 9:10:00 EDT, Weight Dosing nitrofurantoin, 100 mg = 1 cap(s), Oral, BID, X 7 day(s), # 14 cap(s), Refills(s) 0, [id number] 166, cm, 12/10/23 9:10:00 EDT, Height/Length Dosing, 67, kg, 12/10/23 9:10:00 EDT, Weight Dosing 2. Urinary frequency (R35.0: Frequency of micturition) see above Ordered: meloxicam, 15 mg = 1 tab(s), Oral, Daily, # 30 tab(s), Refills(s) 0, [id number] 166, cm, 12/10/23 9:10:00 EDT, Height/Length Dosing, 67, kg, 12/10/23 9:10:00 EDT, Weight Dosing nitrofurantoin, 100 mg = 1 cap(s), Oral, BID, X 7 day(s), # 14 cap(s), Refills(s) 0, [facility], 166, cm, 12/10/23 9:10:00 EDT, Height/Length [...] Daily, # 30 tab(s), Refills(s) 0, [facility] 166, cm, 12/10/23 9:10:00 EDT, Height/Length Dosing, 67, kg, 12/10/23 9:10:00 EDT, Weight Dosing nitrofurantoin, 100 mg = 1 cap(s), Oral, BID, X 7 day(s), # 14 cap(s), Refills(s) 0, [facility], 166, cm, 12/10/23 9:10:00 EDT, Height/Length Dosing, 67, kg, 12/10/23 9:10:00 EDT, Weight Dosing 4. Smoker (F17.200: Nicotine dependence, unspecified, uncomplicated) consider not smoking Ordered: meloxicam, 15 mg = 1 tab(s), Oral, Daily, # 30 tab(s), Refills(s) 0, [facility] 166, cm, 12/10/23 9:10:00 EDT, Height/Length Dosing, 67, kg, 12/10/23 9:10:00 EDT, Weight Dosing nitrofurantoin, 100 mg = 1 cap(s), Oral, BID, X 7 day(s), # 14 cap(s), Refills(s) 0, [id number], 166, cm, 12/10/23 9:10:00 EDT, Height/Length Dosing, 67, kg, 12/10/23 9:10:00 EDT, Weight Dosing 5. BMI 24.0-24.9, adult (Z68.24: Body mass index [BMI] 24.0-24.9, adult) BMI education given Ordered: meloxicam, 15 mg = 1 tab(s), Oral, Daily, # 30 tab(s), Refills(s) 0, [id number] 166, cm, 12/10/23 9:10:00 EDT, Height/Length Dosing, 67, kg, 12/10/23 9:10:00 EDT, Weight Dosing nitrofurantoin, 100 mg = 1 cap(s), Oral, BID, X 7 day(s), # 14 cap(s), Refills(s) 0, [id number], 166, cm, 12/10/23 9:10:00 EDT, Height/Length [...] citalopram 4 (more content not included)... Normal [facility] Comment on above: Result Comment: Elec tronically Signed By: Nilda Hernandez.br\Date and Time Signed: 12/10/23 09:27 EDT Family [...] Daily, # 30 tab(s), Refills(s) 1, [id number], 166, cm, 10/29/23 10:00:00 EDT, Height/Length Dosing, 66.4, kg, 10/29/23 10:00:00 EDT, Weight Dosing 2. Menopause (Z78.0: Asymptomatic menopausal state) see above Ordered: oxybutynin, 5 mg = 1 tab(s), Oral, Daily, # 30 tab(s), Refills(s) 1, [id number] 166, cm, 10/29/23 10:00:00 EDT, Height/Length Dosing, 66.4, kg, 10/29/23 10:00:00 EDT, Weight Dosing 3. Overactive bladder (N32.81: Overactive bladder) will order oxybutnin. RTC 5 weeks to follow up on symptoms and to discuss knee pain Ordered: oxybutynin, 5 mg = 1 tab(s), Oral, Daily, # 30 tab(s), Refills(s) 1, [id number] 166, cm, 10/29/23 10:00:00 EDT, Height/Length Dosing, 66.4, kg, 10/29/23 10:00:00 EDT, Weight Dosing 4. BMI 24.0-24.9, adult (Z68.24: Body mass index [BMI] 24.0-24.9, adult) BMI education given Ordered: oxybutynin, 5 mg = 1 tab(s), Oral, Daily, # 30 tab(s), Refills(s) 1, [id number], 166, cm, 10/29/23 10:00:00 EDT, Height/Length Dosing, 66.4, kg, 10/29/23 10:00:00 EDT, Weight Dosing 5. Smoker (F17.200: Nicotine dependence, unspecified, uncomplicated) consider not smoking Ordered: oxybutynin, 5 mg = 1 tab(s), Oral, Daily, # 30 tab(s), Refills(s) 1, [id number], 166, cm, 10/29/23 10:00:00 EDT, Height/Length [...] virus vaccine, inactivated 03/09/2022 Recorded SARS-CoV-2 (COVID-19) [id number] 03/09/2022 Recorded SARS-CoV-2 (COVID-19) mRNA BNT-162b2 vax 04/17/2021 Recorded SARS-CoV-2 (COVID-19) mRNA BNT-162b2 vax 08/15/2020 Recorded SARS-CoV-2 (COVID-19) mRNA BNT-162b2 vax 07/25/2020 Recorded Normal [facility] Comment on above: Result Comment: Elec tronically Signed By: Nilda Hernandez\.br\Date and Time Signed: 10/29/23 10:40 EDT Office Visiton 07-14-2023 Follow-up visit [id number] Scott Francis 1960 F Date Provider Department Center 07/14/2023 [facility] Family History Problem Relation Age of Onset No Known Problems Mother No Known Problems Father Family Status - Relation Status Age at Mother Father Level of Service:51258 RI OFFICE/OUTPATIENT ESTABLISHED LOW MDM 20 MIN Normal [facility] Lab Reportson 07-13-2023 Lab Reports [id number] .00TIFF Normal [facility] 36on 07-12-2023 36 Regarding lab result s [...] on 07/14/2023 at 10am. She verbalized understanding. Normal [facility] Ambulatory Visit Summaryon 0 06-30-2023 Ambulatory Visit Summary PENNY SCOTT White :1960 Visit Date:06/30/2023 Ambulatory Visit Instructions Your [...] Smoker Neck pain Refills: 2 Pickup at [facility]/pharmacy #[id number] Unchanged aspirin (Aspirin Low Dose 81 mg [...] BY MOUTH EVERYDAY AT BEDTIME Pharmacy Information [facility]/pharmacy #[id number]: [address], [place] [id number] [phone] Allergies cefuroxime (Unknown) Problems Ongoing - Any [...] choosing us for your care. Normal Das [facility] Family Medicine Office/Clini c Noteon 06-30-2023 [...] bedtime), # 30 cap(s), Refills(s) 2, Pharmacy: [facility]/pharmacy #0039, 166, cm, 06/30/23 15:12:00 EDT, Height/Length Dosing, 69.5, kg, 06/30/23 15:12:00 EDT, Weight Dosing 2. BMI 25.0-25.9,adult (Z68.25: Body mass index [BMI] 25.0-25.9, adult) BMI education complete Ordered: gabapentin, 300 mg = 1 cap(s), Oral, Once a day (at bedtime), # 30 cap(s), Refills(s) 2, Pharmacy: [facility]/pharmacy #[id number], 166, cm, 06/30/23 15:12:00 EDT, Height/Length Dosing, 69.5, kg, 06/30/23 15:12:00 EDT, Weight Dosing 3. Smoker (F17.200: Nicotine dependence, unspecified, uncomplicated) consider not smoking Ordered: gabapentin, 300 mg = 1 cap(s), Oral, Once a day (at bedtime), # 30 cap(s), Refills(s) 2, [id number] 166, cm, 06/30/23 15:12:00 EDT, Height/Length [...] virus vaccine, inactivated 03/09/2022 Recorded SARS-CoV-2 (COVID-19) [id number] 03/09/2022 Recorded SARS-CoV-2 (COVID-19) mRNA BNT-162b2 vax 04/17/2021 Recorded SARS-CoV-2 (COVID-19) mRNA BNT-162b2 vax 08/15/2020 Recorded SARS-CoV-2 (COVID-19) mRNA BNT-162b2 vax 07/25/2020 Recorded Normal [facility] Comment on above: Result Comment: Elec [...] Lab orders mailed to her home. Normal [facility] Orders Onlyon 05-17-2023 Orders Only [id number] Scott Francis Christopher 1960 [facility] Provider Department Center 05/17/2023 [facility]LE GENAO [facility] Family History Problem Relation Age of Onset No Known Problems Mother No Known Problems Father Family Status - Relation Status Age at Mother Father Normal [facility] Consultation Noteon 03-25-20 Consultation Note [id number] .00TIFF [facility] Pulmonary Function Testson 05-04-2022 Pulmonary Function Tests [id number] .00TIFF [facility] RAD - CT Reporton 03-01-20[address] RAD - CT Report [id number] .00TIFF [facility] Physician Orderon 02-12-2023 Physician Order [id number] .00TIFF [facility] Office Visiton 02-04-2023 Follow-up visit [id number] Scott Francis Christopher 1960 Provider Department Center 02/04/2023 DARI JIMÉNEZ [facility] Family History Problem Relation Age of Onset No Known Problems Mother No Known Problems Father Family Status - Relation Status Age at Mother Father Level of Service:11909 RI OFFICE/OUTPATIENT ESTABLISHED MOD MDM 30-39 MIN [facility] Physician Referralon 023 Physician Referral [id number] 1.00TIFF [facility] Ambulatory Visit Summaryon 1 Ambulatory Visit [...] AM EST With: Dada Callahan MD Where: [facility] Invalid Interpretation Code COPD without exacerbation [facility] Medicine Office/Clini c Noteon 02-02-2023 Family Medicine Office/Clinic Note HPI Staff Scott is a 63 year old female presenting for re check anxiety Follow up for Mental Status: KRISTINA 01/18/23 JOEL 20 Medication adherence- Yes, takes [...] - Follow up in 2 months Ordered: [facility] External Ambulatory Referral Pulmonary Function Testing 2. COPD without exacerbation (J44.9: Chronic obstructive pulmonary disease, unspecified) - Will refer to Pulm. - Will also do PFTs Ordered: [facility] External Ambulatory Referral Pulmonary Function Testing 3. Alcohol abuse (F10.10: Alcohol abuse, uncomplicated) - Please continue abstaining from EtOH Ordered: [facility] External Ambulatory Referral Pulmonary Function Testing 4. Cigarette nicotine dependence (F17.210: Nicotine dependence, cigarettes, uncomplicated) - CT scan ordered for screening. Ordered: CT Chest, Low Dose Screening [facility] External Ambulatory Referral Pulmonary Function Testing 5. BMI 24.0-24.9, adult (Z68.24: Body mass index [BMI] 24.0-24.9, adult) - BMI education given. Ordered: [facility] External Ambulatory Referral Pulmonary Function Testing Orders: hydrOXYzine, 20 mg = 2 tab(s), Oral, QID, # 360 tab(s), Refills(s) 0, Pharmacy: [facility]/pharmacy #[id number], 166, cm, 02/02/23 15:55:00 EDT, Height/Length [...] virus vaccine, inactivated 03/09/2022 Recorded SARS-CoV-2 (COVID-19) [id number] 03/09/2022 Recorded SARS-CoV-2 (COVID-19) mRNA BNT-162b2 vax 04/17/2021 Recorded SARS-CoV-2 (COVID-19) mRNA BNT-162b2 vax 08/15/2020 Recorded SARS-CoV-2 (COVID-19) mRNA BNT-162b2 vax 07/25/2020 Recorded Normal [facility] Comment on above: Result Comment: Elec tronically Signed By: London SMITH, Dada Chavez.tito\Date and Time Signed: 02/02/23 16:28 EDT Family Medicine Office/Clini c Noteon 01-27-2023 Family Medicine Office/Clinic Note HPI Staff Scott is a 63 year old female presenting for follow up medication check Had 2 stents put in 01/13 at [place] and d/c 01/15/23 covid UTD Flu: UTD [...] another condition. The patient was admitted to [facility] due to chest pain. The onset of symptoms, which included chest pain, dyspnea, and belching, occurred at 6:00 AM on January 13, 2023. Despite the severity of these symptoms, the patient waited 2 days before seeking medical attention and was subsequently transferred to [place]. The patient was discharged on 01/15/2023 and has a follow-up appointment scheduled with a client onboarding analyst on 02/04/2023. In addition to the cardiac [...] reconciled appropriately. Patients will follow up with [facility] cardiology. 2. CAD (coronary artery disease) (I25.10: Atherosclerotic heart disease of [place] coronary artery without angina pectoris) Patient is [...] with voice recognition artificial intelligence software, specifically ArtVenue, Case Rover and or Owlient. Substitutions may have occurred due to the inherent limitations of voice recognition and artificial intelligence software. Documentation services were performed after patient or guardian consented to allow [employer] to record this visit. JOSÉ coverage specialist rn and provider reviewed before signing. JOSÉ: Dhevie [...] 15 mg Tab, (more content not included)... [facility] Comment on above: Result Comment: Elec tronically Signed By: London SMITH, Dada Genao\.br\Date and Time Signed: 01/27/23 09:43 EDT\.br\Electronically Co-Signed By: Neelam Gerardo\.br\Date and Time Co-Signed: 01/19/23 18:[address] [facility] Correspo ndenceon 01-19-[address] [facility] Correspondence [id number] .00CD:127 [facility] Patient Educationon 01-20-20 Patient Education Nutrition [...] numbers. This can be done either in Irish ([place] or metric measurements. Note that charts and online BMI calculators are available to help you find your BMI quickly and easily without having to do these calculations yourself. To calculate your BMI in Irish ([place] measurements: 1. Measure your weight in [...] for Disease Control and Prevention: www.cdc.gov ? [place] Heart Association: www.heart.org ? National Heart, Lung, and Blood [employer]: www.nhlbi.nih.gov Summary ? Body mass index (BMI) is a number that is calculated from a person's weight and height. ? BMI may help estimate how much of a person's weight is composed of fat. BMI can help identify those who may be at higher risk for certain medical problems. ? BMI can be measured using Irish measurements or metric measurements. ? BMI charts are used to identify whether you are underweight, normal weight, overweight, or obese. This information is not intended to replace advice given to you by your health care provider. Make sure you discuss any questions you have with your health care provider. Document Revised: 12/27/2019 Document Reviewed: 11/03/2019 [employer] Patient Education ? 2022 iodine. [facility] 01-19-2023 [facility] [id number] .00CD:127 [facility] [id number]. 00CD:127 [facility] 30on 01-15-2023 30 The patient is Moderately Stable - Low risk of patient condition declining or worsening The patient's goals for the shift include comfort The clinical goals for the shift include safety Problem: Pain - Adult Goal: Verbalizes/displays adequate comfort level or baseline comfort level Outcome: Progressing Flowsheets (Taken 01/15/2023 0841) Verbalizes/displays adequate comfort level or baseline comfort [...] symptoms for stability, deterioration, or improvement Normal [facility] 30 The patient is Moderately Stable - Low risk of patient condition declining or worsening The patient's goals for the shift include sleep The clinical goals for the shift include safety Normal [facility] APTTon 01-15-2023 ACTIVATED PARTIAL THROMBOPLASTIN TIME IN PPP BY COAGULATION ASSAY 31.6 Seconds Normal 25.0-35.0 [facility] Comment on above: Order Comment: Check aPTT every 6 hours while on heparin infusion, or per protocol. Result Comment: Clin ical significance of the APTT is questionable in the presence of heparin. Performed By: #### L AB325 #### [facility] ([facility]) [address] [place] [address] BASIC METABOLIC PANELon 12-19 Anion gap [Moles/Vol] 8 mmol/L Normal 7-20 [facility] Comment on above: Performed By: #### L AB15 #### [facility] ([facility]) [address] [place] [address] Calcium [Mass/Vol] 8.6 mg/dL Normal 8.6-10.3 [facility] Comment on above: Performed By: #### L AB15 #### [facility] ([facility]) [address] [place] [address] Chloride [Moles/Vol] 106 mmol/L Normal 98-107 [facility] Comment on above: Performed By: #### L AB15 #### [facility] [address] [place] [address] CO2 [Moles/Vol] 25 mmol/L Normal 21-31 [facility] Comment on above: Performed By: #### L AB15 #### [facility] ([facility]) [address] [place] [address] Creatinine [Mass/Vol] 0.48 mg/dL Low 0.60-1.20 [facility] Comment on above: Performed By: #### L AB15 #### [facility] ([facility]) [address] [place] [address] GLOMERULAR FILTRATION RATE ML/MIN/1.73 SQ M.PREDICTED 107.7 mL/min/1.73m*2 Normal >60.0 [facility] Comment on above: Result Comment: [facility]???s estimated glomerular filtration rate (eGFR) will no [...] individuals. Performed By: #### L [id number] #### [facility] ([facility]) [address] [place] [address] Glucose [Mass/Vol] 111 mg/dL High 70-100 [facility] Comment on above: Performed By: #### L [id number] #### [facility] ([facility] [address] [place] [address] Potassium [Moles/Vol] 4.0 mmol/L Normal 3.5-5.1 [facility] Comment on above: Performed By: #### L [id number] #### [facility] ([facility]) [address] [place] [address] Sodium [Moles/Vol] 135 mmol/L Low 136-145 [facility] Comment on above: Performed By: #### L [id number] #### [facility] ([facility] [address] [place] [address] Urea nitrogen [Mass/Vol] 9 mg/dL Normal 7-25 [facility] Comment on above: Performed By: #### L [id number] #### [facility] ([facility] [address] [place] [address] UREA NITROGEN/CREATININE (MASS RATIO) IN SER/PLAS 18.8 Normal [facility] Comment on above: Performed By: #### L [id number] #### [facility] ([facility]) [address] [place] [address] CBCon 01-15-2023 Erythrocyte distribution width (RBC) [Ratio] 12.6 % Normal 11.5-15.0 [facility] Comment on above: Performed By: #### L [id number] #### [facility] ([facility]) [address] [place] [address] ERYTHROCYTE MEAN CORPUSCULAR HEMOGLOBIN CONCENTRATION (G/DL) BY AUTOMATED 34.0 g/dL Normal 32.0-35.0 [facility] Comment on above: Performed By: #### L [id number] #### [facility] ([facility] [address] [place] [address] Hematocrit (Bld) [Volume fraction] 36.2 % Normal 36.0-48.0 [facility] Comment on above: Performed By: #### L [id number] #### [facility] ([facility] [address] [place] [address] Hemoglobin (Bld) [Mass/Vol] 12.3 g/dL Normal 12.0-15.0 [facility] Comment on above: Performed By: #### L [id number] #### [facility] ([facility]) [address] [place] [address] MCH (RBC) [Entitic mass] 34.9 pg High 27.0-33.0 [facility] Comment on above: Performed By: #### L [id number] #### [facility] ([facility]) [address] [place] [address] MCV (RBC) [Entitic vol] 102.8 fL High 82.0-98.0 [facility] Comment on above: Performed By: #### L [id number] #### [facility] ([facility]) [address] [place] [address] PLATELETS (10*3/UL) IN BLOOD AUTOMATED COUNT 214 10*3/uL Normal 150-400 [facility] Comment on above: Performed By: #### L [id number] #### [facility] ([facility]) [address] [place] [address] RBC (Bld) [#/Vol] 3.52 10*6/uL Low 3.80-5.00 [facility] Comment on above: Performed By: #### L [id number] #### [facility] ([facility]) [address] [place] [address] WBC (Bld) [#/Vol] 10.14 10*3/uL Normal 4.00-10.60 [facility] Comment on above: Performed By: #### L [id number] #### [facility] ([facility]) [address] [place] [address] EDPROVon 01-15-2023 EDPROV HPI Chief Complaint Patient [...] 01/23/23 0813 NSTEMI (non-ST elevated myocardial infarction) ([facility] Medical Decision Making Attestion Claribel Coyle MD 01/23/23 0815 Normal [facility] MAGNESIUMon 01-15-2023 Magnesium [Mass/Vol] 2.0 mg/dL Normal 1.9-2.7 [facility] Comment on above: Performed By: #### L [id number] #### [facility] ([facility]) [address] [place] [address] NURSNOTEon 01-15-2023 NURSNOTE Discharge instructions given and reviewed, questions answered, signed, copy received. Normal [facility] 30on 01-14-2023 30 The patient is Moderately Stable - Low risk of patient condition declining or worsening The patient's goals for the shift include to get up The clinical goals for the shift include VSS Normal [facility] APTTon 01-14-2023 ACTIVATED PARTIAL THROMBOPLASTIN TIME IN PPP BY COAGULATION ASSAY 28.6 Seconds Normal 25.0-35.0 [facility] Comment on above: Order Comment: Check aPTT every 6 hours while on heparin infusion, or per protocol. Result Comment: Clin ical significance of the APTT is questionable in the presence of heparin. Performed By: #### L [id number] #### [facility] ([facility]) [address] [place] [address] ACTIVATED PARTIAL THROMBOPLASTIN TIME IN PPP BY COAGULATION ASSAY 25.9 Seconds Normal 25.0-35.0 [facility] Comment on above: Order Comment: Check aPTT every 6 hours while on heparin infusion, or per protocol. Result Comment: Clin ical significance of the APTT is questionable in the presence of heparin. Performed By: #### L [id number] ####[facility] ([facility])[address] [facility] [place] [address] BASIC METABOLIC PANELon 12-19 Anion gap [Moles/Vol] 11 mmol/L Normal 7-20 [facility] Comment on above: Performed By: #### L [id number] #### [facility] ([facility]) [address] [place] [address] Calcium [Mass/Vol] 9.1 mg/dL Normal 8.6-10.3 [facility] Comment on above: Performed By: #### L [id number] #### [facility] ([facility]) [address] [place] [address] Chloride [Moles/Vol] 97 mmol/L Low 98-107 [facility] Comment on above: Performed By: #### L [id number] #### [facility] ([facility]) [address] [place] [address] CO2 [Moles/Vol] 25 mmol/L Normal 21-31 [facility] Comment on above: Performed By: #### L [id number] #### [facility] ([facility]) [address] [place] [address] Creatinine [Mass/Vol] 0.45 mg/dL Low 0.60-1.20 [facility] Comment on above: Performed By: #### L [id number] #### [facility] ([facility]) [address] [facility] [place] [address] GLOMERULAR FILTRATION RATE ML/MIN/1.73 SQ M.PREDICTED 109.4 mL/min/1.73m*2 Normal >60.0 [facility] Comment on above: Result Comment: [facility]???s estimated glomerular filtration rate (eGFR) will no [...] group of individuals. Performed By: #### L [id number] #### [facility] ([facility]) [address] [place] [address] Glucose [Mass/Vol] 114 mg/dL High 70-100 [facility] Comment on above: Performed By: #### L [id number] #### [facility] ([facility]) [address] [place] [address] Potassium [Moles/Vol] 3.1 mmol/L Low 3.5-5.1 [facility] Comment on above: Performed By: #### L [id number] #### [facility] ([facility]) [address] [place] [address] Sodium [Moles/Vol] 130 mmol/L Low 136-145 [facility] Comment on above: Performed By: #### L [id number] #### [facility] ([facility]) [address] [place] [address] Urea nitrogen [Mass/Vol] 6 mg/dL Low 7-25 [facility] Comment on above: Performed By: #### L [id number] #### [facility] ([facility]) [address] [facility] [place] [address] UREA NITROGEN/CREATININE (MASS RATIO) IN SER/PLAS 13.3 Normal [facility] Comment on above: Performed By: #### L [id number] #### [facility] ([facility] [address] [place] [address] CBCon 01-14-2023 Erythrocyte distribution width (RBC) [Ratio] 12.6 % Normal 11.5-15.0 [facility] Comment on above: Performed By: #### L [id number] #### [facility] ([facility]) [address] [place] [address] ERYTHROCYTE MEAN CORPUSCULAR HEMOGLOBIN CONCENTRATION (G/DL) BY AUTOMATED 34.6 g/dL Normal 32.0-35.0 [facility] Comment on above: Performed By: #### L [id number] #### [facility] ([facility]) [address] [place] [address] Hematocrit (Bld) [Volume fraction] 38.1 % Normal 36.0-48.0 [facility] Comment on above: Performed By: #### L [id number] #### [facility] ([facility]) [address] [place] [address] Hemoglobin (Bld) [Mass/Vol] 13.2 g/dL Normal 12.0-15.0 [facility] Comment on above: Performed By: #### L [id number] #### [facility] ([facility]) [address] [place] [address] MCH (RBC) [Entitic mass] 34.3 pg High 27.0-33.0 [facility] Comment on above: Performed By: #### L [id number] #### [facility] ([facility]) [address] [place] [address] MCV (RBC) [Entitic vol] 99.0 fL High 82.0-98.0 [facility] Comment on above: Performed By: #### L [id number] #### [facility] ([facility]) [address] [place] [address] PLATELETS (10*3/UL) IN BLOOD AUTOMATED COUNT 216 10*3/uL Normal 150-400 [facility] Comment on above: Performed By: #### L [id number] #### [facility] ([facility]) [address] [place] [address] RBC (Bld) [#/Vol] 3.85 10*6/uL Normal 3.80-5.00 [facility] Comment on above: Performed By: #### L [id number] #### [facility] ([facility]) [address] [place] [address] WBC (Bld) [#/Vol] 12.05 10*3/uL High 4.00-10.60 [facility] Comment on above: Performed By: #### L [id number] #### [facility] ([facility]) [address] [place] [address] MAGNESIUMon 01-14-2023 Magnesium [Mass/Vol] 1.8 mg/dL Low 1.9-2.7 [facility] Comment on above: Performed By: #### L [id number] #### [facility] ([facility]) [address] [place] [address] TSH3 REFLEX TO FT4on 023 THYROTROPIN (MIU/L) IN SER/PLAS BY DETECTION LIMIT <= 0.05 MIU/L 2.97 mIU/L Normal 0.34-5.60 [facility] Comment on above: Performed By: #### L [id number] ####[facility] ([facility])[address] [place] [address] APTTon 01-13-2023 ACTIVATED PARTIAL THROMBOPLASTIN TIME IN PPP BY COAGULATION ASSAY >200.0 Critically high 25.0-35.0 [facility] Comment on above: Order Comment: Check aPTT every 6 hours while on heparin infusion, or per protocol. Result Comment: Clin ical significance of the APTT is questionable in the presence of heparin. Performed By: #### L [id number] ####[facility] ([facility])[address] [place] [address] ACTIVATED PARTIAL THROMBOPLASTIN TIME IN PPP BY COAGULATION ASSAY 40.4 Seconds High 25.0-35.0 [facility] Comment on above: Result Comment: Clin ical significance of the APTT is questionable in the presence of heparin. Performed By: #### L [id number] #### [facility] ([facility]) [address] [place] [address] BASIC METABOLIC PANELon 09-2 Anion gap [Moles/Vol] 16 mmol/L Normal 7-20 [facility] Comment on above: Performed By: #### L [id number] #### [facility] ([facility]) [address] [place] [address] Calcium [Mass/Vol] 9.7 mg/dL Normal 8.6-10.3 [facility] Comment on above: Performed By: #### L [id number] #### [facility] ([facility]) [address] [place] [address] Chloride [Moles/Vol] 89 mmol/L Low 98-107 [facility] Comment on above: Performed By: #### L [id number] #### [facility] ([facility]) [address] [place] [address] CO2 [Moles/Vol] 25 mmol/L Normal 21-31 [facility] Comment on above: Performed By: #### L [id number] #### [facility] ([facility]) [address] [place] [address] Creatinine [Mass/Vol] 0.54 mg/dL Low 0.60-1.20 [facility] Comment on above: Performed By: #### L [id number] #### [facility] ([facility]) [address] [place] [address] GLOMERULAR FILTRATION RATE ML/MIN/1.73 SQ M.PREDICTED 104.7 mL/min/1.73m*2 Normal >60.0 [facility] Comment on above: Result Comment: [facility]???s estimated glomerular filtration rate (eGFR) will no [...] individuals. Performed By: #### L [id number] #### [facility] ([facility]) [address] [place] [address] Glucose [Mass/Vol] 116 mg/dL High 70-100 [facility] Comment on above: Performed By: #### L [id number] #### [facility] ([facility]) [address] [place] [address] Potassium [Moles/Vol] 3.3 mmol/L Low 3.5-5.1 [facility] Comment on above: Performed By: #### L [id number] #### [facility] ([facility]) [address] [place] [address] Sodium [Moles/Vol] 127 mmol/L Low 136-145 [facility] Comment on above: Performed By: #### L [id number] #### [facility] ([facility]) [address] [place] [address] Urea nitrogen [Mass/Vol] 7 mg/dL Normal 7-25 [facility] Comment on above: Performed By: #### L [id number] #### [facility] ([facility]) [address] [place] [address] UREA NITROGEN/CREATININE (MASS RATIO) IN SER/PLAS 13.0 Normal [facility] Comment on above: Performed By: #### L [id number] #### [facility] ([facility]) [address] [place] [address] C-REACTIVE PROTEINon 023 C REACTIVE PROTEIN (MG/L) IN SER/PLAS 11.8 mg/L High 0.0-7.0 [facility] Comment on above: Performed By: #### L [id number] #### [facility] ([facility]) [address] [place] [address] CBC WITH AUTO DIFFERENTIALon 01-13-2023 Basophils (Bld) [#/Vol] 0.07 10*3/uL Normal 0.00-0.20 [facility] Comment on above: Performed By: #### L [id number] #### [facility] ([facility]) [address] [place] [address] Basophils/100 WBC (Bld) 0.6 % Normal 0.0-1.0 [facility] Comment on above: Performed By: #### L [id number] #### [facility] [address] [place] [address] Eosinophils (Bld) [#/Vol] 0.10 10*3/uL Normal 0.00-0.50 [facility] Comment on above: Performed By: #### L [id number] #### [facility] ([facility]) [address] [place] [address] Eosinophils/100 WBC (Bld) 0.9 % Normal 0.0-6.0 [facility] Comment on above: Performed By: #### L [id number] #### [facility] ([facility]) [address] [place] [address] Erythrocyte distribution width (RBC) [Ratio] 12.3 % Normal 11.5-15.0 [facility] Comment on above: Performed By: #### L [id number] #### [facility] ([facility]) [address] [place] [address] ERYTHROCYTE MEAN CORPUSCULAR HEMOGLOBIN CONCENTRATION (G/DL) BY AUTOMATED 36.0 g/dL High 32.0-35.0 [facility] Comment on above: Performed By: #### L [id number] #### [facility] ([facility]) [address] [place] [address] Hematocrit (Bld) [Volume fraction] 45.6 % Normal 36.0-48.0 [facility] Comment on above: Performed By: #### L [id number] #### [facility] [address] [place] [address] Hemoglobin (Bld) [Mass/Vol] 16.4 g/dL High 12.0-15.0 [facility] Comment on above: Performed By: #### L [id number] #### [facility] ([facility]) [address] [place] [address] Immature granulocytes (Bld) [#/Vol] 0.06 10*3/uL Normal 0.00-0.20 [facility] Comment on above: Performed By: #### L [id number] #### [facility] ([facility]) [address] [place] [address] Immature granulocytes/100 WBC (Bld) 0.5 % Normal 0.0-1.0 [facility] Comment on above: Performed By: #### L [id number] #### [facility] [address] [place] [address] Lymphocytes (Bld) [#/Vol] 2.93 10*3/uL Normal 1.20-4.00 [facility] Comment on above: Performed By: #### L [id number] #### [facility] ([facility]) [address] [place] [address] Lymphocytes/100 WBC (Bld) 25.3 % Normal 20.0-45.0 [facility] Comment on above: Performed By: #### L [id number] #### [facility] ([facility]) [address] [place] [address] MCH (RBC) [Entitic mass] 34.6 pg High 27.0-33.0 [facility] Comment on above: Performed By: #### L [id number] #### [facility] ([facility]) [address] [place] [address] MCV (RBC) [Entitic vol] 96.2 fL Normal 82.0-98.0 [facility] Comment on above: Performed By: #### L [id number] #### [facility] ([facility]) [address] [place] [address] Monocytes (Bld) [#/Vol] 0.87 10*3/uL Normal 0.10-1.00 [facility] Comment on above: Performed By: #### L [id number] #### [facility] ([facility]) [address] [place] [address] Monocytes/100 WBC (Bld) 7.5 % Normal 5.0-12.0 [facility] Comment on above: Performed By: #### L [id number] #### [facility] ([facility]) [address] [place] [address] Neutrophils (Bld) [#/Vol] 7.57 10*3/uL Normal 1.60-7.60 [facility] Comment on above: Performed By: #### L [id number] #### [facility] ([facility]) [address] [place] [address] Neutrophils/100 WBC (Bld) 65.2 % Normal 40.0-72.0 [facility] Comment on above: Performed By: #### L [id number] #### [facility] ([facility]) [address] [place] [address] NRBC (PER 100 WBCS) BY AUTOMATED COUNT 0.0 % Normal 0 [facility] Comment on above: Performed By: #### L [id number] #### [facility] ([facility]) [address] [place] [address] PLATELETS (10*3/UL) IN BLOOD AUTOMATED COUNT 278 10*3/uL Normal 150-400 [facility] Comment on above: Performed By: #### L [id number] #### [facility] ([facility]) [address] [place] [address] RBC (Bld) [#/Vol] 4.74 10*6/uL Normal 3.80-5.00 [facility] Comment on above: Performed By: #### L [id number] #### [facility] [address] [place] [address] WBC (Bld) [#/Vol] 11.60 10*3/uL High 4.00-10.60 [facility] Comment on above: Performed By: #### L [id number] #### [facility] ([facility] [place] [address] CONSULTon 01-13-2023 CONSULT - Attestation signed by [...] chest pain at the emergency room in [facility]. The ER physician called me and told me that she is also having elevated troponin. We will transfer her to the emergency room the patient continue have chest discomfort and the high-sensitivity troponin was around 5000. I discussed the case with Dr. Blount and we are going to proceed with second this patient to the Regulator Pin Inserter emergently for NSTEMI. Cardiology Consult Note Reason [...] EKG is not suggestive of ST elevation ID. Patient was transferred here for NSTEMI management. [...] echo and coronary angiography. Soto Curry MD Dry Room Attendant PGY-4 [facility] Pager # [phone] [facility] EDNURSon 01-13-2023 EDNURS Mode of arrival (squad #, walk in, police, etc): Squad Chief complaint(s): CP Arrival Note (brief scenario, treatment SENIOR PARTNER, etc): Pt is a transfer from [facility]. Per [facility] report patient was having a Nstemi reported from an initial EKG. Pt woke up with Chest Pain on 01/12 at 6 am it was upper left and radiated across her chest. Pt's pain was not tolerable anymore and went to [facility] this morning on 01/13. Pt was [...] was being infused at 15.7 ml/hr from [facility]. Pt upon arrival to ED reported a CP of 5 out of 10 upper left. Pt is A&Ox4, EKG done upon arrival. Pt has a Hx of Hypothyroidism and HTN. [facility] HPon 01-13-2023 - Attestation signed by Dari Blount MD [...] documentation from me. Dari Blount MD, MPH, FACC, [facility], FSVM Interventional Cardiology Pager Email: [email or web address] History Of Present Illness Scott Francis is a 63 y.o. female presenting with Past medical history of hypertension, current smoker who came in to [facility] initially for chest pain. Patient reported her [...] Principal Problem: NSTEMI (non-ST elevated myocardial infarction) (CMS/HCC) Assessment: Chest pain. Likely secondary to NSTEMI versus pericarditis. Hypertension. Current smoker. Plan: We will proceed with coronary angiogram for chest pain. Risk and benefits explained to the patient who agreed to proceed. Further planning would depend on the finding of coronary angiogram. Echocardiogram is ordered. Patient was administered in the ED aspirin and heparin. Normal [facility] NURSNOTEon 01-13-2023 NURSNOTE electrical instrument technician reported prolonged QT on EKG completed. Reported findings to Nikia Harris NP. Nikia Harris NP discontinued Zofran. Normal [facility] SEDIMENTATION RATEon 023 SEDIMENTATION RATE, ERYTHROCYTE 11 mm/hr Normal <=20 [facility] Comment on above: Performed By: #### L [id number] #### [facility] ([facility]) [address] [place] [address] TROPONIN Ion 01-13-2023 Troponin I.cardiac [Mass/Vol] 5.86 ng/mL Critically high 0.00-0.04 [facility] Comment on above: Result Comment: M-TR OPONIN INITIAL CRITICAL HIGH; RESPUN AND RETESTED Performed By: #### L [id number] #### [facility] ([facility]) [address] [place] [address] Family Medicine Office/Clini c Noteon 01-06-2023 Family [...] with voice recognition artificial intelligence software, specifically [employer]enue, Case Rover and or Owlient. Substitutions may have occurred due to the inherent limitations of voice recognition and artificial intelligence software. ATTESTATION: Documentation services were performed after patient or guardian consented to allow [email or web address] to record this visit. JOSÉ coverage specialist rn and provider reviewed before signing. JOSÉ: Krystle [...] more cigar (more content not included)... Normal [facility] Comment on above: Result Comment: Elec tronically Signed By: Dada Callahan MD\.br\Date and Time Signed: 01/06/23 09:22 EDT\.br\Electronically Co-Signed By: Krystle Gamez.br\Date and Time Co-Signed: 01/04/23 11:13 EDT Ambulatory [...] AM EST With: Dada Callahan MD Where: [facility] Steevn Normal [facility] Auto Diffon 01-04-2023 Basophils/100 WBC (Bld) 1.0 % Normal 0.0-2.0 [facility] Comment on above: Order Comment: Order Added by Discern Expert. Performed By: #### 1 [id number], 8999136, 3481878, 5464595 ####[facility] [address] [place] [address] Basophils/Leukocytes Auto (Bld) [Pure # fraction] 0.1 E9/L Normal 0.0-0.2 [facility] Comment on above: Order Comment: Order Added by Discern Expert. Performed By: #### 1 [id number], 4346546, 2078669, 5559985 ####[facility] [address] [place] [address] Eosinophils/100 WBC (Bld) 1.8 % Normal 0.0-8.0 [facility] Comment on above: Order Comment: Order Added by Discern Expert. Performed By: #### 1 2895387, 9185689, 5488977, 4433162 ####[address] [place] [address] Eosinophils/Leukocyt es Auto (Bld) [Pure # fraction] 0.1 E9/L Normal 0.0-0.5 [facility] Comment on above: Order Comment: Order Added by Discern Expert. Performed By: #### 1 3980324, 0329647, 6143241, 3121069 ####[address] [address] Lymphocytes/100 WBC (Bld) 27.6 % Normal 14.0-50.0 [facility] Comment on above: Order Comment: Order Added by Discern Expert. Performed By: #### 1 8347848, 7077061, 9018868, 3763818 ####[address] [address] Lymphocytes/Leukocyt es Auto (Bld) [Pure # fraction] 2.3 E9/L Normal 1.0-4.0 [facility] Comment on above: Order Comment: Order Added by Discern Expert. Performed By: #### 1 6574021, 1754817, 7106023, 2719896 ####[address] [address] Monocytes/100 WBC (Bld) 7.3 % Normal 4.0-14.0 [facility] Comment on above: Order Comment: Order Added by Discern Expert. Performed By: #### 1 8008155, 3803105, 2854351, 6277778 ####[address] [place] [address] Monocytes/Leukocytes Auto (Bld) [Pure # fraction] 0.6 E9/L Normal 0.2-1.0 [facility] Comment on above: Order Comment: Order Added by Discern Expert. Performed By: #### 1 6884419, 7244324, 5484784, 2664028 ####[address] [address] Neutrophils/100 WBC (Bld) 62.3 % Normal 36.0-75.0 [facility] Comment on above: Order Comment: Order Added by Discern Expert. Performed By: #### 1 3845064, 3837419, 5563565, 8732638 ####[address] [address] Neutrophils/Leukocyt es Auto (Bld) [Pure # fraction] 5.1 E9/L Normal 2.0-7.5 [facility] Comment on above: Order Comment: Order Added by Discern Expert. Performed By: #### 1 3408414, 6402359, 9181917, 8003832 ####[address] [address] CBC w/ Auto Diffon Erythrocyte distribution width (RBC) [Ratio] 13.3 % Normal 10.9-14.2 [facility] Comment on above: Performed By: #### 1 0144233, 5686481, 8876589, 0506307 ####[address] [address] Hematocrit (Bld) [Volume fraction] 42.5 % Normal 34.0-46.0 [facility] Comment on above: Performed By: #### 1 0571479, 4714206, 7822071, 3397081 ####[address] [address] Hemoglobin (Bld) [Mass/Vol] 14.8 g/dL Normal 12.0-16.0 [facility] Comment on above: Performed By: #### 1 9205244, 2105210, 3528997, 8746026 ####[address] [address] MCH (RBC) [Entitic mass] 35.3 pg High 27.0-34.0 [facility] Comment on above: Performed By: #### 1 4394856, 2062102, 0332999, 0394670 ####[facility] [address] [place] [address] MCHC (RBC) [Mass/Vol] 34.9 g/dL Normal 31.4-36.0 [facility] Comment on above: Performed By: #### 1 0350551, 9079865, 4272661, 4512427 ####[address] [place] [address] MCV (RBC) [Entitic vol] 101.2 fL High 80.0-100.0 [facility] Comment on above: Performed By: #### 1 0082605, 9217568, 3181550, 1115852 ####[address] [place] [address] Platelet mean volume (Bld) [Entitic vol] 7.2 fL Normal 6.4-10.8 [facility] Comment on above: Performed By: #### 1 3116723, 4501301, 5464240, 5009807 ####[address] [address] Platelets (Bld) [#/Vol] 255.0 E9/L Normal 150.0-500.0 [facility] Comment on above: Performed By: #### 1 8763847, 5917379, 0289976, 9757814 ####[address] [address] RBC (Bld) [#/Vol] 4.2 E12/L Low 4.3-5.9 [facility] Comment on above: Performed By: #### 1 7404271, 0934776, 5191521, 4773544 ####[address] [place] [address] WBC corrected for nucl RBC Auto (Bld) [#/Vol] 8.2 E9/L Normal 4.0-11.0 [facility] Comment on above: Performed By: #### 1 4702372, 5917319, 5590701, 9207881 ####[address] [place] [address] CMPon 01-04-2023 Albumin [Mass/Vol] 4.1 g/dL Normal 3.3-5.0 [facility] Comment on above: Performed By: #### 1 2311418, 7122298, 1214746, 1219113 ####[facility] [address] [place] [address] Albumin/Globulin (S) [Mass conc ratio] 1.2 Normal 1.1-2.2 [facility] Comment on above: Performed By: #### 1 6047094, 7434197, 0653935, 5865169 ####[facility] [address] [place] [address] ALP [Catalytic activity/Vol] 66 Int._Unit/L Normal 21-98 [facility] Comment on above: Performed By: #### 1 5060595, 8121815, 8321331, 5932730 ####[facility] [address] [place] [address] ALT No additional P-5'-P [Catalytic activity/Vol] 20 Int._Unit/L Normal 6-46 [facility] Comment on above: Performed By: #### 1 6895039, 5788027, 6516492, 7402179 ####[facility] [address] [place] [address] Anion gap [Moles/Vol] 12 mmol/L Normal 6-16 [facility] Comment on above: Performed By: #### 1 7313354, 3341640, 1046814, 1490335 ####[facility] [address] [place] [address] AST [Catalytic activity/Vol] 34 Int._Unit/L Normal 5-43 [facility] Comment on above: Performed By: #### 1 6337613, 5088711, 5984856, 8606456 ####[facility] [address] [place] [address] Bilirubin [Mass/Vol] 0.4 mg/dL Normal 0.0-1.1 [facility] Comment on above: Performed By: #### 1 3415494, 6892811, 8415126, 3757980 ####[facility] [address] [place] [address] Calcium [Mass/Vol] 9.3 mg/dL Normal 8.9-11.1 [facility] Comment on above: Performed By: #### 1 5491136, 0608616, 1925840, 0693550 ####[facility] [address] [place] [address] Chloride [Moles/Vol] 99 mmol/L Low 101-[address] [facility] Comment on above: Performed By: #### 1 0946216, 8686706, 8910639, 1629768 ####[facility] [address] [place] [address] CO2 [Moles/Vol] 28 mmol/L Normal 21-[address] [facility] Comment on above: Performed By: #### 1 9030905, 7783441, 6150325, 2720324 ####[facility] [address] [place] [address] Creatinine [Mass/Vol] 0.6 mg/dL Normal 0.5-1.3 [facility] Comment on above: Performed By: #### 1 3503146, 6724234, 7744964, 6021333 ####[facility] [address] [place] [address] Globulin (S) [Mass/Vol] 3.5 g/dL Normal 1.4-4.0 [facility] Comment on above: Performed By: #### 1 6635290, 7685825, 5095566, 5801925 ####[facility] [address] [place] [address] Glucose [Mass/Vol] 120 mg/dL Normal 55-199 [facility] Comment on above: Result Comment: If t his glucose result represents a fasting glucose, interpretation should refer to the following reference range: 55-99 mg/dL Performed By: #### 1 9677146, 6463382, 7120950, 8976873 ####[facility] [address] [place] [address] Potassium [Moles/Vol] 4.2 mmol/L Normal 3.5-5.3 [facility] Comment on above: Performed By: #### 1 2680483, 5316565, 3969598, 7813265 ####[facility] [address] [place] [address] Protein [Mass/Vol] 7.6 g/dL Normal 6.0-7.8 [facility] Comment on above: Performed By: #### 1 3567245, 0879684, 5373257, 0778765 ####[facility] [address] [place] [address] Sodium [Moles/Vol] 135 mmol/L Normal 135-145 [facility] Comment on above: Performed By: #### 1 4019839, 6507438, 3549152, 5649547 ####[facility] [address] [place] [address] Urea nitrogen [Mass/Vol] 8 mg/dL Normal 5-21 [facility] Comment on above: Performed By: #### 1 8586545, 2272812, 0839876, 8463951 ####[facility] [address] [place] [address] Urea nitrogen/Creatinine [Mass ratio] 13 No Units Normal 10-20 [facility] Comment on above: Performed By: #### 1 4535133, 3184663, 2475862, 2160923 ####[facility] [address] [place] [address] Consent for Flu Vaccineon Consent for Flu Vaccine [id number] Normal [facility] eGFRon 01-04-2023 GFR/1.73 sq M.predicted among non-blacks MDRD (S/P/Bld) [Vol rate/Area] 102 mL/min/1.73 m2 Normal >=59 [facility] Comment on above: Order Comment: Order added by Discern Expert. Result Comment: Dietary Aid kandice kidney disease could be indicated at eGFR's of less than 60 mL/min/1.73m2. Kidney failure is indicated at less than 15 mL/min/1.73m2. Performed By: #### 1 7835843, 5453713, 0617975, 0180411 ####[facility] [address] [place] [address] CHEMISTRYOrdered By: SYSTEM SYSTEM on 09-21-2022 Albumin [...] mg/dL Normal 55 - 199 mg/dL [facility] Remisol Potassium [Moles/Vol] 4.5 mmol/L Normal 3.5 - 5.3 mmol/L [facility] Remisol Protein [Mass/Vol] 7.5 g/dL Normal 6.0 - 7.8 gm/dL F C Remisol Sodium [Moles/Vol] 133 mmol/L Low 135 [...] 34.4 g/dL Normal 31.4 - 36.0 gm/dL [facility] HemeAutoSS MCV (RBC) [Entitic vol] 102.3 fL High 80.0 - 100.0 fL [facility] HemeAutoSS Platelet mean volume (Bld) [Entitic vol] 7.0 fL Normal 6.4 - 10.8 fL [facility] HemeAutoSS Platelets (Bld) [#/Vol] 264.0 E9/L Normal 150.0 - 500.0 E9/L [facility] HemeAutoSS RBC (Bld) [#/Vol] 4.4 E12/L Normal 4.3 - 5.9 E12/L [facility] HemeAutoSS WBC corrected for nucl RBC Auto (Bld) [#/Vol] 8.2 E9/L Normal 4.0 - 11.0 E9/L [facility] HemeAutoSS CBC AUTO DIFFon 10-09-2021 BASO # 0.1 103/ul Normal 0.0-0.1 [facility] Comment on above: Performed By: #### C BC #### [facility] [address] [place] [address] Dr. Yehuda Reese Basophils/100 WBC (Bld) 0.8 % Normal 0.2-2.0 [facility] Comment on above: Performed By: #### C BC #### [facility] [address] [place] [address] Dr. Yehuda Reese EO # 0.1 103/ul Normal 0.0-0.7 [facility] Comment on above: Performed By: #### C BC #### [facility] [address] [place] [address] Dr. Yehuda Reese Eosinophils/100 WBC (Bld) 1.7 % Normal 0.9-7.0 [facility] Comment on above: Performed By: #### C BC #### [facility] [address] [place] [address] Dr. Yehuda Reese Erythrocyte distribution width (RBC) [Ratio] 12.0 % Normal 11.0-15.0 [facility] Comment on above: Performed By: #### C BC #### [facility] [address] [place] [address] Dr. Yehuda Reese Hematocrit (Bld) [Volume fraction] 44.0 % Normal 36.0-48.0 [facility] Comment on above: Performed By: #### C BC #### [facility] [address] [place] [address] Dr. Yehuda Reese Hemoglobin (Bld) [Mass/Vol] 15.1 g/dL Normal 12.0-16.0 [facility] Comment on above: Performed By: #### C BC #### [facility] [address] [place] [address] Dr. Yehuda Reese IG # 0.02 10e3/ul Normal 0.00-0.03 [facility] Comment on above: Performed By: #### C BC #### [facility] [address] [place] [address] Dr. Yehuda Reese IG % 0.2 % Normal 0.0-0.5 [facility] Comment on above: Performed By: #### C BC #### [facility] [address] [place] [address] Dr. Yehuda Reese LYMPH # 3.0 103/ul Normal 1.2-3.8 [facility] Comment on above: Performed By: #### C BC #### [facility] [address] [place] [address] Dr. Yehuda Reese Lymphocytes/100 WBC (Bld) 34.9 % Normal 20.5-60.0 [facility] Comment on above: Performed By: #### C BC #### [facility] [address] [place] [address] Dr. Yehuda Reese MANUAL DIFF REQ NO Normal [facility] Comment on above: Performed By: #### C BC #### [facility] [address] [place] [address] Dr. Yehuda Reese MCH (RBC) [Entitic mass] 34.6 pg Critically high 26.7-34.0 [facility] Comment on above: Performed By: #### C BC #### [facility] [address] [place] [address] Dr. Yehuda Reese MCHC (RBC) [Mass/Vol] 34.3 g/dL Normal 29.9-35.2 [facility] Comment on above: Performed By: #### C BC #### [facility] [address] [place] [address] Dr. Yehuda Reese MCV (RBC) [Entitic vol] 100.7 fL Critically high 81.0-99.0 [facility] Comment on above: Performed By: #### C BC #### [facility] [address] [place] [address] Dr. Yehuda Reese MONO # 0.5 103/ul Normal 0.3-0.8 [facility] Comment on above: Performed By: #### C BC #### [facility] [address] [place] [address] Dr. Yehuda Reese Monocytes/100 WBC (Bld) 6.0 % Normal 1.7-12.0 [facility] Comment on above: Performed By: #### C BC #### [facility] [address] [place] [address] Dr. Yehuda Reese NEUT # 4.8 103/ul Normal 1.4-6.5 [facility] Comment on above: Performed By: #### C BC #### [facility] [address] [address] [address] Yehuda Reese Neutrophils/100 WBC (Bld) 56.4 % Normal 43.0-75.0 [facility] Comment on above: Performed By: #### C BC #### [facility] [address] [address] [address] Yehuda Reese Platelet mean volume (Bld) [Entitic vol] 8.7 fL Critically low 9.5-13.5 [facility] Comment on above: Performed By: #### C BC #### [facility] [address] [address] [address] Yehuda Reese PLT 237 103/ul Normal 150-450 [facility] Comment on above: Performed By: #### C BC #### [facility] [address] [place] [address] Dr. Yehuda Reese RBC 4.37 106/ul Normal 4.20-5.40 [facility] Comment on above: Performed By: #### C BC #### [facility] [address] [address] [address] Yehuda Reese WBC 8.5 103/ul Normal 4.0-11.0 [facility] Comment on above: Performed By: #### C BC #### [facility] [address] [place] [address] Dr. Yehuda Reese FREE T3on 10-09-2021 FREE T3 2.65 pg/mlL Normal 2.18-3.98 [facility] Comment on above: Performed By: #### F T3, TSH #### [facility] [address] [address] [address] Yehuda Reese FREE T4on 10-09-2021 Free T4 [Mass/Vol] 1.17 ng/dL Normal 0.76-1.46 [facility] Comment on above: Performed By: #### F T4 #### [facility] [address] [address] [address] Yehuda Reese TSHon 06-23-2022 TSH 0.379 uIU/mL Normal 0.358-3.740 [facility] Comment on above: Performed By: #### F T3, TSH #### [facility] [address] [place], [place] [address] Dr. Yehuda Reese Covid-19 PCR ([facility])on 02-17 SARS-CoV-2 (COVID-19) RNA HENRY+probe Ql (Unsp spec) Not detected Normal NOT DETECTED [facility] Comment on above: Result Comment: This test is not yet approved or cleared by the [place] FDA. When there are no FDA-approved or cleared tests available, and other criteria are met, FDA can make tests available under an emergency access mechanism called an Emergency Use Authorization (EUA). The EUA for this test is supported by the [place] of Health and Human Service's (HHS's) declaration [...] SARS-CoV-2. Performed By: #### C VDTBH #### [facility] [address] [place], [place] [address] Dr. Yehuda Reese Encounters Encounter Date Encounter Type Care Provider Facility Start: 12-10-2023 End: 12-10-2023 Lab Drop off Nilda L Jeramie [facility] Start: 12-10-2023 End: 12-10-2023 ambulatory LMFT Nilda L Jeramie Facility:[facility] Start: 12-03-2023 End: 12-03-2023 ambulatory LMFT Nilda L Jeramie Facility:[facility] Brianna kofi Start: 10-29-2023 End: 10-29-2023 ambulatory LMFT Nilda L Jeramie Facility:[facility] [place] [facility] Start: 07-14-2023 End: 07-14-2023 ambulatory [facility] Start: 06-30-2023 End: 06-30-2023 ambulatory LMFT Nilda Bobo Facility:[facility] Brianna [place] Start: 04-05-2023 End: 04-05-2023 ambulatory MD Dada Callahan Facility:[facility] Brianna [place] Start: 02-04-2023 End: 02-04-2023 ambulatory [facility] Start: 02-02-2023 End: 02-02-2023 ambulatory MD Dada Callahan Facility:[facility] Brianna wrighte Start: 01-19-2023 End: 01-19-2023 ambulatory MD Dada Callahan Facility:[facility] Brianna kirby Start: 01-13-2023 Evaluation and management of inpatient MINESH [facility] Start: 01-13-2023 Emergency department patient visit [facility] Start: 01-13-2023 End: 01-15-2023 Evaluation and management of inpatient MINESH [facility] Start: 01-04-2023 End: 01-04-2023 ambulatory MD Dada Callahan Facility:[facility] Start: 12-22-2022 End: 12-22-2022 ambulatory MD Dada Callahan Facility:[facility] [place] [facility]of[place] Start: 09-21-2022 End: 09-21-2022 Lab Drop off Dada Callahan [facility] Start: 10-09-2021 End: 10-10-[address] JAZMIN MILES Facility:[facility] Start: 03-05-2021 End: 03-05-[address] JAZMIN MILES Facility:[facility] Procedures Date Procedure Procedure Detail Performing Clinician Cataract (disorder) Dada newman Colonoscopy Dada Callahan Comment on above: 2019 polyps, repeat 2021 Vaginal hysterectomy Dada Callahan Immunizations Immunization Date Immunization Notes Care Provider Ania toledo 03-24-2023 zoster vaccine recombinant Nildachristopher Bobo [facility] 03-23-2023 pneumococcal 20-javi nt conjugate vaccine Nilda Cervantesab [facility] 01-04-2023 influenza, injectabl e, quadrivalent, preservative free Nilda Bobo [facility] 03-09-2022 influenza virus vaccine, unspecified formulation Dada Callahan [facility] 03-09-2022 SARS-CoV-2 (COVID-19 ) [id number] Dada Callahan [facility] 04-17-2021 SARS-CoV-2 (COVID-19 ) mRNA BNT-162b2 vax Dada Callahan [facility] 08-15-2020 SARS-CoV-2 (COVID-19 ) mRNA BNT-162b2 vax Dada Callahan [facility] 07-25-2020 SARS-CoV-2 (COVID-19 ) mRNA BNT-162b2 samuel Callahan [facility] Payers Date Payer Category Payer Unknown [id number] 2.16.84 [id number] 1960 Unknown [id number] 2.16.84 [id number] 1960 Unknown [id number] 2.16.8 [id number] 1960 Unknown [id number] 2.16.8 [id number] 1960 Unknown [id number] 2.16.8 [id number] 1960 Unknown [id number] 2.16.8 [id number] 1960 Unknown [id number] 2.16.8 [id number] 1960 Unknown [id number] 2.16.8 40.1.165757.3.579.2.727 1960 Unknown [id number] 2.16.8 [id number] 1960 Unknown [id number] 2.16.8 [id number] 1960 Unknown [id number] 2.16.8 [id number] 1960 Unknown [id number] 2.16.8 [id number] 1960 Unknown [id number] 2.16.8 [id number] 1957 Unknown [id number] Social History Date Type Detail Facility Start: 09-21-2022 Tobacco smoking status Heavy t obacco smoker (finding) [facility] Sex Assigned At Female [facility] Start: 12-10-2023 Tobacco smoking status Light t obacco smoker (finding) [facility] Clinical Notes 01-13-2023 to 12-10-2023 Radiology Note Date & Type Note Facility 12-10-2023 Evaluation + Plan note Diagnostic Tests PendingUrine Culture 12/10/23 Future Scheduled TestsCT Chest, Low Dose Screening 02/02/23 [facility] 07-14-2023 Note [facility] Cardiology Clinic Note Chief Complaint: Patient here [...] pressure 151, HDL 43, LDL 39 Investigations Echocardiogram-[facility] Name: [facility] Study Date: 01/13/2023 01:43 PM B/P: 145 mmHg/99 mmHg HR: 66 bpm Date of : 1960 Location: [facility] Height: 66 in. Age: 63 year(s) Patient [...] 55 % visual (more content not included)... [facility] 02-04-2023 Note [facility] 02-04-2023 Note [facility] Cardiology Clinic Note Chief Complaint: Patient here for follow up [facility] for NSTEMI and PCI. Denies chest pain. [...] PSYCH: appropriate mood, affect, and judgement. Investigations Echocardiogram-[facility] Name: [facility] Study Date: 01/13/2023 01:43 PM B/P: 145 mmHg/99 mmHg HR: 66 bpm Date of : 1960 Location: [facility] Height: 66 in. Age: 63 year(s) Patient [...] ventricular wall thi (more content not included)... [facility] 01-15-2023 Note Hospital Medicine Discharge Summary Final Discharge Diagnosis: NSTEMI (non-ST elevated myocardial infarction) (CMS/HCC) NSTEMI Abnormal electrolytes, hypokalemia, hypomagnesemia Essential HTN Hypokalemia, 3.1 Hypothyroidism on Synthroid Hyperlipidemia Admission Diagnosis: NSTEMI (non-ST elevated myocardial infarction) ([facility] [facility]) [I21.4] Hospital course: Scott Francis is an 63 y.o. female who came from home with chest pain. Patient presented to [facility] with chest pain and was transferred here due to elevated troponin and need for heart cath. Cardiology took her to cath on arrival and they did balloon angioplasty with drug eluding stent placement to her RCA. She denies any current chest pain or shortness of breath, only that she is uncomfortable from lying flat in bed. NSTEMI Patient was taken to [facility]ulator [facility] Inserter and stent placed to RCA, patient was [...] Center 02/04/2023 11:30 AM Dari Blount MD [facility] Your medication list START taking these medications [...] Medications These medications were sent to [facility] - [address] [place] [address] [address] [facility] [place] [address], [facility] [address] aspirin 81 mg chewable tablet atorvastatin 40 [...] Clear to auscultatio (more content not included)... [facility] 01-15-2023 Note Cardiology Progress Note Subjective Subjective: [...] Value Ventricular Rate 68 Atrial Rate 68 RI Interval 168 QRS DURATION 94 QT Interval 516 QTC CALCULATION(BAZETT) 548 P [place] 60 R-[place] 73 T Wave [place] -58 Impression Normal sinus rhythm Inferior infarct [...] (TTE) complete Result Date: 01/13/2023 1 1 [facility] Heart Station [address] [id number] [phone] (fax) Echocardiogram-[facility] Name: SCOTT FRANCIS Study Date: 01/13/2023 01:43 PM B/P: 145 mmHg/99 mmHg HR: 66 bpm Date of : 1960 Location: [facility] Height: 66 in. Age: 63 year(s) Patient [...] right ventricular systo (more content not included)... [facility] 01-14-2023 Note Attestation signed by Piper Gaines [...] Value Ventricular Rate 68 Atrial Rate 68 RI Interval 168 QRS DURATION 94 QT Interval 516 QTC CALCULATION(BAZETT) 548 P [place] 60 R-[place] 73 T Wave [place] -58 Impression Normal sinus rhythm Inferior infarct [...] (TTE) complete Result Date: 01/13/2023 1 1 [facility] Heart Station [address] [place] [address] [phone] (fax) Echocardiogram-[facility] Name: SCOTT FRANCIS Study Date: 01/13/2023 01:43 PM B/P: 145 mmHg/99 mmHg HR: 66 bpm Date of : 1960 Location: [facility] Height: 66 in. Age: 63 year(s) Patient [...] 1.1 m/sec Aortic (more content not included)... [facility] 01-14-2023 Note Hospital Medicine Daily Progress Note - 01/15/2023 7:01 AM; Room: [address] [place] [address] Admission: 01/13/2023 12:11 PM; Length of stay: 2 days THE HOSPITALIST TEAM PREFERS TO USE [employer] CHAT FOR COMMUNICATION 7AM-7PM. IF I DO NOT RESPOND WITHIN 15 MINUTES, PLEASE PAGE ME/CALL THROUGH THE MANAGER CREATIVE SERVICES. FROM 7PM-7AM, PLEASE PAGE [phone](COVR) Code Status: Full Code Discharge Destination: home [...] Principal Problem: NSTEMI (non-ST elevated myocardial infarction) ([facility]) Assessment and Plan NSTEMI Abnormal electrolytes, hypokalemia, [...] Once heparin (porcine), 5,000 Units, subcutaneous, q8h [facility] levothyroxine, 50 mcg, oral, Daily losartan, [...] TSH 2.97 01/14/2023 No results found for: [id number], IRON, TIBC, C3, C4, GUEVARA, CANCA, ASO, [...] Harris NP Hospital Medicine 01/15/2023 7:01 AM [facility] 01-13-2023 Note Hospital Medicine History and Physical 01/13/2023 6:16 PM THE HOSPITALIST TEAM PREFERS TO USE [employer] FOR COMMUNICATION 7AM-7PM. IF I DO NOT RESPOND WITHIN 15 MINUTES, PLEASE PAGE ME/CALL THROUGH THE MANAGER CREATIVE SERVICES. FROM 7PM-7AM, PLEASE PAGE [phone](COVR) Chief Complaint Chief Complaint Patient presents with Chest Pain History of Present Illness Scott Francis is an 63 y.o. female who came from home with chest pain. Patient presented to [facility] with chest pain and was transferred here [...] hyperlipidemia 01/13/2023 NSTEMI (non-ST elevated myocardial infarction) ([facility]) 01/13/2023 Assessment and Plan NSTEMI Abnormal electrolytes, [...] this hospital stay by a member of [facility]. Past Medical History History reviewed. No [...] 127 (*) [place] (more content not included)... [facility] 01-13-2023 Note Cardiovascular Labor atory Report FINAL [...] failed attempt at deployment of a 6 Azerbaijani Mynx senior policy associate closure device METHODS: After risks, benefits, and [...] and this was upsized to a 6 Azerbaijani 11 cm sheath. Angiography via the SideArm of the sheath was performed. Bilateral selective coronary angiography was performed using JR 4.0 and JL 4.0 catheters. After reviewing the images it was elected to proceed with an interventional procedure. A 6 Azerbaijani JR4 guide catheter was advanced over a [...] elected to conclude the procedure. A 6 Azerba[place] Mynx senior policy associate closure device was deployed however failed; therefore [...] of the v (more content not included)... [facility] 01-13-2023 Note Patient: Scott Francis Procedure Information Date/Time: 01/13/23 1430 Procedure: Coronary angiography Location: [facility]PER[employer]OR 3 / [facility]ULAR [facility] (Cath) Providers: Dari Blount MD Clinical information reviewed: Tobacco Allergies Meds Med Hx Surg Hx Fam Hx Soc Hx Physical Exam Airway Mallampati: III TM distance: >3 FB Neck ROM: full Cardiovascular Rhythm: regular Rate: normal Dental Pulmonary Abdominal Anesthesia Plan ASA 3 Additional Equipment Requests [facility] Evaluation + Plan note Future Appointments Appointment Date:12/22/2022 01:00:00 PM Scheduled Provider:Dada Callahan MD Location:[facility] Appointment Type:FM Open [facility] Hospital course Narrative No data available for this section [facility] Hospital Discharge instructions No data available for this section [facility] Progress note No data available for this section [facility] Summary Purpose Family History No Family History [...] and content) DATE CREATED AUTHOR 10/15/2021 [facility] DATE CREATED AUTHOR AUTHOR'S ORGANIZ ATION 07/15/2023 [facility] DATE CREATED AUTHOR AUTHOR'S ORGANIZ ATION 12/11/2023 [facility] DATE CREATED AUTHOR AUTHOR'S ORGANIZ ATION 12/13/2023 [facility] DATE CREATED AUTHOR AUTHOR'S ORGANIZ ATION 12/14/2023 [facility] Patient Care team informatio n (unrecognized section and content) Personnel Name: JAZMIN MILES MD Address: Address: [address] [place] [address] Personnel Name: Nilda Hernandez Address: Address: [address] [place] [address]- FOR RECORDS PERTAINING TO PATIENTS WHO ARE [...] BE BASED ON THE PRIMARY CLINICAL RECORDS. [facility]. provides no warranty or guarantee of the accuracy or completeness of information in this document.
[2023-12-15 13:23] LABS: Internal Control Within Normal Limits; SARS-CoV-2 Ag NEGATIVE (NEGATIVE)
== END 2023-12-15 11:44 | disposition home or self-care (01) ==
LOC: LAB 11:43
PROVIDERS: PCP Nurse Practitioner; Visit Provider Nurse Practitioner
DX: Z20.822 Contact with and (suspected) exposure to COVID-19 (principal)
CPT/HCPCS: 87811

== ENCOUNTER 2024-02-29 14:19 | Outpatient (OUT) | payer BC, SELFPAY ==
[2024-02-29 14:55] LABS: Anion Gap 12.3; BUN Creatinine Ratio 13.2; Calcium 9.1 mg/dL (8.5-10.1); Carbon Dioxide 32.5 mmol/L (21.0-32.0); Chloride 87 mmol/L (98-107); Estimated GFR (African America >60 (>=60 mL/min/1.73m^2); Estimated GFR (Non-African Ame >60 (>=60 mL/min/1.73m^2); Glucose 80 mg/dL (74-106); Sodium 129 mmol/L (136-145)
[2024-02-29 15:16] LABS: Potassium 2.8 mmol/L (3.5-5.1)
== END 2024-02-29 14:20 | disposition home or self-care (01) ==
LOC: LAB 14:21
PROVIDERS: PCP Nurse Practitioner; Visit Provider Internal Medicine Interventional Cardiology
DX: I11.9 Hypertensive heart disease without heart failure (principal)
CPT/HCPCS: 36415; 80048

== ENCOUNTER 2024-03-03 13:53 | Outpatient (OUT) | payer BC, SELFPAY ==
--- OUTSIDE RECORDS SUMMARY | 2024-03-03 14:11 | XMS_ITS | CCD ---
Author Organization [facility] CliniSyca Care Team Providers Care Hammer Shop Supervisor Name Role Phone JD, DR JAZMIN Fitzgerald Admitting Unavailable JD, DR JAZMIN Fitzgerald Attending Unavailable JD, DR JAZMIN Fitzgerald Primary Care Unavailable JD, DR JAZMIN Fitzgerald Consulting Unavailable JD, DR JAZMIN Fitzgerald Admitting Unavailable JD, DR JAZMIN Fitzgerald Attending Unavailable JD, DR JAZMIN Fitzgerald Primary Care Unavailable JD, DR JAZMIN Fitzgerald Consulting Unavailable JAZMIN MILES Primary Care Physician Jeramie, Nilda White Primary Care Physician MD Dada Callahan Attending Unavailable MD Dada Callahan Attending Unavailable Jeramie, NGUYỄN White Attending Unavailable Jeramie, PAPER COATERDon White Attending Unavailable Jeramie, PAPER COATER Nilda White Attending Unavailable Jeramie, PAPER COATER Nilda White Attending Unavailable MD Dada Callahan Attending Unavailable MD Dada Callahan Attending Unavailable MD Dada Callahan Attending Unavailable Jeramie, NGUYỄN White Admitting Unavailable Jeramie, PAPER COATER Nilda White Attending Unavailable MD Dada Callahan Admitting Unavailable MD Dada Callahan Attending Unavailable GARRET BLOUNT Attending Unavailable GARRET BLOUTN Attending Unavailable Allergies Allergy Classification Reported Allergen(s) Allergy Type Date of Onset Reaction(s) Facility (1 source) egg extract Drug Allergy 4 [facility] Repository (1 source) TheraNatal Drug allergy (disorder) 4 [facility] Repository (3 sources) Cefuroxime; Translations: [cefuroxime] Drug Allergy Unknown (qualifier value) [facility] (1 source) THERAGRAN; Translations: [THERAGRAN] Propensity to adverse reactions to drug (disorder) 3 [facility] Repository Medications Current Medications Medication Drug [...] spasm, # 30 tab(s), Refills(s) 1, [id number] 168, cm, 07/28/22 10:47:00 EDT, Height/Length Dosing, 67.1, kg, 07/28/22 10:47:00 EDT, Weight Dosing Start Date: 09/07/22 Status: Ordered fluticasone propionate 0.05 mg/actuat metered dose nasal spray (1 source) Corticosteroid Start: 07-28-2022 Flonase 0.05 mg/inh [place] 2 spray(s), Nasal, Daily, 16 gram, Refill(s) [...] BEDTIME, # 30 cap(s), Refills(s) 2, Pharmacy: [facility] [id number], 166, cm, 10/29/23 10:00:00 EDT, Height/Length Dosing, 66.4, kg, 10/29/23 10:00:00 EDT, Weight Dosing Start Date: 11/08/23 Status: Ordered hydrOXYzine hydrochloride 10 mg oral tablet (1 source) Antihistamine Start: 03-15-2023 take 2 tablets by mouth four times daily hydrOXYzine hydrochloride 10 mg Tab See Instructions, TAKE 2 TABLETS BY MOUTH 4 TIMES A DAY, # 720 tab(s), Refills(s) 1, Pharmacy: [id number], 166, cm, 02/02/23 15:55:00 EDT, Height/Length Dosing, 68.1, kg, 02/02/23 15:55:00 EDT, Weight Dosing Start Date: 03/15/23 Status: Ordered levothyroxine sodium 0.05 mg oral tablet (2 sources) l-Thyroxine Start: 09-02-2023 take 1 tablet by mouth once daily levothyroxine 50 mcg (0.05 mg) Tab See Instructions, TAKE 1 TABLET BY MOUTH EVERY DAY, # 90 tab(s), Refills(s) 1, Pharmacy: [id number], 166, cm, 06/30/23 15:12:00 EDT, Height/Length Dosing, [...] Daily, # 90 tab(s), Refills(s) 1, [id number], 166.6, cm, 09/21/22 9:53:00 EDT, Height/Length Dosing, 65.4, kg, 09/21/22 9:53:00 EDT, Weight Dosing Start Date: 09/21/22 Status: Ordered 24 hr metoprolol succinate 50 mg extended release oral tablet (1 source) beta-Adrenergic Alexander Start: 06-16-2023 take 1 tablet by mouth once daily Toprol XL 50 mg Tab-ER 50 mg = 1 tab(s), Oral, Daily, # 30 tab(s), Refills(s) 5, [id number], 166, cm, 02/02/23 15:55:00 EDT, Height/Length [...] day(s), # 14 cap(s), Refills(s) 0, [id number], 166, cm, 12/10/23 9:10:00 EDT, Height/Length [...] BEDTIME, # 90 tab(s), Refills(s) 0, Pharmacy: [facility] 78609, 166, cm, 10/29/23 10:00:00 EDT, Height/Length Dosing, [...] Active Problems Problem Classification Problem Date Documented Da te Episodic/Chronic Acute myocardial infarction (2 sources) Non-ST [...] atherosclerosis and other heart disease (3 sources) Coronary arteriosclerosis; Translations: [Atherosclerotic heart disease of eyak coronary artery without angina pectoris] Onset: 02-04-2023 01-19-2023 Chronic Disorders of lipid metabolism (1 source) Mixed hyperlipidemia 10-05-2022 Chronic Diverticulosis and diverticulitis (2 sources) Diverticulitis 07-28-2022 Chronic Essential hypertension (2 sources) Hypertensive disorder 07-28-2022 Chronic Fluid and electrolyte disorders (1 source) Hyponatremia 09-22-2022 Episodic Genitourinary symptoms and ill-defined conditions (2 sources) Dysuria; Translations: [Increased frequency of urination] 12-10-2023 Episodic Headache; including migraine (2 sources) Migraine 07-28-2022 Chronic Hypertension with complications and secondary hypertension (2 sources) Hypertensive heart disease without heart failure; Translations: [Hypertensive heart disease without heart failure] Onset: 02-14-2024 Chronic Malaise and fatigue (1 source) Other [...] Name Value Interpretation Reference Range Facil ity 36on 02-29-2024 36 Lab called with critical lab value on Potassium 2.[address] [facility] 36 Patient called this morning and states that she tried to take the Chlorthalidone you prescribed and is having dizziness, constipation and her heart races upon standing. She has stopped the medication at this point and wanted you to know. Normal [facility] Office Visiton 02-14-2024 Follow-up visit [id number] Scott Francis 1960 F Date Provider Department Center 02/14/2024 271-GARRET BLOUNT [facility] Family History Problem Relation Age of Onset No Known Problems Mother No Known Problems Father Family Status - Relation Status Age at Mother Father Level of Service:14783 [place] OFFICE/OUTPATIENT ESTABLISHED MOD MDM [address] [facility] Reminderson 12-13-2023 Reminders Reminders -- From: Nilda Hernandez To: [facility] - Clinical; Sent: 12/13/2023 11:53:01 EDT Show up: 12/13/2023 11:53:00 EDT Subject: Ambulatory Reminder Due Date/Time: 12/14/2023 11:52:00 EDT urine culture was positive for e coli. she is on correct antibiotic. encourage her to finish all antibiotics. Results: Date Result Type Ind Result Name 12/10/2023 9:39 EDT MBO POS Urine Culture -- From: Luh Rivas M.A. ([facility] - Clinical) To: Nilda Hernandez; Sent: 12/13/2023 16:12:42 EDT Show up: 12/13/2023 16:12:00 EDT Subject: RE: Ambulatory Reminder Spoke to patient verbalized the message below Normal [facility] Reminders Reminders -- From: Nilda Hernandez To: [facility] - Clinical; Sent: 12/13/2023 11:53:01 EDT Show up: 12/13/2023 11:53:00 EDT Subject: Ambulatory Reminder Due Date/Time: 12/14/2023 11:52:00 EDT urine culture was positive for e coli. she is on correct antibiotic. encourage her to finish all antibiotics. Results: Date Result Type Ind Result Name 12/10/2023 9:39 EDT MBO POS Urine Culture Normal [facility] C Urineon 12-12-2023 Bacteria identified Cx Nom (U) Microbiology PROCEDURE: Urine Culture [R1] SOURCE: U CleanCatch BODY SITE: COLLECTED DATE/TIME: 12/10/2023 09:39 EDT RECEIVED DATE/TIME: 12/10/2023 17:44 EDT START DATE/TIME: 12/10/2023 17:44 EDT FREE TEXT SOURCE: Nilda Hernandez, Nilda White FINAL REPORTS Final Report [] Verified Date/Time: 12/12/2023 09:18 EDT 75,000 cfu/ml Escherichia coli SUSCEPTIBILITY RESULTS LEGEND: S=Susceptible, N/R=Not Reported, Blank=Data not available, or drug not advisable or tested, I=Intermediate, ESBL=Extended spectrum beta-lactamase, R=Resistant, TFG=Thymidine-depen dent strain, JEFRY=Beta-lactamase positive, SHELLI=mcg/m;(mg/L), S*=Predicted susceptible interp, [...] Locations R1: This test was performed at: [facility], [address] [place] [address], [facility]- , , Normal [facility] Comment on above: Performed By: #### 2 [id number] #### [facility] [address] [place] [address] Family Medicine Office/Clini c Noteon 12-10-2023 Family [...] Daily, # 30 tab(s), Refills(s) 0, [id number] 166, cm, 12/10/23 9:10:00 EDT, Height/Length Dosing, 67, kg, 12/10/23 9:10:00 EDT, Weight Dosing nitrofurantoin, 100 mg = 1 cap(s), Oral, BID, X 7 day(s), # 14 cap(s), Refills(s) 0, [id number], 166, cm, 12/10/23 9:10:00 EDT, Height/Length Dosing, 67, kg, 12/10/23 9:10:00 EDT, Weight Dosing 4. Smoker (F17.200: Nicotine dependence, unspecified, uncomplicated) consider not smoking Ordered: meloxicam, 15 mg = 1 tab(s), Oral, Daily, # 30 tab(s), Refills(s) 0, [id number], 166, cm, 12/10/23 9:10:00 EDT, Height/Length Dosing, 67, kg, 12/10/23 9:10:00 EDT, Weight Dosing nitrofurantoin, 100 mg = 1 cap(s), Oral, BID, X 7 day(s), # 14 cap(s), Refills(s) 0, [id number], 166, cm, 12/10/23 9:10:00 EDT, Height/Length Dosing, 67, kg, 12/10/23 9:10:00 EDT, Weight Dosing 5. BMI 24.0-24.9, adult (Z68.24: Body mass index [BMI] 24.0-24.9, adult) BMI education given Ordered: meloxicam, 15 mg = 1 tab(s), Oral, Daily, # 30 tab(s), Refills(s) 0, [id number], 166, cm, 12/10/23 9:10:00 EDT, Height/Length Dosing, 67, kg, 12/10/23 9:10:00 EDT, Weight Dosing nitrofurantoin, 100 mg = 1 cap(s), Oral, BID, X 7 day(s), # 14 cap(s), Refills(s) 0, Pharmacy: [id number], 166, cm, [...] citalopram 4 (more content not included)... Normal [facility] Comment on above: Result Comment: Elec [...] 30 tab(s), Refills(s) 1, [id number], 166, cm, 10/29/23 10:00:00 EDT, Height/Length Dosing, 66.4, kg, 10/29/23 10:00:00 EDT, Weight Dosing 2. Menopause (Z78.0: Asymptomatic menopausal state) see above Ordered: oxybutynin, 5 mg = 1 tab(s), Oral, Daily, # 30 tab(s), Refills(s) 1, [id number], 166, cm, 10/29/23 10:00:00 EDT, Height/Length Dosing, 66.4, kg, 10/29/23 10:00:00 EDT, Weight Dosing 3. Overactive bladder (N32.81: Overactive bladder) will order oxybutnin. RTC 5 weeks to follow up on symptoms and to discuss knee pain Ordered: oxybutynin, 5 mg = 1 tab(s), Oral, Daily, # 30 tab(s), Refills(s) 1, [facility]: [id number], 166, cm, 10/29/23 10:00:00 EDT, Height/Length Dosing, 66.4, kg, 10/29/23 10:00:00 EDT, Weight Dosing 4. BMI 24.0-24.9, adult (Z68.24: Body mass index [BMI] 24.0-24.9, adult) BMI education given Ordered: oxybutynin, 5 mg = 1 tab(s), Oral, Daily, # 30 tab(s), Refills(s) 1, Pharmacy: [facility] #[id number], 166, cm, 10/29/23 10:00:00 EDT, Height/Length Dosing, 66.4, kg, 10/29/23 10:00:00 EDT, Weight Dosing 5. Smoker (F17.200: Nicotine dependence, unspecified, uncomplicated) consider not smoking Ordered: oxybutynin, 5 mg = 1 tab(s), Oral, Daily, # 30 tab(s), Refills(s) 1, Pharmacy: [facility] #[id number], 166, cm, 10/29/23 10:00:00 EDT, Height/Length [...] virus vaccine, inactivated 03/09/2022 Recorded SARS-CoV-2 (COVID-19) [id number] 03/09/2022 Recorded SARS-CoV-2 (COVID-19) mRNA BNT-162b2 vax 04/17/2021 Recorded SARS-CoV-2 (COVID-19) mRNA BNT-162b2 vax 08/15/2020 Recorded SARS-CoV-2 (COVID-19) mRNA BNT-162b2 vax 07/25/2020 Recorded Normal [facility] Comment on above: Result Comment: Elec tronically Signed By: Nilda Hernandez\.br\Date and Time Signed: 10/29/23 10:40 EDT Office Visiton 07-14-2023 Follow-up visit [id number] Scott Francis 1960 F Date Provider Department Center 07/14/2023 Shi-GARRET BLOUNT Family History Problem Relation Age of Onset No Known Problems Mother No Known Problems Father Family Status - Relation Status Age at Mother Father Level of Service:47339 [place] OFFICE/OUTPATIENT ESTABLISHED LOW MDM [address] [facility] Lab Reportson 07-13-2023 Lab Reports [id number] 8D#1.00TIFF Normal [facility] 36on 07-12-2023 36 Regarding lab results from 07/09/2023: MD Eli Michael MA Please [...] 07/14/2023 at 10am. She verbalized understanding. Normal [facility] Ambulatory Visit Summaryon 0 06-30-2023 Ambulatory [...] Refills: 2 Pickup at [facility]/pharmacy #[id number] Unchanged aspirin (Aspirin Low Dose 81 mg [...] Pharmacy Information [facility] #[id number]: [address], [place] [id number] [phone] Allergies cefuroxime (Unknown) Problems Ongoing - Any [...] for choosing us for your care. Pepito [facility] Family Medicine Office/Clini c Noteon 06-30-2023 [...] 30 cap(s), Refills(s) 2, [id number], 166, cm, 06/30/23 15:12:00 EDT, Height/Length Dosing, 69.5, kg, 06/30/23 15:12:00 EDT, Weight Dosing 2. BMI 25.0-25.9,adult (Z68.25: Body mass index [BMI] 25.0-25.9, adult) BMI education complete Ordered: gabapentin, 300 mg = 1 cap(s), Oral, Once a day (at bedtime), # 30 cap(s), Refills(s) 2, [facility]: [id number], 166, cm, 06/30/23 15:12:00 EDT, Height/Length [...] virus vaccine, inactivated 03/09/2022 Recorded SARS-CoV-2 (COVID-19) [id number].[id number] 03/09/2022 Recorded SARS-CoV-2 (COVID-19) mRNA BNT-162b2 vax 04/17/2021 Recorded SARS-CoV-2 (COVID-19) mRNA BNT-162b2 vax 08/15/2020 Recorded SARS-CoV-2 (COVID-19) mRNA BNT-162b2 vax 07/25/2020 Recorded Normal [facility] Comment on above: Result Comment: Elec [...] Lab orders mailed to her home. Normal [facility] Orders Onlyon 05-17-2023 Orders Only [id number] IndigoScott wills Christopher 1960 F Date Provider Department Center 05/17/2023 GUILLE GENAO DWIGHT [facility] Family History Problem Relation Age of Onset No Known Problems Mother No Known Problems Father Family Status - Relation Status Age at Mother Father Normal [facility] Consultation Noteon 03-25-20 23 Consultation Note [id number] 5E#1.00TIFF Normal [facility] Pulmonary Function Testson 05-04-2022 Pulmonary Function Tests [id number] 73#1.00TIFF Normal [facility] RAD - CT Reporton 03-01-2023 RAD - CT Report [id number] 49#1.00TIFF Normal [facility] Physician Orderon 02-12-2023 Physician Order [id number] D8#1.00TIFF Normal [facility] Physician Referralon 023 Physician Referral [id number] 321#1.00TIFF Normal [facility] Ambulatory Visit Summaryon 1 Ambulatory Visit [...] AM EST With: Dada Callahan MD Where: [facility] Invalid Interpretation Code COPD without exacerbation [facility] Family Medicine Office/Clini c Noteon 02-02-2023 Family Medicine [...] virus vaccine, inactivated 03/09/2022 Recorded SARS-CoV-2 (COVID-19) [id number].[id number] 03/09/2022 Recorded SARS-CoV-2 (COVID-19) mRNA BNT-162b2 vax 04/17/2021 Recorded SARS-CoV-2 (COVID-19) mRNA BNT-162b2 vax 08/15/2020 Recorded SARS-CoV-2 (COVID-19) mRNA BNT-162b2 vax 07/25/2020 Recorded Normal [facility] Comment on above: Result Comment: Elec [...] another condition. The patient was admitted to [facility] due to chest pain. The onset of symptoms, which included chest pain, dyspnea, and belching, occurred at 6:00 AM on January 13, 2023. Despite the severity of these symptoms, the patient waited 2 days before seeking medical attention and was subsequently transferred to [place]. The patient was discharged on 01/15/2023 and has a follow-up appointment scheduled with a investment manager on 02/04/2023. In addition to the cardiac [...] reconciled appropriately. Patients will follow up with [facility] cardiology. 2. CAD (coronary artery disease) (I25.10: Atherosclerotic heart disease of eyak coronary artery without angina pectoris) Patient is [...] with voice recognition artificial intelligence software, specifically [employer], [employer] and or [employer]. Substitutions may have occurred due to the inherent limitations of voice recognition and artificial intelligence software. Documentation services were performed after patient or guardian consented to allow [employer] to record this visit. JOSÉ plant technical specialist and provider reviewed before signing. JOSÉ: [...] 15 mg Tab, (more content not included)... [facility] Comment on above: Result Comment: Elec tronically Signed By: Dada Callahan MD\.br\Date and Time Signed: 01/27/23 09:43 EDT\.br\Electronically Co-Signed By: Neelam Gerardo\.br\Date and Time Co-Signed: 01/19/23 18:43 EDT Outside [facility] Correspo ndenceon 01-19-2023 Outside [facility] Correspondence [id number] 30#1.00CD:127 [facility] Patient Educationon 01-20-20 23 Patient Education Nutrition BMI for Adults [...] numbers. This can be done either in [place] ([place] or metric measurements. Note that charts and online BMI calculators are available to help you find your BMI quickly and easily without having to do these calculations yourself. To calculate your BMI in [place] ([place] measurements: 1. Measure your weight in [...] for Disease Control and Prevention: www.cdc.gov ? [place] Heart Association: www.heart.org ? National Heart, Lung, and Blood [place]: www.nhlbi.nih.gov Summary ? Body mass index (BMI) is a number that is calculated from a person's weight and height. ? BMI may help estimate how much of a person's weight is composed of fat. BMI can help identify those who may be at higher risk for certain medical problems. ? BMI can be measured using Qatari measurements or metric measurements. ? BMI charts are used to identify whether you are underweight, normal weight, overweight, or obese. This information is not intended to replace advice given to you by your health care provider. Make sure you discuss any questions you have with your health care provider. Document Revised: 12/27/2019 Document Reviewed: 11/03/2019 [employer] Patient Education ? 2022 [employer] [facility] 01-19-2023 [facility] [id number] 37#1.00CD:127 [facility] [id number] B#1.00CD:127 [facility] Family Medicine Office/Clini c Noteon 01-06-2023 Family Medicine Office/Clinic Note HPI Staff Villar is a 62 year old female presenting [...] with voice recognition artificial intelligence software, specifically [employer], [employer] and or [employer]. Substitutions may have occurred due to the inherent limitations of voice recognition and artificial intelligence software. ATTESTATION: Documentation services were performed after patient or guardian consented to allow [employer] to record this visit. JOSÉ plant technical specialist and provider reviewed before signing. JOSÉ: Krystle Gamez. Follow-up No qualifying data available Problem List/Past Medical History Ongoing Alcohol abuse Diverticulitis Dizziness Fibromyalgia Hypertension Hyponatremia Hypothyroidism Macrocytosis Migraines Mixed hyperlipidemia Barriga neuroma Neck pain Seasonal allergies Historical No qualifying data Procedure/Surgical History Cataract, Colonoscopy, Vaginal hysterectomy. Medications atorvastatin 20 mg Tab, See Instructions, Not taking bisoprolol-hydrochl orothiazide 10 mg-6.25 mg Tab, 1 tab(s), Oral, [...] or more cigar (more content not included)... [facility] Comment on above: Result Comment: [...] or concerns atorvastatin (atorvastatin 20 mg Tab) bisoprolol-hydrochl orothiazide (bisoprolol-hydroch lorothiazide 10 mg-6.25 mg Tab) citalopram (citalopram 40 [...] AM EST With: Dada Callahan MD Where: [facility] Auto Diffon 01-04-2023 Basophils/100 WBC (Bld) 1.0 % Normal 0.0-2.0 [facility] Comment on above: Order Comment: Order Added by Discern Expert. Performed By: #### 1 [id number], [id number], 8871174, [id number] ####[address] [place] [address] Basophils/Leukocytes Auto (Bld) [Pure # fraction] 0.1 E9/L Normal 0.0-0.2 [facility] Comment on above: Order Comment: Order Added by Discern Expert. Performed By: #### 1 [id number], [id number], 4646805, 7188851 ####[address] [address] Eosinophils/100 WBC (Bld) 1.8 % Normal 0.0-8.0 [facility] Comment on above: Order Comment: Order Added by Discern Expert. Performed By: #### 1 [id number], [id number], 0864343, [id number] ####[address] [address] Eosinophils/Leukocyte s Auto (Bld) [Pure # fraction] 0.1 E9/L Normal 0.0-0.5 [facility] Comment on above: Order Comment: Order Added by Discern Expert. Performed By: #### 1 [id number], 7389681, 6978557, 7698023 ####[address] [address] Lymphocytes/100 WBC (Bld) 27.6 % Normal 14.0-50.0 [facility] Comment on above: Order Comment: Order Added by Discern Expert. Performed By: #### 1 [id number], 0834892, 0109544, [id number] ####[address] [address] Lymphocytes/Leukocyte s Auto (Bld) [Pure # fraction] 2.3 E9/L Normal 1.0-4.0 [facility] Comment on above: Order Comment: Order Added by Discern Expert. Performed By: #### 1 [id number], 8222847, 6621025, 8447148 ####[address] [address] Monocytes/100 WBC (Bld) 7.3 % Normal 4.0-14.0 [facility] Comment on above: Order Comment: Order Added by Discern Expert. Performed By: #### 1 [id number], 4575908, 7140500, 7544028 ####[address] [place] [address] Monocytes/Leukocytes Auto (Bld) [Pure # fraction] 0.6 E9/L Normal 0.2-1.0 [facility] Comment on above: Order Comment: Order Added by Discern Expert. Performed By: #### 1 [id number], 7175918, 2634601, 5258437 ####[address] [place] [address] Neutrophils/100 WBC (Bld) 62.3 % Normal 36.0-75.0 [facility] Comment on above: Order Comment: Order Added by Discern Expert. Performed By: #### 1 [id number], 4996293, 4079697, 5032990 ####[address] [address] Neutrophils/Leukocyte s Auto (Bld) [Pure # fraction] 5.1 E9/L Normal 2.0-7.5 [facility] Comment on above: Order Comment: Order Added by Discern Expert. Performed By: #### 1 [id number], 8958478, 6112447, 6385239 ####[address] [address] CBC w/ Auto Diffon 3 Erythrocyte distribution width (RBC) [Ratio] 13.3 % Normal 10.9-14.2 [facility] Comment on above: Performed By: #### 1 [id number], 6680347, 4757174, 6831431 ####[address] [place] [address] Hematocrit (Bld) [Volume fraction] 42.5 % Normal 34.0-46.0 [facility] Comment on above: Performed By: #### 1 1578910, 0245349, 3521040, 9504995 ####[address] [address] Hemoglobin (Bld) [Mass/Vol] 14.8 g/dL Normal 12.0-16.0 [facility] Comment on above: Performed By: #### 1 3365317, 8480896, 9368076, 7770818 ####[address] [address] MCH (RBC) [Entitic mass] 35.3 pg High 27.0-34.0 [facility] Comment on above: Performed By: #### 1 3333096, 3422375, 3309834, 9527240 ####[address] [address] MCHC (RBC) [Mass/Vol] 34.9 g/dL Normal 31.4-36.0 [facility] Comment on above: Performed By: #### 1 [id number], 2728535, 2340214, 9205364 ####[place] [address] MCV (RBC) [Entitic vol] 101.2 fL High 80.0-100.0 [facility] Comment on above: Performed By: #### 1 7965323, 5550351, 0944973, 5749175 ####[address] [address] Platelet mean volume (Bld) [Entitic vol] 7.2 fL Normal 6.4-10.8 [facility] Comment on above: Performed By: #### 1 0560143, 5968379, 4667903, 4696418 ####[address] [address] Platelets (Bld) [#/Vol] 255.0 E9/L Normal 150.0-500.0 [facility] Comment on above: Performed By: #### 1 [id number], 8144141, [id number], 2074104 ####[address] [address] RBC (Bld) [#/Vol] 4.2 E12/L Low 4.3-5.9 [facility] Comment on above: Performed By: #### 1 [id number], 1789495, 3766940, 4864833 ####[address] [place] [address] WBC corrected for nucl RBC Auto (Bld) [#/Vol] 8.2 E9/L Normal 4.0-11.0 [facility] Comment on above: Performed By: #### 1 [id number], 9054645, 9743749, 2832340 ####[address] [address] CMPon 01-04-2023 Albumin [Mass/Vol] 4.1 g/dL Normal 3.3-5.0 [facility] Comment on above: Performed By: #### 1 [id number], 2949464, 7230789, 3085232 ####[address] [address] Albumin/Globulin (S) [Mass conc ratio] 1.2 Normal 1.1-2.2 [facility] Comment on above: Performed By: #### 1 0501047, 3746894, 7170290, 8363412 ####[address] [place] [address] ALP [Catalytic activity/Vol] 66 Int._Unit/L Normal 21-98 [facility] Comment on above: Performed By: #### 1 9951813, 4357359, 6942217, 6471076 ####[address] [place] [address] ALT No additional P-5'-P [Catalytic activity/Vol] 20 Int._Unit/L Normal 6-46 [facility] Comment on above: Performed By: #### 1 1172294, 7916544, 1321433, 8729259 ####[address] [place] [address] Anion gap [Moles/Vol] 12 mmol/L Normal 6-16 [facility] Comment on above: Performed By: #### 1 9486534, 5176288, 5709267, 3427759 ####[address] [place] [address] AST [Catalytic activity/Vol] 34 Int._Unit/L Normal 5-43 [facility] Comment on above: Performed By: #### 1 3752234, 7657215, 1566513, 6052045 ####[facility] [address] [place] [address] Bilirubin [Mass/Vol] 0.4 mg/dL Normal 0.0-1.1 [facility] Comment on above: Performed By: #### 1 1057673, 0065890, 6697874, 9898479 ####[facility] [address] [place] [address] Calcium [Mass/Vol] 9.3 mg/dL Normal 8.9-11.1 [facility] Comment on above: Performed By: #### 1 5497476, 6326668, 8871440, 6198665 ####[address] [place] [address] Chloride [Moles/Vol] 99 mmol/L Low 101-111 [facility] Comment on above: Performed By: #### 1 0006892, 2446434, 6356288, 4616599 ####[facility] [address] [place] [address] CO2 [Moles/Vol] 28 mmol/L Normal 21-31 [facility] Comment on above: Performed By: #### 1 3887364, 7079793, 6322261, 8431266 ####[facility] [address] [place] [address] Creatinine [Mass/Vol] 0.6 mg/dL Normal 0.5-1.3 [facility] Comment on above: Performed By: #### 1 4328892, 8889202, 8132490, 0225173 ####[facility] [address] [place] [address] Globulin (S) [Mass/Vol] 3.5 g/dL Normal 1.4-4.0 [facility] Comment on above: Performed By: #### 1 4117250, 2057451, 5823497, 8647606 ####[facility] [address] [place] [address] Glucose [Mass/Vol] 120 mg/dL Normal 55-199 [facility] Comment on above: Result Comment: If t his glucose result represents a fasting glucose, interpretation should refer to the following reference range: 55-99 mg/dL Performed By: #### 1 [id number], 6738526, 0272046, 7687738 ####[facility] [address] [place] [address] Potassium [Moles/Vol] 4.2 mmol/L Normal 3.5-5.3 [facility] Comment on above: Performed By: #### 1 4221617, 5675076, 2610496, 9808709 ####[facility] [address] [place] [address] Protein [Mass/Vol] 7.6 g/dL Normal 6.0-7.8 [facility] Comment on above: Performed By: #### 1 5421338, 8070174, 3581721, 4672770 ####[facility] [address] [place] [address] Sodium [Moles/Vol] 135 mmol/L Normal 135-145 [facility] Comment on above: Performed By: #### 1 7497416, 8223372, 0730272, 7734415 ####[facility] [address] [place] [address] Urea nitrogen [Mass/Vol] 8 mg/dL Normal 5-21 [facility] Comment on above: Performed By: #### 1 7633650, 6836118, 4456433, 3874274 ####[facility] [address] [place] [address] Urea nitrogen/Creatinine [Mass ratio] 13 No Units Normal 10-20 [facility] Comment on above: Performed By: #### 1 2446311, 9306775, 4303991, 6354972 ####[facility] [address] [place] [address] Consent for Flu Vaccineon Consent for Flu Vaccine [id number] 55#1.00CD:127 Normal [facility] eGFRon 01-04-2023 GFR/1.73 sq M.predicted among non-blacks MDRD (S/P/Bld) [Vol rate/Area] 102 mL/min/1.73 m2 Normal >=59 [facility] Comment on above: Order Comment: Order added by Discern Expert. Result Comment: Ict Business Analyst kandice kidney disease could be indicated at eGFR's of less than 60 mL/min/1.73m2. Kidney failure is indicated at less than 15 mL/min/1.73m2. Performed By: #### 1 [id number], 0285680, 6356388, 5523744 ####[facility] [address] [place] [address] CHEMISTRYOrdered By: SYSTEM SYSTEM on 09-21-2022 Albumin [...] 16 mmol/L Normal 6 - 16 mEq/L [facility] Remisol AST [Catalytic activity/Vol] 31 [iU]/d Normal [...] [Mass/Vol] 0.8 mg/dL Normal 0.5 - 1.3 mg/d L [facility] Remisol GFR/1.73 sq M.predicted among non-blacks [...] Normal 0.0 - 8.0 % [facility] HemeAutoSS Eosinophils/Leukocyte s Auto (Bld) [Pure # fraction] 0.1 E9/L Normal 0.0 - 0.5 E9/L [facility] HemeAutoSS Lymphocytes/100 WBC (Bld) 24.6 % Normal 14.0 - 50.0 % [facility] HemeAutoSS Lymphocytes/Leukocyte s Auto (Bld) [Pure # fraction] 2.0 E9/L Normal 1.0 - 4.0 E9/L [facility] HemeAutoSS Monocytes/100 WBC (Bld) 5.8 % Normal 4.0 - 14.0 % [facility] HemeAutoSS Monocytes/Leukocytes Auto (Bld) [Pure # fraction] 0.5 E9/L Normal 0.2 - 1.0 E9/L [facility] HemeAutoSS Neutrophils/100 WBC (Bld) 67.1 % Normal 36.0 - 75.0 % [facility] HemeAutoSS Neutrophils/Leukocyte s Auto (Bld) [Pure # fraction] 5.5 E9/L [...] 4.4 E12/L Normal 4.3 - 5.9 E12/L [facility] HemeAutoSS WBC corrected for nucl RBC Auto (Bld) [#/Vol] 8.2 E9/L Normal 4.0 - 11.0 E9/L [facility] HemeAutoSS CBC AUTO DIFFon 10-09-2021 BASO # 0.1 103/ul Normal 0.0-0.1 [facility] Comment on above: Performed By: #### C BC #### [facility] [address] [place] [address] Dr. Yehuda Reese Basophils/100 WBC (Bld) 0.8 % Normal 0.2-2.0 [facility] Comment on above: Performed By: #### C BC #### [facility] [address] [place] [address] Dr. Yehuda Reese EO # 0.1 103/ul Normal 0.0-0.7 [facility] Comment on above: Performed By: #### C BC #### [facility] [address] [place] [address] Dr. Yehuda Reese Eosinophils/100 WBC (Bld) 1.7 % Normal 0.9-7.0 [facility] Comment on above: Performed By: #### C BC #### [facility] [address] [place] [address] Dr. Yehuda Reese Erythrocyte distribution width (RBC) [Ratio] 12.0 % Normal 11.0-15.0 [facility] Comment on above: Performed By: #### C BC #### [facility] [address] [place] [address] Dr. Yehuda Reese Hematocrit (Bld) [Volume fraction] 44.0 % Normal 36.0-48.0 [facility] Comment on above: Performed By: #### C BC #### [facility] [address] [place] [address] Dr. Yehuda Reese Hemoglobin (Bld) [Mass/Vol] 15.1 g/dL Normal 12.0-16.0 [facility] Comment on above: Performed By: #### C BC #### [facility] [address] [place] [address] Dr. Yehuda Reese IG # 0.02 10e3/ul Normal 0.00-0.03 [facility] Comment on above: Performed By: #### C BC #### [facility] [address] [place] [address] Dr. Yehuda Reese IG % 0.2 % Normal 0.0-0.5 [facility] Comment on above: Performed By: #### C BC #### [facility] [address] [place] [address] Dr. Yehuda Reese LYMPH # 3.0 103/ul Normal 1.2-3.8 [facility] Comment on above: Performed By: #### C BC #### [facility] [address] [place] [address] Dr. Yehuda Reese Lymphocytes/100 WBC (Bld) 34.9 % Normal 20.5-60.0 [facility] Comment on above: Performed By: #### C BC #### [facility] [address] [place] [address] Dr. Yehuda Reese MANUAL DIFF REQ NO Normal [facility] Comment on above: Performed By: #### C BC #### [facility] [address] [place] [address] Dr. Yehuda Reese MCH (RBC) [Entitic mass] 34.6 pg Critically high 26.7-34.0 [facility] Comment on above: Performed By: #### C BC #### [facility] [address] [place] [address] Dr. Yehuda Reese MCHC (RBC) [Mass/Vol] 34.3 g/dL Normal 29.9-35.2 [facility] Comment on above: Performed By: #### C BC #### [facility] [address] [place] [address] Dr. Yehuda Reese MCV (RBC) [Entitic vol] 100.7 fL Critically high 81.0-99.0 [facility] Comment on above: Performed By: #### C BC #### [facility] [address] [place] [address] Dr. Yehuda Reese MONO # 0.5 103/ul Normal 0.3-0.8 [facility] Comment on above: Performed By: #### C BC #### [facility] [address] [place] [address] Dr. Yehuda Reese Monocytes/100 WBC (Bld) 6.0 % Normal 1.7-12.0 [facility] Comment on above: Performed By: #### C BC #### [facility] [address] [place] [address] Dr. Yehuda Reese NEUT # 4.8 103/ul Normal 1.4-6.5 [facility] Comment on above: Performed By: #### C BC #### [facility] [address] [place] [address] Dr. Yehuda Reese Neutrophils/100 WBC (Bld) 56.4 % Normal 43.0-75.0 [facility] Comment on above: Performed By: #### C BC #### [facility] [address] [place] [address] Dr. Yehuda Reese Platelet mean volume (Bld) [Entitic vol] 8.7 fL Critically low 9.5-13.5 [facility] Comment on above: Performed By: #### C BC #### [facility] [address] [place] [address] Dr. Yehuda Reese PLT 237 103/ul Normal 150-450 [facility] Comment on above: Performed By: #### C BC #### [facility] [address] [place] [address] Dr. Yehuda Reese RBC 4.37 106/ul Normal 4.20-5.40 [facility] Comment on above: Performed By: #### C BC #### [facility] [address] [place] [address] Dr. Yehuda Reese WBC 8.5 103/ul Normal 4.0-11.0 [facility] Comment on above: Performed By: #### C BC #### [facility] [address] [place] [address] Dr. Yehuda Reese FREE T3on 10-09-2021 FREE T3 2.65 pg/mlL Normal 2.18-3.98 [facility] Comment on above: Performed By: #### F T3, TSH #### [facility] [address] [address] [address] Yehuda Reese FREE T4on 10-09-2021 Free T4 [Mass/Vol] 1.17 ng/dL Normal 0.76-1.[address] [facility] Comment on above: Performed By: #### F T4 #### [facility] [address] [address] [address] Yehuda Reese TSHon 10-09-2021 TSH 0.379 uIU/mL Normal 0.358-3.[address] [facility] Comment on above: Performed By: #### F T3, TSH #### [facility] [address] [address] [address] Yehuda Reese Covid-19 PCR (CVDTB)on 02-17 SARS-CoV-2 (COVID-19) RNA HENRY+probe Ql (Unsp spec) Not detected Normal NOT DETECTED [facility] Comment on above: Result Comment: This test is not yet approved or cleared by the [place] FDA. When there are no FDA-approved or cleared tests available, and other criteria are met, FDA can make tests available under an emergency access mechanism called an Emergency Use Authorization (EUA). The EUA for this test is supported by the [place] of Health and Human Service's (HHS's) declaration [...] SARS-CoV-2. Performed By: #### C VDTBH #### [facility] [address] [address] [address] Yehuda Reese Encounters Encounter Date Encounter Type Care Provider Facility Start: 02-14-2024 End: 02-14-2024 ambulatory AB [facility] Start: 12-10-2023 End: 12-10-2023 Lab Drop off Nilda L Jeramie [facility] Start: 12-10-2023 End: 12-10-2023 ambulatory PAPER COATER Nilda L Jeramie [place] Start: 12-03-2023 End: 12-03-2023 ambulatory PAPER COATER Nilda L Jeramie Facility: [facility] Start: 10-29-2023 End: 10-29-2023 ambulatory PAPER COATER Nilda L Jeramie Facility: [facility] Start: 07-14-2023 End: 07-14-2023 ambulatory AB [facility] Start: 06-30-2023 End: 06-30-2023 ambulatory PAPER COATER Nilda L Jeramie Facility: [facility] Start: 04-05-2023 End: 04-05-2023 ambulatory MD Dada Callahan Facility: [facility] Start: 02-02-2023 End: 02-02-2023 ambulatory MD Dada Callahan Facility: [facility] Start: 01-19-2023 End: 01-19-2023 ambulatory MD Dada Callahan Facility: [facility] Start: 01-04-2023 End: 01-04-2023 ambulatory MD Dada Callahan Facility:[facility] Start: 12-22-2022 End: 12-22-2022 ambulatory MD Dada Callahan Facility: [facility] Start: 09-21-2022 End: 09-21-2022 Lab Drop off Dada Callahan [facility] Start: 10-09-2021 End: 10-10-[address] JAZMIN MILES Facility:[facility] Start: 03-05-2021 End: 03-05-[address] JAZMIN MILES Facility:[facility] Procedures Date Procedure Procedure Detail Performing Clinician Cataract (disorder) Dada newman Colonoscopy Dada Callahan Comment on above: 2019 polyps, repeat 2021 Vaginal hysterectomy Dada Callahan Immunizations Immunization Date Immunization Notes Care Provider Ania toledo 03-24-2023 zoster vaccine recombinant Nilda Bobo [facility] 03-23-2023 pneumococcal 20-javi nt conjugate vaccine Nilda Cervantesab [facility] 01-04-2023 influenza, injectabl e, quadrivalent, preservative free Nilda Bobo [facility] 03-09-2022 influenza virus vaccine, unspecified formulation Dada Callahan [facility] 03-09-2022 SARS-CoV-2 (COVID-19 ) [id number] Dada Callahan [facility] 04-17-2021 SARS-CoV-2 (COVID-19 ) mRNA BNT-162b2 vamarylin Callahan [facility] 08-15-2020 SARS-CoV-2 (COVID-19 ) mRNA BNT-162b2 Lion Streetmarylin Callahan [facility] 07-25-2020 SARS-CoV-2 (COVID-19 ) mRNA BNT-162b2 comarylin Callahan [facility] Payers Date Payer Category Payer Unknown [id number] 2.16.84 [id number] 1960 Unknown [id number] 2.16.84 [id number] 1960 Unknown [id number] 2.16.8 [id number] 1960 Unknown [id number] 2.16.8 [id number] 1960 Unknown [id number] 2.16.8 [id number] 1960 Unknown [id number] 2.16.8 [id number] 1960 Unknown [id number] 2.16.8 [id number] 1960 Unknown [id number] 2.16.8 [id number] 1960 Unknown [id number] 2.16.8 [id number] 1960 Unknown [id number] 2.16.8 [id number] 1960 Unknown [id number] 2.16.8 [id number] 1960 Unknown [id number] 2.16.8 [id number] 1960 Unknown [id number] 2.16.8 [id number] 1959 Unknown [id number] Social History Date Type Detail Facility Start: 09-21-2022 Tobacco smoking status Heavy t obacco smoker (finding) [facility] Sex Assigned At Female [facility] Start: 12-10-2023 Tobacco smoking status Light t obacco smoker (finding) [facility] Progress note 02-14-2024 Note Date & Type Note Facility 02-14-2024 Note [facility] Cardiology Clinic Note Chief Complaint: Patient here for 6 mo follow up CAD, hypertension, and dyslipidemia. Last liver/lipid panel was drawn in October 2023. She's doing very well, and denies chest pain and SOB. Wants to know if there's anything she shouldn't take from cardiac standpoint for hot flashes. HPI: Scott Francis is a 64 y.o. female with a history of coronary artery disease, non-ST elevation myocardial infarction s/p PCI and Synergy drug-eluting stent placement here in routine follow-up Doing well from a symptom standpoint; no chest pain, no shortness of breath, no orthopnea, no paroxysmal tunnel dyspnea and no lower extremity edema Continues to drink quite heavily; she states that she had 6 alcoholic beverages yesterday Cardiology ROS: Review of Systems Cardiovascular: Positive for palpitations. Skin: Positive for dry skin. All other systems reviewed and are negative. Past Medical History She has a past medical history of Alcohol abuse, Anxiety, COPD (chronic obstructive pulmonary disease) ([facility]), Coronary artery disease, Hyperlipidemia, and Smoker. Surgical [...] if needed at bedtime., Disp: , Rfl: gabapentin (Neurontin) 300 mg capsule, Take 300 mg by mouth at bedtime., Disp: , Rfl: hydrOXYzine HCL (Atarax) 10 mg tablet, TAKE 2 TABLETS BY MOUTH 4 TIMES A DAY, Disp: , Rfl: icosapent ethyL (Vascepa) 0.5 [...] Rfl: 0 losartan (Cozaar) 50 mg tablet, TAKE 1 TABLET BY MOUTH EVERY DAY IN THE MORNING, Disp: 90 tablet, Rfl: 0 meloxicam (Mobic) 15 mg tablet, Take 15 mg by mouth in the morning., Disp: , Rfl: metoprolol succinate XL (Toprol-XL) 50 mg 24 hr tablet, Take 1 tablet (50 mg) by mouth once daily as directed. Do not crush or chew., Disp: 90 tablet, Rfl: 3 nicotine (Nicoderm CQ) 14 mg/24 hr patch, [...] 3 doses., Disp: 100 tablet, Rfl: 0 traZODone (Desyrel) 100 mg tablet, TAKE 1 TABLET BY MOUTH EVERYDAY AT BEDTIME, Disp: , Rfl: Last Recorded Vitals BP (!) 182/86 (BP Location: Right arm, Patient Position: Sitting) Pulse 75 Ht 1.676 m (5' 6 ) Wt 66.7 kg (147 lb) SpO2 98% BMI 23.73 kg/m??? Physical Examination: GENERAL: alert [...] pressure 151, HDL 43, LDL 39 Investigations Echocardiogram-[facility] Name: SCOTT FRANCIS Study Date: 01/13/2023 01:43 PM B/P: 145 mmHg/99 mmHg HR: 66 bpm Date of : 1960 Location: [facility] Height: 66 in. Age: 63 year(s) Patient Room : 3102 Weight: 132 lb. Gender: Female Patient Status: InPt BSA: 1.68 m2 Indication: ACS, elevated tr (more content not included)... [facility] Evaluation + Plan note 12-10-2023 Radiology Note Date & Type Note Facility 12-10-2023 Evaluation + Plan note Diagnostic Tests PendingUrine Culture 12/10/23 Future Scheduled TestsCT Chest, Low Dose Screening 02/02/23 [facility] Progress note 07-14-2023 Note Date & Type Note Facility 07-14-2023 Note [facility] Cardiology Clinic Note Chief Complaint: Patient here [...] abuse, Anxiety, COPD (chronic obstructive pulmonary disease) ([facility]), Coronary artery disease, Hyperlipidemia, and Smoker. Surgical [...] pressure 151, HDL 43, LDL 39 Investigations Echocardiogram-[facility] Name: SCOTT FRANCIS Study Date: 01/13/2023 01:43 PM B/P: 145 mmHg/99 mmHg HR: 66 bpm Date of : 1960 Location: [facility] Height: 66 in. Age: 63 year(s) [...] 55 % visual (more content not included)... [facility] Evaluation + Plan note Note Date & Type Note Facility Evaluation + Plan note Future Appointments Appointment Date:12/22/2022 01:00:00 PM Scheduled Provider:Dada Callahan MD Location:[facility] Appointment Type: Open [facility] Hospital course Narrative Note Date & Type Note Facility Hospital course Narrative No data available for this section [facility] Hospital Discharge instructions Note Date & Type Note Facility Hospital Discharge instructions No data available for this section [facility] Progress note Note Date & Type Note Facility Progress note No data available for this section [facility] Summary Purpose Family History No Family History Records Found No data available [...] and content) DATE CREATED AUTHOR 10/15/2021 [facility] DATE CREATED AUTHOR AUTHOR'S ORGANIZ ATION 12/11/2023 [facility] DATE CREATED AUTHOR AUTHOR'S ORGANIZ ATION 12/13/2023 [facility] DATE CREATED AUTHOR AUTHOR'S ORGANIZ ATION 12/14/2023 [facility] DATE CREATED AUTHOR AUTHOR'S ORGANIZ ATION 03/02/2024 [facility] Patient Care team informatio n (unrecognized section and content) Personnel Name: JAZMIN MILES MD Address: Address: [address] [place] [id number] Personnel Name: Nilda Hernandez Address: Address: [address] [place] [address]- FOR RECORDS PERTAINING TO PATIENTS WHO ARE [...] BE BASED ON THE PRIMARY CLINICAL RECORDS. [facility] [employer] [facility]. provides no warranty or guarantee of the accuracy or completeness of information in this document.
[2024-03-03 14:30] LABS: Anion Gap 12.3; BUN Creatinine Ratio 12.3; Calcium 9.2 mg/dL (8.5-10.1); Carbon Dioxide 29.5 mmol/L (21.0-32.0); Chloride 96 mmol/L (98-107); Estimated GFR (African America >60 (>=60 mL/min/1.73m^2); Estimated GFR (Non-African Ame >60 (>=60 mL/min/1.73m^2); Glucose 77 mg/dL (74-106); Potassium 3.8 mmol/L (3.5-5.1); Sodium 134 mmol/L (136-145)
== END 2024-03-03 13:54 | disposition home or self-care (01) ==
LOC: LAB 13:54
PROVIDERS: PCP Nurse Practitioner; Visit Provider Internal Medicine Interventional Cardiology
DX: E87.6 Hypokalemia (principal)
CPT/HCPCS: 36415; 80048

== ENCOUNTER 2024-08-22 12:04 | Emergency (ER) | payer BC, SELFPAY ==
[2024-08-22 12:13] VITALS: BP 210/98; PULSE 72; TEMP 36.6; O2SAT 96; BMI 24.2
--- NOTE | 2024-08-22 12:26 | ECG_ITS ---
[facility] Test Date: 2024-08-22 Pat Name: SCOTT FRANCIS Department: Room: - Gender: Female [employer]: : 1960 Requested By: [id number] Order Number: [id number] Reading MD: BUNNY BAILEY M.D. Measurements Intervals [place] Rate: 68 P: 68 UT: 176 QRS: 85 QRSD: 92 T: 70 QT: 424 QTc: 441 Interpretive Statements 1100 Sinus rhythm [address] depression 6220 Possible left atrial enlargement 9150 abnormal ECG Compared to ECG 01/16/2023 15:28:39 No significant changes Electronically Signed On 08-22-2024 16:55:23 EDT by BUNNY BAILEY M.D.
[2024-08-22 12:29] VITALS: BP 183/97; PULSE 69
[2024-08-22 12:45] LABS: Basophils Absolute Auto 0.1 10^3/uL (0.0-0.1); Basophils Percent Auto 0.7 % (0.2-2.0); Eosinophils Absolute Auto 0.1 10^3/uL (0.0-0.7); Eosinophils Percent Auto 1.1 % (0.9-7.0); Hematocrit 41.2 % (36.0-48.0); Hemoglobin 14.5 g/dL (12.0-16.0); Immature Granulocytes Abs Auto 0.02 10^3/uL (0.00-0.03); Immature Granulocytes Pct Auto 0.2 % (0.0-0.5); Lymphocytes Absolute Auto 2.5 10^3/uL (1.2-3.8); Lymphocytes Percent Auto 26.8 % (20.5-60.0); Mean Corpuscular HGB Conc 35.2 g/dL (29.9-35.2); Mean Corpuscular Hemoglobin 34.4 pg (26.7-34.0); Mean Corpuscular Volume 97.9 fL (81.0-99.0); Mean Platelet Volume 8.6 fL (9.5-13.5); Monocytes Absolute Auto 0.8 10^3/uL (0.3-0.8); Monocytes Percent Auto 8.2 % (1.7-12.0); Platelet Count 265 10^3/uL (150-450); Red Blood Count 4.21 10^6/uL (4.20-5.40); White Blood Count 9.5 10^3/uL (4.0-11.0)
[2024-08-22 12:59] LABS: Alanine Aminotransferase 32 U/L (14-59); Albumin Level 3.5 g/dL (3.4-5.0); Alkaline Phosphatase 72 U/L (46-116); Aspartate Amino Transferase 34 U/L (15-37); BUN Creatinine Ratio 17.2; Bilirubin Total 0.8 mg/dL (0.2-1.0); Carbon Dioxide 29.6 mmol/L (21.0-32.0); Chloride 102 mmol/L (98-107); Estimated GFR (African America >60 (>=60 mL/min/1.73m^2); Estimated GFR (Non-African Ame >60 (>=60 mL/min/1.73m^2); Globulin 3.5 g/dL; Glucose 96 mg/dL (74-106); Potassium 3.6 mmol/L (3.5-5.1); Sodium 140 mmol/L (136-145); Troponin I High Sensitivity 11.2 pg/mL (4.0-51.3)
[2024-08-22] MEDS: MECLIZINE HCL 12.5 MG TABLET 25 MG PO (14:14)
[2024-08-22 14:20] VITALS: BP 194/93; PULSE 73; O2SAT 96
--- NOTE | 2024-08-22 14:21 | ED.GENADUL1 ---
HPI HPI - General Adult General Chief complaint: Dizziness Stated complaint: WEAKNESS DIZZINESS Time Seen by Provider: 08/22/24 12:26 Source: patient Mode of arrival: Wheelchair Limitations: no limitations History of Present Illness HPI narrative: The patient is a 64-year-old female is coming to the ER after she noticed for the last 3 days that she had this dizziness, when the patient described the dizziness she mentioned that the feeling that the room spinning. She thinks that her neck is causing her to have this although she does not have any acute pain The patient denies any nausea vomiting chest pain or any other concerns Related Data Home Medications ?Medication ?Instructions ?Recorded ?Confirmed bisoprolol 10 1 tab PO DAILY 01/13/23 01/13/23 mg-hydrochlorothiazide 6.25 mg tablet cyclobenzaprine 10 mg tablet 10 mg PO BEDTIME PRN muscle spasm 01/13/23 01/13/23 levothyroxine 50 mcg tablet 50 mcg PO DAILY 01/13/23 01/13/23 meloxicam 15 mg tablet 15 mg PO DAILY 01/13/23 01/13/23 Previous Rx's ?Medication ?Instructions ?Recorded albuterol sulfate 90 mcg/actuation 2 inh inhalation Q6H PRN shortness 01/16/23 aerosol inhaler (ProAir HFA) of breath or wheezing #6.7 grams meclizine 25 mg tablet 25 mg PO TID PRN motion sickness 08/22/24 #20 tabs Allergies Allergy/AdvReac Type Severity Reaction Status Date / Time No Known Drug Allergies Allergy Verified 08/22/24 12:13 Opioid HPI Opioid Management Most Recent Opioid Data: Last Pain Scale 3 01/13/23, 09:51 Review of Systems ROS Status of ROS 10 or more systems reviewed and unremarkable except as noted in history and below [facility] Medical History (Updated 08/22/24 @ 15:07 by Gissel Samson MD) History of TMJ syndrome ?Z87.39 - Personal history of other diseases of the musculoskeletal system and connective tissue (ICD-10) History of hypothyroidism ?Z86.39 - Personal history of other endocrine, nutritional and metabolic disease (ICD-10) History of high cholesterol ?Z86.39 - Personal history of other endocrine, nutritional and metabolic disease (ICD-10) Hypertension ?I10 - Essential (primary) hypertension (ICD-10) Surgical History (Updated 01/16/23 @ 15:05 by Ramon Woodruff) History of heart artery stent ?Z95.5 - Presence of coronary angioplasty implant and graft (ICD-10) Hx of cardiac catheterization ?Z98.890 - Other specified postprocedural states (ICD-10) Social History Smoking status: Heavy tobacco smoker Little interest or pleasure in doing things: not at all Feeling down, depressed, or hopeless: not at all Exam Narrative Exam Narrative: Nurses notes and vital signs reviewed and patient is not hypoxic. General: Well-appearing and in no apparent distress. Skin: Warm, dry, no pallor noted. No rash. Head: Normocephalic, atraumatic. Neck: Supple, non-tender. Eye: Pupils are equal, round and EOMI. No scleral icterus. Ears, Nose, Mouth, and Throat: TM are clear, no nasal mucosal hypertrophy. Oral mucosa is moist, no posterior oropharynx erythema, uvula is mid-line Cardiovascular: Regular Rate and Rhythm without murmur, gallop or rub. Respiratory: No accessory muscle use or respiratory distress. Lungs are clear to auscultation, no wheezing, rales or rhonchi Chest Wall: no tenderness Back: No midline thoracic or lumbar vertebral tenderness. No CVA tenderness Musculoskeletal: normal ROM, no calf or popliteal tenderness, no lower extremity edema/swelling GI: Abdomen is soft, non-distended. Normal bowel sounds. No masses appreciated. No tenderness to palpation. No rebound, guarding, or rigidity noted. Neurological: A&O x4. No cranial nerve dysfunction observed. . Constitutional Vital Signs, click to edit/add: Last Vital Signs Temp 98 F 08/22/24 12:13 Pulse 73 08/22/24 14:20 Resp 20 08/22/24 14:20 BP 194/93 H 08/22/24 14:20 Pulse Ox 96 08/22/24 14:20 O2 Del Method Room Air 08/22/24 14:20 Course Vital Signs Vital signs: Vital Signs Temperature 98 F 08/22/24 12:13 Pulse Rate 72 08/22/24 12:13 Respiratory Rate 16 08/22/24 12:13 Blood Pressure 210/98 H 08/22/24 12:13 Pulse Oximetry 96 08/22/24 12:13 Oxygen Delivery Method Room Air 08/22/24 12:13 Temperature 98 F 08/22/24 12:13 Pulse Rate 73 08/22/24 14:20 Respiratory Rate 20 08/22/24 14:20 Blood Pressure 194/93 H 08/22/24 14:20 Pulse Oximetry 96 08/22/24 14:20 Oxygen Delivery Method Room Air 08/22/24 14:20 Medical Decision Making MDM Narrative Medical decision making narrative: The patient EKG showing sinus rhythm with a heart rate of [address] elevation no acute changes that is concerning for any acute cardiac event The patient CBC and chemistry showed no acute pathology as well as negative troponin The patient CT of the head showed no acute pathology Chest x-ray was within normal The patient was provided with meclizine and she was discharged home with supportive care The patient is to follow up with primary care physician in next 2-3 days or to return to the emergency department should any of the signs or symptoms worsen or new symptoms develop. The patient agrees with the following Diagnosis and Treatment plan and the patient will be discharged home. Lab Data Labs: Lab Results 08/22/24 Range/Units 12:35 WBC 9.5 (4.0-11.0) 10^3/uL RBC 4.21 (4.20-5.40) 10^6/uL Hgb 14.5 (12.0-16.0) g/dL Hct 41.2 (36.0-48.0) % MCV 97.9 (81.0-99.0) fL MCH 34.4 H (26.7-34.0) pg MCHC 35.2 (29.9-35.2) g/dL RDW 12.0 (11.0-15.0) % Plt Count 265 (150-450) 10^3/uL MPV 8.6 L (9.5-13.5) fL Neut % (Auto) 63.0 (43.0-75.0) % Lymph % (Auto) 26.8 (20.5-60.0) % [place] % (Auto) 8.2 (1.7-12.0) % Eos % (Auto) 1.1 (0.9-7.0) % Baso % (Auto) 0.7 (0.2-2.0) % Neut # (Auto) 6.0 (1.4-6.5) 10^3/uL Lymph # (Auto) 2.5 (1.2-3.8) 10^3/uL [place] # (Auto) 0.8 (0.3-0.8) 10^3/uL Eos # (Auto) 0.1 (0.0-0.7) 10^3/uL Baso # (Auto) 0.1 (0.0-0.1) 10^3/uL Abs Immat Gran (auto) 0.02 (0.00-0.03) 10^3/uL Imm/Tot Granulo (auto) 0.2 (0.0-0.5) % Sodium 140 (136-145) mmol/L Potassium 3.6 (3.5-5.1) mmol/L Chloride 102 (98-107) mmol/L Carbon Dioxide 29.6 (21.0-32.0) mmol/L Anion Gap 12.0 BUN 11.0 (7.0-18.0) mg/dL Creatinine 0.64 (0.55-1.02) mg/dL Est GFR ( Amer) >60 (>=60 mL/min/1.73m^2) Est GFR (Non-Af Amer) >60 (>=60 mL/min/1.73m^2) BUN/Creatinine Ratio 17.2 Glucose 96 (74-106) mg/dL Calcium 9.0 (8.5-10.1) mg/dL Total Bilirubin 0.8 (0.2-1.0) mg/dL AST 34 (15-37) U/L ALT 32 (14-59) U/L Alkaline Phosphatase 72 (46-116) U/L Troponin I High Sens 11.2 (4.0-51.3) pg/mL Total Protein 7.0 (6.4-8.2) g/dL Albumin 3.5 (3.4-5.0) g/dL Globulin 3.5 g/dL Albumin/Globulin Ratio 1.0 Discharge Plan Discharge Chief Complaint: Dizziness Clinical Impression: Vertigo Patient Disposition: Home, Self-Care Time of Disposition Decision: 15:07 Condition: Good Prescriptions / Home Meds: New meclizine 25 mg tablet 25 mg PO TID PRN (Reason: motion sickness) Qty: 20 0RF No Action bisoprolol-hydrochlorothiazide 10-6.25 mg tablet 1 tab PO DAILY levothyroxine 50 mcg tablet 50 mcg PO DAILY meloxicam 15 mg tablet 15 mg PO DAILY cyclobenzaprine 10 mg tablet 10 mg PO BEDTIME PRN (Reason: muscle spasm) albuterol sulfate [ProAir HFA] 90 mcg/actuation HFA aerosol inhaler 2 inh inhalation Q6H PRN (Reason: shortness of breath or wheezing) Qty: 6.7 0RF Print Language: Serbian Instructions: Vertigo (DC) Referrals: PAIGE JAY [Primary Care Provider, VARNISHING MACHINE OPERATOR] - 1 week Discharge Date/Time: 08/22/24 15:14
== END 2024-08-22 15:14 | disposition home or self-care (01) ==
PROVIDERS: Emergency Provider Emergency Medicine; PCP Nurse Practitioner
DX: R42 Dizziness and giddiness (principal); Z95.5 Presence of coronary angioplasty implant and graft; F17.200 Nicotine dependence, unspecified, uncomplicated
CPT/HCPCS: 36415; 70450; 71045; 80053; 84484; 85025; 93005; 99285

== ENCOUNTER 2024-10-03 13:22 | Outpatient (OUT) | payer BC, SELFPAY ==
--- NOTE | 2024-10-03 13:30 | CA_ITS ---
Patient Name: SCOTT FRANCIS MR#: [id number] : 1960 Exam Date: 10/03/2024 Ordering Doctor: DR GARRET JOHNSTON M.D. ECHOCARDIOGRAM REPORT PROCEDURE: CA ECHO DOPPLER COMPLETE INDICATIONS: Nonrheumatic aortic valve insufficiency, hypertension, cardiac stents, smoker COMPARISON: None. DESCRIPTION: COMPLETE ECHOCARDIOGRAM Real-time transthoracic echocardiography with 2D, M-mode, spectral and color flow Doppler performed. QUALITY: Technical quality was good. LEFT VENTRICLE: Normal chamber size. Mild concentric left ventricular hypertrophy. Normal systolic function. LV EF: Normal left ventricular ejection fraction, (>55%). DIASTOLIC: Diastolic function is indeterminate. ATRIAL SEPTUM: Visually appears intact. LEFT ATRIUM: Moderate dilatation. RIGHT ATRIUM: Normal chamber size. RIGHT VENTRICLE: Normal chamber size. Normal right ventricular systolic function. TRICUSPID VALVE: Normal mobility and thickness. No stenosis with trivial regurgitation. No evidence of pulmonary hypertension. RVSP 30 mmHg MITRAL VALVE: Normal mobility and thickness. No evidence of mitral valve stenosis. There is no mitral annular calcification. Mild to moderate mitral regurgitation. AORTIC VALVE: The valve is likely trileaflet with nodular calcification noted in the noncoronary cusp. Normal leaflet mobility. No evidence of aortic valve stenosis. Mild to moderate aortic regurgitation. AORTIC ROOT: Normal diameter and appearance, measuring 3.3 cm. PULMONIC VALVE: Normal thickness and mobility. No stenosis. Trivial regurgitation. PERICARDIUM: No evidence of pericardial effusion. IVC: Collapses with inspiration. IVC is dilated (2.2 cm) PLEURA: CONCLUSION: 1. Mild concentric left ventricular hypertrophy with normal systolic function. Estimated LVEF is 55 to 60%. 2. Normal right ventricular size and systolic function. 3. Mild to moderate mitral and aortic regurgitation. 4. The aortic valve is likely trileaflet with nodular calcification of the noncoronary cusp. 5. Normal right-sided pressures. Adult Echocardiography Procedure Report Left Ventricle LVEDD (3.7 - 5.6 cm): 3.72 cm LVESD (2.2 - 4.0 cm): 2.74 cm LVIVS thickness (0.6 - 1.2 cm): 1.31 cm LVPW thickness (0.5 - 1.0 cm): 1.12 cm e': 0.08 m/s E - e': 14.23 LVOT Max Gradient: 7.04 mm[Hg] LVOT Area (cm2): 1.33 m/s Peak Velocity (LVOT): 1.33 m/s Mean Velocity (LVOT): 0.82 m/s LVOT Diameter 1.95 cm Left Atrium LA Volume Index (2D A2C): 46.01 ml/m2 Left Atrium Systolic Dimension: 3.12 cm Mitral Valve MV E to A Ratio: 1.36 Mitral Valve A-Wave Peak Velocity: 0.87 m/s Mitral Valve E-Wave Peak Velocity: 1.19 m/s Right Ventricle Aorta AO Root Diam: 3.26 cm Aortic Valve AoV Area (Peak Harshad): 2.40 cm2, 2.40 cm2 AoV Area (VTI): 2.36 cm2, 2.36 cm2 Deceleration [place]: 3.10 m/s2 Pressure Half-Time: 423.94 ms Peak Velocity(Antegrade Flow): 1.64 m/s Peak Gradient(Antegrade Flow): 10.76 mm[Hg] Mean Velocity(Antegrade Flow): 1.10 m/s Mean Gradient(Antegrade Flow): 5.43 mm[Hg] Velocity Time Integral: 34.88 cm Tricuspid Valve Peak Velocity (Regurgitant Flow): 2.35 m/s Pulmonic Valve Peak Gradient: 3.19 mm[Hg], 3.27 mm[Hg] Right Atrium Right Atrium Systolic Pressure: 39.86 ml, 39.86 ml Dictated by: Milton Eubanks M.D. on 10/03/2024 at 18:17 Approved by: Milton Eubanks M.D. on 10/03/2024 at 18:23
== END 2024-10-03 13:23 | disposition home or self-care (01) ==
LOC: CARD 13:23
PROVIDERS: PCP Nurse Practitioner; Visit Provider Internal Medicine Interventional Cardiology
DX: I35.1 Nonrheumatic aortic (valve) insufficiency (principal)
CPT/HCPCS: 93306

== ENCOUNTER 2024-10-04 08:10 | Outpatient (OUT) | payer BC, SELFPAY ==
--- OUTSIDE RECORDS SUMMARY | 2024-10-04 08:13 | XMS_ITS | CCD ---
Author Organization [facility] Care Team Providers Care Set Illustrator Name Role Phone JD, DR JAZMIN Fitzgerald Admitting Unavailable JD, DR JAZMIN Fitzgerald Attending Unavailable JD, DR JAZMIN Fitzgerald Primary Care Unavailable JD, DR JAZMIN Fitzgerald Consulting Unavailable JD, DR JAZMIN Fitzgerald Admitting Unavailable JD, DR JAZMIN Fitzgerald Attending Unavailable JD, DR JAZMIN Fitzgerald Primary Care Unavailable JD, DR JAZMIN Fitzgerald Consulting Unavailable JAZMIN MILES Primary Care Physician [phone] Jeramie, Nilda White Primary Care Physician MD Dada Callahan Attending Unavailable MD Dada Callahan Attending Unavailable Jeramie, HOUSE REGISTRY RN Nilda L Attending Unavailable Jeramie, HOUSE REGISTRY RN Nilda Christopher Attending Unavailable Jeramie, HOUSE REGISTRY RN Nilda Christopher Attending Unavailable Jeramie, HOUSE REGISTRY RN Nilda L Attending Unavailable MD Dada Callahan Attending Unavailable MD Dada Callahan Attending Unavailable MD Dada Callahan Attending Unavailable Jeramie, HOUSE REGISTRY RN Nilda L Admitting Unavailable Jeramie, HOUSE REGISTRY RN Nilda L Attending Unavailable MD Dada Callahan Admitting Unavailable MD Dada Callahan Attending Unavailable [place], [facility]HAB Attending Unavailable [place], [facility] Attending Unavailable Jeramie, HOUSE REGISTRY RN Nilda L Admitting Unavailable Jeramie, HOUSE REGISTRY RN Nilda L Attending Unavailable Jeramie, HOUSE REGISTRY RN Nilda L Attending Unavailable Jeramie, HOUSE REGISTRY RN Nilda L Attending Unavailable Jeramie, HOUSE REGISTRY RN Nilda L Attending Unavailable Jeramie, HOUSE REGISTRY RN Nilda L Admitting Unavailable Jeramie, HOUSE REGISTRY RN Nilda L Attending Unavailable Jeramie, HOUSE REGISTRY RN Nilda L Admitting Unavailable Jeramie, HOUSE REGISTRY RN Nilda L Attending Unavailable Jeramie, HOUSE REGISTRY RN Nilda L Attending Unavailable Allergies Allergy Classification Reported Allergen(s) Allergy Type Date of Onset Reaction(s) Facility (1 source) egg extract Drug Allergy 4 [facility] (1 source) TheraNatal Drug allergy (disorder) 4 [facility] (8 sources) Cefuroxime; Translations: [cefuroxime] Drug Allergy 5 [facility]qualifier value[facility] THERAGRAN; Translations: [THERAGRAN] Propensity to adverse reactions to drug (disorder) 3 [facility] Medications Current Medications Medication Drug [...] # 90 tab(s), Refills(s) 1, Pharmacy: [facility]/pharmacy #[id number], 166, cm, 02/02/23 15:55:00 EDT, Height/Length Dosing, 68.1, kg, 02/02/23 15:55:00 EDT, Weight Dosing Start Date: 05/03/23 Status: Ordered Start: 07-28-2022 take 1 tablet by mandie once daily citalopram 40 mg Tab 40 [...] # 30 tab(s), Refills(s) 1, Pharmacy: [facility]/pharmacy #[id number], 166, cm, 06/30/23 15:12:00 EDT, Height/Length Dosing, 69.5, kg, 06/30/23 15:12:00 EDT, Weight Dosing Start Date: 10/11/23 Status: Ordered Start: 09-07-2022 take 1 tablet by mandie th once daily in the evening as needed for muscle spasms cyclobenzaprine 10 mg Tab 10 mg = 1 tab(s), Oral, qPM, PRN for spasm, # 30 tab(s), Refills(s) 1, Pharmacy: [facility]/pharmacy #[id number], 168, cm, 07/28/22 10:47:00 EDT, Height/Length Dosing, 67.1, kg, 07/28/22 10:47:00 EDT, Weight Dosing Start Date: 09/07/22 Status: Ordered fluticasone propionate 0.05 mg/actuat metered dose nasal spray (1 source) Corticosteroid Start: 07-28-2022 Flonase 0.05 mg/inh [place] 2 spray(s), Nasal, Daily, 16 gram, Refill(s) 0, each nostril, [facility]/pharmacy #[id number], 168, cm, 07/28/22 10:47:00 EDT, Height/Length Dosing, 67.1, kg, 07/28/22 10:47:00 EDT, Weight Dosing Start Date: 07/28/22 Status: Ordered gabapentin 300 mg oral capsule (1 source) Anti-epileptic Agent Start: 11-08-2023 take 1 capsule by mouth at bedtime gabapentin 300 mg Cap See Instructions, TAKE 1 CAPSULE BY MOUTH AT BEDTIME, # 30 cap(s), Refills(s) 2, Pharmacy: [id number], 166, cm, 10/29/23 10:00:00 EDT, Height/Length Dosing, 66.4, kg, 10/29/23 10:00:00 EDT, Weight Dosing Start Date: 11/08/23 Status: Ordered hydrOXYzine hydrochloride 10 mg oral tablet (1 source) Antihistamine Start: 03-15-2023 take 2 tablets by mouth four times daily hydrOXYzine hydrochloride 10 mg Tab See Instructions, TAKE 2 TABLETS BY MOUTH 4 TIMES A DAY, # 720 tab(s), Refills(s) 1, Pharmacy: [id number], 166, cm, 02/02/23 15:55:00 EDT, Height/Length Dosing, 68.1, kg, 02/02/23 15:55:00 EDT, Weight Dosing Start Date: 03/15/23 Status: Ordered levothyroxine sodium 0.05 mg oral tablet (2 sources) l-Thyroxine Start: 09-02-2023 take 1 tablet by mouth once daily levothyroxine 50 mcg (0.05 mg) Tab See Instructions, TAKE 1 TABLET BY MOUTH EVERY DAY, # 90 tab(s), Refills(s) 1, Pharmacy: [id number], 166, cm, 06/30/23 15:12:00 EDT, Height/Length Dosing, 69.5, kg, 06/30/23 15:12:00 EDT, Weight Dosing Start Date: 09/02/23 Status: Ordered Start: 09-07-2022 End: 01-05-2023 take 1 tablet by mouth once daily levothyroxine 50 mcg (0.05 mg) Tab 50 mcg = 1 tab(s), Oral, Daily, X 30 day(s), # 30 tab(s), Refills(s) 3, Pharmacy: [facility]/pharmacy #[id number], 168, cm, 07/28/22 10:47:00 EDT, Height/Length Dosing, 67.1, kg, 07/28/22 10:47:00 EDT, Weight Dosing Start Date: 09/07/22 Stop Date: 01/05/23 Status: Ordered meloxicam 15 mg oral tablet (2 sources) Nonsteroidal Anti-inflammatory Drug Start: 12-10-2023 take 1 tablet by mouth once daily meloxicam 15 mg Tab 15 mg = 1 tab(s), Oral, Daily, # 30 tab(s), Refills(s) 0, Pharmacy: [facility]/pharmacy #[id number], 166, cm, 12/10/23 9:10:00 EDT, Height/Length Dosing, 67, kg, 12/10/23 9:10:00 EDT, Weight Dosing Start Date: 12/10/23 Status: Ordered Start: 09-21-2022 take 1 tablet by mandie once daily meloxicam 15 mg Tab 15 mg = 1 tab(s), Oral, Daily, # 90 tab(s), Refills(s) 1, Pharmacy: [facility]/pharmacy #[id number], 166.6, cm, 09/21/22 9:53:00 EDT, Height/Length Dosing, 65.4, kg, 09/21/22 9:53:00 EDT, Weight Dosing Start Date: 09/21/22 Status: Ordered 24 hr metoprolol succinate 50 mg extended release oral tablet (1 source) beta-Adrenergic Alexander Start: 06-16-2023 take 1 tablet by mouth once daily Toprol XL 50 mg Tab-ER 50 mg = 1 tab(s), Oral, Daily, # 30 tab(s), Refills(s) 5, Pharmacy: [facility]/pharmacy #[id number], 166, cm, 02/02/23 15:55:00 EDT, Height/Length [...] day(s), # 14 cap(s), Refills(s) 0, Pharmacy: [facility]/pharmacy #[id number], 166, cm, 12/10/23 9:10:00 EDT, Height/Length [...] BEDTIME, # 90 tab(s), Refills(s) 0, Pharmacy: [id number], 166, cm, 10/29/23 10:00:00 EDT, Height/Length Dosing, [...] myocardial infarction] Onset: 01-13-2023 Chronic Alcohol-related disorders (3 sources) Alcohol abuse 10-05-2022 Chronic Anxiety disorders (3 sources) Anxiety 01-19-2023 Chronic Chronic obstructive pulmonary disease and bronchiectasis (3 sources) Chronic obstructive lung disease 02-02-2023 Chronic Conditions associated with dizziness or vertigo (4 sources) Dizziness 09-21-2022 Episodic Coronary atherosclerosis and other heart disease (5 sources) Coronary arteriosclerosis; Translations: [Atherosclerotic heart disease of [place] coronary artery without angina pectoris] Onset: 02-04-2023 01-19-2023 Chronic Disorders of lipid metabolism (5 sources) Mixed hyperlipidemia; Translations: [Mixed hyperlipidemia] Onset: 01-13-2023 10-05-2022 Chronic Diverticulosis and diverticulitis (4 sources) Diverticulitis 07-28-2022 Chronic Essential hypertension (4 sources) Hypertensive disorder 07-28-2022 Chronic Fluid and electrolyte disorders (3 sources) Hyponatremia 09-22-2022 Episodic Genitourinary symptoms and ill-defined conditions (6 sources) Dysuria; Translations: [Increased frequency of urination] 12-10-2023 Episodic Headache; including migraine (4 sources) Migraine 07-28-2022 Chronic Heart valve disorders (2 sources) Nonrheumatic aortic (valve) insufficiency; Translations: [Nonrheumatic aortic (valve) insufficiency] Onset: 09-07-2024 Chronic Hypertension with complications and secondary hypertension (2 sources) Hypertensive heart disease without heart failure; Translations: [Hypertensive heart disease without heart failure] Onset: 02-14-2024 Chronic Malaise and fatigue (1 source) Other fatigue; Translations: [OTHER FATIGUE] Onset: 10-14-2021 Episodic Other aftercare (3 sources) Post-discharge follow-up 01-19-2023 Episodic Other connective tissue disease (4 sources) Fibromyalgia 07-28-2022 Episodic Other diseases of bladder and urethra (3 sources) Overactive bladder 10-29-2023 Chronic Other hematologic conditions (3 sources) Macrocytosis 09-22-2022 Chronic Other inflammatory condition of skin (3 sources) Itching 01-19-2023 Episodic Other nervous system disorders (4 sources) 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 Other non-traumatic joint disorders (3 sources) Knee pain 12-10-2023 Episodic Other upper respiratory disease (4 sources) Seasonal allergy 09-21-2022 Chronic Otitis media and related conditions (2 sources) Finding of fluid behind tympanic membrane 09-01-2024 Episodic Residual codes; unclassified (3 sources) Flushing 10-29-2023 Episodic Residual codes; unclassified (3 sources) Insomnia 01-19-2023 Episodic Residual codes; unclassified (3 sources) Menopause present 10-29-2023 Episodic Residual codes; unclassified (2 sources) Tobacco user 09-01-2024 Episodic Spondylosis; intervertebral disc disorders; other back problems (3 sources) Neck pain 01-04-2023 Episodic Substance-related disorders (3 sources) Nicotine dependence 02-02-2023 Chronic Thyroid disorders (8 sources) Hypothyroidism, unspecified; Translations: [Hypothyroidism] Onset: 10-09-2021 Chronic Unclassified (3 sources) CONTACT W/AND (SUSP) EXPOS COVID-19; Translations: [CONTACT W/AND (SUSP) EXPOS COVID-19] Onset: 03-10-2021 Unclassified (2 sources) Patient encounter status 09-01-2024 Past or Other Problems Problem Classification Problem Date Documented Da te Episodic/Chronic Unclassified (1 source) CONTACT W/AND (SUSP) EXPOS COVID-19; Translations: [CONTACT W/AND (SUSP) EXPOS COVID-19] Onset: 03-05-2021 Results Test Name Value Interpretation Reference Range Facility Office Visiton 09-07-2024 Follow-up visit [id number] Scott Francis 1960 F Date Provider Department Center 09/07/2024 [id number], [facility] CARD [facility] Family History Problem Relation Age of Onset No Known Problems Mother No Known Problems Father Family Status - Relation Status Age at Mother Father Level of Service:84540 DC OFFICE/OUTPATIENT ESTABLISHED MOD MDM 30 MIN Normal [facility] Orders Onlyon 09-06-2024 Orders Only [id number] Scott Francis 1960 Date Provider Department Center 09/06/2024 [id number], HISTORICAL CARD [facility] Family History Problem Relation Age of Onset No Known Problems Mother No Known Problems Father Family Status - Relation Status Age at Mother Father Normal [facility] Reminderson 09-04-2024 Reminders Reminders From: Nilda Hernandez To: [facility] - Clinical; Sent: 09/04/2024 08:10:49 EDT Show up: 09/04/2024 08:10:00 EDT Subject: Ambulatory Reminder Due Date/Time: 09/05/2024 08:09:00 EDT for the most part labs look good. Calcium is a little low. encourage her to get some calcium supplements OTC. triglycerides are a little elevated. fish oil supplements can help bring that down. Results: Date Result Name Ind Value Ref Range 09/01/2024 12:07 WBC 9.2 E9/L (4.0 - 11.0) 09/01/2024 12:07 RBC (L) 4.2 E12/L (4.3 - 5.9) 09/01/2024 12:07 HGB 14.4 gm/dL (12.0 - 16.0) 09/01/2024 12:07 Hct 41.6 % (34.0 - 46.0) 09/01/2024 12:07 MCV 99.1 fL (80.0 - 100.0) 09/01/2024 12:07 MCH (H) 34.3 pg (27.0 - 34.0) 09/01/2024 12:07 MCHC 34.6 gm/dL (31.4 - 36.0) 09/01/2024 12:07 RDW 12.6 % (10.9 - 14.2) 09/01/2024 12:07 Platelet 265.0 E9/L (150.0 - 500.0) 09/01/2024 12:07 MPV 7.2 fL (6.4 - 10.8) 09/01/2024 12:07 Neutro Auto 62.8 % (36.0 - 75.0) 09/01/2024 12:07 Lymph Auto 29.8 % (14.0 - 50.0) 09/01/2024 12:07 Alfalfa Auto 5.0 % (4.0 - 14.0) 09/01/2024 12:07 Eos Auto 1.9 % (0.0 - 8.0) 09/01/2024 12:07 Basophil Auto 0.5 % (0.0 - 2.0) 09/01/2024 12:07 Neutro Absolute 5.8 E9/L (2.0 - 7.5) 09/01/2024 12:07 Lymph Absolute 2.8 E9/L (1.0 - 4.0) 09/01/2024 12:07 Alfalfa Absolute 0.5 E9/L (0.2 - 1.0) 09/01/2024 12:07 Eos Absolute 0.2 E9/L (0.0 - 0.5) 09/01/2024 12:07 Basophil Absolute 0.1 E9/L (0.0 - 0.2) 09/01/2024 12:07 Glucose Lvl 97 mg/dL (55 - 199) 09/01/2024 12:07 BUN 6 mg/dL (5 - 21) 09/01/2024 12:07 Creatinine 0.5 mg/dL (0.5 - 1.3) 09/01/2024 12:07 eGFR 106 mL/min/1.73 m2 (>=59 - ) 09/01/2024 12:07 BUN/Creat Ratio 12 (10 - 20) 09/01/2024 12:07 Sodium Lvl 137 mmol/L (135 - 145) 09/01/2024 12:07 Potassium Lvl 3.7 mmol/L (3.5 - 5.3) 09/01/2024 12:07 Chloride 104 mmol/L (101 - 111) 09/01/2024 12:07 CO2 27 mmol/L (21 - 31) 09/01/2024 12:07 AGAP 10 mEq/L (6 - 16) 09/01/2024 12:07 Calcium Lvl (L) 8.7 mg/dL (8.9 - 11.1) 09/01/2024 12:07 Alk Phos 57 Int._Unit/L (21 - 98) 09/01/2024 12:07 ALT 21 Int._Unit/L (6 - 46) 09/01/2024 12:07 AST 38 Int._Unit/L (5 - 43) 09/01/2024 12:07 Total Protein 6.8 gm/dL (6.0 - 7.8) 09/01/2024 12:07 Albumin Lvl 4.2 gm/dL (3.3 - 5.0) 09/01/2024 12:07 Globulin 2.6 gm/dL (1.4 - 4.0) 09/01/2024 12:07 A/G Ratio 1.6 (1.1 - 2.2) 09/01/2024 12:07 Bili Total 0.6 mg/dL (0.0 - 1.1) 09/01/2024 12:07 Chol (L) 111 mg/dL (120 - 200) 09/01/2024 12:07 Trig (H) 285 mg/dL ( - <=149) 09/01/2024 12:07 HDL 40 mg/dL 09/01/2024 12:07 LDL Direct 40 mg/dL ( - <=129) 09/01/2024 12:07 VLDL (H) 57 mg/dL (7 - 40) 09/01/2024 12:07 TSH 0.64 mcIU/mL (0.34 - 5.60) LVM for pt to return call, please advise pt of message below Patient informed and verbalized understanding. Normal [facility] CBC w/ Auto Diffon 5 Basophils/100 WBC (Bld) 0.5 % Normal 0.0-2.0 [facility] Comment on above: Performed By: #### 2 [id number] #### [facility] [address] [place] [address] Basophils/Leukocytes Auto (Bld) [Pure # fraction] 0.1 E9/L Normal 0.0-0.2 [facility] Comment on above: Performed By: #### 2 [id number] #### [facility] [address] [place] [address] Eosinophils (Bld) [#/Vol] 0.2 E9/L Normal 0.0-0.5 [facility] Comment on above: Performed By: #### 2 [id number] #### [facility] [address] [place] [address] Eosinophils/100 WBC (Bld) 1.9 % Normal 0.0-8.0 [facility] Comment on above: Performed By: #### 2 [id number] #### [facility] [address] [place] [address] Erythrocyte distribution width (RBC) [Ratio] 12.6 % Normal 10.9-14.2 [facility] Comment on above: Performed By: #### 2 [id number] #### [facility] [address] [place] [address] Hematocrit (Bld) [Volume fraction] 41.6 % Normal 34.0-46.0 [facility] Comment on above: Performed By: #### 2 [id number] #### [facility] [address] [place] [address] Hemoglobin (Bld) [Mass/Vol] 14.4 g/dL Normal 12.0-16.0 [facility] Comment on above: Performed By: #### 2 [id number] #### [facility] [address] [place] [address] Lymphocytes (Bld) [#/Vol] 2.8 E9/L Normal 1.0-4.0 [facility] Comment on above: Performed By: #### 2 [id number] #### [facility] [address] [place] [address] Lymphocytes/100 WBC (Bld) 29.8 % Normal 14.0-50.0 [facility] Comment on above: Performed By: #### 2 [id number] #### [facility] [address] [place] [address] MCH (RBC) [Entitic mass] 34.3 pg High 27.0-34.0 [facility] Comment on above: Performed By: #### 2 [id number] #### [facility] [address] [place] [address] MCHC (RBC) [Mass/Vol] 34.6 g/dL Normal 31.4-36.0 [facility] Comment on above: Performed By: #### 2 [id number] #### [facility] [address] [place] [address] MCV (RBC) [Entitic vol] 99.1 fL Normal 80.0-100.0 [facility] Comment on above: Performed By: #### 2 [id number] #### [facility] [address] [place] [address] Monocytes (Bld) [#/Vol] 0.5 E9/L Normal 0.2-1.0 [facility] Comment on above: Performed By: #### 2 [id number] #### [facility] [address] [place] [address] Neutrophils (Bld) [#/Vol] 5.8 E9/L Normal 2.0-7.5 [facility] Comment on above: Performed By: #### 2 [id number] #### [facility] [address] [place] [address] Neutrophils/100 WBC (Bld) 62.8 % Normal 36.0-75.0 [facility] Comment on above: Performed By: #### 2 [id number] #### [facility] [address] [place] [address] Platelet mean volume (Bld) [Entitic vol] 7.2 fL Normal 6.4-10.8 [facility] Comment on above: Performed By: #### 2 [id number] #### [facility] [address] [place] [address] Platelets (Bld) [#/Vol] 265.0 E9/L Normal 150.0-500.0 [facility] Comment on above: Performed By: #### 2 [id number] #### [facility] [address] [place] [address] RBC (Bld) [#/Vol] 4.2 E12/L Low 4.3-5.9 [facility] Comment on above: Performed By: #### 2 [id number] #### [facility] [address] [place] [address] WBC corrected for nucl RBC Auto (Bld) [#/Vol] 9.2 E9/L Normal 4.0-11.0 [facility] Comment on above: Performed By: #### 2 [id number] #### [facility] [address] [place] [address] CHEMISTRYOrdered By: SYSTEM SYSTEM on 09-01-2024 Albumin [Mass/Vol] 4.2 g/dL Normal 3.3 - 5.0 gm/dL [facility] Albumin/Globulin [Mass ratio] 1.6 {ratio} Normal 1.1 - 2.2 [facility] ALP [Catalytic activity/Vol] 57 [iU]/d Normal 21 - 98 Int._Unit/L [facility] ALT No additional P-5'-P [Catalytic activity/Vol] 21 [iU]/d Normal 6 - 46 Int._Unit/L [facility] Anion gap [Moles/Vol] 10 mmol/L Normal 6 - 16 mEq/L [facility] AST [Catalytic activity/Vol] 38 [iU]/d Normal 5 - 43 Int._Unit/L [facility] Bilirubin [Mass/Vol] 0.6 mg/dL Normal 0.0 - 1 .1 mg/dL [facility] Calcium [Mass/Vol] 8.7 mg/dL Low 8.9 - 11. 1 mg/dL [facility] Chloride [Moles/Vol] 104 mmol/L Normal 101 - 1 11 mmol/L [facility] Cholesterol [Mass/Vol] 111 mg/dL Low 120 - 200 mg/dL [facility] Cholesterol in HDL [Mass/Vol] 40 mg/dL Invalid Interpretation Code [facility] Comment on above: Result Comment: '>= 60 LOW RISK' '<= 40 HIGH RISK' Cholesterol in LDL [Mass/Vol] 40 mg/dL Normal <=129mg/dL [facility] Cholesterol in VLDL [Mass/Vol] 57 mg/dL High 7 - 40 mg/dL [facility] CO2 [Moles/Vol] 27 mmol/L Normal 21 - 31 mmol/L [facility] Creatinine [Mass/Vol] 0.5 mg/dL Normal 0.5 - 1.3 mg/dL [facility] eGFR 106 mL/min/1.73 m2 Normal >=59mL/mi n/1.7 3 m2 [facility] Globulin (S) [Mass/Vol] 2.6 g/dL Normal 1.4 - 4.0 gm/dL [facility] Glucose [Mass/Vol] 97 mg/dL Normal 55 - 199 mg/dL Re misol Chem Potassium [Moles/Vol] 3.7 mmol/L Normal 3.5 - 5.3 mmol/L [facility] Protein [Mass/Vol] 6.8 g/dL Normal 6.0 - 7.8 gm/dL [facility] Sodium [Moles/Vol] 137 mmol/L Normal 135 - 145 mmol/L [facility] Triglyceride [Mass/Vol] 285 mg/dL High <=149mg/dL [facility] TSH Qn 0.64 m[IU]/L Normal 0.34 - 5.60 mcIU/mL [facility] Urea nitrogen [Mass/Vol] 6 mg/dL Normal 5 - 21 mg/dL [facility] Urea nitrogen/Creatinine [Mass ratio] 12 mg/mg Normal 10 - 20 [facility] CMPon 09-01-2024 Albumin [Mass/Vol] 4.2 g/dL Normal 3.3-5.0 [facility] Comment on above: Performed By: #### 2 [id number] #### [facility] [address] [place] [address] Albumin/Globulin (S) [Mass conc ratio] 1.6 Normal 1.1-2.2 [facility] Comment on above: Performed By: #### 2 [id number] #### [facility] [address] [place] [address] ALP [Catalytic activity/Vol] 57 Int._Unit/L Normal 21-98 [facility] Comment on above: Performed By: #### 2 [id number] #### [facility] [address] [place] [address] ALT No additional P-5'-P [Catalytic activity/Vol] 21 Int._Unit/L Normal 6-46 [facility] Comment on above: Performed By: #### 2 [id number] #### [facility] [address] [place] [address] Anion gap [Moles/Vol] 10 mmol/L Normal 6-16 [facility] Comment on above: Performed By: #### 2 [id number] #### [facility] [address] [place] [address] AST [Catalytic activity/Vol] 38 Int._Unit/L Normal 5-43 [facility] Comment on above: Performed By: #### 2 [id number] #### [facility] [address] [place] [address] Bilirubin [Mass/Vol] 0.6 mg/dL Normal 0.0-1.1 [facility] Comment on above: Performed By: #### 2 [id number] #### [facility] [address] [place] [address] Calcium [Mass/Vol] 8.7 mg/dL Low 8.9-11.1 [facility] Comment on above: Performed By: #### 2 [id number] #### [facility] [address] [place] [address] Chloride [Moles/Vol] 104 mmol/L Normal 101-111 [facility] Comment on above: Performed By: #### 2 [id number] #### [facility] [address] [place] [address] CO2 [Moles/Vol] 27 mmol/L Normal 21-31 [facility] Comment on above: Performed By: #### 2 [id number] #### [facility] [address] [place] [address] Creatinine [Mass/Vol] 0.5 mg/dL Normal 0.5-1.3 [facility] Comment on above: Performed By: #### 2 [id number] #### [facility] [address] [place] [address] Globulin (S) [Mass/Vol] 2.6 g/dL Normal 1.4-4.0 [facility] Comment on above: Performed By: #### 2 [id number] #### [facility] [address] [place] [address] Glucose [Mass/Vol] 97 mg/dL Normal 55-199 [facility] Comment on above: Performed By: #### 2 [id number] #### [facility] [address] [place] [address] Potassium [Moles/Vol] 3.7 mmol/L Normal 3.5-5.3 [facility] Comment on above: Performed By: #### 2 [id number] #### [facility] [address] [place] [address] Protein [Mass/Vol] 6.8 g/dL Normal 6.0-7.8 [facility] Comment on above: Performed By: #### 2 [id number] #### [facility] [address] [place] [address] Sodium [Moles/Vol] 137 mmol/L Normal 135-145 [facility] Comment on above: Performed By: #### 2 [id number] #### [facility] [address] [place] [address] Urea nitrogen [Mass/Vol] 6 mg/dL Normal 5-21 [facility] Comment on above: Performed By: #### 2 [id number] #### [facility] [address] [place] [address] Urea nitrogen/Creatinine [Mass ratio] 12 No Units Normal 10-20 [facility] Comment on above: Performed By: #### 2 [id number] #### [facility] [address] [place] [address] Family Medicine Office/Clini c Noteon 09-01-2024 Family Medicine Office/Clinic Note Family Medicine Office/Clinic Note HPI Staff Villar is a 64 year old female presenting for Dizziness Onset: 1 week ago Pt hasn't any issues with room spinning and unsteady dizziness in the past, Pt states she went to ER 08/22/24 and was told she has Vertigo. was prescribed Meclizine and pt states she only took it 3 times that day when she left hospital it didn't really help but she also thought it was for nausea. Pt also had elevated blood pressure while in hospital and she states it was high because she had to drive herself and she was scared. Pt denies checking her blood pressures at home. Pt did go to chiropractor this morning and she feels it did help some History of Present Illness pt presents today for dizziness. went to ER. they gave her meclizine but she states it did not help Review of Systems PHQ Score Initial Depression Screen Score: 3 SCORE Detailed Depression Screen Score: 7 Total Depression Screen Score: 10 Physical Exam Vitals & Measurements HR: 80(Peripheral) RR: 16 BP: 172/82 SpO2: 96% HT: 166.0 cm HT: 65 in WT: 141.096 lb WT: 64.0 kg BMI: 23.23 General: alert, no acute distress ENMT: oral mucosa moist, no pharyngeal erythema or exudate, [place] TM full of clear fluid, right TM slightly red Cardiovascular: regular rate and rhythm, normal peripheral perfusion Respiratory: Lungs CTA, respirations non labored Extremities: no deformity, no trauma Neurological: oriented x 4, LOC appropriate for age, CN II-XII intact, motor strength equal & normal bilaterally, speech normal Assessment/Plan 1. Dizziness (R42: Dizziness and giddiness) [place] TM full of fluid. BP is elevated in office today so I can not give her a steroid. will send in Flonase. and pt will get Claritin and dereck daily for 2 weeks. Ordered: fluticasone nasal, 1 spray(s), Nasal, BID, 16 gram, Refill(s) 0, each nostril, [id number], 166, cm, 09/01/24 11:48:00 EDT, Height/Length Dosing, 64, kg, 09/01/24 11:48:00 EDT, Weight Dosing CBC w/ Auto Diff Comprehensive Metabolic Panel Lab Specimen Collect [id number] Lipid Panel Thyroid Stimulating Hormone Thyroid Stimulating Hormone 2. Fluid level behind tympanic membrane of both ears (H65.93: Unspecified nonsuppurative otitis media, bilateral) Flonase ordered Ordered: fluticasone nasal, 1 spray(s), Nasal, BID, 16 gram, Refill(s) 0, each nostril, [id number], 166, cm, 09/01/24 11:48:00 EDT, Height/Length Dosing, 64, kg, 09/01/24 11:48:00 EDT, Weight Dosing 3. Breast cancer screening (Z12.39: Encounter for other screening for malignant neoplasm of breast) mammogram ordered Ordered: fluticasone nasal, 1 spray(s), Nasal, BID, 16 gram, Refill(s) 0, each nostril, [id number], 166, cm, 09/01/24 11:48:00 EDT, Height/Length Dosing, 64, kg, 09/01/24 11:48:00 EDT, Weight Dosing CBC w/ Auto Diff Comprehensive Metabolic Panel Lipid Panel MA Mamm Screen w/CAD if perf and 3D [place] Thyroid Stimulating Hormone Thyroid Stimulating Hormone 4. Hypothyroidism (E03.9: Hypothyroidism, unspecified) TSH ordered Ordered: fluticasone nasal, 1 spray(s), Nasal, BID, 16 gram, Refill(s) 0, each nostril, [id number], 166, cm, 09/01/24 11:48:00 EDT, Height/Length Dosing, 64, kg, 09/01/24 11:48:00 EDT, Weight Dosing CBC w/ Auto Diff Comprehensive Metabolic Panel Lab Specimen Collect [id number] Lipid Panel Thyroid Stimulating Hormone Thyroid Stimulating Hormone 5. Mixed hyperlipidemia (E78.2: Mixed hyperlipidemia) lipid panel ordered Ordered: fluticasone nasal, 1 spray(s), Nasal, BID, 16 gram, Refill(s) 0, each nostril, [id number], 166, cm, 09/01/24 11:48:00 EDT, Height/Length Dosing, 64, kg, 09/01/24 11:48:00 EDT, Weight Dosing CBC w/ Auto Diff Comprehensive Metabolic Panel Lab Specimen Collect [id number] Lipid Panel Thyroid Stimulating Hormone 6. Hypertension (I10: Essential (primary) hypertension) systolic BP elevated in office today. pt sees cardiology next week. denies chest pain or SOB Ordered: fluticasone nasal, 1 spray(s), Nasal, BID, 16 gram, Refill(s) 0, each nostril, [id number], 166, cm, 09/01/24 11:48:00 EDT, Height/Length Dosing, 64, kg, 09/01/24 11:48:00 EDT, Weight Dosing CBC w/ Auto Diff Comprehensive Metabolic Panel Lipid Panel Thyroid Stimulating Hormone 7. BMI 23.0-23.9, adult (Z68.23: Body mass index [BMI] 23.0-23.9, adult) BMI education Ordered: fluticasone nasal, 1 spray(s), Nasal, BID, 16 gram, Refill(s) 0, each nostril, [id number], 166, cm, 09/01/24 11:48:00 EDT, Height/Length Dosing, 64, kg, 09/01/24 11:48:00 EDT, Weight Dosing CBC w/ Auto Diff Comprehensive Metabolic Panel Lipid Panel MA Mamm Screen w/CAD if perf and 3D [place] Thyroid Stimulating Hormone Thyroid Stimulating Hormone 8. Smoker (F17.200: Nicotine dependence, unspecified, uncomplicated) consider not smoking Ordered: fluticasone nasal, 1 spray(s), Nasal, BID, 16 gram, Refill(s) 0, each nostril, [id number], 166, cm, 09/01/24 11:4 (more content not included)... Normal [facility] Comment on above: Result Comment: Elec tronically Signed By: Nilda Hernandez\.br\Date and Time Signed: 09/01/24 12:14 EDT HEMATOLOGYOrdered By: SYSTEM SYSTEM on 09-01-2024 Basophils/100 WBC (Bld) 0.5 % Normal 0.0 - 2.0 % Remisol Heme Basophils/Leukocytes Auto (Bld) [Pure # fraction] 0.1 E9/L Normal 0.0 - 0.2 E9/L Remisol Heme Eosinophils (Bld) [#/Vol] 0.2 E9/L Normal 0.0 - 0.5 E9/L Remisol Heme Eosinophils/100 WBC (Bld) 1.9 % Normal 0.0 - 8.0 % Remisol Heme Erythrocyte distribution width (RBC) [Ratio] 12.6 % Normal 10.9 - 14.2 % Remisol Heme Hematocrit (Bld) [Volume fraction] 41.6 % Normal 34.0 - 46.0 % Remisol Heme Hemoglobin (Bld) [Mass/Vol] 14.4 g/dL Normal 12.0 - 16.0 gm/dL Remisol Heme Lymphocytes (Bld) [#/Vol] 2.8 E9/L Normal 1.0 - 4.0 E9/L Remisol Heme Lymphocytes/100 WBC (Bld) 29.8 % Normal 14.0 - 50.0 % Remisol Heme MCH (RBC) [Entitic mass] 34.3 pg High 27.0 - 34.0 pg Remisol Heme MCHC (RBC) [Mass/Vol] 34.6 g/dL Normal 31.4 - 36.0 gm/dL Remisol Heme MCV (RBC) [Entitic vol] 99.1 fL Normal 80.0 - 100.0 fL Remisol Heme Monocytes (Bld) [#/Vol] 0.5 E9/L Normal 0.2 - 1.0 E9/L Remisol Heme Monocytes/100 WBC (Bld) 5.0 % Normal 4.0 - 14.0 % Remisol Heme Neutrophils (Bld) [#/Vol] 5.8 E9/L Normal 2.0 - 7.5 E9/L Remisol Heme Neutrophils/100 WBC (Bld) 62.8 % Normal 36.0 - 75.0 % Remisol Heme Platelet mean volume (Bld) [Entitic vol] 7.2 fL Normal 6.4 - 10.8 fL Remisol Heme Platelets (Bld) [#/Vol] 265.0 E9/L Normal 150.0 - 500.0 E9/L Remisol Heme RBC (Bld) [#/Vol] 4.2 E12/L Low 4.3 - 5.9 E12/L Remisol Heme WBC corrected for nucl RBC Auto (Bld) [#/Vol] 9.2 E9/L Normal 4.0 - 11.0 E9/L Remisol Heme Lipid Panelon 09-01-2024 Cholesterol [Mass/Vol] 111 mg/dL Low 120-200 [facility] Comment on above: Performed By: #### 2 [id number] #### [facility] [address] [place] [address] Cholesterol in HDL [Mass/Vol] 40 mg/dL Invalid Interpretation Code [facility] Comment on above: Result Comment: '>= 60 LOW RISK' '<= 40 HIGH RISK' Performed By: #### 2 [id number] #### [facility] [address] [place] [address] Cholesterol in LDL [Mass/Vol] 40 mg/dL Normal <=129 [facility] Comment on above: Performed By: #### 2 [id number] #### [facility] [address] [place] [address] Cholesterol in VLDL [Mass/Vol] 57 mg/dL High 7-40 [facility] Comment on above: Performed By: #### 2 [id number] #### [facility] [address] [place] [address] Triglyceride [Mass/Vol] 285 mg/dL High <=149 [facility] Comment on above: Performed By: #### 2 [id number] #### [facility] [address] [place] [address] TSHon 09-01-2024 TSH Qn 0.64 m[IU]/L Normal 0.34-5.60 [facility] Comment on above: Performed By: #### 2 [id number] #### [facility] [address] [place] [address] eGFRon 09-01-2024 eGFR 106 mL/min/1.73 m2 Normal >=59 [facility] Comment on above: Performed By: #### 1 [id number] #### [facility] [address] [place] [address] 36on 03-06-2024 36 Regarding lab result s from 03/03/2024: MD Shayan Michael MA Please reassure her that her potassium is now normal; she does not need to repeat the Kdur she took recently Please repeat a BMP 1 week after being on hydrochlorothiazide 25 mg daily Thanks Spoke with patient and she did not restarted hydrochlorothiazide. She says that's what screwed her up in the first place . She does not wish to retry it. Any other recommendations? [facility] Telephoneon 03-06-2024 Telephone [id number] Scott Francis 1960 F Provider Department Center 03/06/2024 SHAYAN MARTINEZ Family History Problem Relation Age of Onset No Known Problems Mother No Known Problems Father Family Status - Relation Status Age at Mother Father [facility] 36on 02-29-2024 36 Lab called with critical lab value on Potassium 2.8 [facility] 36 Patient called this morning and states that she tried to take the Chlorthalidone you prescribed and is having dizziness, constipation and her heart races upon standing. She has stopped the medication at this point and wanted you to know. [facility] Office Visiton 02-14-2024 Follow-up visit [id number] Scott Francis 1960 Provider Department Center 02/14/2024 GARRET JIMÉNEZ Family History Problem Relation Age of Onset No Known Problems Mother No Known Problems Father Family Status - Relation Status Age at Mother Father Level of Service:47362 DC OFFICE/OUTPATIENT ESTABLISHED MOD MDM 30 MIN Normal [facility] Reminderson 12-13-2023 Reminders Reminders From: Nilda Hernandez To: [facility] - Clinical; Sent: 12/13/2023 11:53:01 EDT Show up: 12/13/2023 11:53:00 EDT Subject: Ambulatory Reminder Due Date/Time: 12/14/2023 11:52:00 EDT urine culture was positive for e coli. she is on correct antibiotic. encourage her to finish all antibiotics. Results: Date Result Type Ind Result Name 12/10/2023 9:39 EDT MBO POS Urine Culture From: Luh Rivas M.A. ([facility] - Clinical) To: Nilda Hernandez; Sent: 12/13/2023 16:12:42 EDT Show up: 12/13/2023 16:12:00 EDT Subject: RE: Ambulatory Reminder Spoke to patient verbalized the message below Normal [facility] Reminders Reminders From: Nilda Hernandez To: [facility] Clinical; Sent: 12/13/2023 11:53:01 EDT Show up: 12/13/2023 11:53:00 EDT Subject: Ambulatory Reminder Due Date/Time: 12/14/2023 11:52:00 EDT urine culture was positive for e coli. she is on correct antibiotic. encourage her to finish all antibiotics. Results: Date Result Type Ind Result Name 12/10/2023 9:39 EDT MBO POS Urine Culture Normal [facility] C Urineon 12-12-2023 Bacteria identified Cx Nom (U) Microbiology PROCEDURE: Urine Culture [R1] SOURCE: U CleanCatch BODY SITE: COLLECTED DATE/TIME: 12/10/2023 09:39 EDT RECEIVED DATE/TIME: 12/10/2023 17:44 EDT START DATE/TIME: 12/10/2023 17:44 EDT FREE TEXT SOURCE: Nilda Hernandez Jeramie HOUSE REGISTRY RN, Nilda White FINAL REPORTS Final Report [] Verified Date/Time: 12/12/2023 09:18 EDT 75,000 cfu/ml Escherichia coli SUSCEPTIBILITY RESULTS __ LEGEND: S=Susceptible, N/R=Not Reported, Blank=Data not available, or drug not advisable or tested, I=Intermediate, ESBL=Extended spectrum beta-lactamase, R=Resistant, TFG=Thymidine-dependen t strain, JEFRY=Beta-lactamase positive, SHELLI=mcg/m;(mg/L), S*=Predicted susceptible interp, [...] Locations R1: This test was performed at: [facility], [address] [place] [address], [id number]- , [place], Normal [facility] Comment on above: Performed By: #### 2 [id number] #### [facility] [address] [place] [id number] Family Medicine Office/Clini c Noteon 12-10-2023 Family [...] Daily, # 30 tab(s), Refills(s) 0, Pharmacy: [id number], 166, cm, 12/10/23 9:10:00 EDT, Height/Length Dosing, 67, kg, 12/10/23 9:10:00 EDT, Weight Dosing nitrofurantoin, 100 mg = 1 cap(s), Oral, BID, X 7 day(s), # 14 cap(s), Refills(s) 0, [id number] 166, cm, 12/10/23 9:10:00 EDT, Height/Length Dosing, 67, kg, 12/10/23 9:10:00 EDT, Weight Dosing 2. Urinary frequency (R35.0: Frequency of micturition) see above Ordered: meloxicam, 15 mg = 1 tab(s), Oral, Daily, # 30 tab(s), Refills(s) 0, [id number], 166, cm, 12/10/23 9:10:00 EDT, Height/Length Dosing, 67, kg, 12/10/23 9:10:00 EDT, Weight Dosing nitrofurantoin, 100 mg = 1 cap(s), Oral, BID, X 7 day(s), # 14 cap(s), Refills(s) 0, [id number], 166, cm, 12/10/23 9:10:00 EDT, [...] # 30 tab(s), Refills(s) 0, [id number], 166, cm, 12/10/23 9:10:00 EDT, Height/Length Dosing, 67, kg, 12/10/23 9:10:00 EDT, Weight Dosing nitrofurantoin, 100 mg = 1 cap(s), Oral, BID, X 7 day(s), # 14 cap(s), Refills(s) 0, [facility], 166, cm, 12/10/23 9:10:00 EDT, Height/Length Dosing, 67, kg, 12/10/23 9:10:00 EDT, Weight Dosing 4. Smoker (F17.200: Nicotine dependence, unspecified, uncomplicated) consider not smoking Ordered: meloxicam, 15 mg = 1 tab(s), Oral, Daily, # 30 tab(s), Refills(s) 0, [facility] 166, cm, 12/10/23 9:10:00 EDT, Height/Length Dosing, 67, kg, 12/10/23 9:10:00 EDT, Weight Dosing nitrofurantoin, 100 mg = 1 cap(s), Oral, BID, X 7 day(s), # 14 cap(s), Refills(s) 0, [facility], 166, cm, 12/10/23 9:10:00 EDT, Height/Length Dosing, 67, kg, 12/10/23 9:10:00 EDT, Weight Dosing 5. BMI 24.0-24.9, adult (Z68.24: Body mass index [BMI] 24.0-24.9, adult) BMI education given Ordered: meloxicam, 15 mg = 1 tab(s), Oral, Daily, # 30 tab(s), Refills(s) 0, [id number], 166, cm, 12/10/23 9:10:00 EDT, Height/Length Dosing, 67, kg, 12/10/23 9:10:00 EDT, Weight Dosing nitrofurantoin, 100 mg = 1 cap(s), Oral, BID, X 7 day(s), # 14 cap(s), Refills(s) 0, [facility], 166, cm, 12/10/23 9:10:00 EDT, [...] citalopram 4 (more content not included)... Normal [facility] Comment on above: Result Comment: Elec tronically Signed By: Jeramie ADRIAN, Nilda White\.br\Date and Time Signed: 12/10/23 09:27 EDT Family [...] # 30 tab(s), Refills(s) 1, [id number], 166, cm, 10/29/23 10:00:00 EDT, Height/Length Dosing, 66.4, kg, 10/29/23 10:00:00 EDT, Weight Dosing 2. Menopause (Z78.0: Asymptomatic menopausal state) see above Ordered: oxybutynin, 5 mg = 1 tab(s), Oral, Daily, # 30 tab(s), Refills(s) 1, [id number] 166, cm, 10/29/23 10:00:00 EDT, Height/Length Dosing, 66.4, kg, 10/29/23 10:00:00 EDT, Weight Dosing 3. Overactive bladder (N32.81: Overactive bladder) will order oxybutnin. RTC 5 weeks to follow up on symptoms and to discuss knee pain Ordered: oxybutynin, 5 mg = 1 tab(s), Oral, Daily, # 30 tab(s), Refills(s) 1, Pharmacy: [facility], 166, cm, 10/29/23 10:00:00 EDT, Height/Length Dosing, 66.4, kg, 10/29/23 10:00:00 EDT, Weight Dosing 4. BMI 24.0-24.9, adult (Z68.24: Body mass index [BMI] 24.0-24.9, adult) BMI education given Ordered: oxybutynin, 5 mg = 1 tab(s), Oral, Daily, # 30 tab(s), Refills(s) 1, Pharmacy: [facility], 166, cm, 10/29/23 10:00:00 EDT, Height/Length Dosing, 66.4, kg, 10/29/23 10:00:00 EDT, Weight Dosing 5. Smoker (F17.200: Nicotine dependence, unspecified, uncomplicated) consider not smoking Ordered: oxybutynin, 5 mg = 1 tab(s), Oral, Daily, # 30 tab(s), Refills(s) 1, Pharmacy: [facility], 166, cm, 10/29/23 10:00:00 EDT, Height/Length [...] virus vaccine, inactivated 03/09/2022 Recorded SARS-CoV-2 (COVID-19) mRNAMUL.[id number] 03/09/2022 Recorded SARS-CoV-2 (COVID-19) mRNA BNT-162b2 vax 04/17/2021 Recorded SARS-CoV-2 (COVID-19) mRNA BNT-162b2 vax 08/15/2020 Recorded SARS-CoV-2 (COVID-19) mRNA BNT-162b2 vax 07/25/2020 Recorded Normal [facility] Comment on above: Result Comment: Elec tronically Signed By: Nilda Hernandez\.br\Date and Time Signed: 10/29/23 10:40 EDT Lab Reportson 07-13-2023 Lab Reports [id number]#1.0 0TIFF Normal [facility] Ambulatory Visit Summaryon 0 06-30-2023 Ambulatory Visit Summary SCOTT FRANCIS Christopher :1960 Visit Date:06/30/2023 Ambulatory Visit Instructions Your [...] Neck pain Refills: 2 Pickup at [facility] #[id number] Unchanged aspirin (Aspirin Low Dose 81 mg [...] MOUTH EVERYDAY AT BEDTIME Pharmacy Information [facility][id number]: [address], [place] [id number] [phone] Allergies cefuroxime (Unknown) Problems Ongoing - Any [...] choosing us for your care. Normal [facility] Family Medicine Office/Clini c Noteon 06-30-2023 Family [...] # 30 cap(s), Refills(s) 2, Pharmacy: [facility]177, 166, cm, 06/30/23 15:12:00 EDT, Height/Length Dosing, 69.5, kg, 06/30/23 15:12:00 EDT, Weight Dosing 2. BMI 25.0-25.9,adult (Z68.25: Body mass index [BMI] 25.0-25.9, adult) BMI education complete Ordered: gabapentin, 300 mg = 1 cap(s), Oral, Once a day (at bedtime), # 30 cap(s), Refills(s) 2, Pharmacy: [id number], 166, cm, 06/30/23 15:12:00 EDT, Height/Length Dosing, 69.5, kg, 06/30/23 15:12:00 EDT, Weight Dosing 3. Smoker (F17.200: Nicotine dependence, unspecified, uncomplicated) consider not smoking Ordered: gabapentin, 300 mg = 1 cap(s), Oral, Once a day (at bedtime), # 30 cap(s), Refills(s) 2, Pharmacy: [facility], 166, cm, 06/30/23 15:12:00 EDT, Height/Length [...] virus vaccine, inactivated 03/09/2022 Recorded SARS-CoV-2 (COVID-19) mRNAMUL.[id number] 03/09/2022 Recorded SARS-CoV-2 (COVID-19) mRNA BNT-162b2 vax 04/17/2021 Recorded SARS-CoV-2 (COVID-19) mRNA BNT-162b2 vax 08/15/2020 Recorded SARS-CoV-2 (COVID-19) mRNA BNT-162b2 vax 07/25/2020 Recorded Normal [facility] Comment on above: Result Comment: Elec tronically Signed By: Nilda Hernandez\miley\Date and Time Signed: 06/30/23 15:25 EDT Consultation Noteon 03-25-20 23 Consultation Note [id number]#1.0 0TIFF [facility] Pulmonary Function Testson 05-04-2022 Pulmonary Function Tests [id number] 0TIFF [facility] RAD - CT Reporton 03-01-2023 RAD - CT Report [id number] 0TIFF [facility] Physician Orderon 02-12-2023 Physician Order [id number] 0TIFF [facility] Physician Referralon 023 Physician Referral [id number]. 00TIFF [facility] Ambulatory Visit Summaryon Ambulatory Visit Summary SCOTT FRANCIS Christopher :1960 [...] EST With: [place] SMITH, Dada Genao Where: [facility] Invalid Interpretation Code COPD without exacerbation [facility] Office/Clini c Noteon 02-02-2023 [facility] Medicine Office/Clinic Note HPI Staff Scott is [...] - Follow up in 2 months Ordered: [facility] [place] Ambulatory Referral Pulmonary Function Testing 2. COPD without exacerbation (J44.9: Chronic obstructive pulmonary disease, unspecified) - Will refer to Pulm. - Will also do PFTs Ordered: [facility] Ambulatory Referral Pulmonary Function Testing 3. Alcohol abuse (F10.10: Alcohol abuse, uncomplicated) - Please continue abstaining from EtOH Ordered: [facility] Ambulatory Referral Pulmonary Function Testing 4. Cigarette nicotine dependence (F17.210: Nicotine dependence, cigarettes, uncomplicated) - CT scan ordered for screening. Ordered: CT Chest, Low Dose Screening [facility] Ambulatory Referral Pulmonary Function Testing 5. BMI 24.0-24.9, adult (Z68.24: Body mass index [BMI] 24.0-24.9, adult) - BMI education given. Ordered: [facility] Ambulatory Referral Pulmonary Function Testing Orders: hydrOXYzine, 20 mg = 2 tab(s), Oral, QID, # 360 tab(s), Refills(s) 0, Pharmacy: [facility] #6177, 166, cm, 02/02/23 15:55:00 EDT, Height/Length [...] virus vaccine, inactivated 03/09/2022 Recorded SARS-CoV-2 (COVID-19) [id number].[id number] 03/09/2022 Recorded SARS-CoV-2 (COVID-19) mRNA BNT-162b2 vax 04/17/2021 Recorded SARS-CoV-2 (COVID-19) mRNA BNT-162b2 vax 08/15/2020 Recorded SARS-CoV-2 (COVID-19) mRNA BNT-162b2 vax 07/25/2020 Recorded Normal [facility] Comment on above: Result Comment: Elec tronically Signed By: [place] SMITH, Dada Chavez.br\Date and Time Signed: 02/02/23 16:28 EDT Family Medicine Office/Clini c Noteon 01-27-2023 Family Medicine Office/Clinic Note HPI Staff Scott is a 63 year old female presenting for follow up medication check Had 2 stents put in 01/13 at [facility] and d/c 01/15/23 covid UTD Flu: UTD [...] another condition. The patient was admitted to [facility] due to chest pain. The onset of symptoms, which included chest pain, dyspnea, and belching, occurred at 6:00 AM on January 13, 2023. Despite the severity of these symptoms, the patient waited 2 days before seeking medical attention and was subsequently transferred to [place]. The patient was discharged on 01/15/2023 and has a follow-up appointment scheduled with a jet blade polisher on 02/04/2023. In addition to the cardiac [...] appropriately. Patients will follow up with [facility] cardiology. 2. CAD (coronary artery disease) (I25.10: Atherosclerotic heart disease of [place] coronary artery without angina pectoris) Patient is [...] with voice recognition artificial intelligence software, specifically Tunessence, [email or web address] and or Volance. Substitutions may have occurred due to the inherent limitations of voice recognition and artificial intelligence software. Documentation services were performed after patient or guardian consented to allow [facility] to record this visit. JOSÉ dot compliance specialist and provider reviewed before signing. JOSÉ: [...] mg Tab, (more content not included)... Normal [facility] Comment on above: Result Comment: Elec tronically Signed By: Dada Callahan MD\.br\Date and Time Signed: 01/27/23 09:43 EDT\.br\Electronically Co-Signed By: Neelam Gerardo\.br\Date and Time Co-Signed: 01/19/23 18:43 EDT Outside [facility] Correspo ndenceon 01-19-2023 Outside [facility] Correspondence [id number] 0CD:127 Normal [facility] Patient Educationon 01-20-20 Patient Education Nutrition [...] numbers. This can be done either in [place] (U.S[place] or metric measurements. Note that charts and online BMI calculators are available to help you find your BMI quickly and easily without having to do these calculations yourself. To calculate your BMI in Danish (U.S.) measurements: 1. Measure your weight in [...] for Disease Control and Prevention: www.cdc.gov ? [place] Heart Association: www.heart.org ? National Heart, Lung, and Blood [place]: www.nhlbi.nih.gov Summary ? Body mass index (BMI) is a number that is calculated from a person's weight and height. ? BMI may help estimate how much of a person's weight is composed of fat. BMI can help identify those who may be at higher risk for certain medical problems. ? BMI can be measured using Danish measurements or metric measurements. ? BMI charts are used to identify whether you are underweight, normal weight, overweight, or obese. This information is not intended to replace advice given to you by your health care provider. Make sure you discuss any questions you have with your health care provider. Document Revised: 12/27/2019 Document Reviewed: 11/03/2019 [employer] Patient Education ? 2022 [employer]. [facility] RAD - MISCon 01-19-2023 [facility] MIS [id number] 0CD:127 [facility] [id number] CD:127 [facility] Family Medicine Office/Clini c Noteon [...] with voice recognition artificial intelligence software, specifically Tunessence, [email or web address] and or Volance. Substitutions may have occurred due to the inherent limitations of voice recognition and artificial intelligence software. ATTESTATION: Documentation services were performed after patient or guardian consented to allow MaPS to record this visit. JOSÉ dot compliance specialist and provider reviewed before signing. JOSÉ: Krystle Gamez. Follow-up No qualifying data available Problem List/Past Medical History Ongoing Alcohol abuse Diverticulitis Dizziness Fibromyalgia Hypertension Hyponatremia Hypothyroidism Macrocytosis Migraines Mixed hyperlipidemia Barriga neuroma Neck pain Seasonal allergies Historical No qualifying data Procedure/Surgical History Cataract, Colonoscopy, Vaginal hysterectomy. Medications atorvastatin 20 mg Tab, See Instructions, Not taking bisoprolol-hydrochloro thiazide 10 mg-6.25 mg Tab, 1 tab(s), Oral, [...] more cigar (more content not included)... Normal [facility] Comment on above: Result Comment: Elec [...] or concerns atorvastatin (atorvastatin 20 mg Tab) bisoprolol-hydrochloro thiazide (bisoprolol-hydrochlor othiazide 10 mg-6.25 mg Tab) citalopram (citalopram 40 [...] AM EST With: Dada Callahan MD Where: [facility] Normal [facility] Auto Diffon 01-04-2023 Basophils/100 WBC (Bld) 1.0 % Normal 0.0-2.0 [facility] Comment on above: Order Comment: Order Added by Discern Expert. Performed By: #### 1 [id number], [id number], [id number], 1763181 ####[facility] [address] [place] [address] Basophils/Leukocytes Auto (Bld) [Pure # fraction] 0.1 E9/L Normal 0.0-0.2 [facility] Comment on above: Order Comment: Order Added by Discern Expert. Performed By: #### 1 [id number], 9252614, 4294526, 3689476 ####[facility] [address] [place] [address] Eosinophils/100 WBC (Bld) 1.8 % Normal 0.0-8.0 [facility] Comment on above: Order Comment: Order Added by Discern Expert. Performed By: #### 1 [id number], 6188889, 3073254, 3325350 ####[facility] [address] [place] [address] Eosinophils/Leukocyt es Auto (Bld) [Pure # fraction] 0.1 E9/L Normal 0.0-0.5 [facility] Comment on above: Order Comment: Order Added by Discern Expert. Performed By: #### 1 [id number], 7013546, 5476775, 6783867 ####[address] [place] [address] Lymphocytes/100 WBC (Bld) 27.6 % Normal 14.0-50.0 [facility] Comment on above: Order Comment: Order Added by Discern Expert. Performed By: #### 1 [id number], 3016196, 6301606, 9271127 ####[address] [address] Lymphocytes/Leukocyt es Auto (Bld) [Pure # fraction] 2.3 E9/L Normal 1.0-4.0 [facility] Comment on above: Order Comment: Order Added by Landy Expert. Performed By: #### 1 [id number], 0476100, 3602501, 5632802 ####[address] [address] Monocytes/100 WBC (Bld) 7.3 % Normal 4.0-14.0 [facility] Comment on above: Order Comment: Order Added by Discern Expert. Performed By: #### 1 [id number], 6286544, 8932357, 9038080 ####[address] [address] Monocytes/Leukocytes Auto (Bld) [Pure # fraction] 0.6 E9/L Normal 0.2-1.0 [facility] Comment on above: Order Comment: Order Added by Discern Expert. Performed By: #### 1 2812904, 5749116, 3925772, 4067719 ####[address] [place] [address] Neutrophils/100 WBC (Bld) 62.3 % Normal 36.0-75.0 [facility] Comment on above: Order Comment: Order Added by Discern Expert. Performed By: #### 1 8124403, 3081047, 5455408, 1500550 ####[address] [place] [address] Neutrophils/Leukocyt es Auto (Bld) [Pure # fraction] 5.1 E9/L Normal 2.0-7.5 [facility] Comment on above: Order Comment: Order Added by Discern Expert. Performed By: #### 1 0235356, 9662002, 0800287, 1251863 ####[address] [address] CBC w/ Auto Diffon 3 Erythrocyte distribution width (RBC) [Ratio] 13.3 % Normal 10.9-14.2 [facility] Comment on above: Performed By: #### 1 4106537, 5214264, 1200923, 8935065 ####[address] [address] Hematocrit (Bld) [Volume fraction] 42.5 % Normal 34.0-46.0 [facility] Comment on above: Performed By: #### 1 1865629, 3627299, 1415922, 7182884 ####[address] [address] Hemoglobin (Bld) [Mass/Vol] 14.8 g/dL Normal 12.0-16.0 [facility] Comment on above: Performed By: #### 1 9730685, 2648354, 0311868, 3084248 ####[address] [address] MCH (RBC) [Entitic mass] 35.3 pg High 27.0-34.0 [facility] Comment on above: Performed By: #### 1 5313142, 4344777, 5615844, 6411153 ####[address] [address] MCHC (RBC) [Mass/Vol] 34.9 g/dL Normal 31.4-36.0 [facility] Comment on above: Performed By: #### 1 9852815, 1276642, 9127222, 6361599 ####[address] [address] MCV (RBC) [Entitic vol] 101.2 fL High 80.0-100.0 [facility] Comment on above: Performed By: #### 1 6162688, 1387798, 4410502, 4602849 ####[address] [address] Platelet mean volume (Bld) [Entitic vol] 7.2 fL Normal 6.4-10.8 [facility] Comment on above: Performed By: #### 1 1625461, 4003828, 0274437, 2336987 ####[address] Platelets (Bld) [#/Vol] 255.0 E9/L Normal 150.0-500.0 [facility] Comment on above: Performed By: #### 1 6489704, 2575405, 5651589, 7102160 ####[address] RBC (Bld) [#/Vol] 4.2 E12/L Low 4.3-5.9 [facility] Comment on above: Performed By: #### 1 4094268, 1702606, 3399658, 2195321 ####[address] [address] WBC corrected for nucl RBC Auto (Bld) [#/Vol] 8.2 E9/L Normal 4.0-11.0 [facility] Comment on above: Performed By: #### 1 4680065, 9791653, 5072576, 6293689 ####[address] [address] CMPon 01-04-2023 Albumin [Mass/Vol] 4.1 g/dL Normal 3.3-5.0 [facility] Comment on above: Performed By: #### 1 8750097, 0468764, 0326793, 8985110 ####[address] [address] Albumin/Globulin (S) [Mass conc ratio] 1.2 Normal 1.1-2.2 [facility] Comment on above: Performed By: #### 1 3855282, 4776944, 9988845, 2236129 ####[facility] [address] [place] [address] ALP [Catalytic activity/Vol] 66 Int._Unit/L Normal 21-98 [facility] Comment on above: Performed By: #### 1 7175830, 0646655, 0355128, 5598723 ####[address] [place] [address] ALT No additional P-5'-P [Catalytic activity/Vol] 20 Int._Unit/L Normal 6-46 [facility] Comment on above: Performed By: #### 1 4050427, 8992935, 8906387, 9916571 ####[address] [place] [address] Anion gap [Moles/Vol] 12 mmol/L Normal 6-16 [facility] Comment on above: Performed By: #### 1 0348729, 3370720, 1135013, 4206285 ####[address] [place] [address] AST [Catalytic activity/Vol] 34 Int._Unit/L Normal 5-43 [facility] Comment on above: Performed By: #### 1 3326194, 3174279, 8346551, 8950997 ####[address] [place] [address] Bilirubin [Mass/Vol] 0.4 mg/dL Normal 0.0-1.1 [facility] Comment on above: Performed By: #### 1 4766585, 9505398, 9444560, 6274606 ####[address] [place] [address] Calcium [Mass/Vol] 9.3 mg/dL Normal 8.9-11.1 [facility] Comment on above: Performed By: #### 1 6134629, 6309708, 3852169, 5482003 ####[facility] [address] [place] [address] Chloride [Moles/Vol] 99 mmol/L Low 101-111 [facility] Comment on above: Performed By: #### 1 7095048, 8170005, 3410858, 5304202 ####[facility] [address] [place] [address] CO2 [Moles/Vol] 28 mmol/L Normal 21-31 [facility] Comment on above: Performed By: #### 1 3977020, 6773111, 6861080, 4224398 ####[facility] [address] [place] [address] Creatinine [Mass/Vol] 0.6 mg/dL Normal 0.5-1.3 [facility] Comment on above: Performed By: #### 1 9533692, 7529435, 7045227, 5166556 ####[facility] [address] [place] [address] Globulin (S) [Mass/Vol] 3.5 g/dL Normal 1.4-4.0 [facility] Comment on above: Performed By: #### 1 8792046, 4393898, 2465376, 2266599 ####[facility] [address] [place] [address] Glucose [Mass/Vol] 120 mg/dL Normal 55-199 [facility] Comment on above: Result Comment: If t his glucose result represents a fasting glucose, interpretation should refer to the following reference range: 55-99 mg/dL Performed By: #### 1 6346335, 8516471, 5331894, 7244605 ####[facility] [address] [facility] [place] [address] Potassium [Moles/Vol] 4.2 mmol/L Normal 3.5-5.3 [facility] Comment on above: Performed By: #### 1 0771500, 3123300, 1621939, 9296673 ####[facility] [address] [place] [address] Protein [Mass/Vol] 7.6 g/dL Normal 6.0-7.8 [facility] Comment on above: Performed By: #### 1 5121597, 2452365, 7739794, 0977847 ####[facility] [address] [place] [address] Sodium [Moles/Vol] 135 mmol/L Normal 135-145 [facility] Comment on above: Performed By: #### 1 3804898, 6996688, 1563374, 8977874 ####[facility] [address] [place] [address] Urea nitrogen [Mass/Vol] 8 mg/dL Normal 5-21 [facility] Comment on above: Performed By: #### 1 2295693, 0676098, 5874582, 2506180 ####[facility] [address] [place] [address] Urea nitrogen/Creatinine [Mass ratio] 13 No Units Normal 10-20 [facility] Comment on above: Performed By: #### 1 8608933, 6344497, 2131508, 4655904 ####[facility] [address] [place] [address] Consent for Flu Vaccineon Consent for Flu Vaccine [id number]#1.0 0CD:127 Normal [facility] eGFRon 01-04-2023 GFR/1.73 sq M.predicted among non-blacks MDRD (S/P/Bld) [Vol rate/Area] 102 mL/min/1.73 m2 Normal >=59 [facility] Comment on above: Order Comment: Order added by Discern Expert. Result Comment: Herb[employer] Service Sales Representative kandice kidney disease could be indicated at eGFR's of less than 60 mL/min/1.73m2. Kidney failure is indicated at less than 15 mL/min/1.73m2. Performed By: #### 1 6585190, 1161619, 2273297, 2922397 ####[facility] [address] [place] [address] CHEMISTRYOrdered By: SYSTEM SYSTEM on 09-21-2022 Albumin [Mass/Vol] 4.2 g/dL Normal 3.3 - 5.0 gm/dL [facility] Remisol Albumin/Globulin [Mass ratio] 1.3 {ratio} Normal [...] Bilirubin [Mass/Vol] 0.5 mg/dL Normal 0.0 - 1 .1 mg/dL [facility] Calcium [Mass/Vol] 9.3 mg/dL [...] (S/P/Bld) [Vol rate/Area] 84 mL/min/1.73 m2 Normal >=59mL/min/1.7 3 m2 [facility] Chem S Globulin (S) [Mass/Vol] 3.3 g/dL Normal 1.4 - 4.0 gm/dL [facility] Remisol Glucose [Mass/Vol] 102 mg/dL Normal 55 - 199 mg/dL [facility] Potassium [Moles/Vol] 4.5 mmol/L Normal 3.5 - 5.3 mmol/L [facility] Protein [Mass/Vol] 7.5 g/dL Normal 6.0 - 7.8 gm/dL [facility] Sodium [Moles/Vol] 133 mmol/L Low 135 [...] 5.5 E9/L Normal 2.0 - 7.5 E9/L FT HemeAutoSS HEMATOLOGYOrdered By: Mikayla Wayne on 09-21-2022 [...] 8.2 E9/L Normal 4.0 - 11.0 E9/L [facility] CBC AUTO DIFFon 10-09-2021 BASO # 0.1 103/ul Normal 0.0-0.1 [facility] Comment on above: Performed By: #### C BC #### [facility] [address] [place] [address] Dr. Yehuda Reese Basophils/100 WBC (Bld) 0.8 % Normal 0.2-2.0 [facility] Comment on above: Performed By: #### C BC #### [facility] [address] [place] [address] Dr. Yehuda Reese EO # 0.1 103/ul Normal 0.0-0.7 [facility] Comment on above: Performed By: #### C BC #### [facility] [address] [place] [address] Dr. Yehuda Reese Eosinophils/100 WBC (Bld) 1.7 % Normal 0.9-7.0 [facility] Comment on above: Performed By: #### C BC #### [facility] [address] [place] [address] Dr. Yehuda Reese Erythrocyte distribution width (RBC) [Ratio] 12.0 % Normal 11.0-15.0 [facility] Comment on above: Performed By: #### C BC #### [facility] [address] [place] [address] Dr. Yehuda Reese Hematocrit (Bld) [Volume fraction] 44.0 % Normal 36.0-48.0 [facility] Comment on above: Performed By: #### C BC #### [facility] [address] [place] [address] Dr. Yehuda Reese Hemoglobin (Bld) [Mass/Vol] 15.1 g/dL Normal 12.0-16.0 [facility] Comment on above: Performed By: #### C BC #### [facility] [address] [place] [address] Dr. Yehuda Reese IG # 0.02 10e3/ul Normal 0.00-0.03 [facility] Comment on above: Performed By: #### C BC #### [facility] [address] [place] [address] Dr. Yehuda Reese IG % 0.2 % Normal 0.0-0.5 [facility] Comment on above: Performed By: #### C BC #### [facility] [address] [place] [address] Dr. Yehuda Reese LYMPH # 3.0 103/ul Normal 1.2-3.8 [facility] Comment on above: Performed By: #### C BC #### [facility] [address] [place] [address] Dr. Yehuda Reese Lymphocytes/100 WBC (Bld) 34.9 % Normal 20.5-60.0 [facility] Comment on above: Performed By: #### C BC #### [facility] [address] [address] [address] Yehuda Reese MANUAL DIFF REQ NO Normal [facility] Comment on above: Performed By: #### C BC #### [facility] [address] [place] [address] Dr. Yehuda Reese MCH (RBC) [Entitic mass] 34.6 pg Critically high 26.7-34.0 [facility] Comment on above: Performed By: #### C BC #### [facility] [address] [place] [address] Dr. Yehuda Reese MCHC (RBC) [Mass/Vol] 34.3 g/dL Normal 29.9-35.2 [facility] Comment on above: Performed By: #### C BC #### [facility] [address] [place] [address] Dr. Yehuda Reese MCV (RBC) [Entitic vol] 100.7 fL Critically high 81.0-99.0 [facility] Comment on above: Performed By: #### C BC #### [facility] [address] [place] [address] Dr. Yehuda Reese MONO # 0.5 103/ul Normal 0.3-0.8 [facility] Comment on above: Performed By: #### C BC #### [facility] [address] [place] [address] Dr. Yehuda Reese Monocytes/100 WBC (Bld) 6.0 % Normal 1.7-12.0 [facility] Comment on above: Performed By: #### C BC #### [facility] [address] [place] [address] Dr. Yehuda Reese NEUT # 4.8 103/ul Normal 1.4-6.5 [facility] Comment on above: Performed By: #### C BC #### [facility] [address] [place] [address] Dr. Yehuda Reese Neutrophils/100 WBC (Bld) 56.4 % Normal 43.0-75.0 [facility] Comment on above: Performed By: #### C BC #### [facility] [address] [address] [address] Yehuda Reese Platelet mean volume (Bld) [Entitic vol] 8.7 fL Critically low 9.5-13.5 [facility] Comment on above: Performed By: #### C BC #### [facility] [address] [place] [address] Dr. Yehuda Reese PLT 237 103/ul Normal 150-450 [facility] Comment on above: Performed By: #### C BC #### [facility] [address] [place] [address] Dr. Yehuda Reese RBC 4.37 106/ul Normal 4.20-5.40 [facility] Comment on above: Performed By: #### C BC #### [facility] [address] [place] [address] Dr. Yehuda Reese WBC 8.5 103/ul Normal 4.0-11.0 [facility] Comment on above: Performed By: #### C BC #### [facility] [address] [place] [address] Dr. Yehuda Reese FREE T3on 10-09-2021 FREE T3 2.65 pg/mlL Normal 2.18-3.98 [facility] Comment on above: Performed By: #### F T3, TSH #### [facility] [address] [place] [address] Dr. Yehuda Reese FREE T4on 10-09-2021 Free T4 [Mass/Vol] 1.17 ng/dL Normal 0.76-1.46 [facility] Comment on above: Performed By: #### F T4 #### [facility] [address] [place] [address] Dr. Yehuda Reese TSHon 10-09-2021 TSH 0.379 uIU/mL Normal 0.358-3.740 [facility] Comment on above: Performed By: #### F T3, TSH #### [facility] [address] [place] [address] Dr. Yehuda Reese [facility] SARS-CoV-2 (COVID-19) RNA HENRY+probe Ql (Unsp spec) Not detected Normal NOT DETECTED [facility] Comment on above: Result Comment: This test is not yet approved or cleared by the [place] FDA. When there are no FDA-approved or cleared tests available, and other criteria are met, FDA can make tests available under an emergency access mechanism called an Emergency Use Authorization (EUA). The EUA for this test is supported by the Physical Therapy Attendant of Health and Human Service's (HHS's) declaration [...] consistent with SARS-CoV-2. Performed By: #### [facility] #### [facility] [address] [place] [address] Dr. Yehdua Reese Encounters Encounter Date Encounter Type Care Provider Facility Start: 10-04-2024 ambulatory HOUSE REGISTRY RN Nilda L Jeramie Facil ity: [facility] Start: 09-29-2024 End: 09-29-2024 ambulatory HOUSE REGISTRY RN Nilda L Jeramie Facility:[facility] Brianna wrighte Start: 09-07-2024 End: 09-07-2024 ambulatory [facility] Start: 09-01-2024 End: 09-01-2024 Lab Drop off Nilda L Jeramie [facility] Start: 09-01-2024 End: 09-01-2024 ambulatory HOUSE REGISTRY RN Nilda L Jeramie Facility[facility] Start: 08-30-2024 End: 08-30-2024 ambulatory HOUSE REGISTRY RN Nilda L Jeramie Facility:[facility] Brianna wrighte Start: 02-14-2024 End: 02-14-2024 ambulatory [facility] Start: 12-10-2023 End: 12-10-2023 Lab Drop off Nilda L Jeramie [facility] Start: 12-10-2023 End: 12-10-2023 ambulatory HOUSE REGISTRY RN Nilda L Jeramie Facility:[facility] Start: 12-03-2023 End: 12-03-2023 ambulatory HOUSE REGISTRY RN Nilda L Jeramie Facility:[facility] [place] [facility] Start: 10-29-2023 End: 10-29-2023 ambulatory HOUSE REGISTRY RN Nilda L Jeramie Facility:[facility] [place] [facility] Start: 06-30-2023 End: 06-30-2023 ambulatory HOUSE REGISTRY RN Nilda L Jeramie Facility:[facility] [place] [facility] Start: 04-05-2023 End: 04-05-2023 ambulatory MD Dada Callahan Facility:[facility] [place] [facility] Start: 02-02-2023 End: 02-02-2023 ambulatory MD Dada Callahan Facility:[facility] [place] [facility] Start: 01-19-2023 End: 01-19-2023 ambulatory MD Dada Callahan Facility:[facility] [place] [facility] Start: 01-04-2023 End: 01-04-2023 ambulatory MD Dada Callahan Facility:[facility] Start: 12-22-2022 End: 12-22-2022 ambulatory MD Dada Callahan Facility: [facility] [place] [facility] Start: 09-21-2022 End: 09-21-2022 Lab Drop off Dada Callahan [facility] Start: 10-09-2021 End: 10-10-[address] JAZMIN MILES Facility:[facility] Start: 03-05-2021 End: 03-05-[address] JAZMIN MILES Facility:[facility] Procedures Date Procedure Procedure Detail Performing Clinician Cataract (disorder) Dada newman Colonoscopy Dada Callahan Comment on above: 2019 polyps, repeat 2021 Vaginal hysterectomy Dada Callahan Immunizations Immunization Date Immunization Notes Care Provider Fa cility 03-24-2023 zoster vaccine recombinant Nilda Bobo [facility] 03-23-2023 pneumococcal 20-javi nt conjugate vaccine Nilda Cervantesab [facility] 01-04-2023 influenza, injectabl e, quadrivalent, preservative free Nilda Bobo [facility] 03-09-2022 influenza virus vaccine, unspecified formulation Dada Callahan [facility] 03-09-2022 SARS-CoV-2 (COVID-19 ) [id number] Dada Callahan [facility] 04-17-2021 SARS-CoV-2 (COVID-19 ) mRNA BNT-162b2 vax Dada Callahan [facility] 08-15-2020 SARS-CoV-2 (COVID-19 ) mRNA BNT-162b2 vax Dada Callahan [facility] 07-25-2020 SARS-CoV-2 (COVID-19 ) mRNA BNT-162b2 samuel Callahan [facility] Payers Date Payer Category Payer Unknown [id number] 2024 Unknown [id number] 1960 Unknown [id number] 2.16.84 0.1.548788.3.579.2.593 1960 Unknown [id number] 2.16.84 0.1.212455.3.579.2.593 1962 Unknown [id number] 2.16.8 40.1.294436.3.579.2.727 1962 Unknown [id number] 2.16.8 40.1.503429.3.579.2.727 1962 Unknown [id number] 2.16.8 40.1.387271.3.579.2. 1962 Unknown [id number] 2.16.8 40.1.378654.3.579.2. 1962 Unknown [id number] 2.16.8 40.1.061155.3.579.2. 1962 Unknown [id number] 2.16.8 40.1.538248.3.579.2. 1962 Unknown [id number] 2.16.8 40.1.412394.3.579.2 1962 Unknown [id number] 2.16.8 40.1.726908.3.579.2. 1962 Unknown [id number] 2.16.8 40.1.078757.3.579.2 1962 Unknown [id number] 2.16.8 40.1.208393.3.579.2 1962 Unknown [id number] 2.16.8 40.1.422208.3.579.2. 1962 Unknown [id number] 2.16.8 40.1.979588.3.579.2. 1962 Unknown [id number] 2.16.8 40.1.414509.3.579.2. 1962 Unknown [id number] 2.16.8 40.1.507825.3.579.2. 1962 Unknown [id number] 2.16.8 40.1.423409.3.579.2. 1962 Unknown [id number] 2.16.8 40.1.985143.3.579.2. 1962 Unknown [id number] 2.16.8 40.1.413490.3.579.2.727 1959 Unknown [id number] Social History Date Type Detail Facility Start: 09-21-2022 Tobacco smoking status Heavy t obacco smoker (finding) [facility] Sex Assigned At Female [facility] Start: 12-10-2023 End: 09-01-2024 Tobacco smoking status Light tobacco smoker (finding) [facility] Sexual Orientation [facility] Start: 07-31-2009 Sex Female (finding) [facility] Progress note 09-07-2024 Note Date & Type Note Facility 09-07-2024 Note [facility] Progress note 09-07-2024 Note Date & Type Note Facility 09-07-2024 Note [facility] Cardiology Clinic Note Chief Complaint: Patient here for 6 mo follow up. Patient states her blood pressure is always high. Patient was in the [facility] 3 weeks ago for vertigo. Occasional chest ache which resolves by its self. Review of Systems Cardiovascular: Positive for chest pain. HPI: Scott Francis is a 64 y.o. [...] that she had 6 alcoholic beverages yesterday Update 09/07/2024: Doing fairly well. Has atypical chest ache at rest that resolves spontaneously. No shortness of breath. No orthopnea, no paroxysmal tunnel dyspnea, no lower extremity edema. Continues to drink quite heavily. Per her estimate she had about 10 alcoholic beverages last week. Past Medical History She has a past medical history of Alcohol abuse, Anxiety, COPD (chronic obstructive pulmonary disease) (CMS/HCC), Coronary artery disease, Hyperlipidemia, Hypertension, and Smoker. Surgical History She has a past surgical history that includes Cardiac catheterization; Coronary stent placement; and Hysterectomy. Social History She reports that she has been smoking cigarettes. She has never used smokeless tobacco. She reports current alcohol use. She reports that she does not use drugs. Family History Family History Problem Relation Name Age of Onset No Known Problems Mother No Known Problems Father Allergies Cefuroxime and Theragran Medications Current Outpatient Medications: aspirin 81 mg EC tablet, Take 81 mg by mouth in the morning., Disp: , Rfl: atorvastatin (Lipitor) 20 mg tablet, Take 1 tablet (20 mg) by mouth at bedtime., Disp: 90 tablet, Rfl: 3 chlorthalidone (Hygroton) 25 mg tablet, Take 1 tablet (25 mg) by mouth in the morning., Disp: 90 tablet, Rfl: 3 citalopram (CeleXA) 40 mg tablet, Take 40 [...] with breakfast and with evening meal., Disp: 720 capsule, Rfl: 3 levothyroxine (Synthroid, Levoxyl) 50 mcg tablet, Take 50 mcg by mouth in the morning., Disp: , Rfl: losartan (Cozaar) 50 mg tablet, Take 1 tablet (50 mg) by mouth once daily as directed., Disp: 90 tablet, Rfl: 3 meloxicam (Mobic) [...] 3 doses., Disp: 100 tablet, Rfl: 0 oxyBUTYnin XL (Ditropan-XL) 5 mg 24 hr tablet, Take 5 mg by mouth in the morning., Disp: , Rfl: potassium chloride CR (K-Tab) 20 mEq ER tablet, Take 1 tablet (20 mEq) by mouth in the morning. Patient to take four tablets by mouth, Disp: 8 tablet, Rfl: 0 traZODone (Desyrel) 100 mg tablet, TAKE 1 TABLET BY MOUTH EVERYDAY AT BEDTIME, Disp: , Rfl: Last Recorded Vitals BP (!) 193/84 (BP Location: Right arm, Patient Position: Sitting) Pulse 72 Ht 1.676 m (5' 6 ) Wt 64.4 kg (142 lb) SpO2 94% BMI 22.92 kg/m??? Physical Examination: GENERAL: alert and oriented [...] pressure 151, HDL 43, LDL 39 Investigations Echocardiogram-[facility] Name: SCOTT FRANCIS (more content not included)... [facility] Progress note 02-14-2024 Note Date & Type Note Facility 02-14-2024 Note [facility] Cardiology Clinic Note Chief Complaint: [...] abuse, Anxiety, COPD (chronic obstructive pulmonary disease) (CMS/[facility]ER[facility]), Coronary artery disease, Hyperlipidemia, and Smoker. Surgical [...] pressure 151, HDL 43, LDL 39 Investigations Echocardiogram-[facility] Name: SCOTT FRANCIS Study Date: 01/13/2023 01:43 PM B/P: 145 mmHg/99 mmHg HR: 66 bpm Date of : 1960 Location: [facility] Height: 66 in. Age: 63 year(s) Patient Room : 3102 Weight: 132 lb. Gender: Female Patient Status: InPt BSA: 1.68 m2 Indication: ACS, elevated tr (more content not included)... [facility] Evaluation + Plan note 12-10-2023 Radiology Note Date & Type Note Facility 12-10-2023 Evaluation + Plan note Diagnostic Tests PendingUrine Culture 12/10/23 Future Scheduled TestsCT Chest, Low Dose Screening 02/02/23 [facility] Evaluation + Plan note Note Date & Type Note Facility Evaluation + Plan note Future Appointments Appointment Date:12/22/2022 01:00:00 PM Scheduled Provider:Dada Callahan MD Location:[facility] Appointment Type:[facility] Evaluation + Plan note Note Date & Type Note Facility Evaluation + Plan note Future Appointments Appointment Date:09/29/2024 11:20:00 AM Scheduled Provider:Nilda Hernandez Location[facility] Appointment Type:[facility] Hospital course Narrative Note Date & Type Note Facility Hospital course Narrative No data available for this section [facility] Hospital Discharge instructions Note Date & Type Note Facility Hospital Discharge instructions No data available for this section [facility] Progress note Note Date & Type Note Facility Progress note No data available for this section [facility] Summary Purpose Family History No Family History Records Found No data available for this section No Family History Records FoundNo Family History Records Found No data available for this section No data available for this section No [...] and content) DATE CREATED AUTHOR [facility]2021 [facility] DATE CREATED AUTHOR AUTHOR'S ORGANIZ ATION 12/11/2023 [place] [facility] DATE CREATED AUTHOR AUTHOR'S ORGANIZ ATION 12/13/2023 Das [place] [facility] DATE CREATED AUTHOR AUTHOR'S ORGANIZ ATION 09/03/2024 [place] [facility] DATE CREATED AUTHOR AUTHOR'S ORGANIZ ATION 09/14/2024 [facility] DATE CREATED AUTHOR AUTHOR'S ORGANIZ ATION 10/01/2024 Das [place] [facility] DATE CREATED AUTHOR AUTHOR'S ORGANIZ ATION [facility] Care team informatio n (unrecognized section and content) Personnel Name: JAZMIN MILES MD Address: Address: [address] [place] [address] Personnel Name: Nilda Hernandez Address: Address: [address] [place] [address] Personnel Name: Nilda Hernandez Address: [address] [place] [address]- [employer]: Personnel Name: Nilda Hernandez Address: [address] [place] [address]- [employer]: FOR RECORDS PERTAINING TO PATIENTS WHO ARE [...] BE BASED ON THE PRIMARY CLINICAL RECORDS. [facility] [facility]. provides no warranty or guarantee of the accuracy or completeness of information in this document.
[2024-10-04 09:17] LABS: Alanine Aminotransferase 47 U/L (14-59); Albumin Level 3.5 g/dL (3.4-5.0); Alkaline Phosphatase 63 U/L (46-116); Aspartate Amino Transferase 52 U/L (15-37); Bilirubin Direct 0.1 mg/dL (0.0-0.2); Bilirubin Total 0.6 mg/dL (0.2-1.0); Chol HDL Ratio 2.5; Cholesterol 142 mg/dL (<=200); Globulin 3.5 g/dL; HDL Cholesterol 57 mg/dL (40-60); Triglycerides 170 mg/dL (<=150)
== END 2024-10-04 08:11 | disposition home or self-care (01) ==
LOC: LAB 08:10
PROVIDERS: PCP Nurse Practitioner; Visit Provider Internal Medicine Interventional Cardiology
DX: I25.10 Atherosclerotic heart disease of native coronary artery without angina pectoris (principal); I25.83 Coronary atherosclerosis due to lipid rich plaque
CPT/HCPCS: 36415; 80061; 80076